=== PATIENT | female | born 1995 | race African-American/Black ===

== ENCOUNTER 2020-06-18 19:57 | Emergency (ER) | payer OTHER, MEDICAID ==
[~2020-06-18] VITALS: Ht 157.5 cm; Wt 113.6 kg
[2020-06-18] MEDS ORDERED: LAMO25TA4 (20:03)
[2020-06-18] MEDS ORDERED: BUSP10TA (20:03)
[2020-06-18] MEDS ORDERED: HYDR50TA70 (20:03)
[2020-06-18] MEDS ORDERED: TIZA4TAB4 (20:03)
[2020-06-18] MEDS ORDERED: NEOSPORIN OINT 0.9 GM PKT TOP ONE (22:00)
[2020-06-18] MEDS ORDERED: ACETAMINOPHEN 500 MG TAB PO ONE (22:00)
--- NOTE | 2020-06-18 22:43 | REPVR ---
PROCEDURE INFORMATION: Exam: CT Head Without Contrast Exam date and time: 06/18/2020 10:22 PM Age: 25 years old Clinical indication: Injury or trauma; Fall; Blunt trauma (contusions or hematomas); Additional info: Soft hematoma, very tender forehead TECHNIQUE: Imaging protocol: Computed tomography of the head without contrast. Radiation optimization: All CT scans at this facility use at least one of these dose optimization techniques: automated exposure control; mA and/or kV adjustment per patient size (includes targeted exams where dose is matched to clinical indication); or iterative reconstruction. COMPARISON: No relevant prior studies available. FINDINGS: Brain: Normal. No hemorrhage. Unremarkable white matter. No mass effect. Cerebral ventricles: No ventriculomegaly. Bones/joints: Unremarkable. No acute fracture. Paranasal sinuses: Visualized sinuses are unremarkable. No fluid levels. Mastoid air cells: Visualized mastoid air cells are well aerated. Soft tissues: There is right frontal scalp soft tissue injury including hematoma. IMPRESSION: No acute intracranial abnormality. Electronically signed by: Jackson Arellano On 06/18/2020 22:43:44 PM
[2020-06-18] MEDS ORDERED: NAPR-837 PO (22:50)
[2020-06-18 23:33] VITALS: BP 130/69
== END 2020-06-18 23:34 | disposition home or self-care (01) ==
LOC: M ED 19:57
DX: S00.83XA Contusion of other part of head, initial encounter (principal); W01.118A Fall on same level from slipping, tripping and stumbling with subsequent striking against other sharp object, initial encounter; Y92.098 Other place in other non-institutional residence as the place of occurrence of the external cause; Y93.89 Activity, other specified; Y99.8 Other external cause status; J45.909 Unspecified asthma, uncomplicated; J44.9 Chronic obstructive pulmonary disease, unspecified; R56.9 Unspecified convulsions; M79.7 Fibromyalgia; Z79.899 Other long term (current) drug therapy

== ENCOUNTER 2020-09-22 11:09 | Emergency (ER) | payer MEDICAID, OTHER ==
[~2020-09-22] VITALS: Ht 160 cm; Wt 106.5 kg
[~2020-09-22 11:09] MED LIST: BUSP10TA; HYDR50TA70; LAMO25TA4; NAPR-837 PO; TIZA4TAB4
[2020-09-22] MEDS ORDERED: BUSP15TA47 (11:21)
[2020-09-22] MEDS ORDERED: LAMO100T3 (11:21)
[2020-09-22] MEDS ORDERED: ASMA110A INH (11:21)
[2020-09-22] MEDS ORDERED: ONDA-83 (11:22)
[2020-09-22] MEDS ORDERED: dexameTHASONE 4 MG/ML 1ML VIAL (J1100 PER 1MG) PO ONE (12:30)
[2020-09-22] MEDS ORDERED: ONDANSETRON 4 MG ORAL DISINTEGRATING TAB PO ONE (12:30)
[2020-09-22] MEDS ORDERED: ACETAMINOPHEN 500 MG TAB PO ONE (12:30)
[2020-09-22 13:06] LABS: RSV AMPLIFICATION NEGATIVE (NEGATIVE)
[2020-09-22 13:36] VITALS: BP 126/72
[2020-09-22] MEDS ORDERED: TIZA4CAP PO (14:07)
== END 2020-09-22 13:37 | disposition home or self-care (01) ==
LOC: M ED 11:09
DX: B34.9 Viral infection, unspecified (principal); R51.9 Headache, unspecified; J45.909 Unspecified asthma, uncomplicated; M79.7 Fibromyalgia; G47.30 Sleep apnea, unspecified; F41.9 Anxiety disorder, unspecified; F32.9 Major depressive disorder, single episode, unspecified; F17.200 Nicotine dependence, unspecified, uncomplicated; Z79.899 Other long term (current) drug therapy
CPT/HCPCS: 87631; 87880; 99284; J1100; Q0162

== ENCOUNTER 2020-10-28 09:30 | Emergency (ER) | payer OTHER, MEDICAID ==
[~2020-10-28] VITALS: Ht 160 cm; Wt 109.1 kg
[~2020-10-28 09:30] MED LIST changes: +ASMA110A INH; +BUSP15TA47; +LAMO100T3; +ONDA-83; +TIZA4CAP PO
[2020-10-28] MEDS ORDERED: EFFE37.5 PO (09:46)
[2020-10-28 11:27] LABS: BASO # 0.1 10^3/uL (0.0-0.2); BASO % 0.6 % (0.0-1.0); EOS # 0.3 10^3/uL (0.0-0.5); EOS % 3.6 % (0.0-3.0); HEMOGLOBIN 13.5 g/dl (12.0-15.5); LYMPH # 2.9 10^3/uL (1.5-5.0); LYMPH % 31.2 % (24.0-44.0); MEAN CORPUSCULAR HEMOGLOBIN 28.5 pg (27.0-33.0); MEAN CORPUSCULAR HGB CONC 32.1 g/dl (32.0-36.5); MEAN CORPUSCULAR VOLUME 88.6 fl (80.0-96.0); MONO # 1.1 10^3/uL (0.0-0.8); MONO % 11.5 % (2.0-8.0); NEUTROPHILS # 4.9 10^3/uL (1.5-8.5); NEUTROPHILS % 52.8 % (36.0-66.0); PLATELET COUNT, AUTOMATED 341 10^3/uL (150-450); RED BLOOD COUNT 4.74 10^6/uL (4.00-5.40); WHITE BLOOD COUNT 9.4 10^3/uL (4.0-10.0)
[2020-10-28 11:33] LABS: VENOUS BASE EXCESS 0.3 (-2.0-2.0); VENOUS HCO3 26.6 MEQ/L (23.0-27.0); VENOUS O2 SATURATION 89.8 % (60.0-80.0); VENOUS PARTIAL PRESSURE CO2 49.8 mmHg (38.0-50.0); VENOUS PH 7.346 UNITS (7.330-7.430); VENOUS STANDARD HCO3 24.5 MEQ/L; VENOUS TOTAL CO2 28.2 MEQ/L (24.0-28.0)
--- NOTE | 2020-10-28 11:46 | REP ---
INDICATION: DYSPNEA/COUGH. COMPARISON: No comparison chest x-ray TECHNIQUE: Portable upright AP chest radiograph. FINDINGS: The lungs are well inflated and free of infiltrate. Pleural angles are sharp. Heart size is normal. Pulmonary vasculature is not increased. IMPRESSION: No active disease. <Electronically signed by Benson Rothman > 10/28/20 0281
[2020-10-28 12:05] LABS: ALBUMIN 3.4 GM/DL (3.2-5.2); ALT/SGPT 16 U/L (12-78); BILIRUBIN,DIRECT < 0.1 MG/DL (0.0-0.2); BILIRUBIN,TOTAL 0.2 MG/DL (0.2-1.0); CK-MB VALUE MASS < 1.0 NG/ML (<3.6); CPK CREATINE PHOSPHOKINASE 139 U/L (26-192); MB/CK RELATIVE INDEX 0.72 (< OR =4); NT-PRO BNP 48 PG/ML (<125); THYROXINE (T4) 9.1 UG/DL (4.5-12.0); TROPONIN I < 0.02 NG/ML (< 0.10)
[2020-10-28] MEDS ORDERED: ISOVUE-370 76% 100ML VIAL As Ordered ONE (13:05)
[2020-10-28 13:32] VITALS: BP 124/81
--- NOTE | 2020-10-28 14:03 | REP ---
INDICATION: fatigue/cough COMPARISON: None. TECHNIQUE: CT angiography chest after the intravenous administration of 75 cc Isovue 370. Attention pulmonary arteries FINDINGS: There is excellent visualization of the pulmonary arterial vasculature. There are no focal filling defects present that would be considered consistent with acute pulmonary emboli. Limited evaluation of the thoracic aorta shows no abnormalities. There is no mediastinal or hilar adenopathy. There is a small amount of soft tissue density in the anterior mediastinum splaying the anterior junction line likely residual thymic tissue. There are multiple borderline and mildly enlarged left axillary lymph nodes with normal appearing much smaller right axillary lymph nodes. The imaged upper abdomen and imaged osseous structures are within normal limits. Evaluation of the lung hess shows no abnormal nodules, masses, or opacities. IMPRESSION: 1. There is no evidence of a pulmonary embolism. 2. Left axillary lymph nodes as described above. Etiology uncertain. Possible postinflammatory change. Follow-up is suggested. 3. Anterior mediastinal soft tissue likely residual thymic tissue. Consider follow-up. <Electronically signed by Dipesh Bro > 10/28/20 2169
[2020-10-28 15:01] LABS: HEPATITIS B SURFACE ANTIGEN NEGATIVE (NEGATIVE)
[2020-10-28 15:16] LABS: MONO REFLEX EBV VCA IgM NEGATIVE (NEGATIVE)
[2020-10-28 15:29] LABS: HEPATITIS B CORE ANTIBODY IGM NEGATIVE (NEGATIVE)
[2020-10-28 15:31] LABS: HEPATITIS A ANTIBODY IGM NEGATIVE (NEGATIVE)
--- NOTE | 2020-10-28 16:56 | ED PDOC ---
Post-Departure Follow-Up cta chest fafxed to saira [facility]anley for fu Ki Valerio MD October 28, 2020 16:56
--- NOTE | 2020-10-28 20:47 | ECGEPIP ---
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
== END 2020-10-28 14:35 | disposition home or self-care (01) ==
LOC: M ED 09:30
DX: E32.0 Persistent hyperplasia of thymus (principal); R59.9 Enlarged lymph nodes, unspecified; R53.1 Weakness; E66.9 Obesity, unspecified; J45.909 Unspecified asthma, uncomplicated; M79.7 Fibromyalgia; F17.200 Nicotine dependence, unspecified, uncomplicated; Z79.899 Other long term (current) drug therapy
CPT/HCPCS: 36415; 71045; 71275; 80047; 80076; 82550; 82553; 82803; 83880; 84436; 84443; 84702; 85025; 85379; 86308; 86665; 86705; 86709; 86803; 87040; 87340; 87798; 93005; 99284; Q9967

== ENCOUNTER 2020-10-31 17:57 | Emergency (ER) | payer MEDICAID, OTHER ==
[~2020-10-31] VITALS: Ht 160 cm; Wt 110.3 kg
[~2020-10-31 17:57] MED LIST changes: +EFFE37.5 PO
[2020-10-31] MEDS ORDERED: ACETAMINOPHEN 500 MG TAB PO ONE (20:35)
[2020-10-31] MEDS ORDERED: NS 1,000 ML IV ONE (20:35)
[2020-10-31 21:09] LABS: BASO # 0.1 10^3/uL (0.0-0.2); BASO % 0.6 % (0.0-1.0); EOS # 0.5 10^3/uL (0.0-0.5); EOS % 3.8 % (0.0-3.0); HEMATOCRIT 43.4 % (36.0-47.0); HEMOGLOBIN 13.9 g/dl (12.0-15.5); LYMPH # 3.9 10^3/uL (1.5-5.0); LYMPH % 33.3 % (24.0-44.0); MEAN CORPUSCULAR HEMOGLOBIN 28.3 pg (27.0-33.0); MEAN CORPUSCULAR VOLUME 88.4 fl (80.0-96.0); MONO % 8.3 % (2.0-8.0); NEUTROPHILS # 6.3 10^3/uL (1.5-8.5); NEUTROPHILS % 53.7 % (36.0-66.0); PLATELET COUNT, AUTOMATED 343 10^3/uL (150-450); RED BLOOD COUNT 4.91 10^6/uL (4.00-5.40); WHITE BLOOD COUNT 11.8 10^3/uL (4.0-10.0)
--- NOTE | 2020-10-31 21:26 | REPVR ---
PROCEDURE INFORMATION: Exam: CT Head Without Contrast Exam date and time: 10/31/2020 8:34 PM Age: 25 years old Clinical indication: Pain; Headache; Other: Severe; Additional info: Severe headache 1 week, upper ext weakness TECHNIQUE: Imaging protocol: Computed tomography of the head without contrast. Radiation optimization: All CT scans at this facility use at least one of these dose optimization techniques: automated exposure control; mA and/or kV adjustment per patient size (includes targeted exams where dose is matched to clinical indication); or iterative reconstruction. COMPARISON: CT Head without contrast 06/18/2020 10:14 PM FINDINGS: Brain: Unremarkable. No hemorrhage. Unremarkable white matter. No mass effect. Cerebral ventricles: No ventriculomegaly. Bones/joints: Unremarkable. No acute fracture. Paranasal sinuses: Visualized sinuses are unremarkable. No fluid levels. Mastoid air cells: Visualized mastoid air cells are well aerated. Soft tissues: Unremarkable. IMPRESSION: No acute intracranial abnormality. Electronically signed by: Chapo Ramos On 10/31/2020 21:26:16 PM
[2020-10-31 21:34] LABS: ERYTHROCYTE SEDIMENTATION RATE 10 mm/hr (0-20)
[2020-10-31 21:46] LABS: ALBUMIN 3.5 GM/DL (3.2-5.2); ALT/SGPT 17 U/L (12-78); BILIRUBIN,DIRECT < 0.1 MG/DL (0.0-0.2); BILIRUBIN,TOTAL 0.2 MG/DL (0.2-1.0); BLOOD UREA NITROGEN 9 MG/DL (7-18); C REACTIVE PROTEIN QUANTITATIV 0.35 MG/DL (0.00-0.30); CALCIUM LEVEL 8.2 MG/DL (8.5-10.1); CARBON DIOXIDE LEVEL 28 MEQ/L (21-32); CHLORIDE LEVEL 108 MEQ/L (98-107); CK-MB VALUE MASS < 1.0 NG/ML (<3.6); CPK CREATINE PHOSPHOKINASE 141 U/L (26-192); CREATININE FOR GFR 0.75 MG/DL (0.55-1.30); GLOMERULAR FILTRATION RATE > 60.0 (>60); GLUCOSE, FASTING 73 MG/DL (70-100); MB/CK RELATIVE INDEX 0.71 (< OR =4); POTASSIUM SERUM 4.4 MEQ/L (3.5-5.1); SODIUM LEVEL 139 MEQ/L (136-145); TOTAL PROTEIN 7.5 GM/DL (6.4-8.2); TROPONIN I < 0.02 NG/ML (< 0.10)
[2020-11-01 01:16] VITALS: BP 115/80
--- NOTE | 2020-11-01 05:34 | ECGEPIP ---
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
== END 2020-11-01 01:22 | disposition home or self-care (01) ==
LOC: M ED 17:57
DX: R53.83 Other fatigue (principal)

== ENCOUNTER → 2020-11-13 | Outpatient (REF) | payer OTHER, MEDICAID | LOC: M SFHCPLAZ 15:08 | PROVIDERS: ATTEND Physician Assistant | DX: M62.81 Muscle weakness (generalized) (principal) ==

== ENCOUNTER → 2020-11-18 | Outpatient (CLI) | payer OTHER ==
--- NOTE | 2020-11-18 15:59 | REPVR ---
PROCEDURE INFORMATION: Exam: MR Head Without and With Contrast Exam date and time: 11/18/2020 3:39 PM Age: 25 years old Clinical indication: Weakness, extremity; Patient HX: Bilateral ue & le weakness, as well as family HX ms; Additional info: Fatigue muscle weakness pain TECHNIQUE: Imaging protocol: MR of the head without and with intravenous contrast. Contrast material: PROHANCE; Contrast volume: 20 ml; Contrast route: INTRAVENOUS (IV); COMPARISON: CT Head without contrast 10/31/2020 8:34 PM FINDINGS: Brain: Examination of the brain demonstrates normal morphology and signal intensity.No acute infarction, masses, midline shift or acute hemorrhage is seen. No acute intracranial abnormality is identified.There is no abnormal diffusion weighted signal intensity to suggest an acute ischemic event.The cortical munoz / white matter interfaces are preserved throughout the brain.Intracranial flow voids are well maintained. Cerebral ventricles: The ventricular system is not dilated and is appropriate for the patient's age. Bones/joints: Unremarkable. Paranasal sinuses: Normal as visualized. No acute sinusitis. Mastoid air cells: Normal as visualized. No mastoid effusion. Orbital cavity: Unremarkable. Soft tissues: Unremarkable. IMPRESSION: 1. No acute infarction, masses or hemorrhage is seen. No acute intracranial abnormality is identified. No abnormal contrast enhancement is seen. 2. There has been no adverse interval change since the previous study. Electronically signed by: Trey Gaspar On 11/18/2020 15:59:15 PM
== END ==
LOC: M PLARAD 14:00
PROVIDERS: ATTEND Physician Assistant
DX: R53.83 Other fatigue (principal); R52 Pain, unspecified

== ENCOUNTER → 2020-11-28 | Outpatient (CLI) | payer OTHER ==
--- NOTE | 2020-11-28 16:41 | REPVR ---
PROCEDURE INFORMATION: Exam: MR Thoracic Spine Without and With Contrast Exam date and time: 11/28/2020 2:59 PM Age: 25 years old Clinical indication: Patient HX: Muscle weakness TECHNIQUE: Imaging protocol: Multiplanar magnetic resonance images of the thoracic spine without and with contrast. Contrast material: PROHANCE; Contrast volume: 20 ml; Contrast route: INTRAVENOUS (IV); COMPARISON: MRI-C SPINE W/O FOLL BY WITH 11/28/2020 1:17 PM FINDINGS: Vertebrae: Unremarkable. Spinal cord: Normal signal. No cord compression. Discs/Spinal canal/Neural foramina: No significant disc disease. No significant spinal canal stenosis. Soft tissues: Unremarkable. IMPRESSION: No significant abnormality of the thoracic spine. Electronically signed by: Clayton Yusuf On 11/28/2020 16:41:05 PM
--- NOTE | 2020-11-28 16:49 | REPVR ---
PROCEDURE INFORMATION: Exam: MR Cervical Spine Without and With Contrast Exam date and time: 11/28/2020 2:59 PM Age: 25 years old Clinical indication: Patient HX: Muscle weakness TECHNIQUE: Imaging protocol: Multiplanar magnetic resonance images of the cervical spine without and with contrast. Contrast material: PROHANCE; Contrast volume: 20 ml; Contrast route: INTRAVENOUS (IV); COMPARISON: MRI-Brain W/O FOLL BY WITH 11/18/2020 2:38 PM FINDINGS: Vertebrae: Unremarkable. Spinal cord: Normal signal. No cord compression. No enhancing lesions were identified after the administration of contrast. Discs/Spinal canal/Neural foramina: No significant disc disease. No significant spinal stenosis. Vasculature: Expected flow voids in the vertebral arteries. Soft tissues: Unremarkable IMPRESSION: Unremarkable cervical spine. Electronically signed by: Clayton Yusuf On 11/28/2020 16:49:17 PM
== END ==
LOC: M PLARAD 13:07
PROVIDERS: ATTEND Physician Assistant
DX: M62.81 Muscle weakness (generalized) (principal)

== ENCOUNTER → 2021-01-27 | Outpatient (CLI) | payer OTHER ==
[2021-01-27 17:53] LABS: HEMOGLOBIN A1c 5.3 %
[2021-01-27 18:06] LABS: CPK CREATINE PHOSPHOKINASE 174 U/L (26-192); RHEUMATOID FACTOR QUANT < 10.0 IU/ML (<15.0)
[2021-01-27 18:14] LABS: TOTAL 25(OH) VITAMIN D 12.1 NG/ML (30.0-100.0); VITAMIN B12 LEVEL 842 PG/ML (247-911)
[2021-01-27 18:15] LABS: FOLATE > 24.0 NG/ML (>5.4)
== END ==
LOC: M PLALAB 14:26
PROVIDERS: ATTEND Psychiatry & Neurology Neurology
DX: G62.9 Polyneuropathy, unspecified (principal)

== ENCOUNTER 2021-03-22 02:19 | Emergency (ER) | payer OTHER ==
[~2021-03-22] VITALS: Ht 160 cm; Wt 116.4 kg
[2021-03-22 02:20] VITALS: BP 140/81
[2021-03-22] MEDS ORDERED: ARIP1TAB6 (14:19)
[2021-03-22] MEDS ORDERED: BUSP10TA (14:19)
[2021-03-22] MEDS ORDERED: MELO7.5T35 (14:19)
[2021-03-22] MEDS ORDERED: TIZA2TA PO (15:00)
--- OUTSIDE RECORDS SUMMARY | 2021-03-25 13:20 | CCD ---
Author Author MontielPrerna Organization Unknown Address [address] [address] Phone Care Team Providers Care Supply Chain Engineer Name Role Phone TianaLaliTrey PCP Allergies, Adverse Reactions, Alerts Concept Allergy Name Reaction Severity Onset Date Status Documentation Date Phone Number Npid Taxonomy Code Taxonomy Desc Author Last Name Author Mi rst Name Concept Type 692 nickel Unknown Active 02/26/2020 [id number] Nurse Practitioner Tiana Yang FDGA 583 raspberry Unknown Active 02/26/2020 [id number] Nurse Practitioner Tiana Yang [facility] [id number] Latex, Natural Rubber Unknown Active 02/26/2020 [id number] Nurse Practitioner Tiana Yang [facility] Problem List Concept Problem Description Status Start Date Created Date Resolv ed Date Snomed Code F33.1 Major Depressive Disorder, Recurrent episode, Moderate Active 01/01/2021 F41.1 Generalized Anxiety Disorder Active 01/01/2021 F43.9 Unspecified Trauma- and Stressor-Related Disorder Active 01/01/2021 Z72.0 Tobacco Use Disorder, Mild Active 01/01/2021 Medications Rx Norm Medication Route Route Concept Start Date Stop Date Dosage Jag quency Duration Formula Strength Dosage Form Dosage Form Code Dosage Description Medication Id Account Npid Author First Name Author Last Name Taxonomy Code Taxonomy Desc Phone Number [id number] hydroxyzine HCl 08/22/2020 50 mg tablet as directed [id number] [id number] Trey Montiel [id number] Nurse Practitioner [id number] [id number] buspirone by mouth [id number] 08/22/2020 twice a day 30 15 mg tab let [id number] Trey Montiel [id number] Nurse Practitioner [phone] [id number] lamotrigine by mouth [id number] 08/22/2020 once a day 30 100 mg t ablet 74488 [phone] [id number] Trey Tiana [id number] Nurse Practitioner [id number] Social History Social History Element Description Concept Effective Date Smoking Status Unknown if ever smoked [id number] Immunizations No Data in Section Vital Signs No Data in Section Procedures Date Concept Id Description Targeted Site Concept Targeted Site Concept Type 01/01/2021 46642-85 [facility] Telemed E/M Lvl 3--Est pt CPT Patient has no history of implantable de vices Encounters Encounter Start Date End Date Encounter Type Description Diagnosis Di agnosis Desc Location Author First Name Author Last Name Npid Taxonomy Cod e Taxonomy Desc Phone Number Location Addr1 Location Addr2 Location [facility] Location Sta te Location [facility] [id number] 01/01/2021 01/01/2021 51135-43 [facility] Telemed E/M Lvl 3--Est p t F33.1 Major depressive disorder, recurrent, moderate [facility] Tiana Yang [id number] Nurse Practitioner [phone] [address] [address] Plan of Treatment No Data in Section Lab Results No Data in Section Instructions No Data in Section Functional Cognitive Status No Data in Section Insurance Providers Insurance Id Policy Effective Date Policy Thru Date [place] [facility] [place] jones [id number] 2020 [place] - MEDICA ID MANAGED
--- OUTSIDE RECORDS SUMMARY | 2021-03-25 13:20 | CCD | Continuity of Care Document ---
Author Prerna Montesinos M.D. Organization Unknown Address [address] [place] [address] Phone [phone] Care Team Providers Care Provider Education Specialist Name Role Phone DouglasSuze PA-C AUTM [phone] Problems Active Problems Provider Date Syncope and collapse Maxwell Giraldo M.D. Onset: 12/02/2020 Malaise and fatigue Maxwell Giraldo M.D. Onset: 12/02/2020 Skin sensation disturbance Maxwell Giraldo M.D. Onset: 2020 Migraine without aura, not refractory Maxwell Giraldo M.D. On set: 12/02/2020 Neck pain Maxwell Giraldo M.D. Onset: 12/02/2020 Low back pain Maxwell Giraldo M.D. Onset: 12/02/2020 Isolated seizures Maxwell Giraldo M.D. Onset: 12/02/2020 Backache Maxwell Giraldo M.D. Onset: 01/27/2021 Carpal tunnel syndrome of left wrist Maxwell Giraldo M.D. Ons et: 01/27/2021 Social History Type Date Description Comments Sex Unknown Allergies, Adverse Reactions, Alerts Description No Information Available Medications Active Medications SIG Qnty Indications Ordering Provide r Date Tizanidine HCL 4mg Tablets take half or 1 tablets by mouth twice a day as needed for neck & back pain 60tabs Maxwell Giraldo M.D. 01/27/2021 Meloxicam 7.5mg Tablets 1 by mouth everyday as needed for neck & back pain 30tabs Maxwell silva M.D. 01/20/2021 Immunizations Description No Information Available Vital Signs Description No Information Available Results Test Acquired Date Facility Test Result H/L Range Note Hemoglobin A1c 01/27/2021 [facility] Hemoglobin A1c 5.3 % Normal 1 Estimated Average Glucose 105 mg/dL Normal 60-110 Laboratory test finding 01/27/2021 [facility] CPK Creatine Phosphokinase 174 U/L Normal 26-192 Vitamin B12 Level 842 pg/mL Normal 247-911 2 Folate > 24.0 NG/ML Normal >5.4 3 Total 25(Oh) Vitamin D 12.1 NG/ML Low 30.0-100.0 Rheumatoid Factor Quant < 10.0 IU/mL Normal <15.0 Erythrocyte Sedimentation Rate 19 mm/hr Normal 0-20 1 REFERENCE RANGES: <=5.6% NORMAL 5.7-6.4% SUGGESTS IMPAIRED GLUCOSE META BOLISM/PREDIABETIC >= 6.5% ABNORMAL 2 VITAMIN B12 NORMAL RANGE NORMAL 247 - 911 PG/ML INDETERMINATE 211 - 246 PG/ML DEFICIENT LESS THAN 211 PG/ML 3 FOLATE NORMAL RANGE NORMAL GREATER THAN 5.4 NG/ML INDETERMINATE 3.4-5.4 NG/ML DEFICIENT LESS THAN 3.4 NG/ML Procedures Date Code Description Status 01/27/2021 11606 Office/Outpatient Established Mo d MDM 30-39 Min Completed 01/23/2021 62728 Sympathetic Skin Responses Compl eted 01/23/2021 70560 Test Autonomic Nervous System, C ardiovagal Innervation Completed 01/12/2021 66224 Nerve Conduction 11-12 Studies C ompleted 01/12/2021 18920 Needle Electromyography Complete , Five Or More Muscles Studied Completed 01/12/2021 03480 Needle Electromyography Complete , Five Or More Muscles Studied Completed 01/05/2021 43694 Nerve Conduction 9-10 Studies Co mpleted 01/05/2021 53488 Needle Electromyography Complete , Five Or More Muscles Studied Completed 01/05/2021 52525 Needle Electromyography Complete , Five Or More Muscles Studied Completed 12/02/2020 59447 Office/Outpatient New High MDM 6 0-74 Minutes Completed Medical Devices Description No Information Available Encounters Type Date Location Provider Dx Diagnosis Office Visit 01/27/2021 1:30p [place] R55 Syncope and collapse M54.89 Other dorsalgia R20.2 Paresthesia of skin M54.2 Cervicalgia G56.02 Carpal tunnel syndrome, left upper limb G40.89 Other seizures R53.1 Weakness G43.009 Migraine w/o aura, not intra ctable, w/o status migrainosus R20.0 Anesthesia of skin Office Visit 12/02/2020 8:30a Main office - [place] Nikole Ross R55 Syncope and collapse G40.89 Other seizures R53.1 Weakness R20.0 Anesthesia of skin G43.009 Migraine w/o aura, not intra ctable, w/o status migrainosus M54.2 Cervicalgia M54.5 Low back pain Assessments Date Code Description Provider 01/27/2021 R55 Syncope and collapse Maxwell Giraldo M.D. 01/27/2021 M54.89 Other dorsalgia Maxwell Giraldo M.D. 01/27/2021 R20.2 Paresthesia of skin Maxwell Giraldo M.D. 01/27/2021 M54.2 Cervicalgia Maxwell Giraldo M.D. 01/27/2021 G56.02 Carpal tunnel syndrome, left upp er limb Maxwell Giraldo M.D. 01/27/2021 G40.89 Other seizures Maxwell Giraldo M.D. 01/27/2021 R53.1 Weakness Maxwell Giraldo M.D. 01/27/2021 G43.009 Migraine without aur a, not intractable, without status migrainosus Maxwell Giraldo M.D. 01/27/2021 R20.0 Anesthesia of skin Masoud Ross 01/23/2021 R55 Syncope and collapse Maxwell Giraldo M.D. 01/23/2021 R55 Syncope and collapse Ans/VS 01/12/2021 M54.89 Other dorsalgia Maxwell Giraldo M.D. 01/12/2021 R20.2 Paresthesia of skin Maxwell Giraldo M.D. 01/12/2021 M62.9 Disorder of muscle, unspecified Maxwell Giraldo M.D. 01/05/2021 M54.2 Cervicalgia Maxwell Giraldo M.D. 01/05/2021 M62.9 Disorder of muscle, unspecified Maxwell Giraldo M.D. 01/05/2021 G56.02 Carpal tunnel syndrome, left upp er limb Maxwell Giraldo M.D. 12/02/2020 R55 Syncope and collapse Maxwell Giraldo M.D. 12/02/2020 G40.89 Other seizures Maxwell Giraldo M.D. 12/02/2020 R53.1 Weakness Maxwell Giraldo M.D. 12/02/2020 R20.0 Anesthesia of skin Masoud Ross 12/02/2020 G43.009 Migraine without aur a, not intractable, without status migrainosus Maxwell Giraldo M.D. 12/02/2020 M54.2 Cervicalgia Maxwell Giraldo M.D. 12/02/2020 M54.5 Low back pain Maxwell Giraldo M.D. Plan of Treatment Future Appointment(s):* 04/29/2021 11:15 am - Maxwell Giraldo M.D. at [facility] * 02/18/2021 2:30 pm - EEG at [facility] Functional Status Description No Information Available Mental Status Description No Information Available Referrals Description No Information Available
--- OUTSIDE RECORDS SUMMARY | 2021-03-25 13:20 | CCD | Continuity of Care Document ---
Author Author Prerna PERRY M.D. Organization Unknown Address [address] [place] [address] Phone [phone] Care Team Providers Care Potato Pancake Frier Name Role Phone Douglas, Suze ALVARADO AUTM [phone] Problems Active Problems Provider Date Syncope and collapse Maxwell Perry M.D. Onset: 12/02/2020 Malaise and fatigue Maxwell Perry M.D. Onset: 12/02/2020 Skin sensation disturbance Maxwell Perry M.D. Onset: 2020 Migraine without aura, not refractory Maxwell Perry M.D. On set: 12/02/2020 Neck pain Maxwell Perry M.D. Onset: 12/02/2020 Low back pain Maxwell Perry M.D. Onset: 12/02/2020 Isolated seizures Maxwell Perry M.D. Onset: 12/02/2020 Social History Type Date Description Comments Sex Unknown Allergies, Adverse Reactions, Alerts Description No Information Available Medications Description No Information Available Immunizations Description No Information Available Vital Signs Description No Information Available Results Description No Information Available Procedures Date Code Description Status 01/05/2021 89900 Nerve Conduction 9-10 Studies Co mpleted 01/05/2021 26590 Needle Electromyography Complete , Five Or More Muscles Studied Completed 01/05/2021 97528 Needle Electromyography Complete , Five Or More Muscles Studied Completed 12/02/2020 06054 Office/Outpatient [facility] 6 0-74 Minutes Completed Medical Devices Description No Information Available Encounters Type Date Location Provider Dx Diagnosis Office Visit 12/02/2020 8:30a Main office - [place] Nikole Ross R55 Syncope and collapse G40.89 Other seizures R53.1 Weakness R20.0 Anesthesia of skin G43.009 Migraine w/o aura, not intra ctable, w/o status migrainosus M54.2 Cervicalgia M54.5 Low back pain Assessments Date Code Description Provider 01/05/2021 M54.2 Cervicalgia Maxwell Perry M.D. 01/05/2021 M62.9 Disorder of muscle, unspecified Maxwell Perry M.D. 01/05/2021 G56.02 Carpal tunnel syndrome, left upp er limb Maxwell Perry M.D. 12/02/2020 R55 Syncope and collapse Maxwell Perry M.D. 12/02/2020 G40.89 Other seizures Maxwell Perry M.D. 12/02/2020 R53.1 Weakness Maxwell Perry M.D. 12/02/2020 R20.0 Anesthesia of skin Masoud Ross 12/02/2020 G43.009 Migraine without aur a, not intractable, without status migrainosus Maxwell Perry M.D. 12/02/2020 M54.2 Cervicalgia Maxwell Perry M.D. 12/02/2020 M54.5 Low back pain Maxwell Perry M.D. Plan of Treatment Future Appointment(s):* 01/12/2021 8:20 am - Maxwell Perry M.D. at [facility] * 01/27/2021 1:30 pm - Maxwell Perry M.D. at [facility] * 01/23/2021 10:00 am - Ans/VS at [facility] * 01/23/2021 8:15 am - EEG at [facility] Functional Status Description No Information Available Mental Status Description No Information Available Referrals Description No Information Available
--- OUTSIDE RECORDS SUMMARY | 2021-03-25 13:20 | CCD | Continuity of Care Document ---
Author Prerna Montesinos M.D. Organization Unknown Address [address] [place] [address] Phone [phone] Care Team Providers Care Grader Meat Name Role Phone DouglasAlbinaoe ALVARADO AUTM [phone] Problems Active Problems Provider Date Syncope and collapse Maxwell Giraldo M.D. Onset: 12/02/2020 Malaise and fatigue Maxwell Giraldo M.D. Onset: 12/02/2020 Skin sensation disturbance Maxwell Giraldo M.D. Onset: 2020 Migraine without aura, not refractory Maxwell Giraldo M.D. On set: 12/02/2020 Neck pain Maxwell Giraldo M.D. Onset: 12/02/2020 Low back pain Maxwell Giraldo M.D. Onset: 12/02/2020 Isolated seizures Maxwell Giraldo M.D. Onset: 12/02/2020 Social History Type Date Description Comments Sex Unknown Allergies, Adverse Reactions, Alerts Description No Information Available Medications Active Medications SIG Qnty Indications Ordering Provide r Date Meloxicam 7.5mg Tablets 1 by mouth everyday as needed for neck & back pain 30tabs Maxwell silva M.D. 01/20/2021 Immunizations Description No Information Available Vital Signs Description No Information Available Results Description No Information Available Procedures Date Code Description Status 01/23/2021 33818 Sympathetic Skin Responses Compl eted 01/23/2021 42542 Test Autonomic Nervous System, C ardiovagal Innervation Completed 01/12/2021 87210 Nerve Conduction 11-12 Studies C ompleted 01/12/2021 62904 Needle Electromyography Complete , Five Or More Muscles Studied Completed 01/12/2021 78688 Needle Electromyography Complete , Five Or More Muscles Studied Completed 01/05/2021 50988 Nerve Conduction 9-10 Studies Co mpleted 01/05/2021 44556 Needle Electromyography Complete , Five Or More Muscles Studied Completed 01/05/2021 04953 Needle Electromyography Complete , Five Or More Muscles Studied Completed 12/02/2020 27129 Office/Outpatient New High MDM 6 0-74 Minutes Completed Medical Devices Description No Information Available Encounters Type Date Location Provider Dx Diagnosis Office Visit 12/02/2020 8:30a Main office - [place] Nikole Ross R55 Syncope and collapse G40.89 Other seizures R53.1 Weakness R20.0 Anesthesia of skin G43.009 Migraine w/o aura, not intra ctable, w/o status migrainosus M54.2 Cervicalgia M54.5 Low back pain Assessments Date Code Description Provider 01/23/2021 R55 Syncope and collapse Ans/VS 01/12/2021 M54.89 Other dorsalgia Maxwell Giraldo M.D. 01/12/2021 R20.2 Paresthesia of skin Maxwell Giraldo M.D. 01/12/2021 M62.9 Disorder of muscle, unspecified Maxwell Giraldo M.D. 01/05/2021 M54.2 Cervicalgia aMxwell Giraldo M.D. 01/05/2021 M62.9 Disorder of muscle, [...] Giraldo M.D. Plan of Treatment Future Appointment(s):* 02/18/2021 2:30 pm - EEG at [facility] * 01/27/2021 1:30 pm - Maxwell Giraldo M.D. at [facility] Functional Status Description No Information Available Mental Status Description No Information Available Referrals Description No Information Available
--- OUTSIDE RECORDS SUMMARY | 2021-03-25 13:20 | CCD | Continuity of Care Document ---
Author Author Prerna GIRALDO M.D. Organization Unknown Address [address] [place] [address] Phone [phone] Care Team Providers Care Body Work Auto Trimmer Name Role Phone DouglasSuze PA-C AUTM [phone] Problems Active Problems Provider Date Syncope and [...] Information Available Procedures Date Code Description Status 01/27/2021 52171 Office/Outpatient Established Mo d MDM 30-39 Min Completed 01/23/2021 31368 Sympathetic Skin Responses Compl eted 01/23/2021 80148 Test Autonomic Nervous System, C ardiovagal Innervation Completed 01/12/2021 45426 Nerve Conduction 11-12 Studies C ompleted 01/12/2021 35709 Needle Electromyography Complete , Five Or More Muscles Studied Completed 01/12/2021 80438 Needle Electromyography Complete , Five Or More Muscles Studied Completed 01/05/2021 83046 Nerve Conduction 9-10 Studies Co mpleted 01/05/2021 04237 Needle Electromyography Complete , Five Or More Muscles Studied Completed 01/05/2021 64129 Needle Electromyography Complete , Five Or More Muscles Studied Completed 12/02/2020 91690 Office/Outpatient New High MDM 6 0-74 Minutes Completed Medical Devices Description No Information Available Encounters Type Date Location Provider Dx Diagnosis Office Visit 01/27/2021 1:30p Main office - [place] Nikole Ross R55 Syncope and collapse M54.89 Other dorsalgia R20.2 Paresthesia of skin M54.2 Cervicalgia G56.02 Carpal tunnel syndrome, left upper limb G40.89 Other seizures R53.1 Weakness G43.009 Migraine w/o aura, not intra ctable, w/o status migrainosus R20.0 Anesthesia of skin Office Visit 12/02/2020 8:30a [place] R55 Syncope and collapse G40.89 Other seizures [...] Carpal tunnel syndrome, left upp er limb Masodu Ross.DBarrett 01/27/2021 G40.89 Other seizures Masoud Ross.DBarrett 01/27/2021 R53.1 Weakness Masoud Ross.DBarrett 01/27/2021 G43.009 Migraine without aur a, not intractable, without status migrainosus Masoud Ross.DBarrett 01/27/2021 R20.0 Anesthesia of skin Masoud Ross .DBarrett 01/23/2021 R55 Syncope and collapse Maxwell Ali M.DBarrett 01/23/2021 R55 Syncope and collapse Ans/VS 01/12/2021 M54.89 Other dorsalgia Masoud Ross.DBarrett 01/12/2021 R20.2 Paresthesia of skin Maxwell Giraldo M.DBarrett 01/12/2021 M62.9 Disorder of muscle, unspecified Masoud Ross.DBarrett 01/05/2021 M54.2 Cervicalgia Maxwell Giraldo M.D. 01/05/2021 M62.9 Disorder of muscle, unspecified Maxwell Giraldo, Masoud.DBarrett 01/05/2021 G56.02 Carpal tunnel syndrome, left upp er limb Masoud Ross.DBarrett 12/02/2020 R55 Syncope and collapse Masoud Ross.DBarrett 12/02/2020 G40.89 Other seizures Masoud Ross.DBarrett 12/02/2020 R53.1 Weakness Masoud Ross.DBarrett 12/02/2020 R20.0 Anesthesia of skin Masoud Ross .DBarrett 12/02/2020 G43.009 Migraine without aur a, not intractable, without status migrainosus Masoud Ross.DBarrett 12/02/2020 M54.2 Cervicalgia Maxwell Giraldo M.D. 12/02/2020 M54.5 Low back pain Maxwell Giraldo M.D. Plan of Treatment Future Appointment(s):* 04/29/2021 11:15 am - Maxwell Giraldo M.D. at [facility] * 02/18/2021 2:30 pm - EEG at [facility] Functional Status Description No Information Available Mental Status Description No Information Available Referrals Description No Information Available
--- OUTSIDE RECORDS SUMMARY | 2021-03-25 13:20 | CCD | Continuity of Care Document ---
Author Author Alexis/Prerna ELKINS Organization Unknown Address [address] [place] [address] Phone [phone] Care Team Providers Care Consulting Property Manager Name Role Phone Suze Cole PA-C AUTM [phone] Problems Active Problems Provider Date Syncope and [...] Available Procedures Date Code Description Status 01/27/2021 17370 Office/Outpatient Established Mo d MDM 30-39 Min Completed 01/23/2021 57661 Sympathetic Skin Responses Compl eted 01/23/2021 71122 Test Autonomic Nervous System, C ardiovagal Innervation Completed 01/12/2021 94481 Nerve Conduction 11-12 Studies C ompleted 01/12/2021 53621 Needle Electromyography Complete , Five Or More Muscles Studied Completed 01/12/2021 03722 Needle Electromyography Complete , Five Or More Muscles Studied Completed 01/05/2021 25107 Nerve Conduction 9-10 Studies Co mpleted 01/05/2021 60618 Needle Electromyography Complete , Five Or More Muscles Studied Completed 01/05/2021 50992 Needle Electromyography Complete , Five Or More Muscles Studied Completed 12/02/2020 37265 Office/Outpatient New High MDM 6 0-74 Minutes Completed Medical Devices Description No Information Available Encounters Type Date Location Provider Dx Diagnosis Office Visit 01/27/2021 1:30p Main office - [place] Nikole Ross R55 Syncope and collapse M54.89 Other dorsalgia R20.2 Paresthesia of skin M54.2 Cervicalgia G56.02 Carpal tunnel syndrome, left upper limb G40.89 Other seizures R53.1 Weakness G43.009 Migraine w/o aura, not intra ctable, w/o status migrainosus R20.0 Anesthesia of skin Office Visit 12/02/2020 8:30a Main office - [place] Nikole Ross R55 Syncope and collapse G40.89 [...] M.D. 01/27/2021 G40.89 Other seizures Maxwell Giraldo M.DBarrett 01/27/2021 R53.1 Weakness Masoud Ross.D. 01/27/2021 G43.009 Migraine without aur a, not intractable, without status migrainosus Maxwell Giraldo M.DBarrett 01/27/2021 R20.0 Anesthesia of skin Maxwell Giraldo M .DBarrett 01/23/2021 R55 Syncope and collapse Maxwell Ali M.DBarrett 01/23/2021 R55 Syncope and collapse Ans/VS 01/12/2021 M54.89 Other dorsalgia Maxwell Giraldo M.DBarrett 01/12/2021 R20.2 Paresthesia of skin Maxwell Giraldo M.DBarrett 01/12/2021 M62.9 Disorder of muscle, unspecified Maxwell Giraldo M.DBarrett 01/05/2021 M54.2 Cervicalgia Nikole RossDBarrett 01/05/2021 M62.9 Disorder of muscle, unspecified Masoud Ross.DBarrett 01/05/2021 G56.02 Carpal tunnel syndrome, left upp er limb Masoud Ross.DBarrett 12/02/2020 R55 Syncope and collapse Masoud Ross.DBarrett 12/02/2020 G40.89 Other seizures Masoud Ross.DBarrett 12/02/2020 R53.1 Weakness Masoud Ross.DBarrett 12/02/2020 R20.0 Anesthesia of skin Masoud Ross .DBarrett 12/02/2020 G43.009 Migraine without aur a, not intractable, without status migrainosus Masoud Ross.DBarrett 12/02/2020 M54.2 Cervicalgia Masoud Ross.DBarrett 12/02/2020 M54.5 Low back pain Maxwell Giraldo M.D. Plan of Treatment Future Appointment(s):* 04/29/2021 11:15 am - Maxwell Giraldo M.D. at [facility] * 02/18/2021 2:30 pm - EEG at [facility] Functional Status Description No Information Available Mental Status Description No Information Available Referrals Description No Information Available
--- OUTSIDE RECORDS SUMMARY | 2021-03-25 13:20 | CCD | Continuity of Care Document ---
Author Author Prerna GIRALDO M.D. Organization Unknown Address [address] [place] [address] Phone [phone] Care Team Providers Care Bottom Filler Name Role Phone DouglasSuze PA-C AUTM [phone] Problems Active Problems Provider Date Syncope and [...] Available Procedures Date Code Description Status 01/27/2021 96911 Office/Outpatient Established Mo d MDM 30-39 Min Completed 01/23/2021 62986 Sympathetic Skin Responses Compl eted 01/23/2021 95268 Test Autonomic Nervous System, C ardiovagal Innervation Completed 01/12/2021 70590 Nerve Conduction 11-12 Studies C ompleted 01/12/2021 47968 Needle Electromyography Complete , Five Or More Muscles Studied Completed 01/12/2021 35111 Needle Electromyography Complete , Five Or More Muscles Studied Completed 01/05/2021 07968 Nerve Conduction 9-10 Studies Co mpleted 01/05/2021 72057 Needle Electromyography Complete , Five Or More Muscles Studied Completed 01/05/2021 94666 Needle Electromyography Complete , Five Or More Muscles Studied Completed 12/02/2020 39476 Office/Outpatient New High MDM 6 0-74 Minutes Completed Medical Devices Description No Information Available Encounters Type Date Location Provider Dx Diagnosis Office Visit 01/27/2021 1:30p Main office - [place] Nikole Ross R55 Syncope and collapse M54.89 Other dorsalgia R20.2 Paresthesia of skin M54.2 Cervicalgia G56.02 Carpal tunnel syndrome, left upper limb G40.89 Other seizures R53.1 Weakness G43.009 Migraine w/o aura, not intra ctable, w/o status migrainosus R20.0 Anesthesia of skin Office Visit 12/02/2020 8:30a [place] R[place] Syncope and collapse G40.89 Other [...] syndrome, left upp er limb Masoud Ross.DBarrett 01/27/2021 G40.89 Other seizures Masoud Ross.DBarrett [...] 11:15 am - Maxwell Giraldo M.D. at [facility] * 02/18/2021 2:30 pm - EEG at [facility] Functional Status Description No Information Available Mental Status Description No Information Available Referrals Description No Information Available
--- OUTSIDE RECORDS SUMMARY | 2021-03-25 13:20 | CCD | Continuity of Care Document ---
Author Author Prerna BAUMAN PA Organization Unknown Address [address] [place] [address] Phone [phone] Care Team Providers Care Refractory Manager Name Role Phone William Co Publi AUTM [phone] [facility] AUTM Problems Description No Information Available Social History Type Date Description Comments Sex Unknown ETOH Use Occasionally consumes alcohol Tobacco Use Start: Unknown Patient is a current smoker, smo kes some days Tobacco Use Start: Unknown Patient Currently Vapes 3% Smoking Status Reviewed: 01/09/20 Patient Currently Vapes 3% Allergies, Adverse Reactions, Alerts Active Allergies Reaction Severity Comments Date Shellfish-Derived Products 0 01/09/2020 Raspberries 01/09/2020 Medications Active Medications SIG Qnty Indications Ordering Provide r Date Effexor XR 150mg Caps ER 24HR Unknown Proair HFA 108(90Base) mcg/Act Aer osol 2 puffs by mouth inhaled every 4-6 hours as needed Unknown Tizanidine HCL 4mg Capsules take 1 capsule by mouth every 8 hours as needed Unknown Buspirone HCL Unknown Lamictal Unknown Gabapentin Unknown Amoxicillin Unknown Cpap Unknown Mirena (52 MG) Unknown Immunizations CPT Code Status Date Vaccine Reaction Lot # [id number] Given 01/25/2020 PPD- TB Intradermal Test 01-11 0mm,negative read by GOLDEN Luis [id number] Vital Signs Date Vital Result Comment 12/30/2020 9:52am BP Systolic 108 mmHg BP Diastolic 75 mmHg Heart Rate 87 /min Respiratory Rate 16 /min O2 % BldC Oximetry 98 % Body Temperature 98.0 F Weight 236.00 lb Height 63 inches 5'3" BMI (Body Mass Index) 41.8 kg/m2 Pain Level 0 01/09/2020 12:30pm BP Systolic 116 mmHg BP Diastolic 88 mmHg Heart Rate 90 /min Respiratory Rate 16 /min O2 % BldC Oximetry 100 % Body Temperature 98.9 F Weight 265.00 lb Height 63 inches 5'3" BMI (Body Mass Index) 46.9 kg/m2 Pain Level 2 Results Description No Information Available Procedures Date Code Description Status 12/30/2020 10115 Office/Outpatient Established Lo w MDM 20-29 Min Completed Medical Devices Description No Information Available Encounters Type Date Location Provider Dx Diagnosis Office Visit 12/30/2020 9:30a Main Office GOLDEN Moore J45 .21 Mild intermittent asthma with (acute) exacerbation Z20.828 Contact w and exposure to ot h viral communicable diseases Assessments Date Code Description Provider 12/30/2020 J45.21 Mild intermittent asthma with (a cute) exacerbation GOLDEN Moore 12/30/2020 Z20.828 Contact with and (mujica spected) exposure to other viral communicable diseases GOLDEN Moore Plan of Treatment No Information Available Functional Status Description No Information Available Mental Status Description No Information Available Referrals Refer to Reason for Referral Status Appt Date Martín Bauman PA Created [facility] [address] [place] [address] [phone]
--- OUTSIDE RECORDS SUMMARY | 2021-03-25 13:20 | CCD ---
Author Author [facility] Organization [facility] Address Unknown Phone Unavailable Care Team Providers Care Intertype Operator Name Role Phone Suze Cole Unavailable PROBLEMS Type Condition ICD9-CM Code [id number] Code Onset Dates Condition S tatus W/U Status Risk SNOMED Code Notes Problem VIVIAN (obstructive sleep apnea) G47.33 Active confirm ed 92899058 Problem Fibromyalgia M79.7 Active confirmed 3971244 05 Problem Anxiety with depression F41.8 Active confirmed 958025892 Problem Moderate persistent asthma without complication J4 5.40 Active confirmed 752717346 Problem Seizure disorder G40.909 Active confirmed 12 4404251 ALLERGIES Allergen (clinical drug ingredient) Drug/Non Drug Allergy do cumented on EMR Reaction Allergy Type Onset Date Status Latex (for allergy use only) itchy Drug Allergy Active Shellfish Anaphylaxis Non Drug Allergy Active Raspberry rash/itchy throat Drug Allergy Activ e ENCOUNTERS from 1997 to 2020-12-30 Encounter Location Date Provider Diagnosis [address] [phone] [place] [address] Dec, Suze Cole IMMUNIZATIONS Vaccine Route Administration Date Status COVID-19 dose #1 given elsewhere Unspecified Unknown Sep Administered SOCIAL HISTORY Tobacco Use: Social History Observation Description Date Details (start date - stop date) Current Smoker Sex Assigned At : Social History Observation Description Sex Assigned At Unknown Education: Question Answer Notes Level of Education: Finished College Bachelors degree in Community Health and Human Services, Minor in Psychology Audit Question Answer Notes Total Score: 1 Interpretation: Alcohol Education Language: Question Answer Notes Languages spoken: Syriac Shinto: Question Answer Notes Shinto 08 Moravian Sexual Hx: Question Answer Notes Had sex in the last 12 months (vaginal, oral, or anal)? Yes LMP: 10/2020 Have you ever had an STD? No Prevention Strategies discussed: Other with Men only Use protection? No Drug and Alcohol Question Answer Notes Total Score: 0 Interpretation: No problems reported Alcohol Screening: Question Answer Notes Did you have a drink containing alcohol in the past year? Ye s Points 1 Interpretation Negative How often did you have six or more drinks on one occas ion in the past year? Never (0 points) How many drinks did you have on a typica l day when you were drinking in the past year? 1 or 2 (0 points) How often did you have a drink containing alcohol in t he past year? Monthly or less (1 point) Tobacco Use: Question Answer Notes Are you a: current smoker Smoking Cessation Information Given 12/12/2020 Patient counseled on the dangers of tobacco use and urged to quit: 12/12/2020 How many cigarettes a day do you smoke? 5 or less Are you interested in quitting? Thinking about quitting Counseled the patient on smoking cessation, education provid ed 12/12/2020 REASON FOR REFERRAL No Information VITAL SIGNS No information MEDICATIONS Medication SIG (Take, Route, Frequency, Duration) Notes Start Da te End Date Status Gabapentin 300 MG 1 capsule Orally Once a day for 30 day(s) Active Albuterol Sulfate HFA 108 (90 Base) MCG/ACT INL 1 TO 2 PFS PO Q 4 H PRF WHZ Inhalation for 16 Active Effexor XR 37.5 MG 1 capsule with food Orally Once a day for 30 day(s ) Active Albuterol Sulfate (2.5 MG/3ML) 0.083% INHALE 1 VIAL IN NEBULIZER QID PRN FOR 10 DAYS Inhalation for 10 Active tiZANidine HCl 2 MG 1-2 tablets as needed Orally Three times a day for 14 day(s) Active hydrOXYzine HCl 50 MG TAKE 1 TO 2 TABLETS BY MOUTH AT BEDTIME DIRECTED NEEDED FOR SLEEP Oral for 30 Act chadd busPIRone HCl 10 MG TAKE 1 TABLET BY MOUTH TWICE DAILY Oral for 30 Active Budesonide-Formoterol Fumarate 80-4.5 MCG/ACT 2 puffs Inhalation Twice a day for 30 Days Dec, Active Asmanex (30 Metered Doses) 220 MCG/INH 1 puff in the e vening Inhalation Once a day Active LaMICtal 25 MG 1 tablet Orally for 30 day(s) Active PROCEDURES No Information RESULTS No Results REASON FOR VISIT Coughing up blood MEDICAL (GENERAL) HISTORY Type Description Date Medical History Epilepsy Medical History Anxiety Medical History Depression Medical History Fibromyalgia Medical History Asthma Medical History Eczema Medical History Sleep apnea Surgical History Left Shoulder Debridement Surgical History [place] Tooth Extraction Hospitalization History surgery related Goals Section No Information Health Concerns No Information MEDICAL EQUIPMENT No Information MENTAL STATUS No Information FUNCTIONAL STATUS No Information ASSESSMENTS No Information PLAN OF TREATMENT Medication Medication Name Sig Start Date Stop Date Budesonide-Formoterol Fumarate 80-4.5 MCG/ACT 2 puffs Inhalation Twice a day for 30 Days Dec, Next Appt Details Provider Name:Suze Cole, 2021-04-20 07 :15:00 AM, [address] [facility], , [place], [address], Insurance Providers Payer Name Payer Address Payer Phone Insured Name Patient Relati onship to Insured Coverage Start Date Coverage End Date MEDICAID [employer] [address] [facility] [id number] MILIND SWANSON DESI CORPORATE CLAIMS DEPT [address] [facility] [phone] MILIND SWANSON
--- OUTSIDE RECORDS SUMMARY | 2021-03-25 13:20 | CCD | Continuity of Care Document ---
Author Author Prerna BAUMAN PA Organization Unknown Address [address] [place] [address] Phone [phone] Care Team Providers Care Laborer Orchard Name Role Phone William Co Publi AUTM [phone] [facility] AUTM Problems Description No Information Available [...] Code Status Date Vaccine Reaction Lot # [id number] Given 01/25/2020 PPD- TB Intradermal Test 01-11 0mm,negative read by GOLDEN Luis [id number] Vital Signs Date Vital Result Comment 12/30/2020 [...] Available Procedures Date Code Description Status 12/30/2020 99186 Office/Outpatient Established Lo w MDM 20-29 Min [...] Status Appt Date Martín Bauman PA Created [facility] [address] [place] [address] [phone]
--- OUTSIDE RECORDS SUMMARY | 2021-03-25 13:20 | CCD | Continuity of Care Document ---
Author Author Prerna PERRY M.D. Organization Unknown Address [address] [place] [address] Phone [phone] Care Team Providers Care Ornamental Plasterer Helper Name Role Phone Douglas, Suze ALVARADO AUTM [phone] Problems Active Problems Provider Date Syncope and [...] Available Procedures Date Code Description Status 01/05/2021 57655 Nerve Conduction 9-10 Studies Co mpleted 01/05/2021 90542 Needle Electromyography Complete , Five Or More Muscles Studied Completed 01/05/2021 69117 Needle Electromyography Complete , Five Or More Muscles Studied Completed 12/02/2020 60264 Office/Outpatient [facility] 6 0-74 Minutes Completed Medical Devices Description No Information Available Encounters Type Date Location Provider Dx Diagnosis Office Visit 12/02/2020 8:30a Main office - [place] Nikole Ross R55 Syncope and collapse G40.89 [...] Perry M.D. Plan of Treatment Future Appointment(s):* 01/27/2021 1:30 pm - Maxwell Perry M.D. at [facility] * 01/23/2021 10:00 am - Ans/VS at [facility] * 01/23/2021 8:15 am - EEG at [facility] Functional Status Description No Information Available Mental Status Description No Information Available Referrals Description No Information Available
--- OUTSIDE RECORDS SUMMARY | 2021-03-25 13:20 | CCD ---
Author Author [facility] Organization [facility] Address Unknown Phone Unavailable Care Team Providers Care Assistant Prosecuting Attorney Name Role Phone Suze Cole Unavailable PROBLEMS Type Condition ICD9-CM Code [id number] Code Onset Dates Condition S tatus W/U Status Risk SNOMED Code Notes Problem VIVIAN (obstructive sleep apnea) G47.33 Active confirm ed 83511909 Problem Fibromyalgia M79.7 Active confirmed 0014170 05 Problem Anxiety with depression F41.8 Active confirmed 176518284 Problem Moderate persistent asthma without complication J4 5.40 Active confirmed 153304889 Problem Seizure disorder G40.909 Active confirmed 12 9579422 ALLERGIES Allergen (clinical drug ingredient) Drug/Non Drug Allergy do cumented on EMR Reaction Allergy Type Onset Date Status Latex (for allergy use only) itchy Drug Allergy Active Shellfish Anaphylaxis Non Drug Allergy Active Raspberry rash/itchy throat Drug Allergy Activ e ENCOUNTERS from 1997 to 2021-01-05 Encounter Location Date Provider Diagnosis [address] [phone] [place] [address] Dec, Suze Cole Moderate persistent asthma w ithout complication J45.40 ; Muscle weakness (generalized) M62.81 and Generalized pain R52 IMMUNIZATIONS Vaccine Route Administration Date Status COVID-19 dose #1 given elsewhere Unspecified Unknown Apr 2020 Administered SOCIAL HISTORY Tobacco Use: Social History [...] Education Language: Question Answer Notes Languages spoken: Greek Yazidism: Question Answer Notes Yazidism 08 Denominational Sexual Hx: Question Answer Notes Had sex [...] REASON FOR REFERRAL No Information VITAL SIGNS Weight 244 lbs Dec, Height 63.5" in Dec, BMI 42.54 kg/m2 Dec, Heart Rate 89 /min Dec, Respiratory Rate 18 /min Dec, Temperature 96.2 degrees Fahrenheit Dec, Oximetry 98 Dec, Blood pressure systolic 122 mm Hg Dec, Blood pressure diastolic 82 mm Hg Dec, MEDICATIONS Medication SIG (Take, Route, Frequency, Duration) [...] Information RESULTS No Results REASON FOR VISIT r/s MRI follow up MEDICAL (GENERAL) HISTORY Type Description Date Medical History Epilepsy Medical History Anxiety Medical History Depression Medical History Fibromyalgia Medical History Asthma Medical History Eczema Medical History Sleep apnea Surgical History Left Shoulder Debridement Surgical History [place] Tooth Extraction Hospitalization History surgery related Goals Section No Information Health Concerns No Information MEDICAL EQUIPMENT No Information MENTAL STATUS No Information FUNCTIONAL STATUS No Information ASSESSMENTS Encounter Date Diagnosis Assessment Notes Treatment Notes Treatm ent Clinical Notes Dec, Moderate persistent asthma without compl ication (ICD-10 - J45.40) will have patient stop the Asmanex and start Symbicort for now, instructions given to patient on medication use along with a discussion concerning common reactions/side effects to medication. Patient verbalized understanding and will call clinic with any further questions or concerns. Dec, Muscle weakness (generalized) (ICD-10 - M62.81) patient is following with neurology and they are doing a workup for her symptoms currently, will defer management to them Dec, Generalized pain (ICD-10 - R52) Dec, Other Total time spen t with the patient on the day of the encounter: 20 minutes PLAN OF TREATMENT Medication Medication Name Sig Start Date Stop Date Budesonide-Formoterol Fumarate 80-4.5 MCG/ACT 2 puffs Inhalation Twice a day for 30 Days Dec, Treatment Notes Assessment Notes Clinical Notes Moderate persistent asthma without complication will have patient stop the Asmanex and start Symbicort for now, instructions given to patient on medication use along with a discussion concerning common reactions/side effects to medication. Patient verbalized understanding and will call clinic with any further questions or concerns. Muscle weakness (generalized) patient is following with neurology and they are doing a workup for her symptoms currently, will defer management to them Next Appt Details as scheduled, sooner if needed Reason: Provider Name:Suze Cole, 2021-04-20 07 :15:00 AM, [address] [facility], , [place], [address], Insurance Providers Payer Name Payer Address Payer Phone Insured Name Patient Relati onship to Insured Coverage Start Date Coverage End Date MEDICAID [employer] [address] [facility] [id number] [phone] MILIND SWANSON [employer] CORPORATE CLAIMS DEPT [address] [facility] [phone] MILIND SWANSON self
--- OUTSIDE RECORDS SUMMARY | 2021-03-25 13:20 | CCD | Continuity of Care Document ---
Author Author Alexis/Prerna ELKINS Organization Unknown Address [address] [place] [address] Phone [phone] Care Team Providers Care Mud Jack Nozzle Worker Name Role Phone Suze Cole PA-C AUTM [phone] Problems Active Problems Provider Date Syncope and [...] Information Available Procedures Date Code Description Status 01/12/2021 21424 Nerve Conduction 11-12 Studies C ompleted 01/12/2021 07255 Needle Electromyography Complete , Five Or More Muscles Studied Completed 01/12/2021 60363 Needle Electromyography Complete , Five Or More Muscles Studied Completed 01/05/2021 62581 Nerve Conduction 9-10 Studies Co mpleted 01/05/2021 83971 Needle Electromyography Complete , Five Or More Muscles Studied Completed 01/05/2021 92675 Needle Electromyography Complete , Five Or More Muscles Studied Completed 12/02/2020 80199 Office/Outpatient [facility] 6 0-74 Minutes Completed Medical Devices Description No Information Available Encounters Type Date Location Provider Dx Diagnosis Office Visit 12/02/2020 8:30a [facility] Nikole Ross R55 Syncope and collapse G40.89 Other seizures R53.1 Weakness R20.0 Anesthesia of skin G43.009 Migraine w/o aura, not intra ctable, w/o status migrainosus M54.2 Cervicalgia M54.5 Low back pain Assessments Date Code Description Provider 01/12/2021 M54.89 Other dorsalgia Maxwell Giraldo M.D. [...] Appointment(s):* 02/18/2021 2:30 pm - EEG at [facility] * 01/27/2021 1:30 pm - Maxwell Giraldo M.D. at Main office - [place] Functional Status Description No Information Available Mental Status Description No Information Available Referrals Description No Information Available
--- OUTSIDE RECORDS SUMMARY | 2021-03-25 13:20 | CCD | Continuity of Care Document ---
Author Author Prerna PERRY M.D. Organization Unknown Address [address] [place] [address] Phone [phone] Care Team Providers Care Airborne Electronics Analyst Name Role Phone DouglasAlbinaoe ALVARADO AUTM [phone] Problems Active Problems Provider Date Syncope and [...] Information Available Procedures Date Code Description Status 12/02/2020 88314 Office/Outpatient [facility] 6 0-74 Minutes Completed Medical Devices Description No Information Available Encounters Type Date Location Provider Dx Diagnosis Office Visit 12/02/2020 8:30a Main office - [place] Nikole Ross R55 Syncope and collapse G40.89 Other seizures R53.1 Weakness R20.0 Anesthesia of skin G43.009 Migraine w/o aura, not intra ctable, w/o status migrainosus M54.2 Cervicalgia M54.5 Low back pain Assessments Date Code Description Provider 12/02/2020 R55 Syncope and collapse Maxwell Perry [...] 8:20 am - Maxwell Perry M.D. at [facility] * 01/27/2021 1:30 pm - Maxwell Perry M.D. at [facility] * 01/23/2021 10:00 am - Ans/VS at [facility] * 01/23/2021 8:15 am - EEG at [facility] Functional Status Description No Information Available Mental Status Description No Information Available Referrals Description No Information Available
--- OUTSIDE RECORDS SUMMARY | 2021-03-25 13:20 | CCD | Continuity of Care Document ---
Author Prerna Montesinos M.D. Organization Unknown Address [address] [place] [id number] Phone [phone] Care Team Providers Care Leasing Associate Name Role Phone DouglasAlbinaoe ALVARADO AUTM [phone] Problems Active Problems Provider Date Syncope and [...] Available Procedures Date Code Description Status 01/12/2021 26999 Nerve Conduction 11-12 Studies C ompleted 01/12/2021 60910 Needle Electromyography Complete , Five Or More Muscles Studied Completed 01/12/2021 13413 Needle Electromyography Complete , Five Or More Muscles Studied Completed 01/05/2021 77187 Nerve Conduction 9-10 Studies Co mpleted 01/05/2021 33738 Needle Electromyography Complete , Five Or More Muscles Studied Completed 01/05/2021 37068 Needle Electromyography Complete , Five Or More Muscles Studied Completed 12/02/2020 14681 Office/Outpatient [place] [facility] 6 0-74 Minutes Completed Medical Devices Description No Information Available Encounters Type Date Location Provider Dx Diagnosis Office Visit 12/02/2020 8:30a [facility] Nikole Ross R55 Syncope and collapse G40.89 [...] Appointment(s):* 02/18/2021 2:30 pm - EEG at [facility] * 01/27/2021 1:30 pm - Maxwell Giraldo M.D. at [facility] * 01/23/2021 10:00 am - Ans/VS at Main [facility] Functional Status Description No Information Available Mental Status Description No Information Available Referrals Description No Information Available
--- OUTSIDE RECORDS SUMMARY | 2021-03-25 13:21 | CCD ---
Author Author [facility] Organization [facility] Address Unknown Phone Unavailable Care Team Providers Care Pr Intern Name Role Phone Philomena WORTHY PRODUCTION ASSOCIATE CELESTE Unavailable [phone] Samir WORTHY. PRODUCTION ASSOCIATE CELESTE Unavailable [phone] Philomena WORTHY PRODUCTION ASSOCIATE CELESTE Unavailable [phone] Philomena WORTHY PRODUCTION ASSOCIATE CELESTE Unavailable [phone] Philomena WORTHY PRODUCTION ASSOCIATE CELESTE Unavailable [phone] Samir WORTHY. PRODUCTION ASSOCIATE CELESTE Unavailable [phone] Philomena WORTHY PRODUCTION ASSOCIATE CELESTE Unavailable [phone] Philomena WORTHY PRODUCTION ASSOCIATE CELESTE Unavailable [phone] ZAYNAB, A. PRODUCTION ASSOCIATE CELESTE Unavailable [phone] ZAYNAB, A. PRODUCTION ASSOCIATE CELESTE Unavailable [phone] ZAYNAB, A. PRODUCTION ASSOCIATE CELESTE Unavailable [phone] ZAYNAB, A. PRODUCTION ASSOCIATE CELESTE Unavailable [phone] ZAYNAB, A. PRODUCTION ASSOCIATE CELESTE Unavailable [phone] ZAYNAB, A. PRODUCTION ASSOCIATE CELESTE Unavailable [phone] ZAYNAB, A. PRODUCTION ASSOCIATE CELESTE Unavailable [phone] Aneta Montiel NP Unavailable Unavailable Aneta Montiel NP Unavailable Unavailable Aneta Montiel NP Unavailable Unavailable Fish, [facility], PA-C Unavailable Unavailabl e Fish, [facility], PA-C Unavailable Unavailabl e Fish, [facility], PA-C Unavailable Unavailabl e Fish, [facility], PA-C Unavailable Unavailabl e Fish, [facility], PA-C Unavailable Unavailabl e Fish, [facility], PA-C Unavailable Unavailabl e Fish, [facility], PA-C Unavailable Unavailabl e Fish, [facility], PA-C Unavailable Unavailabl e Fish, [facility], PA-C Unavailable Unavailabl e Fish, [facility], PA-C Unavailable Unavailabl e Fish, [facility], PA-C Unavailable Unavailabl e Fish, [facility], PA-C Unavailable Unavailabl e Fish, [facility], PA-C Unavailable Unavailabl e Fish, [facility], PA-C Unavailable Unavailabl e Fish, [facility], PA-C Unavailable Unavailabl e Fish, [facility], PA-C Unavailable Unavailabl e Fish, [facility], PA-C Unavailable Unavailabl e Fish, [facility], PA-C Unavailable Unavailabl e Fish, [facility], PA-C Unavailable Unavailabl e Fish, [facility], PA-C Unavailable Unavailabl e Fish, [facility], PA-C Unavailable Unavailabl e Fish, [facility], PA-C Unavailable Unavailabl e Fish, [facility], PA-C Unavailable Unavailabl e Fish, [facility], PA-C Unavailable Unavailabl e Fish, [facility], PA-C Unavailable Unavailabl e Fish, [facility], PA-C Unavailable Unavailabl e Fish, [facility], PA-C Unavailable Unavailabl e Fish, [facility], PA-C Unavailable Unavailabl e Fish, [facility], PA-C Unavailable Unavailabl e Fish, [facility], PA-C Unavailable Unavailabl e Fish, [facility], PA-C Unavailable Unavailabl e Fish, [facility], PA-C Unavailable Unavailabl e Fish, [facility], PA-C Unavailable Unavailabl e Fish, [facility], PA-C Unavailable Unavailabl e Fish, [facility], PA-C Unavailable Unavailabl e Jeffry Sandoval MD Unavailable Unavailable Jaime, Jeffry PATTON Unavailable Unavailable Sandoval, Jeffry PATTON Unavailable Unavailable Jaime, Jeffry PATTON Unavailable Unavailable Sandoval, Jeffry PATTON Unavailable Unavailable Sandoval, Jeffry PATTON Unavailable Unavailable LAROCK, Dionicio KENNY COMMERCIAL TELLER Unavailable Unavailable LAROCK, Dionicio KENNY NP Unavailable Unavailable LAROCK, Dionicio KENNY NP Unavailable Unavailable LAROCK, Dionicio KENNY NP Unavailable Unavailable LAROCK, Dionicio KENNY NP Unavailable Unavailable LAROCK, Dionicio KENNY NP Unavailable Unavailable LAROCK, Dionicio KENNY NP Unavailable Unavailable LAROCK, Dionicio KENNY NP Unavailable Unavailable LAROCK, Dionicio KENNY COMMERCIAL TELLER Unavailable Unavailable LAROCK, Dionicio KENNY COMMERCIAL TELLER Unavailable Unavailable LAROCK, Dionicio KENNY COMMERCIAL TELLER Unavailable Unavailable LAROCK, Dionicio KENNY COMMERCIAL TELLER Unavailable Unavailable LAROCK, Dionicio KENNY COMMERCIAL TELLER Unavailable Unavailable LAROCK, Dionicio KENNY COMMERCIAL TELLER Unavailable Unavailable LAROCK, Dionicio KENNY NP Unavailable Unavailable LAROCK, Dionicio KENNY NP Unavailable Unavailable LAROCK, Dionicio KENNY NP Unavailable Unavailable LAROCK, Dionicio KENNY NP Unavailable Unavailable LAROCK, Dionicio KENNY NP Unavailable Unavailable LAROCK, Dionicio KENNY NP Unavailable Unavailable LAROCK, Dionicio KENNY NP Unavailable Unavailable LAROCK, Dionicio KENNY NP Unavailable Unavailable Ximena Chavira Unavailable Zack Wsidom Unavailable [facility] Maring, Christine PA Unavailable Unavailable Maring, Christine PA Unavailable Unavailable Maring, Christine PA Unavailable Unavailable Maring, Christine PA Unavailable Unavailable Maring, Christine PA Unavailable Unavailable Maring, Christine PA Unavailable Unavailable Maring, Christine PA Unavailable Unavailable Maring, Christine PA Unavailable Unavailable Maring, Christine PA Unavailable Unavailable Maring, Christine PA Unavailable Unavailable Maring, Christine PA Unavailable Unavailable Maring, Christine PA Unavailable Unavailable Maring, Christine PA Unavailable Unavailable Maring, Christine PA Unavailable Unavailable Maring, Christine PA Unavailable Unavailable Maring, Christine PA Unavailable Unavailable Blanca COWAN MD Unavailable Unavailable Blanca COWAN MD Unavailable Unavailable Blanca COWAN MD Unavailable Unavailable Blanca COWAN MD Unavailable Unavailable Blanca COWAN MD Unavailable Unavailable Blanca COWAN MD Unavailable Unavailable Blanca COWAN MD Unavailable Unavailable Blanca COWAN MD Unavailable Unavailable Blanca COWAN MD Unavailable Unavailable Blanca COWAN MD Unavailable Unavailable Blanca COWAN MD Unavailable Unavailable Blanca COWAN MD Unavailable Unavailable Blanca COWAN MD Unavailable Unavailable Blanca COWAN MD Unavailable Unavailable Blanca COWAN MD Unavailable Unavailable Blanca COWAN MD Unavailable Unavailable Blanca COWAN MD Unavailable Unavailable Blanca COWAN MD Unavailable Unavailable Blanca COWAN MD Unavailable Unavailable Blanca COWAN MD Unavailable Unavailable Blanca COWAN MD Unavailable Unavailable Blanca COWAN MD Unavailable Unavailable Blanca COWAN MD Unavailable Unavailable Blanca COWAN MD Unavailable Unavailable LETTIERE, A SEBASTIÁN PA Unavailable Unavailable LETTIERE, A SEBASTIÁN PA Unavailable Unavailable LETTIERE, A SEBASTIÁN PA Unavailable Unavailable LETTIERE, A SEBASTIÁN PA Unavailable Unavailable LETTIERE, A SEBASTIÁN PA Unavailable Unavailable LETTIERE, A SEBASTIÁN PA Unavailable Unavailable LETTIERE, A SEBASTIÁN PA Unavailable Unavailable LETTIERE, A SEBASTIÁN PA Unavailable Unavailable LETTIERE, A SEBASTIÁN PA Unavailable Unavailable LETTIERE, A SBEASTIÁN PA Unavailable Unavailable LETTIERE, A SEBASTIÁN PA Unavailable Unavailable LETTIERE, A SEBASTIÁN PA Unavailable Unavailable LETTIERE, A SEBASTIÁN PA Unavailable Unavailable LETTIERE, A SEBASTIÁN PA Unavailable Unavailable LETTIERE, A SEBASTIÁN PA Unavailable Unavailable LETTIERE, A SEBASTIÁN PA Unavailable Unavailable LETTIERE, A SEBASTIÁN PA Unavailable Unavailable LETTIERE, A SEBASTIÁN PA Unavailable Unavailable LETTIERE, A SEBASTIÁN PA Unavailable Unavailable LETTIERE, A SEBASTIÁN PA Unavailable Unavailable LETTIERE, A SEBASTIÁN PA Unavailable Unavailable LETTIERE, A SEBASTIÁN PA Unavailable Unavailable LETTIERE, A SEBASTIÁN PA Unavailable Unavailable LETTIERE, A SEBASTIÁN PA Unavailable Unavailable LETTIERE, A SEBASTIÁN PA Unavailable Unavailable LETTIERE, A SEBASTIÁN PA Unavailable Unavailable LETTIERE, A SEBASTIÁN PA Unavailable Unavailable LETTIERE, A SEBASTIÁN PA Unavailable Unavailable LETTIERE, A SEBASTIÁN PA Unavailable Unavailable LETTIERE, A SEBASTIÁN PA Unavailable Unavailable LETTIERE, A SEBASTIÁN PA Unavailable Unavailable AliMaxwell MD Unavailable Unavailable AliMaxwell MD Unavailable Unavailable AliMaxwell MD Unavailable Unavailable AliMaxwell MD Unavailable Unavailable AliMaxwell MD Unavailable Unavailable Ali, Maxwell PATTON Unavailable Unavailable Ali, Maxwell PATTON Unavailable Unavailable AliMaxwell MD Unavailable Unavailable AliMaxwell MD Unavailable Unavailable AliMaxwell MD Unavailable Unavailable AliMaxwell MD Unavailable Unavailable AliMaxwell MD Unavailable Unavailable Ali, Maxwell PATTON Unavailable Unavailable AliMaxwell MD Unavailable Unavailable Ali, Maxwell PATTON Unavailable Unavailable Ali, Maxwell PATTON Unavailable Unavailable AliMaxwell MD Unavailable Unavailable AliMaxwell MD Unavailable Unavailable AliMaxwell MD Unavailable Unavailable AliMaxwell MD Unavailable Unavailable AliMaxwell MD Unavailable Unavailable AliMaxwell MD Unavailable Unavailable AliMaxwell MD Unavailable Unavailable Ali, Maxwell PATTON Unavailable Unavailable AliMaxwell MD Unavailable Unavailable AliMaxwell MD Unavailable Unavailable AliMaxwell MD Unavailable Unavailable AliMaxwell MD Unavailable Unavailable AliMaxwell MD Unavailable Unavailable AliMaxwell MD Unavailable Unavailable AliMaxwell MD Unavailable Unavailable AliMaxwell MD Unavailable Unavailable AliMaxwell MD Unavailable Unavailable AliMaxwell MD Unavailable Unavailable AliMaxwell MD Unavailable Unavailable AliMaxwell MD Unavailable Unavailable AliMaxwell MD Unavailable Unavailable AliMaxwell MD Unavailable Unavailable AliMaxwell MD Unavailable Unavailable AliMaxwell MD Unavailable Unavailable AliMaxwell MD Unavailable Unavailable AliMaxwell MD Unavailable Unavailable AliMaxwell MD Unavailable Unavailable AliMaxwell MD Unavailable Unavailable AliMaxwell MD Unavailable Unavailable AliMaxwell MD Unavailable Unavailable AliMaxwell MD Unavailable Unavailable AliMaxwell MD Unavailable Unavailable AliMaxwell MD Unavailable Unavailable AliMaxwell MD Unavailable Unavailable Carmen, Jaqui Unavailable LOWE, G EDWARD RPA Unavailable Unavailable LOWE, G EDWARD RPA Unavailable Unavailable LOWE, G EDWARD RPA Unavailable Unavailable LOWE, G EDWARD RPA Unavailable Unavailable LOWE, G EDWARD RPA Unavailable Unavailable LOWE, G EDWARD RPA Unavailable Unavailable LOWE, G EDWARD RPA Unavailable Unavailable LOWE, G EDWARD RPA Unavailable Unavailable LOWE, G EDWARD RPA Unavailable Unavailable LOWE, G EDWARD RPA Unavailable Unavailable LOWE, G EDWARD RPA Unavailable Unavailable LOWE, G EDWARD RPA Unavailable Unavailable LOWE, G EDWARD RPA Unavailable Unavailable LOWE, G EDWARD RPA Unavailable Unavailable LOWE, G EDWARD RPA Unavailable Unavailable LOWE, G EDWARD RPA Unavailable Unavailable LOWE, G EDWARD RPA Unavailable Unavailable LOWE, G EDWARD RPA Unavailable Unavailable LOWE, G EDWARD RPA Unavailable Unavailable LOWE, G EDWARD RPA Unavailable Unavailable LOWE, G EDWARD RPA Unavailable Unavailable LOWE, G EDWARD RPA Unavailable Unavailable LOWE, G EDWARD RPA Unavailable Unavailable LOWE, G EDWARD RPA Unavailable Unavailable LOWE, G EDWARD RPA Unavailable Unavailable LOWE, G EDWARD RPA Unavailable Unavailable LOWE, G EDWARD RPA Unavailable Unavailable LOWE, G EDWARD RPA Unavailable Unavailable LOWE, G EDWARD RPA Unavailable Unavailable LOWE, G EDWARD RPA Unavailable Unavailable LOWE, G EDWARD RPA Unavailable Unavailable LOWE, G EDWARD RPA Unavailable Unavailable LOWE, G EDWARD RPA Unavailable Unavailable LOWE, G EDWARD RPA Unavailable Unavailable LOWE, G EDWARD RPA Unavailable Unavailable Blanca Frazier MD Unavailable Unavailable Blanca Frazier MD Unavailable Unavailable Blanca Frazier MD Unavailable Unavailable Blanca Frazier MD Unavailable Unavailable Blanca Frazier MD Unavailable Unavailable Blanca Frazier MD Unavailable Unavailable Blanca Frazier MD Unavailable Unavailable Blanca Frazier MD Unavailable Unavailable Blanca Frazier MD Unavailable Unavailable Blanca Frazier MD Unavailable Unavailable Blanca Frazier MD Unavailable Unavailable Blanca Frazier MD Unavailable Unavailable Blanca Frazier MD Unavailable Unavailable Blanca Frazier MD Unavailable Unavailable Blanca Frazier MD Unavailable Unavailable Blanca Frazier MD Unavailable Unavailable Blanca Frazier MD Unavailable Unavailable Blanca Frazier MD Unavailable Unavailable Blanca Frazier MD Unavailable Unavailable Blanca Frazier MD Unavailable Unavailable Blanca Frazier MD Unavailable Unavailable Blanca Frazier MD Unavailable Unavailable Blanca Frazier MD Unavailable Unavailable Blanca Frazier MD Unavailable Unavailable Blanca Frazier MD Unavailable Unavailable [facility] Unavailable Unavailable CHANLIECCO, C OBDULIA MD Unavailable Unavailable CHANLIECCO, C OBDULIA MD Unavailable Unavailable CHANLIECCO, C OBDULIA MD Unavailable Unavailable CHANLIECCO, C OBDULIA MD Unavailable Unavailable CHANLIECCO, C OBDULIA MD Unavailable Unavailable CHANLIECCO, C OBDULIA MD Unavailable Unavailable CHANLIECCO, C OBDULIA MD Unavailable Unavailable CHANLIECCO, C OBDULIA MD Unavailable Unavailable CHANLIECCO, C OBDULIA MD Unavailable Unavailable CHANLIECCO, C OBDULIA MD Unavailable Unavailable CHANLIECCO, C OBDULIA MD Unavailable Unavailable Re-disclosure Warning The records that you are about to access may contain information from federally-assisted alcohol or drug abuse programs. If such information is present, then the following federally mandated warning applies: This information has been disclosed to you from records protected by federal confidentiality rules (42 CFR part 2). The federal rules prohibit you from making any further disclosure of this information unless further disclosure is expressly permitted by the written consent of the person to whom it pertains or as otherwise permitted by 42 CFR part 2. A general authorization for the release of medical or other information is NOT sufficient for this purpose. The Federal rules restrict any use of the information to criminally investigate or prosecute any alcohol or drug abuse patient.The records that you are about to access may contain highly sensitive health information, the redisclosure of which is protected by Article 27-F of the [facility] Public Health law. If you continue you may have access to information: Regarding HIV / AIDS; Provided by facilities licensed or operated by the [facility] Office of Mental Health; or Provided by the [facility] Office for People With Developmental Disabilities. If such information is present, then the following [facility] mandated warning applies: This information has been disclosed to you from confidential records which are protected by state law. State law prohibits you from making any further disclosure of this information without the specific written consent of the person to whom it pertains, or as otherwise permitted by law. Any unauthorized further disclosure in violation of state law may result in a fine or skilled nursing sentence or both. A general authorization for the release of medical or other information is NOT sufficient authorization for further disc losure. Allergies and Adverse Reactions Type Description Substance Reaction Status Data Source(s ) Propensity to adverse reactions to substance Latex, Natural Rubber Latex, Natural Rubber Active [facility] ([facility] Propensity to adverse reactions to substance raspberry raspberry Active [facility] ([facility]) Propensity to adverse reactions to substance nickel nickel Active [facility] ([facility]) Encounters Encounter Providers Location Date Indications Data Source(s ) Outpatient Attender: CELESTE WORTHY 03/13 12:09:13 PM EDT - 03/22/2021 01:23:56 PM EDT [facility] ([facility] ) Emergency Attender: Jeffry Sandoval MDConsultant: [facility] 03/12/2021 10:12:00 PM EDT - 03/12/2021 11:21:00 PM EDT [facility] Patient discharged. Outpatient Attender: KENYON COWAN MD 02/07 12:52:46 PM EDT - 02/07/2021 02:22:14 PM EDT [facility] ([facility] ) Outpatient Attender: Maxwell Giraldo MD Main office - [place] 01/27/2021 01:30:00 PM EDT [facility] ([facility] ) Outpatient Attender: ZOYA PEARCE NP 12/12 01:12:23 PM EDT - 01/04/2021 01:53:21 PM EDT [facility] ([facility] ) Outpatient Attender: Trey Montiel NP [facility] 01/01/2021 08:00:00 AM EDT - 01/01/2021 08:00:00 AM EDT [facility] ([facility] Attender: Trey Montiel NP 01/01/2021 12:00:00 AM EDT [facility] ([facility]) Outpatient Attender: SEBASTIÁN solis 12/30/2020 09:30:00 AM EDT [facility] ([place] [facility]) [place] [address] [address] 12/30/2020 12:00:00 AM EDT [facility]1 ([facility]) Outpatient Attender: ERIN LOWE RPA 12/28 04:37:33 PM EDT - 12/28/2020 04:54:30 PM EDT [facility] ([facility] ) [place] [address] [address] 12/12/2020 12:00:00 AM EDT [facility] ([facility]) [place] [address] [address] 12/06/2020 12:00:00 AM EDT [facility] ([facility]) [place] [address] [place] [address] 12/04/2020 12:00:00 AM EDT eCW1 ([facility]) Outpatient Attender: Maxwell Giraldo MD Main office - [place] 12/02/2020 08:30:00 AM EDT [facility] ([facility]) [place] [address] [address] 11/25/2020 12:00:00 AM EDT [facility] ([facility]) [place] [address] [address] 11/18/2020 12:00:00 AM EDT [facility] ([facility]) [place] [address] [facility] [facility] [place] [address] 11/13/2020 12:00:00 AM EDT [facility]1 ([facility]) [place] [address] [facility] [place] [address] 11/13/2020 12:00:00 AM EDT [facility] ([facility]) [place] [address] [facility] [facility] [place] [address] 11/12/2020 12:00:00 AM EDT eCW1 ([facility]) Emergency Attender: OBDULIA HORAN MD 11/07/2020 11:04:00 PM EDT - 11/08/2020 01:13:00 AM EDT [facility] Patient discharged. [place] [address] [address] 11/03/2020 12:00:00 AM EDT [facility]) [place] [address] [address] 11/03/2020 12:00:00 AM EDT [facility] ([facility]) [place] [address] [address] 10/31/2020 12:00:00 AM EDT [facility] [place] [place] [address] [address] 10/27/2020 12:00:00 AM EDT [facility] ([facility]) [place] [address] [address] 10/20/2020 12:00:00 AM EDT [facility] ([facility]) Outpatient Attender: Christine FRANKS 10/06/19 07:24:52 PM EDT - 10/05/2020 08:01:47 PM EDT [facility] ([facility] ) Outpatient Attender: Christine FRANKS 09/08/19 10:09:44 AM EDT - 09/07/2020 10:48:12 AM EDT [facility] ([facility] ) Outpatient Attender: Trey Montiel NP [facility] 09/05/2020 04:00:00 AM EDT - 09/05/2020 04:00:00 AM EDT [facility] ([facility]) Attender: Trey Montiel NP 09/05/2020 12:00:00 AM EDT [facility] ([facility]) [facility] 08/22/2020 11:30:00 AM EST - 08/22/2020 11:30:00 AM EST [facility] ([facility]) Attender: Trey Montiel NP 08/22/2020 12:00:00 AM EST [facility] ([facility]) Attender: Zack Wisdom 08/20/2020 12:00:00 AM EST [facility] ([facility]) Extended Individual Psychotherapy - 45 min Attender: Paresh Wisdom [facility] 08/18/2020 03:00:00 AM EST - 08/18/2020 03:00:00 AM EST [facility] ([facility]) Extended Individual Psychotherapy - 45 min [facility] 07/30/2020 07:00:00 AM EST - 07/30/2020 07:00:00 AM EST [facility] ([facility]) Attender: Jaqui Carmen 07/30/2020 12:00:00 AM EST [facility] ([facility]) Outpatient Attender: Trey Montiel NP [facility] 07/25/2020 04:00:00 AM EST - 07/25/2020 04:00:00 AM EST [facility] ([facility]) Attender: Trey Montiel NP 07/25/2020 12:00:00 AM EST [facility] ([facility]) Office Visit Attender: Henna NAIK PA-C Physical Therapy 07/24/2020 07:45:00 AM EST [facility] ([facility]) Extended Individual Psychotherapy - 45 min Attender: Shea dennis Carmen [facility] 07/16/2020 06:00:00 AM EST - 07/16/2020 06:00:00 AM EST [facility] ([facility]) Attender: Jaqui Carmen 07/16/2020 12:00:00 AM EST [facility] ([facility]) OFFICE OUTPATIENT NEW 30 MINUTES Attender: Henna NAIK PA-C Physical Therapy 07/08/2020 08:00:00 AM EST [facility] ([facility]) Outpatient Attender: Anitra Sanchez 07/06/2020 10:43:10 AM EST - 07/06/2020 11:54:41 AM EST [facility]) Extended Individual Psychotherapy - 45 min Attender: Shea dennis Carmen [facility] 06/25/2020 06:00:00 AM EST - 06/25/2020 06:00:00 AM EST [facility] ([facility]) Attender: Jaqui Carmen 06/25/2020 12:00:00 AM EST [facility] ([facility]) Outpatient Attender: Trey Montiel NP [facility] 05/29/2020 04:00:00 AM EST - 05/29/2020 04:00:00 AM EST [facility] ([facility]) Attender: Trey Montiel NP 05/29/2020 12:00:00 AM EST [facility] ([facility]) Extended Individual Psychotherapy - 45 min [facility] 05/28/2020 06:00:00 AM EST - 05/28/2020 06:00:00 AM EST [facility] ([facility]) Attender: Jaqui Carmen 05/28/2020 12:00:00 AM EST [facility] ([facility]) Brief Individual Psychotherapy - 30 min Attender: Ximena almeida [facility] 05/14/2020 10:00:00 AM EST - 05/14/2020 10:00:00 AM EST [facility] ([facility]) Attender: Ximena Chavira 05/14/2020 12:00:00 AM EST [facility] ([facility]) Extended Individual Psychotherapy - 45 min Attender: [facility] 05/06/2020 12:00:00 PM EST - 05/06/2020 12:00:00 PM EST [facility] ([facility]) Attender: Jaqui Carmen 05/06/2020 12:00:00 AM EST [facility] ([facility]) Extended Individual Psychotherapy - 45 min [facility]: [facility] 07:00:00 AM EST - 04/16/2020 07:00:00 AM EST [facility] ([facility]) Attender: Jaqui Carmen 04/16/2020 12:00:00 AM EST [facility] ([facility]) [id number]"Psychotherapy Attender: Jaqui Carmen [facility] 03/17/2020 01:00:00 AM EDT - 03/17/2020 01:00:00 AM EDT [facility] ([facility]) Attender: Jaqui Carmen 03/17/2020 12:00:00 AM EDT [facility] ([facility]) Extended Individual Psychotherapy - 45 min [facility] 02[facility]27/2020 06:00:00 AM EDT - 02/27/2020 06:00:00 AM EDT [facility] ([facility]) Attender: Jaqui Carmen 02/27/2020 12:00:00 AM EDT [facility] ([facility]) Functional Status Immunizations Vaccine Date Status Description Data Source(s) COVID-19 VACCINE Moderna 11/01/2020 12:00:00 AM EDT completed [employer] Vaccine Series Complete: YESThis Data wa s Submitted to [facility] Via [employer]. COVID-19 dose #1 given elsewhere Unspecified 10/04/2020 07:2 2:00 AM EDT completed eCW1 ([facility]) COVID-19 dose #1 given elsewhere Unspecified 10/04/2020 07:2 2:00 AM EDT completed eCW1 ([facility]) COVID-19 dose #1 given elsewhere Unspecified 10/04/2020 07:2 2:00 AM EDT completed eCW1 ([facility]) COVID-19 dose #1 given elsewhere Unspecified 10/04/2020 07:2 2:00 AM EDT completed eCW1 ([facility]) COVID-19 dose #1 given elsewhere Unspecified 10/04/2020 07:2 2:00 AM EDT completed eCW1 ([facility]) COVID-19 dose #1 given elsewhere Unspecified 10/04/2020 07:2 2:00 AM EDT completed eCW1 ([facility]) COVID-19 dose #1 given elsewhere Unspecified 10/04/2020 07:2 2:00 AM EDT completed eCW1 ([facility]) COVID-19 dose #1 given elsewhere Unspecified 10/04/2020 07:2 2:00 AM EDT completed eCW1 ([facility]) COVID-19 dose #1 given elsewhere Unspecified 10/04/2020 07:2 2:00 AM EDT completed eCW1 ([facility]) COVID-19 dose #1 given elsewhere Unspecified 10/04/2020 07:2 2:00 AM EDT completed eCW1 ([facility]) COVID-19 dose #1 given elsewhere Unspecified 10/04/2020 07:2 2:00 AM EDT completed eCW1 ([facility]) COVID-19 dose #1 given elsewhere Unspecified 10/04/2020 07:2 2:00 AM EDT completed eCW1 ([facility]) COVID-19 dose #1 given elsewhere Unspecified 10/04/2020 07:2 2:00 AM EDT completed eCW1 ([facility]) COVID-19 dose #1 given elsewhere Unspecified 10/04/2020 07:2 2:00 AM EDT completed eCW1 ([facility]) COVID-19 VACCINE Moderna 10/04/2020 12:00:00 AM EDT completed [employer] Vaccine Series Complete: NOThis Data was Submitted to [facility] Via [employer]. TB Skin test is not vaccine. 01/25/2020 06:01:00 PM EDT completed MEDENT ([facility]) Medications Medication Brand Name Start Date Product Form Dose Route Admi nistrative Instructions Pharmacy Instructions Status Indications Reaction Description Data Source(s) 20 mg 03/13/2021 12:00:00 AM EDT tablet 30 TAKE ONE TABLET BY MOUTH UP TO THREE TIMES A DAY BEFORE MEALS TAKE ONE TABLET BY MOUTH UP TO THREE CHRISTINE ES A DAY BEFORE MEALS SOLD: 03/13/2021 [facility] tizanidine 4 MG Oral Tablet Tizanidine HCL 01/27/2021 12:00:00 AM EDT ORAL active MEDENT ([facility]) meloxicam 7.5 MG Oral Tablet MELOXICAM 01/21/2021 12:00:00 AM EDT tabl et 30 TAKE ONE TABLET BY MOUTH EVERY DAY NEEDED FOR NECK & BACK PAIN TAKE ONE TABLET BY MOUTH EVERY DAY NEEDED FOR NECK & BACK PAIN SOLD: 01/21/2021 [facility] meloxicam 7.5 MG Oral Tablet Meloxicam 01/20/2021 12:00:00 AM EDT ORAL active MEDENT ([facility]) 120 ACTUAT Budesonide 0.08 MG/ACTUAT / f ormoterol fumarate 0.0045 MG/ACTUAT Metered Dose Inhaler Budesonide-Formoterol Fumarate 80-4.5 MCG/ACT Budesonide- Formoterol Fumarate 80-4.5 MCG/ACT 12/12/2020 12:00:00 AM EDT 2.0 {pu ffs} active Budesonide-Formoterol Fumara te 80-4.5 MCG/ACT eCW1 ([facility]) 120 ACTUAT Budesonide 0.08 MG/ACTUAT / f ormoterol fumarate 0.0045 MG/ACTUAT Metered Dose Inhaler Budesonide-Formoterol Fumarate 80-4.5 MCG/ACT Budesonide- Formoterol Fumarate 80-4.5 MCG/ACT 12/12/2020 12:00:00 AM EDT 2.0 {pu ffs} active Budesonide-Formoterol Fumara te 80-4.5 MCG/ACT eCW1 ([facility]) 80-4.5 mcg/actuation 12/12/2020 12:00:00 AM EDT HFA aerosol inhaler 10 INHALE 2 PUFFS BY MOUTH TWO TIMES A DAY INHALE 2 PUFFS BY MOUTH TWO TIMES A DAY SOLD: 12/15/2020 [facility] tizanidine 2 MG Oral Tablet TIZANIDINE HCL 12/08/2020 12:00:00 AM EDT tablet 56 TAKE ONE TO TWO TABLETS BY MOUTH THREE TIMES A DAY NEEDED TAKE ONE TO TWO TABLETS BY MOUTH THREE TIMES A DAY NEEDED SOLD: 12/15/2020 [facility] tizanidine 2 MG Oral Tablet TIZANIDINE HCL 12/08/2020 12:00:00 AM EDT tablet 56 TAKE ONE TO TWO TABLETS BY MOUTH THREE TIMES A DAY NEEDED TAKE ONE TO TWO TABLETS BY MOUTH THREE TIMES A DAY NEEDED SOLD: 01/20/2021 [facility] tizanidine 4 MG Oral Tablet TIZANIDINE HCL 12/06/2020 12:00:00 AM EDT tablet 30 TAKE ONE TABLET BY MOUTH AT BEDTIME NEEDED TAKE ONE TABLET BY MOUTH AT BEDTIME NEEDED SOLD: 12/06/2020 [facility] 50 mg 12/04/2020 12:00:00 AM EDT tablet 60 TAKE DIRECTED 1-2 TABLETS BY MOUTH AT BEDTIME NEEDED FOR SLEEP TAKE DIRECTED 1-2 TABLETS BY MOUTH AT BEDTIME NEEDED FOR SLEEP SOLD: 12/06/2020 [facility] buspirone hydrochloride 15 MG Oral Tablet BUSPIRONE HCL 12/04/2020 12:00:00 AM EDT tablet 60 TAKE ONE TABLET BY MOUTH TWI CE A DAY TAKE ONE TABLET BY MOUTH TWICE A DAY SOLD: 12/06/2020 [facility] 100 mg 12/04/2020 12:00:00 AM EDT tablet 15 TAKE ONE-HALF TABLET BY MOUTH ONCE DAILY TAKE ONE-HALF TABLET BY MOUTH ONCE DAILY SOLD: 12/06/2020 [facility] 300 mg 11/08/2020 12:00:00 AM EDT capsule 30 TAKE ONE CAPSULE BY MOUTH ONCE DAILY TAKE ONE CAPSULE BY MOUTH ONCE DAILY SOLD: 11/08/2020 [facility] tizanidine 4 MG Oral Tablet TIZANIDINE HCL 09/23/2020 12:00:00 AM EDT tablet 15 TAKE ONE TABLET BY MOUTH THREE TIMES A DAY TAKE ONE TA BLET BY MOUTH THREE TIMES A DAY SOLD: 09/23/2020 [facility] 4 mg 09/22/2020 12:00:00 AM EDT tablet 15 TAKE ONE TABLET BY MOUTH THREE TIMES A DAY FOR 5 DAYS TAKE ONE TABLET BY MOUTH THREE TIMES A DAY FOR 5 DAYS SOLD: 09/23/2020 [facility] 875 mg 09/07/2020 12:00:00 AM EDT tablet 20 TAKE ONE TABLET BY MOUTH EVERY 12 HOURS FOR 10 DAYS TAKE ONE TABLET BY MOUTH EVERY 12 HOURS FOR 10 DAYS SO LD: 09/23/2020 [facility] lamotrigine 100 MG Oral Tablet lamotrigine 08/22/2020 12:00:00 AM EST 100 mg by mouth completed <td ID="Medica tionRxNorm_3">861825</td><td ID="MedicationMedication_3">lamotrigine</td><td ID="MedicationRoute_3">by mouth</td><td ID="MedicationRouteConcept_3">X15124</td><td ID="MedicationStartDate_3">08/22/2020</td><td ID="MedicationStopDate_3"></td><td ID="MedicationDosageFrequency_3">once a day</td><td ID="MedicationDuration_3">30</td><td ID="MedicationFormulaStrength_3">100 mg</td><td ID="MedicationDosageForm_3">tablet</td><td ID="MedicationDosageFormCode_3"></td><td ID="MedicationDosageDescription_3"></td><td ID="MedicationMedicationId_3">[id number]</td><td ID="MedicationAccount_3">[id number]</td><td ID="MedicationNpid_3">[id number]</td><td ID="MedicationAuthorFirstName_3">Trey</td><td ID="MedicationAuthorLastName_3">Montiel</td><td ID="MedicationTaxonomyCode_3">[id number]</td><td ID="MedicationTaxonomyDesc_3">Nurse Practitioner</td><td ID="MedicationPhoneNumber_3">[phone]</td> [facility] ([facility]) Hydroxyzine Hydrochloride 50 MG Oral Tablet hydroxyzine HCl 08/22/2020 12:00:00 AM EST 50 mg completed <td ID ="MedicationRxNorm_1">381465</td><td ID="MedicationMedication_1">hydroxyzine HCl</td><td ID="MedicationRoute_1"></td><td ID="MedicationRouteConcept_1"></td><td ID="MedicationStartDate_1">08/22/2020</td><td ID="MedicationStopDate_1"></td><td ID="MedicationDosageFrequency_1"></td><td ID="MedicationDuration_1"></td><td ID="MedicationFormulaStrength_1">50 mg</td><td ID="MedicationDosageForm_1">tablet</td><td ID="MedicationDosageFormCode_1"></td><td ID="MedicationDosageDescription_1">as directed</td><td ID="MedicationMedicationId_1">[id number]</td><td ID="MedicationAccount_1">[id number]</td><td ID="MedicationNpid_1">[id number]</td><td ID="MedicationAuthorFirstName_1">Trey</td><td ID="MedicationAuthorLastName_1">Montiel</td><td ID="MedicationTaxonomyCode_1">[id number]</td><td ID="MedicationTaxonomyDesc_1">Nurse Practitioner</td><td ID="MedicationPhoneNumber_1">[phone]</td> [facility] ([facility]) buspirone hydrochloride 15 MG Oral Tablet buspirone 2020 12:00:00 AM EST 15 mg by mouth completed <td ID="Medic ationRxNorm_2">635865</td><td ID="MedicationMedication_2">buspirone</td><td ID="MedicationRoute_2">by mouth</td><td ID="MedicationRouteConcept_2">M29564</td><td ID="MedicationStartDate_2">08/22/2020</td><td ID="MedicationStopDate_2"></td><td ID="MedicationDosageFrequency_2">twice a day</td><td ID="MedicationDuration_2">30</td><td ID="MedicationFormulaStrength_2">15 mg</td><td ID="MedicationDosageForm_2">tablet</td><td ID="MedicationDosageFormCode_2"></td><td ID="MedicationDosageDescription_2"></td><td ID="MedicationMedicationId_2">[id number]</td><td ID="MedicationAccount_2">[id number]</td><td ID="MedicationNpid_2">[id number]</td><td ID="MedicationAuthorFirstName_2">Trey</td><td ID="MedicationAuthorLastName_2">Montiel</td><td ID="MedicationTaxonomyCode_2">[id number]</td><td ID="MedicationTaxonomyDesc_2">Nurse Practitioner</td><td ID="MedicationPhoneNumber_2">[phone]</td> [facility]) lamotrigine 25 MG Oral Tablet lamotrigine 05/29/2020 12:00:00 AM EST 25 mg by mouth completed <td ID="Medica tionRxNorm_1">753993</td><td ID="MedicationMedication_1">lamotrigine</td><td ID="MedicationRoute_1">by mouth</td><td ID="MedicationRouteConcept_1">C73531</td><td ID="MedicationStartDate_1">05/29/2020</td><td ID="MedicationStopDate_1">07/28/2020</td><td ID="MedicationDosageFrequency_1">once a day</td><td ID="MedicationDuration_1">30</td><td ID="MedicationFormulaStrength_1">25 mg</td><td ID="MedicationDosageForm_1">tablet</td><td ID="MedicationDosageFormCode_1"></td><td ID="MedicationDosageDescription_1"></td><td ID="MedicationMedicationId_1">[id number]</td><td ID="MedicationAccount_1">[id number]</td><td ID="MedicationNpid_1">[id number]</td><td ID="MedicationAuthorFirstName_1">Trey</td><td ID="MedicationAuthorLastName_1">Montiel</td><td ID="MedicationTaxonomyCode_1">[id number]</td><td ID="MedicationTaxonomyDesc_1">Nurse Practitioner</td><td ID="MedicationPhoneNumber_1">[phone]</td> [facility] ([facility]) Hydroxyzine Hydrochloride 50 MG Oral Tablet hydroxyzine HCl 05/29/2020 12:00:00 AM EST 50 mg completed <td ID ="MedicationRxNorm_3">527765</td><td ID="MedicationMedication_3">hydroxyzine HCl</td><td ID="MedicationRoute_3"></td><td ID="MedicationRouteConcept_3"></td><td ID="MedicationStartDate_3">05/29/2020</td><td ID="MedicationStopDate_3">07/28/2020</td><td ID="MedicationDosageFrequency_3"></td><td ID="MedicationDuration_3">30</td><td ID="MedicationFormulaStrength_3">50 mg</td><td ID="MedicationDosageForm_3">tablet</td><td ID="MedicationDosageFormCode_3"></td><td ID="MedicationDosageDescription_3">as directed</td><td ID="MedicationMedicationId_3">[id number]</td><td ID="MedicationAccount_3">[id number]</td><td ID="MedicationNpid_3">[id number]</td><td ID="MedicationAuthorFirstName_3">Trey</td><td ID="MedicationAuthorLastName_3">Montiel</td><td ID="MedicationTaxonomyCode_3">[id number]</td><td ID="MedicationTaxonomyDesc_3">Nurse Practitioner</td><td ID="MedicationPhoneNumber_3">[phone]</td> [facility] ([facility]) aripiprazole 5 MG Oral Tablet aripiprazole 02/26/2020 12:00:00 AM EDT 5 mg by mouth completed <td ID="Medica tionRxNorm_3">042816</td><td ID="MedicationMedication_3">aripiprazole</td><td ID="MedicationRoute_3">by mouth</td><td ID="MedicationRouteConcept_3">X85554</td><td ID="MedicationStartDate_3">02/26/2020</td><td ID="MedicationStopDate_3">05/26/2020</td><td ID="MedicationDosageFrequency_3">once a day</td><td ID="MedicationDuration_3">30</td><td ID="MedicationFormulaStrength_3">5 mg</td><td ID="MedicationDosageForm_3">tablet</td><td ID="MedicationDosageFormCode_3"></td><td ID="MedicationDosageDescription_3"></td><td ID="MedicationMedicationId_3">[id number]</td><td ID="MedicationAccount_3">[id number]</td><td ID="MedicationNpid_3">[id number]</td><td ID="MedicationAuthorFirstName_3">Trey</td><td ID="MedicationAuthorLastName_3">Montiel</td><td ID="MedicationTaxonomyCode_3">[id number]</td><td ID="MedicationTaxonomyDesc_3">Nurse Practitioner</td><td ID="MedicationPhoneNumber_3">[phone]</td> [facility] ([facility]) 24 HR venlafaxine 150 MG Extended Release Oral Capsule venla faxine 02/26/2020 12:00:00 AM EDT 150 mg by mouth completed <td ID="MedicationRxNorm_4">532844</td><td ID="MedicationMedication_4">venlafaxine</td><td ID="MedicationRoute_4">by mouth</td><td ID="MedicationRouteConcept_4">A12490</td><td ID="MedicationStartDate_4">02/26/2020</td><td ID="MedicationStopDate_4">05/26/2020</td><td ID="MedicationDosageFrequency_4">once a day</td><td ID="MedicationDuration_4">30</td><td ID="MedicationFormulaStrength_4">150 mg</td><td ID="MedicationDosageForm_4">capsule,extended release 24hr</td><td ID="MedicationDosageFormCode_4"></td><td ID="MedicationDosageDescription_4"></td><td ID="MedicationMedicationId_4">[id number]</td><td ID="MedicationAccount_4">[id number]</td><td ID="MedicationNpid_4">[id number]</td><td ID="MedicationAuthorFirstName_4">Trey</td><td ID="MedicationAuthorLastName_4">Montiel</td><td ID="MedicationTaxonomyCode_4">[id number]</td><td ID="MedicationTaxonomyDesc_4"> Nurse Practitioner</td><td ID="MedicationPhoneNumber_4">[phone]</td> [facility] ([facility]) 24 HR Nicotine 0.292 MG/HR Transdermal Patch [Nicoderm C-Q] Nicoderm CQ 02/26/2020 12:00:00 AM EDT 7 mg/24 completed <td ID="MedicationRxNorm_1">965649</td><td ID="MedicationMedication_1">Nicoderm CQ</td><td ID="MedicationRoute_1">to skin</td><td ID="MedicationRouteConcept_1"></td><td ID="MedicationStartDate_1">02/26/2020</td><td ID="MedicationStopDate_1">05/26/2020</td><td ID="MedicationDosageFrequency_1">once a day</td><td ID="MedicationDuration_1">30</td><td ID="MedicationFormulaStrength_1">7 mg/24 hr</td><td ID="MedicationDosageForm_1">patch 24 hour</td><td ID="MedicationDosageFormCode_1"></td><td ID="MedicationDosageDescription_1"> </td><td ID="MedicationMedicationId_1">[id number]</td><td ID="MedicationAccount_1">[id number]</td><td ID="MedicationNpid_1">[id number]</td><td ID="MedicationAuthorFirstName_1">Trey</td><td ID="MedicationAuthorLastName_1">Montiel</td><td ID="MedicationTaxonomyCode_1">[id number]</td><td ID="MedicationTaxonomyDesc_1">Nurse Practitioner</td><td ID="MedicationPhoneNumber_1">[phone]</td> [facility] ([facility]) PPD- TB Intradermal Test 01/25/2020 12:00:00 AM EDT completed MEDENT ([facility]) Medication administered onsite Insurance Providers Payer name Policy type / Coverage type Policy ID Covered libertarian ID Covered libertarian's relationship to webb Policy Webb Plan Information SELF PAY [employer] [facility] MED emp [id number] Employee [id number] [place] [employer] [id number] Self [id number] Medicaid Medicaid [id number] Self [id number] Spouse [id number] Medicaid Medicaid [id number] Self [id number] RPR- Needs Payer Match [id number] Spouse [id number] MEDICAID M [id number] S [id number] [place] [id number] S [id number] [place] [id number] Medicaid P UNAVAILABLE S UNA[place]A BLE DESI [id number] SP [id number] [place] - O/P [id number] 01 [id number] [facility] MEDICAID [id number] SP [id number] B [place] -OP [id number] 18 [id number] EMEDNY [id number] SP [id number] Problems, Conditions, and Diagnoses Code Display Name Description Problem Type Effective Dates Data Source(s) Z6841 Body mass index [BMI]40.0-44.9, adult Curt dy mass index [BMI]40.0-44.9, adult Diagnosis 03/12/2021 10:12:00 PM EDT [facility] E6601 Morbid (severe) obesity due to excess ca lories Morbid (severe) obesity due to excess calories Diagnosis 03/12/2021 10:12:00 PM EDT [facility] W45244 Nicotine dependence, cigarettes, uncompl icated Nicotine dependence, cigarettes, uncomplicated Diagnosis 03/12/2021 10:12:00 PM EDT [facility] R197 Diarrhea, unspecified Diarrhea, unspecified Diagnosis 03/12/2021 10:12:00 PM EDT [facility] M797 Fibromyalgia Fibromyalgia Diagnosis 11/07[facility]2020 [facility] Chronic tension-type headache, intractab le Chronic tension-type headache, intractable Diagnosis 11/07/2020 11:04:00 PM EDT [facility] R519 Headache, unspecified Headache, unspecified Diagnosis 11/07/2020 11:04:00 PM EDT [facility] G56.02 Carpal tunnel syndrome of left wrist Car pal tunnel syndrome of left wrist Problem 01/27/2021 12:00:00 AM EDT [facility] ([facility]) M54.89 Backache Backache Problem 01/27/2021 12:00:00 AM ED T [facility] ([facility]) Z72.0 Tobacco use Tobacco Use Disorder, Mild Condition 0 01/01/2021 12:00:00 AM EDT [facility] ([facility]) F43.9 Reaction to severe stress, unspecified U nspecified Trauma- and Stressor- Related Disorder Condition 01/01/2021 12:00:00 AM EDT [facility] ([facility]) F41.1 Generalized anxiety disorder Generalized Anxiety Disor janes Condition 01/01/2021 12:00:00 AM EDT [facility] ([facility]) F33.1 Major depressive disorder, recurrent, mo derate Major Depressive Disorder, Recurrent episode, Moderate Condition 01/01/2021 12:00:00 AM EDT [facility] ([facility]) 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 seizures Problem 12/02/2020 12:00:00 AM EDT MED[facility] ([facility] ) M54.5 Low back pain Low back pain Problem 12/02/2020 12:00:00 AM EDT [facility] ([facility] ) M54.2 Neck pain Neck pain Problem 12/02/2020 12:00:00 AM ED T [facility] ([facility] ) G43.009 Migraine without aura, not refractory Mi graine without aura, not refractory Problem 12/02/2020 12:00:00 AM EDT [facility] ([facility] ) R20.0 Skin sensation disturbance Skin sensation disturbance Problem 12/02/2020 12:00:00 AM EDT [facility] ([facility] ) R53.1 Malaise and fatigue Malaise and fatigue Problem 0 12/02/2020 12:00:00 AM EDT [facility] ([facility] ) R55 Syncope and collapse Syncope and collapse Problem 12/02/2020 12:00:00 AM EDT [facility] ([facility] ) G47.33 [id number] VIVIAN (obstructive sleep apnea) Problem 11/06/2020 12:00:00 AM EDT eCW1 ([facility]) G40.909 [id number] Seizure disorder Problem 10/20/2020 12:00:00 AM EDT eCW1 ([facility]) J45.40 [id number] Moderate persistent asthma without compli cation Problem 10/20/2020 12:00:00 AM EDT eCW1 ([facility]) F41.8 [id number] Anxiety with depression Problem 10/20/2020 1 2:00:00 AM EDT eCW1 ([facility]) M79.7 [id number] Fibromyalgia Problem 10/20/2020 12:00:00 AM EDT eCW1 ([facility]) Z72.0 Tobacco use Tobacco Use Disorder, Mild Condition 1 07/30/2019 12:00:00 AM EST [facility] ([facility]) F43.9 Reaction to severe stress, unspecified U nspecified Trauma- and Stressor- Related Disorder Condition 05/29/2020 12:00:00 AM EST [facility] ([facility]) F31.9 Bipolar disorder, unspecified Unspecified Bipola r and Related Disorder Condition 05/29/2020 12:00:00 AM EST [facility] ([facility]) Surgeries/Procedures Procedure Description Date Indications Data Source(s) OFFICE OUTPATIENT VISIT 25 MINUTES 01/27/2021 12:00:00 AM EDT [facility] ([facility] ) TSTG ANS FUNCJ CARDIOVAGAL INNERVAJ PARASYMP 12:00:00 AM EDT [facility] ([facility] ) TESTING AUTONOMIC NERVOUS SYSTEM FUNCTION 01/23/2021 1 2:00:00 AM EDT [facility] ([facility], ) Needle electromyography, each extremity, with related paraspinal areas, when performed, done with nerve conduction, amplitude and latency/velocity study; complete, five or more muscles studied, innervated by three or more nerves or four or more spinal levels (list separately in addition to the code for primary procedure). 01/12/2021 12:00:00 AM EDT MEDEN T ([facility], ) Needle electromyography, each extremity, with related paraspinal areas, when performed, done with nerve conduction, amplitude and latency/velocity study; complete, five or more muscles studied, innervated by three or more nerves or four or more spinal levels (list separately in addition to the code for primary procedure). 01/12/2021 12:00:00 AM EDT MEDEN T ([facility], ) Nerve Conduction 11-12 Studies 01/12/2021 12:00:00 AM EDT [facility] ([facility] ) Needle electromyography, each extremity, with related paraspinal areas, when performed, done with nerve conduction, amplitude and latency/velocity study; complete, five or more muscles studied, innervated by three or more nerves or four or more spinal levels (list separately in addition to the code for primary procedure). 01/05/2021 12:00:00 AM EDT MED[facility] T ([facility], ) Needle electromyography, each extremity, with related paraspinal areas, when performed, done with nerve conduction, amplitude and latency/velocity study; complete, five or more muscles studied, innervated by three or more nerves or four or more spinal levels (list separately in addition to the code for primary procedure). 01/05/2021 12:00:00 AM EDT MED[facility] T ([facility] ) Nerve Conduction 9-10 Studies 01/05/2021 12:00:00 AM E DT [facility] ([facility] ) MHC Telemed E/M Lvl 3--Est pt 01/01/2021 12:00:00 AM EDT - 01/01/2021 12:00:00 AM EDT [facility] ([facility]) MHC Telemed E/M Lvl 3--Est pt 01/01/2021 12:00:00 AM E DT [facility] ([facility]) OFFICE OUTPATIENT VISIT 15 MINUTES 12/30/2020 12:00:00 AM EDT [facility] ([facility]) OFFICE OUTPATIENT NEW 60 MINUTES 12/02/2020 12:00:00 A M EDT [facility] ([facility] ) MHC Telemed E/M Lvl 3--Est pt 09/05/2020 12:00:00 AM EDT - 09/05/2020 12:00:00 AM EDT [facility] ([facility]) MHC Telemed E/M Lvl 3--Est pt 09/05/2020 12:00:00 AM E DT [facility] ([facility]) MHC Telemed E/M Lvl 3--Est pt 08/22/2020 12:00:00 AM EST - 08/22/2020 12:00:00 AM EST [facility] ([facility]) Telemed A/O 30" 08/22/2020 12:00:00 AM EST [facility] ([facility]) MHC Telemed E/M Lvl 3--Est pt 08/22/2020 12:00:[address] [facility] ([facility]) Extended Individual Psychotherapy - 45 min 08/20/2020 12:00:00 AM EST - 08/20/2020 12:00:00 AM EST [facility] ([facility]) Extended Individual Psychotherapy - 45 min 12:00:00 AM EST [facility] ([facility]) Extended Individual Psychotherapy - 45 min 07/30/2020 12:00:00 AM EST - 07/30/2020 12:00:00 AM EST [facility] ([facility]) Extended Individual Psychotherapy - 45 min 12:00:00 AM EST [facility] ([facility]) MHC Telemed E/M Lvl 3--Est pt 07/25/2020 12:00:00 AM EST - 07/25/2020 12:00:00 AM EST [facility] ([facility] [facility]) Telemed A/O 30" 07/25/2020 12:00:00 AM EST [facility] ([facility]) MHC Telemed E/M Lvl 3--Est pt 07/25/2020 12:00:[address] [facility] ([facility]) RADEX FINGR MINIMUM 2 VIEWS 07/24/2020 12:00:00 AM EST [facility] ([facility] ) Extended Individual Psychotherapy - 45 min 07/16/2020 12:00:00 AM EST - 07/16/2020 12:00:00 AM EST [facility] ([facility]) Extended Individual Psychotherapy - 45 min 12:00:00 AM EST [facility] ([facility]) FX MCP/IP Articular JT W/O Manipulation 07/08/2020 12: 00:00 AM EST [facility] ([facility]) CLTX PHLNGL FX PROX/MIDDLE PX/F/T W/O MANJ EA 07/08/19 12:00:00 AM EST [facility] ([facility]) Extended Individual Psychotherapy - 45 min 06/25/2020 12:00:00 AM EST - 06/25/2020 12:00:00 AM EST [facility] ([facility]) Extended Individual Psychotherapy - 45 min 12:00:00 AM EST [facility] ([facility]) MHC Telemed E/M Lvl 3--Est pt 05/29/2020 12:00:00 AM EST - 05/29/2020 12:00:00 AM EST [facility] ([facility]) Telemed A/O 30" 05/29/2020 12:00:00 AM EST [facility] ([facility]) [facility] [place] E/M Lvl 3--Est pt 05/29/2020 12:00:[address] [facility] ([facility]) Extended Individual Psychotherapy - 45 min 05/28/2020 12:00:00 AM EST - 05/28/2020 12:00:00 AM EST [facility] ([facility]) Extended Individual Psychotherapy - 45 min 0 12:00:00 AM EST [facility] ([facility]) Brief Individual Psychotherapy - 30 min 05/14/2020 12:00:00 AM EST - 05/14/2020 12:00:00 AM EST [facility] ([facility]) Brief Individual Psychotherapy - 30 min 05/14/2020 12: 00:00 AM EST [facility] ([facility]) Extended Individual Psychotherapy - 45 min 05/06/2020 12:00:00 AM EST - 05/06/2020 12:00:00 AM EST [facility] ([facility]) Extended Individual Psychotherapy - 45 min 0 12:00:00 AM EST [facility] ([facility]) Extended Individual Psychotherapy - 45 min 04/16/2020 12:00:00 AM EST - 04/16/2020 12:00:00 AM EST [facility] ([facility]) Extended Individual Psychotherapy - 45 min 0 12:00:00 AM EST [facility] ([facility]) [id number]"Psychotherapy 0 12:00:00 AM EDT - 03/17/2020 12:00:00 AM EDT [facility] ([facility]) [id number]"Psychotherapy 03/17/2020 12:00:00 AM EDT [facility] ([facility]) Extended Individual Psychotherapy - 45 min 02/27/2020 12:00:00 AM EDT - 02/27/2020 12:00:00 AM EDT [facility] ([facility]) Extended Individual Psychotherapy - 45 min 0 12:00:00 AM EDT [facility] ([facility]) Results ID Date Data Source [id number] 03/12/2021 10:12:00 PM EDT [facility] 1 OrderSheet [facility] Emergency Department [address] [place] [address] Phone #: ext- [phone] 03/12/2021 22:02 Patient: MILIND SWANSON Sex: F : 1995 Age: 25yWEIGHT:114.7 kg HEIGHT:63 inches BMI:44.8ALLERGIES: No Known Drug AllergyCHIEF COMPLAINT: diarrheaDIAGNOSIS: DiarrheaLAB ORDERSOrder Description Priority Entered Acknowledged InitialedUrinalysis (Clean STAT 22:46 03/12/2021 23:06 Milton,Catch) Jeffry Sandoval ; Lyndsay GainesBeta-HCG, Qual STAT 22:46 03/12/2021 23:06 Milton,Urine Jeffry Sandoval ; Lyndsay GainesDIAGNOSTIC STUDY ORDERSOrder Description Priority Entered Acknowledged Initial edMEDICATION/IV/DRIP/FLUID ORDERSOrder Description Priority Entered Acknowledged InitialedGENERAL ORDERSOrder Description Priority Entered Acknowledged Initialed[Electronically signed by Lyndsay Rose R.N. (23:21 03/12/2021)][Electronically signed by Jeffry Sandoval (01:18 03/13/2021)][Electronically locked by Lyndsay Rose R.N. (23:21 03/12/2021)] Name Value Range Interpretation Code Description Data Donna rce(s) Supporting Document(s) ID Date Data Source [id number] 03/12/2021 10:12:00 PM EDT [facility] 1 Medication Reconciliation Report [facility] Emergency Department [address] [place] [address] Phone #: ext- [phone] 03/12/2021 22:02 Patient: MILIND SWANSON Sex: F : 1995 Age: 25yWeight: 114.7 kgHeight/Length: 63 in.BMI: 44.8ALLERGIES: No Known Drug AllergyThe patient's Home Medications are listed below:THE FOLLOWING MEDICATIONS NEED TO BE RECONCILED: Abilify Oral (5 mg) Albuterol Sulfate Inhalation busPIRone HCl Oral (10 mg) 1 tablet, 2x a day hydrOXYzine HCl Oral 50 mgThe source(s) of the original Home Medication information:Not obtained.The following Medications were given to the patient in the Emergency Department:None.The following Medications were prescribed to the patient:None. Name Value Range Interpretation Code Description Data [facility](s) Supporting Document(s) ID Date Data Source [id number] 03/12/2021 10:12:00 PM EDT [facility] 1 Medication Administration Record [facility] Emergency Department [address] [place] [address] Phone #: ext- [phone] 03/12/2021 22:02 Patient: MILIND SWANSON Sex: F : 1995 Age: 25yWeight: 114.7 kgHeight/Length: 63 inBMI: 44.8ALLERGIES: No Known Drug AllergyDate/Time Medication Administered Medication Ordered Name Value Range Interpretation Code Description Data Donna rce(s) Supporting Document(s) ID Date Data Source [id number] 03/12/2021 10:12:00 PM EDT [facility] 1 General Instructions [facility] Emergency Department [address] [place], [place] [id number] Phone #: ext- [phone] 03/12/2021 22:02 Patient: MILIND SWANSON Sex: F : 1995 Age: 25y DiarrheaINSTRUCTIONS Warnings: Further evaluation is necessary. GENERAL WARNINGS: Return or contact your physician immediately if your condition worsens or changes unexpectedly, if not improving as expected, or if other problems arise. Understanding of the discharge instructions verbalized by patient. Follow-up with: [facility] Respective Team [facility] [address] [place], , , [address] [facility] [address], , [place], [address] Follow up in two days if not better. Call for an appointment. Reason for referral: evaluation. ADDITIONAL INFORMATIONNonspecific Vomiting and Diarrhea (Adult)Vomiting and diarrhea can have many causes, i ncluding: Helping your body get rid of harmful substances Gastroenteritis caused by viruses, parasites, bacteria, or toxins. Allergy to or side effect of a food or medicine Severe stress or worry (anxiety) Other illnesses PregnancyIt is often hard to pinpoint an exact cause, even with testing. Vomiting and diarrhea often go awaywithin a day or two without problems. If they continue, though, they can lead to too much loss of fluid(dehydration). This can be serious if not treated. 2 General Instructions [facility] Emergency Department [address] [place] [id number] Phone #: ext- [phone] 03/12/2021 22:02 Patient: MILIND SWANSON Sex: F : 1995 Age: 25yHome careMedicines You may use acetaminophen or NSAID medicines like ibuprofen or naproxen to control fever, unless another medicine was prescribed. If you have chronic liver or kidney disease, talk with your healthcare provider before using these medicines. Also talk with your provider if you've had a stomach ulcer or gastrointestinal bleeding. Don't give aspirin to anyone under 18 years of age who is ill with a fever because it may cause severe disease or . Don't use NSAID medicines if you are already taking one for another condition (like arthritis) or are on aspirin (such as for heart disease or after a stroke) Mgyl-gbg-aompigp medicines for diarrhea, nausea, and vomiting are generally OK unless you have bleeding, fever, or severe abdominal pain.General care If symptoms are severe, rest at home for the next 24 hours, or until you are feeling better. 3 General Instructions [facility] Emergency Department [address] [place] [address] Phone #: ext- [phone] 03/12/2021 22:02 --- Patient: MILIND SWANSON Sex: F : 1995 Age: 25y Washing your hands with soap and water, or using alcohol-based hand train engineer is the best way to stop the spread of infection. Wash your hands after touc lynda anyone who is sick. Wash your hands after using the toilet and before meals. Clean the toilet after each use. Dry your hands with a single use towel. Caffeine, tobacco, and alcohol can make the diarrhea, cramping, and pain worse. Remember, caffeine not only is in coffee, but also is in chocolate, some energy drinks, and teas.Diet Water and clear liquids are important so you don't get dehydrated. Drink a small amount at a time. Don't guzzle down the drinks. That may increase your nausea, make cramping worse, and cause the drinks to come back up. Sports drinks may also help if you are healthy and not too dehydrated. They have too much sugar and not enough electrolytes and can sometimes make things worse. Also, don't drink beverages that are too acidic, like orange juice and grape juice. If you are very dehydrated, commercially available products called oral rehydration solutions are best.Food Don't force yourself to eat, especially if you have cramps, diarrhea, or vomiting. Eat just a little at a time, and then wait a few minutes before you try to eat more. Don't eat fatty, greasy, spicy, or fried foods. Don't eat dairy products if you have diarrhea. They can make it worse.During the first 24 hours (the first full day), follow the diet below: Beverages: Oral rehydration solutions, sports drinks, soft drinks without caffeine, mineral water, and decaffeinated tea and coffee Soups: Clear broth, consomm, and bouillon Desserts: Plain gelatin, popsicles, and fruit juice barsDuring the next 24 hours (the second day), you may add the following to the above if you are better. Ifnot, continue what you did the first day: Hot cereal, plain toast, bread, rolls, crackers Plain noodles, rice, mashed potatoes, chicken noodle or rice soup 4 General Instructions [facility] Emergency Department [address] [place] [address] Phone #: ext- [phone] 03/12/2021 22:02 Patient: MILIND SWANSON Sex: F : 1995 Age: 25y Unsweetened canned fruit (avoid pineapple), bananas Limit fat intake to less than 15 grams per day by avoiding margarine, butter, oils, mayonnaise, sauces, gravies, fried foods, peanut butter, meat, poultry, and fish. Limit fiber. Avoid raw or cooked vegetables, fresh fruits (except bananas) and bran cereals. Limit caffeine and chocolate. No spices or seasonings except salt.During the next 24 hours: Gradually resume a normal diet, as you feel better and your symptoms improve. If at any time your symptoms start getting worse again, go back to clear liquids until you feel better.Food preparation If you have diarrhea, you should not prepare food for others. When preparing foods, wash your hands before and after. Wash your hands or use alcohol- based train engineer after using cutting boards, countertops, and knives that have been in contact with raw food. Dry your hands with a single use towel. Keep uncooked meats away from cooked and iropy-nn-xln foods.Follow-up careFollow up with your healthcare provider, or as advised. Call if you don't get better in the next 2 to 3days. If a stool (diarrhea) sample was taken, or cultures done, you will be told if they are positive, or ifyour treatment needs to be changed. You may call as directed for the results.If X-rays were taken, you will be notified of any new findings that may affect your careCall 911Call 911 if any of these occur: Trouble breathing Chest pain Confusion Severe drowsiness or trouble awakening Fainting or loss of consciousness 5 General Instructions [facility] Emergency Department [address] [place] [address] Phone #: ext- [phone] 03/12/2021 22:02 Patient: MILIND SWANSON Sex: F : 1995 Age: 25y Rapid heart rate Seizure Stiff neck Severe weakness, dizziness, or lightheadednessWhen to seek medical adviceCall your healthcare provider right away if any of these occur: Bloody or black vomit or stools Severe, steady abdominal pain or any abdominal pain that is getting worse Severe headache or stiff neck An inability to hold down even sips of liquids for more than 12 hours Vomiting that lasts more than 24 hours Diarrhea that lasts more than 24 hours Fever of 100.4F (38.0C) or higher, or as directed by your healthcare provider Yellowish color to your skin or the whites of your eyes Signs of dehydration, such as dry mouth, little urine (less than every 6 hours), or very dark urine [employer]. [address] [place] [address]. All rights reserved. This information is not intended as asubstitute for professional medical care. Always follow your healthcare professional's instructions.Diet for Vomiting and Diarrhea (Child)Vomiting and diarrhea are common in children. A child can quickly lose too much fluid and becomedehydrated. This is the loss of too much water and minerals from the body. This can be serious andeven life-threatening. When this occurs, body fluids must be replaced. This is done by giving smallamounts of liquids often.If your child shows signs of dehydration, the doctor may tell you to use an oral rehydration solution.Oral rehydration solution can replace lost minerals called electrolytes. Oral rehydration solution canbe used in addition to breast or bottle feedings. Oral rehydration solution may also reduce vomitingand diarrhea. You can buy oral rehydration solution at grocery stores and drug stores without aprescription.In cases of severe dehydration or vomiting, a child may need to go to a hospital to have intravenous 6 General Instructions [facility] Emergency Department [address] [place] [address] Phone #: ext- [phone] 03/12/2021 22:02 Patient: MILIND SWANSON Sex: F : 1995 Age: 25y(IV) fluids.Giving liquids and foodIf using oral rehydration solution: Follow your doctor's instructions when giving the solution to your child. Use only prepared, purchased oral rehydration solution made for this purpose. Don't make your own solution. This is very important because the homemade solutions and sports drinks may not contain the amounts or ingredients necessary to stop dehydration. If vomiting or diarrhea gets better after 2 to 3 hours, you can stop oral rehydration solution. You can then restart other clear liquids.For solid foods: Follow the diet your doctor advises. If desired and tolerated, your child may eat regular food. If your child is an infant and you are , continue to do so unless your healthcare provider directs you stop. If you are feeding formula to your infant, you may try a special oral rehydration solution in small amounts frequently for a few hours. When the vomiting improves, you may restart the formula. If unable to eat regular food, your child can drink clear liquids such as water, or suck on ice cubes. Do not give high-sugar fluids such as juice or soda. If clear liquids are tolerated, slowly increase the amount. Alternate these fluids with oral rehydration solution as your doctor advises. Your child can start a regular diet 12 to 24 hours after diarrhea or vomiting has stopped. Continue to give plenty of clear liquids. You can resume your child's normal diet over time as he or she feels better. Don't force your child to eat, especially if he or she is having stomach pain or cramping. Don't feed your child large amounts at a time, even if he or she is hungry. This can make your child feel worse. You can give your child more food over time if he or she can tolerate it. Foods you can give include cereal, mashed potatoes, applesauce, mashed bananas, crackers, dry toast, rice, oatmeal, bread, noodles, pretzels, soups with rice or noodles, and cooked vegetables. As your child improves, you may try lean meats and yogurt. If the symptoms come back, go back to a simple diet or clear liquids.Follow-up care 7 General Instructions [facility] Emergency Department [address] [place] [address] Phone #: ext- [phone] 03/12/2021 22:02 Patient: MILIND SWANSON Sex: F : 1995 Age: 25yFollow up with your child's healthcare provider, or as advised. If a stool sample was taken or cultureswere done, call the healthcare provider for the results as instructed.Call [phone] if your child has any of these symptoms: Trouble breathing Confusion Extreme drowsiness or trouble walking Loss of consciousness Rapid heart rate Stiff neck SeizureWhen to seek medical adviceCall your child's healthcare provider right away if any of these occur: Abdominal pain that gets worse Constant lower right abdominal pain Repeated vomiting after the first 2 hours on liquids Occasional vomiting for more than 24 hours More than 8 diarrhea stools within 8 hours Continued severe diarrhea for more than 24 hours Blood in vomit or stool Reduced oral intake Dark urine or no urine for 4 to 6 hours in infants and young children, or 6 for 8 hours in older children, no tears when crying, sunken eyes, or dry mouth Fussiness or crying that cannot be soothed Unusual drowsiness New rash 8 General Instructions [facility] Emergency Department [address] [place] [address] Phone #: ext- [phone] 03/12/2021 22:02 Patient: MILIND SWANSON Sex: F : 1995 Age: 25y Diarrhea lasts more than 1 week on antibiotics A child 2 years or older has a fever for more than 3 days A child of any age has repeated fevers above 104F (40C) [id number] [employer]. [address] [place] [address]. Todos los derechos reservados. Esta informacin nopretende sustituir la atencin mdica profesional. Slo mujica mdico puede diagnosticar y tratar un problema de delmy. You have been given the foll owing additional information: Vomiting and Diarrhea, Nonspecific (Adult) Diet for Vomiting/Diarrhea (Child)(Electronically signed by Jeffry Sandoval 03/13/2021 01:18) Name Value Range Interpretation Code Description Data Donna rce(s) Supporting Document(s) ID Date Data Source [id number] 03/12/2021 10:12:00 PM EDT [facility] 1 Clinical Report - Nurses [facility] Emergency Department [address] [place] [address] Phone #: ext- [phone] 03/12/2021 22:02 Patient: MILIND SWANSON Sex: F : 1995 Age: 25yTRIAGEArrived by private vehicle. Historian: patient.Acuity: LEVEL 3.Chief Complaint: DIARRHEA.Alert. No acute distress.( Pt reports diarrhea 4-6 times per day x 6 days. Has recently been on zithromax for bronchitis. Pt hadvirtual visit with well now and they told her she might have c-diff and to come to ER. Pt reports lowerabdominal pain.). No fever.SEPSIS SCREEN: SIRS SCREEN NEGATIVE: heart rate greater than 90. SEPSIS SCREEN NEGATIVE.No suspected or confirmed signs of infection present. --22:18 03/12/21 Gay Conner R.N.22:12 03/12/21. BP: 135/86. HR: 96. RR: 18. O2 saturation: 96%. Temp: 98.0 F. Pain level now /10.--22:18 03/12/21 Gay Conner R.N.Weight: 114.7 kg. Height/Length: 63 inches. BMI: 44.8. --22:16 03/12/21 Gay Conner R.N.MedicationsAlbuterol Sulfate Inhalation. busPIRone HCl Oral (Tablet 10 mg) 1 tablet, 2x a day. --22:15 03/12/21 Gay Conner R.N. Abilify Oral (Tablet 5 mg). --22:15 03/12/21 Gay Conner R.N. hydrOXYzine HCl Oral 50 mg. --22:15 03/12/21 Gay Conner R.N.AllergiesNo Known Drug Allergy. --22:15 03/12/21 Gay Conner R.N.PROBLEMS:Tension-Type Headache.Thymoma.Bipolar Disorder.Fibromyalgia.Epilepsy. --22:16 03/12/21 Gay Conner R.N.ADDITIONAL SURGERIES:Shoulder Surgery.[place] teeth. --22:16 03/12/21 aGy Conner R.N.History 2 Clinical Report - Nurses [facility] Emergency Department [address] [place] [address] Phone #: ext- [phone] 03/12/2021 22:02 Patient: MLIIND SWANSON Sex: F : 1995 Age: 25y PAST MEDICAL HX: Immunizations: up-to-date. Last normal menstrual period now- Mar 10. Uses an intrauterine device. SOCIAL HX: Current every day light tobacco smoker- less than 1/2 a pack per day. Occasional alcohol use. No drug use. She was offered HIV testing but declined and hepatitis C testing but declined. She has not traveled outside the [place] Infectious disease exposure: The patient was not exposed to C-diff, MRSA or Coronavirus. SELF HARM ASSESSMENT: Self harm assessment was performed. The patient answered "no" to the question(s) "Have you recently felt down, depressed, or hopeless?", "Do you have thoughts of harming or killing yourself?", "Do you have a plan for harming or killing yourself?" and "Have you recently had thoughts about harming or killing others?". ABUSE ASSESSMENT: No report of abuse. NUTRITIONAL RISK ASSESSMENT: The nutritional risk assessment revealed no deficiencies. FUNCTIONAL ASSESSMENT: Functional assessment: no impairments noted. LEARNING NEEDS ASSESSMENT: The learning needs assessment revealed no barriers. FALL RISK ASSESSMENT: Fall risk assessment completed. No risk factors identified. SKIN INTEGRITY ASSESSMENT: Skin integrity risk assessment completed. No skin integrity risk identified. --22:18 03/12/21 Gay Conner R.N. FAMILY HX: No significant family medical history. --22:49 03/12/21 Jeffry Sandoval. Interventions Identification band on patient. To treatment room. --22:18 03/12/21 Gay Conner R.N.PHYSICAL ASSESSMENT( pt. c/o lower abd cramping and diarrha 4 x a day).GENERAL / NEURO / PSYCH: Alert. Oriented X 4. Appears in no acute distress.HEENT: Mucous membranes are pink.RESPIRATORY: Respirations not labored. Breath sounds within normal limits.CVS: Normal sinus rhythm noted. Capillary refill less than 2 seconds.SKIN: Skin is warm and dry. --22:39 03/12/21 Lyndsay Rose R.N.NURSING PROGRESS NOTESThe plan of care for this patient has been created. Patient gowned. Head of bed elevated.Reassurance given. Call light placed in reach. Side rails up x 1. Bed placed in lowest position. Brakesof bed on. Patient ready for evaluation. --22:39 03/12/21 Lyndsay Rose R.N.DISPOSITION / DISCHARGE 3 Clinical Report - Nurses [facility] Emergency Department [address] [place] [address] Phone #: ext- [phone] 03/12/2021 22:02 Patient: MILIND SWANSON Sex: F : 1995 Age: 25y Condition at departure: stable. No learning barriers present. Discharge instructions provided and reviewed with the patient. Patient verbalized understa nding. Written instructions provided in Ivorian. The patient was discharged by the physician. She was discharged home. She left ambulatory and via private vehicle. Patient driving. --23:20 03/12/21 Lyndsay Rose R.N. 23:20 03/12/21. BP: deferred. HR: deferred. RR: 16. Temp: deferred. Pain level now: 0/10. --23:20 03/12/21 Lyndsay Rose R.N. 23:21 03/12/21. O2 saturation: deferred. --23:21 03/12/21 Lyndsay Rose R.N.Locked/Released at 03/12/2021 23:21 by Lyndsay Rose R.N. Name Value Range Interpretation Code Description Data Donna rce(s) Supporting Document(s) ID Date Data Source [id number] 03/12/2021 10:12:00 PM EDT [facility] 1 Clinical Report - Physicians/Mid Levels [facility] Emergency Department [address] [place] [address] Phone #: ext- [phone] 03/12/2021 22:02 Patient: MILIND SWANSON Sex: F : 1995 Age: 25y Time Seen: 22:41 03/12/2021. Arrived- By private vehicle. Historian- patient.HISTORY OF PRESENT ILLNESS Chief Complaint: DIARRHEA. This started 1 week and is still present. It has been intermittent. No nausea, black stools, bloody stools, constipation or flank pain. She has had diarrhea and mild, crampy abdominal pain. Has recently been on antibiotics but not recently been camping. The illness is described as mild. (Having diarrhea 4-5 times a day for one week after taking Zithromax for bronchitis. She did a telemedicine video conference and was told to go to ER for possible C dif. No rectal bleeding.). Similar symptoms previously. None. Recent medical care: The patient was seen recently in a clinic.REVIEW OF SYSTEMSNo fever, muscle aches, difficulty with urination, dark urine or headache. No sore throat, chest pain,difficulty breathing, excessive urination or skin rash. No jaundice, back pain, fever, sweats or weight loss.No black stools, bloody stools, headache or diabetic symptoms. Denies current or .All other systems reviewed and are negative.PAST HISTORYSee nurses notes. No history of bowel obstruction or diabetes mellitus. Problems: Tension-Type Headache. Thymoma. Bipolar Disorder. Fibromyalgia. Epilepsy. Additional Surgeries: Shoulder Surgery. [place] teeth. Medications: hydrOXYzine HCl Oral 50 mg. Abilify Oral (Tablet 5 mg). Albuterol Sulfate Inhalation. 2 Clinical Report - Physicians/Mid Levels [facility] Emergency Department [address] [place] [address] Phone #: ext- [phone] 03/12/2021 22:02 Patient: MILIND SWANSON Sex: F : 1995 Age: 25y busPIRone HCl Oral (Tablet 10 mg) 1 tablet, 2x a day. Allergies: No Known Drug Allergy.SOCIAL HISTORYCurrent every day smoker.FAMILY HISTORYNo significant family medical history.ADDITIONAL NOTESThe nursing notes have been reviewed.PHYSICAL EXAMVital Signs: 03/12/2021 22:12 BP: 135/86. MAP: 102. HR: 96. RR: 18. O2 saturation: 96%. Temp: 98.0 F.Appearance: Alert. Oriented X3. No acute distress.Eyes: Eyes normal inspection.ENT: Pharynx normal.Neck: Normal inspection.CVS: Normal heart rhythm and rate. Heart sounds normal.Respiratory: No respiratory distress. Painless inspiration.Abdomen: Soft and nontender. Bowel sounds normal. Obese. (no tenderness to RLQ).Back: Normal inspection.Skin: Skin warm and dry. Normal skin color. No rash. Normal skin turgor.Extremities: Extremities exhibit normal ROM. No lower extremity edema.Neuro: Oriented X 3. No motor deficit. No sensory deficit.LABS, X-RAYS, AND EKGLaboratory Tests: Beta-HCG, Qual Urine: (JIMBO: 03/12/2021 23:00) ( MsgRcvd 03/12/2021 23:13) Final results Test Result Flag Units (Reference) HCG URINE QUAL NEGATIVE (NORMAL: NEGAT HCG URINE QL REENTER NEGATIVE (NORMAL: NEGAT { KIT LOT # [id number] ){ KIT EXP DATE 06.12.22 ){ PROCEDURAL CONTROL VALID ).PROGRESS AND PROCEDURESCourse of Care: 22:51 03/12/21. Benign abdominal exam. No tachycardia. Patient most likely has diarrheasecondary to higher dose of Zith romax during those three days 23:16 03/12/21. Patient unable to provide stool sample. 3 Clinical Report - Physicians/Mid Levels [facility] Emergency Department [address] [place] [address] Phone #: ext- [phone] 03/12/2021 22:02 [id number] Sex[facility] F : 1995 Age: 25y Patient/family counseled. Disposition: Discharged. Condition: stable.CLINICAL IMPRESSION DiarrheaINSTRUCTIONS Warnings: Further evaluation is necessary. GENERAL WARNINGS: Return or contact your physician immediately if your condition worsens or changes unexpectedly, if not improving as expected, or if other problems arise. Understanding of the discharge instructions verbalized by guanaco carroll. Follow-up with: [facility] Respective Team Jul[place], , , [id number] [facility] [address], , [place], [address] Follow up in two days if not better. Call for an appointment. Reason for referral: evaluation.(Electronically signed by Jeffry Sandoval 03/13/2021 01:18) Name Value Range Interpretation Code Description Data Donna rce(s) Supporting Document(s) ID Date Data Source [id number] 03/12/2021 11:18:00 PM EDT [facility] Name Value Range Interpretation Code Description Data Donna rce(s) Supporting Document(s) URINALYSIS [facility] audi [facility]OURCE R [facility] COL[facility] yellow NORMAL: Yellow [facility] CLARITY hazy NORMAL: Clear [facility] Ho spital Specific gravity of Urine by Test strip 1.025 1.001 - 1.030 [facility] pH 6 5 - 9 [facility] Glucose [Mass/volume] in Urine by Test strip NORM [facility] Bil[facility].total [Presence] in Urine by Test strip NEG NORMAL: Negative [facility] Ketones [Presence] in Urine by Test strip 5 NORMAL: Negative [facility] Protein [Mass/volume] in Urine by Test strip 15 NORMAL: Negat [facility] Nitrite [Presence] in Urine by Test strip NEG NORMAL: Negative [facility] BLOOD 25 NORMAL: Negative [facility] LEUK EST 25 NORMAL: Negative [facility] Urobilinogen [Mass/volume] in Urine by Test strip 4 less deacon n 1.0 mg/dL [facility] MICROSCOPIC See Below [facility] ital WBC 3 - 5 NORMAL: NONE SEEN [facility] Erythrocytes [#/volume] in Urine by Test strip 1 - 3 NORMAL: NON E SEEN [facility] EPITHELIAL MANY NORMAL: NONE SEEN A [facility] Bacteria [Presence] in Urine sediment by Light microscopy 1+ SMALL NORMAL: NONE SEEN [facility] Mucus [Presence] in Urine sediment by Light microscopy 2+ NOR MAL: NONE SEEN A [facility] ID Date Data Source [id number] 03/12/2021 11:12:00 PM EDT [facility] Name Value Range Interpretation Code Description Data Donna rce(s) Supporting Document(s) HCG URINE QUAL NEGATIVE NORMAL: NEGATIVE [facility] HCG URINE QL REENTER NEGATIVE NORMAL: NEGATIVE [facility] { KIT LOT # [id number] ){ KIT EXP DATE 06.12.22 ){ PROCEDURAL CONTROL VALID ) ID Date Data Source [id number] 03/04/2021 11:15:00 AM EDT [facility] Name Value Range Interpretation Code Description Data Donna rce(s) Supporting Document(s) SARS-CoV-2 RNA Resp Ql LILA+probe NOT DETECTED [facility] This lab was ordered by [facility] and reported by [facility]. ID Date Data Source [id number] 02/05/2021 12:00:00 AM EDT [facility] Name Value Range Interpretation Code Description Data Donna rce(s) Supporting Document(s) SARS-CoV2 Rapid Antigen Negative [facility] This lab was ordered by [facility] and reported by [facility]. ID Date Data Source [id number] 01/27/2021 02:41:00 PM EDT [facility], ) Name Value Range Interpretation Code Description Data Donna rce(s) Supporting Document(s) Creatine kinase [Enzymatic activity/volume] in Serum or Plasma 174 U/L 26-192 [facility] ([facility], ) Cobalamin (Vitamin B12) [Mass/volume] in Serum or Plasma 842 pg/mL 2 47-911 [facility] ([facility], ) VITAMIN B12 NORMAL RANGE NORMAL 247 - 911 PG/ML INDETERMINATE 211 - 246 PG/ML DEFICIENT LESS THAN 211 PG/ML Folate [Mass/volume] in Serum or Plasma Laboratory test result [facility] ([facility], ) FOLATE NORMAL RANGE NORMAL GREATER THAN 5.4 NG/ML INDETERMINATE 3.4-5.4 NG/ML DEFICIENT LESS THAN 3.4 NG/ML Calcidiol [Mass/volume] in Serum or Plasma 12.1 ng/mL 30.0-100.0 [facility] ([facility], ) Erythrocyte sedimentation rate by 2H Westergren method 19 mm/hr 0-2 [address] [facility] ([facility], ) Rheumatoid factor [Units/volume] in Serum or Plasma Laboratory test result [facility] ([facility], ) ID Date Data Source [id number] 01/27/2021 02:41:00 PM EDT [facility] ([facility], ) Name Value Range Interpretation Code Description Data Donna rce(s) Supporting Document(s) Hemoglobin A1c 5.3 % [facility] ([facility], ) <content>REFERENCE RANGES:</content><br/ ><content></content>
<content><=5.6% NORMAL</content>
<content>5.7-6.4% SUGGESTS IMPAIRED GLUCOSE METABOLISM/PREDIABETIC</content>
<content>>= 6.5% ABNORMAL</content>
<content></content> Estimated Average Glucose 105 mg/dL 60-110 [facility] ([facility], ) ID Date Data Source LYME DISEASE SCRN WITH CONFIRM 11/13/2020 12:00:00 AM EDT eC W1 ([facility]) Name Value Range Interpretation Code Description Data Donna rce(s) Supporting Document(s) <0.80 0.00-0.79 Lyme Disease IgM Ab Quant itati eCW1 ([facility]) <0.91 0.00-0.90 Lyme Disease IgG/IgM Anti vick eCW1 ([facility]) ID Date Data Source [id number] 11/07/2020 11:04:00 PM EDT [facility] 1 OrderSheet [facility] Emergency Department [address] [place] [address] Phone #: ext- [phone] 11/07/2020 23:00 Patient: MILIND SWANSON Sex: F : 1995 Age: 25yWEIGHT:102.9 kg HEIGHT:63 inches BMI:40.2ALLERGIES: No Known Drug AllergyCHIEF COMPLAINT: headacheDIAGNOSIS: Tension-type headache, FibromyositisLAB ORDERSOrder Description Priority Entered Acknowledged InitialedCMP STAT 23:24 11/07/2020 23:43 Aung Hadley Victoria Katelyn ;CBC w Diff STAT 23:24 11/07/2020 23:43 Aung Hadley Victoria Katelyn ;PT/INR STAT 23:24 11/07/2020 23:43 Aung Hadley Victoria Katelyn ;HCG Serum Quant STAT 23:24 11/07/2020 23:43 Aung Hadley Victoria Katelyn ;Urinalysis (Clean STAT 00:29 11/08/2020 00:29 Leonie,Catch) Obdulia Horan ;DIAGNOSTIC STUDY ORDERSOrder Description Priority Entered Acknowledged InitialedCT Head W/O Cont STAT 00:05 11/08/2020 Ack'd: 00:06 Flores Hadley(Oxygen?(No)) Obdulia Horan Cancelled: Physician Order 00:07 Jayme Hadley Reason for Study: Head InjuryMEDICATION/IV/DRIP/FLUID ORDERSOrder Description Priority Entered Acknowledged InitialedNS IV 1000 mL 23:24 11/07/2020 23:44 Leonie,Bolus: : Bolus 1000 Obdulia Horan (X1) ;Ofirmev IV 1000 mg 23:24 11/07/2020 Cancelled: Duplicate Order 23:29 Leonie,(NOW x1, Infuse Obdulia Horan 15 minutes) ; 2 OrderSheet [facility] Emergency Department [address] [place] [address] Phone #: aak- [phone] 11/07/2020 23:00 Patient: MILIND SWANSON Sex: F : 1995 Age: 25yOfirmev IV 1000 mg 23:25 11/07/2020 Ack'd: 23:44 23:49 Leonie,(NOW x1, Infuse Obdulia Horan Katelyn Katelynover 15 minutes) ;GENERAL ORDERSOrder Description Priority Entered Acknowledged Initialed[Electronically signed by Flores Hadley (01:12 11/08/2020)][Electronically signed by Obdulia Horan (01:35 11/08/2020)][Electronically locked by Flores Hadley (01:12 11/08/2020)] Name Value Range Interpretation Code Description Data Donna rce(s) Supporting Document(s) ID Date Data Source [id number] 11/07/2020 11:04:00 PM EDT [facility] 1 Medication Reconciliation Report [facility] Emergency Department [address] [place] [address] Phone #: ext- [phone] 11/07/2020 23:00 Patient: MILIND SWANSON Sex: F : 1995 Age: 25yWeight: 102.9 kgHeight/Length: 63 in.BMI: 40.2ALLERGIES: No Known Drug AllergyThe patient's Home Medications are listed below:CONTINUE TAKING THE FOLLOWING MEDICATIONS: Albuterol Sulfate Inhalation busPIRone HCl Oral (10 mg) 1 tablet, 2x a day Effexor XR Oral 37.5 mg, daily LaMICtal Oral (100 mg) 1 tablet, dailyThe source(s) of the original Home Medication information:Not obtained.The following Medications were given to the patient in the Emergency Department:IV NS IV Fluids bolus 1000 mL over 1 hour(s), administered: 23:44 11/07/2020Ofirmev IVPB bolus 0, then 1 gm, administered: 23:49 11/07/2020The following Medications were prescribed to the patient:gabap entin 300 mg capsule Take 1 capsule once a day for 30 days -- Dispense 30 capsule. Refills: 0.Substitution permitted.Pharmacy - [id number] - [id number] [facility] ; [place] [address]. FaxNumber: . -- Obdulia Horan Name Value Range Interpretation Code Description Data Donna rce(s) Supporting Document(s) ID Date Data Source [id number] 11/07/2020 11:04:00 PM EDT [place] [address] Medication Administration Record [facility] Emergency Department [address] [place] [address] Phone #: ext- [phone] 11/07/2020 23:00 Patient: MILIND SWANSON Sex: F : 1995 Age: 25yWeight: 102.9 kgHeight/Length: 63 inBMI: 40.2ALLERGIES: No Known Drug Allergy Date/Time Medication Administered Medication OrderedStart IV NS NS IV 1000 mL Bolus: : Bolus [id number] 11/07/2020 Dose: IV Fluids mL (X1)Flores Hadley, Bolus: 1000 mL over 1 hour(s)---- Dispensed: 1000 mL bagStop Site: #1 right AC00:36 1BFlores tucker,Start Ofirmev * Ofirmev IV 1000 mg (NOW x1,23:49 11/07/2020 Dose: 1 gm * IVPB Infuse over 15 minutes)Flores Hadley,----Stop00:14 Flores Byrne, Name Value Range Interpretation Code Description Data Donna rce(s) Supporting Document(s) ID Date Data Source [id number] 11/07/2020 11:04:00 PM EDT [facility] 1 General Instructions [facility] Emergency Department [address] [place] [address] Phone #: ext [phone] 11/07/2020 23:00 Patient: MILIND SWANSON Sex: F : 1995 Age: 25yFibromyalgiaChronic tension-type headache poorly controlled.INSTRUCTIONS(take neurontin for chronic pain. follow up with your doctor next week if symptoms are persistent).Your Current Medications: Your current home medications have been reviewed.CONTINUE TAKING THE FOLLOWING MEDICATIONS:Albuterol Sulfate Inhalation.busPIRone HCl Oral : Tablet 10 mg, 1 tablet 2x a day.Effexor XR Oral : 37.5 mg daily.LaMICtal Oral : Tablet 100 mg, 1 tablet daily.Prescription Medications:gabapentin 300 mg capsule Take 1 capsule once a day for 30 days -- Dispense 30 capsule. Refills: 0.Substitution permitted.Pharmacy - [id number] - [id number] [facility] ; [place] [address]. FaxNumber: .Follow-up:Follow up with your healthcare provider in four days. Reason for referral: evaluation. Summary of careprovided to patient via paper. Screening today revealed the patient's blood pressure to be in thehypertensive stage 2 range. The patient should follow up with a primary care provider for blood pressuremanagement. ADDITIONAL INFORMATIONTension Headache 2 General Instructions [facility] Emergency Department [address] [place] [address] Phone #: ext- [phone] 11/07/2020 23:00 Patient: MILIND SWANSON Sex: F : 1995 Age: 25yA muscle tension headache is a very common cause of head pain. It's also called a stress headache.When some people are under stress, they tense the muscles of their shoulder, neck, and scalpwithout knowing it. If this tension lasts long enough, a headache can occur. A tension headache canbe quite painful. It can last for hours or even days.Home careFollow these tips when caring for yourself at home: Don't drive yourself home if you were given pain medicine for your headache. Instead, have someone else drive you home. Try to sleep when you get home. You should feel much better when you wake up. Put heat on the back of your neck to help ease neck spasm.How to prevent tension-type headaches Figure out what is causing stress in your life. Learn new ways to handle your stress. Ideas include regular exercise, biofeedback, self-hypnosis, yoga, and meditation. Talk with your healthcare provider to find out more information about managing stress. Many books and digital media are also available on this subject. Take time out at the first sign of a tension headache, if possible. Take yourself out of the stressful situation. Find a quiet, comfortable place to sit or lie down and let yourself relax. Heat and deep massage of the tight areas in the neck and shoulders may help ease muscle spasm. You may also get relief from a medicine such as acetaminophen, ibuprofen, naproxen, or a prescribed muscle relaxant. 3 General Instructions [facility] Emergency Department [address] [place] [address] Phone #: ext- [phone] 11/07/2020 23:00 [id number] Sex: F : 1995 Age: 25yFollow-up careFollow up with your healthcare provider, or as advised. Talk with your provider if you have frequentheadaches. He or she can figure out a treatment plan. Ask if you can have medicine to take at homethe next time you get a bad headache. This may keep you from having to visit the emergencydepartment in the future. You may need to see a headache specialist (neurologist) if you continue tohave headaches.When to seek medical adviceCall your healthcare provider right away if any of these occur: Your head pain gets worse during sexual intercourse or strenuous activity Your head pain doesn't get better within 24 hours You aren't able to keep liquids down (repeated vomiting) Fever of 100.4F (38C) or higher, or as directed by your healthcare provider Stiff neck Extreme drowsiness, confusion, or fainting Dizziness or dizziness with spinning sensation (vertigo) Weakness in an arm or leg or one side of your face You have trouble speaking Your vision changes 1152-0640 [employer]. [address] [place] [address]. All rights reserved. This information is not intended as asubstitute for professional medical care. Always follow your healthcare professional's instructions.FibromyalgiaFibromyalgia is a chronic condition. It causes pain and tenderness in connective tissues and muscles.Often, there are also many tender areas throughout the body. Symptoms may also include stiffnessand feelings of numbness and tingling. Symptoms may be worse upon waking up. They may increasewith poor sleep, heavy activity, cold or damp weather, anxiety, or stress.People with fibromyalgia often feel tired. They may have trouble sleeping. Other symptoms includemorning stiffness, headaches, and painful menstrual periods. Some people have problems withthinking clearly and changes in memory.The cause of fibromyalgia is not known. Symptoms are similar to that of other diseases. Theseinclude rheumatoid arthritis, low thyroid, chronic fatigue syndrome, and Lyme disease. In some 4 General Instructions [facility] Emergency Department [address] [place] [address] Phone #: ext- [phone] 11/07/2020 23:00 Patient: MILIND SWANSON Sex: F : 1995 Age: 25ycase s, these diseases may occur together.Fibromyalgia is often treated with medicines. You and your healthcare provider can discuss themedicine that may work best for you. You may have to try more than one medicine or combination ofmedicines before you find what works for you.Home care If your healthcare provider has prescribed or recommended medicines, take them as directed. Rest as needed. Try to get enough sleep. If you have trouble sleeping, discuss this with your healthcare provider. Be active. Regular exercise can help manage symptoms. Some options include walking, swimming, and biking. Strengthening and aerobic exercises may also be helpful. Talk to your healthcare provider about the best ways to be active. Follow a healthy diet. Limit caffeine and alcohol. If you smoke, ask your healthcare provider for help to stop. Notice how your body reacts to stress. Learn to listen to your body signals. This will help you take action before the stress becomes severe. Learn relaxation techniques. Also consider joining a stress reduction program or class. Talk to your healthcare provider about trying complementary treatments. These include acupuncture, hypnosis, and biofeedback. Yoga and lana chi may be helpful. Ask your healthcare provider about cognitive behavioral therapy (CBT). This type of counseling can help people with fibromyalgia cope better with their illness.Follow-up careFollow up with your healthcare provider, or as advised. In many cases, fibromyalgia is best treatedwith a team approach. This may involve your primary care provider, a gold leaf roller, a physicaltherapist, and a mental health professional.For more information, visit the National [place] of [employer]th[employer] and Musculoskeletal and Skin Diseases(NIAMS) website at www.niams.nih.gov or call 195-085-8434.When to seek medical adviceContact your healthcare provider right away if any of these occur: Symptoms get worse or new symptoms develop You feel hopeless, helpless, or lose interest in day-to-day life 5 General Instructions [facility] Emergency Department [address] [place] [address] Phone #: ext- [phone] 11/07/2020 23:00 Patient: MILIND SWANSON Sex: F : 1995 Age: 25y [id number] [employer]. [address] [place] [address]. All rights reserved. This information is not intended as asubstitute for professional medical care. Always follow your healthcare professional's instructions. You have been given the following additional information: Headache, Tension Fibromyalgia(Electronically signed by Obdulia Horan 11/08/2020 01:35) Name Value Range Interpretation Code Description Data Donna rce(s) Supporting Document(s) ID Date Data Source [id number] 11/07/2020 11:04:00 PM EDT [facility] 1 Clinical Report - Nurses [facility] Emergency Department [address] [place] [address] Phone #: ext- [phone] 11/07/2020 23:00 Patient: MILIND SWANSON Sex: F : 1995 Age: 25yTRIAGE Arrived by private vehicle. Historian: patient. Unaccompanied. Acuity: LEVEL 3. Chief Complaint: (WEAKNESS, HEADACHE). Alert. No acute distress. Onset. (3 weeks ago). ( Patient states she has head weakness, decreased appetite, and a headache for the past 3 weeks. She states she was seen by her primary last Tuesday and was given an order for an MRI, but says its not for 2 more weeks. She was seen at [facility] for same complaints last week on Tuesday, and again on Tuesday.). Treatment [facility]: Recently seen at another facility in the ED and office; seen for similar symptoms. (Ibuprofen-0600, Tylenol-noon). SEPSIS SCREEN: SIRS SCREEN NEGATIVE. SEPSIS SCREEN NEGATIVE. No suspected or confirmed signs of infection present. NELLA COMA SCORE: 15- eyes open- spontaneous (4); best verbal response- oriented (5); best motor response- obeys commands (6). --23:11 11/07/20 Flores Hadley 23:01 11/07/20. BP: 145/80. HR: 97. RR: 16. O2 saturation: 100%. Temp: 97.3 F. Pain level now 7/10. --23:11 11/07/20 Flores Hadley. Weight: 102.9 kg. Height/Length: 63 inches. BMI: 40.2. --23:01 11/07/20 Flores Hadley. Medications busPIRone HCl Oral (Tablet 10 mg) 1 tablet, 2x a day. --23:04 11/07/20 Flores Hadley Albuterol Sulfate Inhalation. --23:05 11/07/20 Flores Hadley LaMICtal Oral (Tablet 100 mg) 1 tablet, daily. --23:05 11/07/20 Flores Hadley Effexor XR Oral 37.5 mg, daily. --23:05 11/07/20 Flores Hadley The following entry was struck by Flores Hadley, 00:23 (11/08/20) Reason - other. LaMICtal Oral (Tablet 100 mg) 1 tablet, daily. --23:11/07/20 Flores Hadley The following entry was struck by Flores Hadley, 00:23 (11/08/20) Reason - other. Effexor XR Oral 37.5 mg, daily. --23:05 11/07/20 Flores Hadley The following entry was struck by Flores Hadley, 00:23 (11/08/20) Reason - other. busPIRone HCl Oral (Tablet 10 mg) 1 tablet, 2x a day. --23:11/07/20 Flores Hadley 2 Clinical Report - Nurses [facility] Emergency Department [address] [place] [address] Phone #: ext- [phone] 11/07/2020 23:00 Patient: MILIND SWANSON Sex: F : 1995 Age: 25yThe following entry was struck by Flores Hadley, 00:22 (11/08/20) Reason - other.Albuterol Sulfate Inhalation. --23:05 11/07/20 Flores Hadley .AllergiesNo Known Drug Allergy. --23:06 11/07/20 Flores Hadley.PROBLEMS:Thymoma.Fibromyalgia.Bipolar Disorder.Epilepsy. --23:15 11/07/20 Flores Hadley.ADDITIONAL SURGERIES:Shoulder Surgery.[place] teeth. --23:15 11/07/20 Flores Hadley.HistoryPAST MEDICAL HX: Last normal menstrual period was 3 weeks ago. Uses an intrauterine device.SOCIAL HX: Heavy tobacco smoker (cigarette)- less than 1 pack per day. Occasional alcohol use. Nodrug use. She was offered HIV testing but declined. Patient education was provided. She was offeredhepatitis C testing but declined. Patient education was provided. She has not traveled outside the [place]Infectious disease exposure: No infectious disease exposure. The patient was not exposed to Coronavirus.Patient is not a known car rier of tuberculosis, hepatitis, HIV, MRSA or VRE. Patient is not a known carrierof CRE.SELF HARM ASSESSMENT: Self harm assessment was performed. The patient answered "no" to thequestion(s) "Have you recently felt down, depressed, or hopeless?" and "Do you have thoughts of harmingor killing yourself?".ABUSE ASSESSMENT: Abuse assessment. The patient had positive responses to the question(s) "Do youfeel safe in your home?" and "Are you afraid to go home?". Abuse denied. No suspicion of abuse. Noreport of abuse.NUTRITIONAL RISK ASSESSMENT: The nutritional risk assessment revealed no deficiencies.FUNCTIONAL ASSESSMENT: Functional assessment: no impairments noted.LEARNING NEEDS ASSESSMENT: The learning needs assessment revealed no barriers.FALL RISK ASSESSMENT: Fall risk assessment completed. No risk factors identified.SKIN INTEGRITY ASSESSMENT: Skin integrity risk assessment completed. No skin integrity riskidentified. --23:11 11/07/20 Flores Hadley. 3 Clinical Report - Nurses [facility] Emergency Department [address] [place] [address] Phone #: ext- [phone] 11/07/2020 23:00 [id number] Sex: [facility] : 1995 Age: 25y Interventions Identification band on patient. --23:11 11/07/20 Flores Hadley.PHYSICAL ASSESSMENT Ambulatory to room. GENERAL / NEURO / PSYCH: Alert. Oriented X 4. Appears in no acute distress. HEENT: Pupils equal, round and reactive to light. No facial asymmetry noted. Mucous membranes are pink. RESPIRATORY: Respirations not labored. Chest nontender. Breath sounds within normal limits. CVS: Normal sinus rhythm noted. Capillary refill less than 2 seconds. Pulses within normal limits. GI / : Abdomen soft and nontender and normal bowel sounds. SKIN: Skin intact. Skin is warm and dry. Normal skin turgor. --23:11 11/07/20 Flores Hadley.NURSING PROGRESS NOTES Patient gowned. Reassurance given. Two patient identifiers checked. Call light placed in reach. Side rails up x 2. Bed placed in lowest position. Brakes of bed on. Patient ready for evaluation. --23:11 11/07/20 Flores Hadley NIH STROKE SCALE: Score 0. Level of Consciousness: alert (0). LOC Questions: both (0). LOC Commands: both (0). Best gaze: normal (0). Visual field loss: none (0). Facial palsy: normal (0). Motor arm: no drift right arm (0) and no drift left arm (0). Motor leg: no drift right leg (0) and no drift left leg (0). Limb ataxia: none (0). Sensory loss: none (0). Aphasia: none (0). Dysarthria: normal (0). Extinction and inattention: none (0). --23:14 11/07/20 Flores Hadley 23:44 11/07/2020 Site #1 started via IV in the right antecubital space with an 20g angiocath, with aseptic technique and good blood return; one attempt. Blood drawn: rainbow set. Saline lock flushed with saline. --23:44 11/07/20 Flores Hadley 23:44 11/07/2020 Started bag #1 1000 mL IV Fluids IV NS; bolus of 1000 mL over 1 hour(s) via site #1 via IV pump. Allergies verified and confirmed 5 rights. IV patency established. IV site checked: no pain, redness, or swelling. IV flushed thoroughly pre- and post-medication administration. Information reviewed with patient including reason for taking this medication, signs of allergic reaction and precautions. Verbalizes understanding. --23:44 11/07/20 Flores Hadley 23:49 11/07/2020 [facility] * IVPB 1 gm --23:49 11/07/20 Flores Hadley Reassurance given. Rounding: Pain: assessed pain level. Position: states comfor table. Personal care / toileting: denies toileting needs. Proximity of possessions / care items: call light within easy reach. Plug ins: assured IV pump plugged in; checked status of equipment in use; located all cords, tubes, and lines to prevent fall hazard. --00:05 11/08/20 Flores Hadley 00:14 11/08/2020 [facility] IVPB Discontinued: completed. Total amount infused: 100 mL. IV patency 4 Clinical Report - Nurses [facility] Emergency Department [address] [place] [address] Phone #: ext- [phone] 11/07/2020 23:00 Patient: MILIND SWANSON Sex: F : 1995 Age: 25y established. IV site checked: no pain, redness, or swelling. IV flushed thoroughly. --00:14 11/08/20 Flores Hadley 00:36 11/08/2020 IV Fluids IV NS via IV site #1 Discontinued: infused. Total amount infused: 1000 mL. IV patency established. IV site checked: no pain, redness, or swelling. IV flushed thoroughly. --00:36 11/08/20 Flores Hadley.DISPOSITION / DISCHARGE 01:09 11/08/2020 Site #1 removed upon discharge. Catheter intact. Bandaid applied. --01:09 11/08/20 Flores Hadley 01:08 11/08/20. BP: 100/55. HR: 73. RR: 15. O2 saturation: 99%. Temp: 98.9 F. Pain level now 2/10. --01:09 11/08/20 Flores Hadley Departure time: 01:12 11/08/2020. Condition at departure: improved. No learning barriers present. Discharge instructions provided and reviewed with the patient. Reviewed warnings. Reviewed medication(s). Treatments reviewed. Reviewed referrals. Patient verbalized understanding. Written instructions provided in Ivorian. The patient was discharged by the physician. She was discharged home and unaccompanied at time of discharge. She left ambulatory and via private vehicle. Patient driving. --01:12 11/08/20 Flores Hadley.Locked/Released at 11/08/2020 01:12 by Flores Hadley Name Value Range Interpretation Code Description Data Donna rce(s) Supporting Document(s) ID Date Data Source [id number] 0001 11/07/2020 11:04:00 PM EDT [facility] 1 Clinical Report - Physicians/Mid Levels [facility] Emergency Department [address] [place] [address] Phone #: ext- [phone] 11/07/2020 23:00 Patient: MILIND SWANSON Sex: F : 1995 Age: 25y Time Seen: 23:04 11/07/2020; initial patient contact, initial documentation. Arrived- By private vehicle. Historian- patient. Disposition decision: 01:07 11/08/2020.HISTORY OF PRESENT ILLNESS Chief Complaint: HEADACHE. generalized weakness. Is still present (persistent). This started since 2 weeks ago. It was gradual in onset and has been constant. Onset during rest. It is described as "pain". Located in the frontal region. No neck pain. Not located in the facial region. At its maximum, severity described as 7 / 10. When seen in the E.D., severity described as 7 / 10. Modifying factors: relieved by nothing. Not worsened by anything. The patient has had blurred vision and generalized weakness. No preceding symptoms, photophobia, associated nausea, numbness or vomiting. (patient states that she has been having constant dull frontal headache . she has been taking motrin and tylenol for headaches without relief. denies fevers, neck pains. no recent travels. she states that she last took motrin this morning and tylenol at noon. she has not taken any pain medications since then. today she was driving and felt generally weak so she called her who told her to go to the ER. denies slurred speech, focal weakness or paresthesia. denies double vision). No recent travel.REVIEW OF SYSTEMSNo fever, muscle aches, sinus pressure, chest pain or difficulty breathing. No cough, abdominal pain, painwith urination, skin rash or enlarged lymph nodes. No back pain. All other systems reviewed and arenegative.PAST HISTORYSee nurses notes. Problems: Thymoma. Fibromyalgia. Bipolar Disorder. Epilepsy. Additional Surgeries: Shoulder Surgery. [place] teeth. Medications: Effexor XR Oral 37.5 mg, daily. Effexor XR Oral 37.5 mg, daily. 2 Clinical Report - Physicians/Mid Levels [facility] Emergency Department [address] [place] [address] Phone #: ext- [phone] 11/07/2020 23:00 Patient: MILIND SWANSON Sex: F : 1995 Age: 25y LaMICtal Oral (Tablet 100 mg) 1 tablet, daily. LaMICtal Oral (Tablet 100 mg) 1 tablet, daily. Albuterol Sulfate Inhalation. Albuterol Sulfate Inhalation. busPIRone HCl Oral (Tablet 10 mg) 1 tablet, 2x a day. busPIRone HCl Oral (Tablet 10 mg) 1 tablet, 2x a day. Allergies: No Known Drug Allergy.SOCIAL HISTORYNever smoker. No alcohol use or drug use.ADDITIONAL NOTESThe nursing notes have been reviewed.PHYSICAL EXAMVital Signs: 11/07/2020 23:01 BP: 145/80. MAP: 101. HR: 97. RR: 16. O2 saturation: 100%. Temp: 97.3F. Have been reviewed. Oxygen saturation normal.Appearance: Alert. No acute distress.Eyes: Pupils equal, round and reactive to light. Eyes normal inspection. No conjunctival findings orshallow angle.ENT: Ears normal. Nose normal. Pharynx normal.Neck: Normal inspection. Neck supple.CVS: Normal heart rate and rhythm. Heart sounds normal. Pulses normal.Respiratory: No respiratory distress. Painless inspiration. Breath sounds normal.Abdomen: Soft and nontender. No organomegaly.Back: Normal inspection. No CVA tenderness.Skin: Skin warm and dry. Normal skin color. Rash present. Normal skin turgor.Extremities: Extremities exhibit normal ROM. No lower extremity edema.Neuro: Oriented X 3. Alert. Mood/affect normal. Speech normal. Cranial nerves normal (as tested).No cerebellar findings. No motor deficit. No sensory deficit. Reflexes normal. Per formed at 23:0805. NIH Stroke Scale: score 0. Level of Consciousness: alert (0). LOC Questions: both (0).LOC Commands: both (0). Best gaze: normal (0). Visual field loss: none (0). Facial palsy: normal (0).Motor arm: no drift right arm (0) and no drift left arm (0). Motor leg: no drift left leg (0). Limb ataxia: none(0). Sensory loss: none (0). Aphasia: none (0). Dysarthria: normal (0). Extinction and inattention: none(0).LABS, X-RAYS, AND EKGLaboratory Tests: Urinalysis: (JIMBO: 11/07/2020 23:40) ( MsgRcvd 11/08/2020 00:39) Final results Test Result Flag Units (Reference) URINALYSIS URINALYSIS SOURCE Clean Catch 3 Clinical Report - Physicians/Mid Levels [facility] Emergency Department [address] [place] [address] Phone #: ext- [phone] 11/07/2020 23:00 Patient: MILIND SWANSON Sex: F : 1995 Age: 25y COLOR yellow (NORMAL: Yello CLARITY clear (NORMAL: Clear SPEC GRAVITY 1.015 (1.001 - 1.030 pH 6 (5 - 9) GLUCOSE NORM (NORMAL: Negat BILIRUBIN NEG (NORMAL: Negat KETONE NEG (NORMAL: Negat PROTEIN NEG (NORMAL: Negat NITRITE NEG (NORMAL: Negat BLOOD NEG (NORMAL: Negat LEUK EST NEG (NORMAL: Negat UROBILINOGEN NOR (less than 1.0 MICROSCOPIC Not IndicateCT Head W/O Cont: (JIMBO: 11/08/2020 00:05) ( MsgRcvd 11/08/2020 00:07) CanceledReason(s): Head InjuryReason(s): Head InjuryTRANSPORTATION: S IV? O2? Oxygen?(No) Room: [facility]: (JIMBO: 11/07/2020 23:40) ( MsgRcvd 11/08/2020 00:18) Final results Test Result Flag Units (Reference) COMPREHENSIVE METABOLIC PANEL COMPREHENSIVE METABOLIC PANEL SODIUM 139 mEq/L (134 - 153) POTASSIUM 3.9 mEq/L (3.6 - 5.0) CHLORIDE 104 mEq/L (98 - 107) CO2 27 MEQ/L (22 - 30) GLUCOSE 87 MG/DL (70 - 99) BUN 7 MG/DL (7 - 21) CREATININE 0.7 MG/DL (0.7 - 1.5) BUN/CREAT 10 (8 - 27) TOTAL PROTEIN 7.1 G/DL (6.3 - 8.2) ALBUMIN 3.9 G/DL (3.9 - 5.0) GLOBULIN 3.2 GM/DL (2.4 - 3. 2) A/G RATIO 1.2 (0.8 - 2.0) CALCIUM 8.8 MG/DL (8.4 - 10.2) TOTAL BILI <0.7 MG/DL (0.2 - 1.3) ALKALINE PHOS 84 U/L (38 - 126) SGOT/AST 12 U/L (5 - 40) SGPT/ALT 8 U/L (7 - 56) ANION GAP 8.0 mmol/L (8.0 - 16.0) AGE 25 yrs NON-AA GFR >60 mL/min AFR AMER GFR >60 mL/min Male GFR Interprentation 20-49 yrs >60 mL/min Musnnp03-71 yrs >56 mL/min Normal 60-69 yrs >49 mL/min Normal 70-79yrs>42 mL/min Normal 80 and above >35 mL/min Normal Female GFRInterpretation 20-39 yrs >60 mL/min Normal 40-49 yrs >58 mL/minNormal 50-59 yrs >51 mL/min Normal 60-69 yrs >45 mL/min Ntzpgf94-89 yrs >39 mL/min Normal 80 and above >32 mL/min NormalCBC w Diff: (JIMBO: 11/07/2020 23:40) ( MsgRcvd 11/07/2020 23:50) Final results Test Result Flag Units (Reference) CBC W/AUTOMATED DIFF COMPLETE BLOOD COUNT 4 Clinical Report - Physicians/Mid Levels [facility] Emergency Department [address] [place] [address] Phone #: ext- [phone] 11/07/2020 23:00 Patient: MILIND SWANSON Sex: F : 1995 Age: 25y WBC 12.0 H 10/uL (4.2 - 11.0) RBC 4.76 10/uL (4.20 - 5.40) HEMOGLOBIN 13.6 g/dL (12.0 - 16.0) HEMATOCRIT 41.5 % (37.0 - 47.0) MCV 87.2 fL (81.0 - 101) MCH 28.6 pg (27.0 - 34.0) MCHC 32.8 g/dL (31.0 - 36.0) RDW 14.5 % (11.5 - 14.5) PLATELETS 293 10/uL (150 - 450) MPV 10.4 fL (7.4 - 10.4) NEUT 52.7 % (37.0 - 80.0) LYMPH 32.9 % (25.0 - 40.0) MONO 9.9 H % (3.0 - 8.0) EOS 3.7 % (0.0 - 7.0) BASO 0.6 % (0.0 - 2.5) %IG 0.2 H % (0.0 - 0.0) %NRBC 0.0 % (0.0 - 0.0) #NEUT 6.34 10/uL (2.00 - 6.90) #LYMPH 3.95 H 10/uL (0.60 - 3.40) #MONO 1.19 H 10/uL (0.00 - 0.90) #EOS 0.44 10/uL (0.00 - 0.70) #BASO 0.07 10/uL (0.00 - 0.20) #IG 0.03 10/uL (0.00 - 0.10) #NRBC 0.00 10/uL (0.00 - 0.00) MANUAL DIFF NOT INDICATED RBC MORPH NOT INDICATED PT/INR: (JIMBO: 11/07/2020 23:40) ( MsgRcvd 11/07/2020 23:56) Final results Test Result Flag Units (Reference) PROTIME 13.1 SECONDS (11.0 - 15.5) INR 0.94 (0.93 - 1.23) \\BLDo\\INR INTERPRETATION\\BLDx\\ Therapeutic range for Coumadin and related oral anticoagulants. -International Normalized Ratio (INR): 2.0 - 3.0 for Venous Thrombosis, Pulmonary Embolus, Tissue heart valves, Acute CT, Atrial Fibrillation, Valvular heart disease and recurrent Systemic Embolism. -International Normalized Ratio (INR): 2.5 - 3.5 for Mechanical Prosthetic valve. Beta-HCG, Quant Serum: (JIMBO: 11/07/2020 23:40) ( MsgRcvd 11/08/2020 00:08) Final results Test Result Flag Units (Reference) HCG QUANT <0.5 mIU/mL Interpretation: Less than 5 mU/mL: Negative 6-10 mU/mL: Borderline (suggest repeat in 48 hours) >10: Positive Approx HCG range (mU/mL) Weeks post LMP 5.4-708 mU/mL 3-4 Weeks 217-84101 mU/mL 5-6 Weeks 4059-250642 mU/mL 7-8 Weeks 77560-989536 mU/mL 9-10 Weeks 43007-54997 mU/mL 12- 14 Weeks 16008-69626 mU/mL 15-16 Weeks 8240-87547 mU/mL 17-18 Weeks.PROGRESS AND PROCEDURESCourse of Care: 23:37 11/07/20. Patient had a CT scan of the head on Jun 2020 and in october 31nd was read as normal 00:11/08/20. she was given ofirmev for headache. she has a mildly elevated wbc but chemistries are 5 Clinical Report - Physicians/Mid Levels [facility] Emergency Departm ent [address] [place] [address] Phone #: ext- [phone] 11/07/2020 23:00 Patient: MILIND SWANSON Sex: F : 1995 Age: 25y normal. test is negative 00:36 11/08/20. Patient states that her headache is gone. she has generalized bodyaches. she has fibromyalgia. awaiting for urinalysis. Patient counseled in person regarding the patient's stable condition, test results, diagnosis and need for follow-up. Patient agrees with plan of care. 01:06. Disposition: Condition: good and stable. Discharge decision based on the following: patient's condition is improved; patient is ambulatory; patient's exam is improved; no seriously abnormal test results; stable condition on multiple repeat evaluations; social support is good; transportation is available; follow-up is available; clinical impression is consistent with outpatient treatment.CLINICAL IMPRESSION Fibromyalgia Chronic tension-type headache poorly controlled.INSTRUCTIONS (take neurontin for chronic pain. follow up with your doctor next week if symptoms are persistent). Your Current Medications: Your current home medications have been reviewed. CONTINUE TAKING THE FOLLOWING MEDICATIONS: Albuterol Sulfate Inhalation. busPIRone HCl Oral : Tablet 10 mg, 1 tablet 2x a day. Effexor XR Oral : 37.5 mg daily. LaMICtal Oral : Tablet 100 mg, 1 tablet daily. Prescription Medications: gabapentin 300 mg capsule Take 1 capsule once a day for 30 days -- Dispense 30 capsule. Refills: 0. Substitution permitted. Pharmacy - [id number] - [address] [place] [address]. . Follow-up: Follow up with your healthcare provider in four days. Reason for referral: evaluation. Summary of care provided to patient via paper. Screening today revealed the patient's blood pressure to be in the hypertensive stage 2 range. The patient should follow up with a primary care provider for blood pressure management. 6 Clinical Report - Physicians/Mid Levels [facility] Emergency Department [address] [place] [address] Phone #: ext- [phone] 11/07/2020 23:00 Patient: MILIND SWANSON Sex: F : 1995 Age: 25y(Electronically signed by Obdulia Horan 11/08/2020 01:35) Name Value Range Interpretation Code Description Data Donna rce(s) Supporting Document(s) ID Date Data Source [id number] 11/08/2020 12:39:00 AM EDT [facility] Name Value Range Interpretation Code Description Data Donna rce(s) Supporting Document(s) URINALYSIS [facility] audi URINALYSIS SOURCE Clean Catch [facility] COLOR yellow NORMAL: Yellow [facility] CLARITY clear NORMAL: Clear [facility] Specific gravity of Urine by Test strip 1.015 1.001 - 1.030 [facility] 6 5 - [facility] Gl[facility] [Mass/volume] in Urine by Test strip NORM NORMAL: Negat [facility] Bilirubin.total [Presence] in Urine by Test strip NEG NORMAL: Negative [facility] Ketones [Presence] in Urine by Test strip NEG NORMAL: Negative [facility] Protein [Mass/volume] in Urine by Test strip NEG NORMAL: Negat [facility] Nitrite [Presence] in Urine by Test strip NEG NORMAL: Negative [facility] BLOOD NEG NORMAL: Negative [facility] Leukocyte esterase [Presence] in Urine by Test strip NEG SURJIT L: Negative [facility] Urobilinogen [Mass/volume] in Urine by Test strip NOR less deacon n 1.0 mg/dL [facility] MICROSCOPIC Not Indicate [facility] ID Date Data Source [id number] 11/08/2020 12:18:00 AM EDT [facility] Name Value Range Interpretation Code Description Data [facility] rce(s) Supporting Document(s) COMPREHENSIVE METABOLIC PANEL [facility] COMPREHENSIVE METABOLIC PANEL Sodium [Moles/volume] in Serum or Plasma 139 mEq/L 134 - 153 [facility] Potassium [Moles/volume] in Serum or Plasma 3.9 mEq/L 3.6 - 5.0 [facility] Chloride [Moles/volume] in Serum or Plasma 104 mEq/L 98 - 107 [facility] Carbon dioxide, total [Moles/volume] in Serum or Plasma 27 MEQ/L 22 - 30 [facility] Glucose [Mass/volume] in Serum or Plasma 87 MG/DL 70 - 99 [facility] BUN 7 MG/DL 7 - 21 [facility] al Creatinine [Mass/volume] in Serum or Plasma 0.7 MG/DL 0.7 - 1.5 [facility] BUN/CREAT 10 8 - 27 [facility] al Protein [Mass/volume] in Serum or Plasma 7.1 G/DL 6.3 - 8.2 [facility] Albumin [Mass/volume] in Serum or Plasma 3.9 G/DL 3.9 - 5.0 [facility] Globulin [Mass/volume] in Serum by calculation 3.2 GM/DL 2.4 - 3.2 [facility] A/G RATIO 1.2 0.8 - 2.0 [facility] Calcium [Mass/volume] in Serum or Plasma 8.8 MG/DL 8.4 - 10.2 [facility] Bilirubin.total [Mass/volume] in Serum or Plasma <0.7 MG/DL 0.2 - 1.3 [facility] Alkaline phosphatase [Enzymatic activity/volume] in Serum or Plasma 84 U/L 38 - 126 [facility] Aspartate aminotransferase [Enzymatic activity/volume] in Serum or Plasma 12 U/L 5 - 40 [facility] Alanine aminotransferase [Enzymatic activity/volume] in Seru m or Plasma 8 U/L 7 - 56 [facility] Anion gap 3 in Serum or Plasma 8.0 mmol/L 8.0 - 16.0 [facility] AGE 25 yrs [facility] al NON-AA GFR >60 mL/min [facility] ital AFR AMER GFR >60 mL/min [facility] Male GFR In terprentation 20-49 yrs >60 mL/min Normal 50-59 yrs >56 mL/min Normal 60-69 yrs >49 mL/min Normal 70-79yrs >42 mL/min Normal 80 and above >35 mL/min Normal Female GFR Interpretation 20-39 yrs >60 mL/min Normal 40-49 yrs >58 mL/min Normal 50-59 yrs >51 mL/min Normal 60-69 yrs >45 mL/min Normal 70-79 yrs >39 mL/min Normal 80 and above >32 mL/min Normal ID Date Data Source [id number] 11/08/2020 12:07:00 AM EDT [facility] Name Value Range Interpretation Code Description Data Donna rce(s) Supporting Document(s) Choriogonadotropin.intact [Units/volume] in Serum or Plasma <0.5 mIU/ mL [facility] Interpr etation: Less than 5 mU/mL: Negative 6-10 mU/mL: Borderline (suggest repeat in 48 hours) >10: Positive Approx HCG range (mU/mL) Weeks post LMP 5.4-708 mU/mL 3-4 Weeks 217-72075 mU/mL 5-6 Weeks 4059-990153 mU/mL 7-8 Weeks 70012-186372 mU/mL 9-10 Weeks 27942-76580 mU/mL 12-14 Weeks 66101-97817 mU/mL 15-16 Weeks 8240- 80464 mU/mL 17-18 Weeks ID Date Data Source [id number] 11/07/2020 11:56:00 PM EDT [facility] Name Value Range Interpretation Code Description Data Donna rce(s) Supporting Document(s) Prothrombin time (PT) 13.1 SECONDS 11.0 - 15.5 [facility] INR in Platelet poor plasma by Coagulation assay 0.94 0.93 - 1. 23 [facility] \\BLDo\\INR INTERPRETATION\\BLDx\\ Therapeutic range for Coumadin and related oral anticoagulants. - International Normalized Ratio (INR): 2.0 - 3.0 for Venous Thrombosis, Pulmonary Embolus, Tissue heart valves, Acute CT, Atrial Fibrillation, Valvular heart disease and recurrent Systemic Embolism. -International Normalized Ratio (INR): 2.5 - 3.5 for Mechanical Prosthetic valve. ID Date Data Source [id number] 11/07/2020 11:50:00 PM T [facility] Name Value Range Interpretation Code Description Data Donna rce(s) Supporting Document(s) CBC W/AUTOMATED DIFF [facility] COMPLETE BLOOD COUNT Leukocytes [#/volume] in Blood by Automated count 12.0 10^3/uL 4.2 - 11.0 H [facility] Erythrocytes [#/volume] in Blood by Automated count 4.76 10^6/uL 4. 20 - 5.40 [facility] Hemoglobin [Mass/volume] in Blood 13.6 g/dL 12.0 - 16.0 [facility] Hematocrit [Volume Fraction] of Blood by Automated count 41.5 % 3 7.0 - 47.0 [facility] Erythrocyte mean corpuscular volume [Entitic volume] by Auto mated count 87.2 fL 81.0 - 101 [facility] Erythrocyte mean corpuscular hemoglobin [Entitic mass] by Automated count 28.6 pg 27.0 - 34.0 [facility] Erythrocyte mean corpuscular hemoglobin concentration [Mass/volume] by Automated count 32.8 g/dL 31.0 - 36.0 [facility] Erythrocyte distribution width [Ratio] by Automated count 14.5 % 11.5 - 14.5 [facility] Platelets [#/volume] in Blood by Automated count 293 10^3/uL 150 - 45 0 [facility] Platelet mean volume [Entitic volume] in Blood by Automated count 10.4 fL 7.4 - 10.4 [facility] Neutrophils/100 leukocytes in Blood by Automated count 52.7 % 37. 0 - 80.0 [facility] Lymphocytes/100 leukocytes in Blood by Manual count 32.9 % 25.0 - 40.0 [facility] Monocytes/100 leukocytes in Blood by Automated count 9.9 % 3.0 - 8.0 H [facility] Eosinophils/100 leukocytes in Blood by Automated count 3.7 % 0.0 - 7.0 [facility] Basophils/100 leukocytes in Blood by Automated count 0.6 % 0.0 - 2.5 [facility] %IG 0.2 % 0.0 - 0.0 [facility] al %NRBC 0.0 % 0.0 - 0.0 [facility] al Neutrophils [#/volume] in Blood by Automated count 6.34 10^3/uL 2.00 - 6.90 [facility] Lymphocytes [#/volume] in Blood by Automated count 3.95 10^3/uL 0.60 - 3.40 H [facility] Monocytes [#/volume] in Blood by Automated count 1.19 10^3/uL 0.00 - 0.90 H [facility] Eosinophils [#/volume] in Blood by Automated count 0.44 10^3/uL 0.00 - 0.70 [facility] Basophils [#/volume] in Blood by Automated count 0.07 10^3/uL 0.00 - 0.20 [facility] #IG 0.03 10^3/uL 0.00 - 0.10 [facility] H ospital #NRBC 0.00 10^3/uL 0.00 - 0.00 [facility] ospital MANUAL DIFF NOT INDICATED [facility] RBC MORPH NOT INDICATED [facility] Ho spital ID Date Data Source [id number] 10/31/2020 11:08:00 PM EDT [facility] Name Value Range Interpretation Code Description Data Donna rce(s) Supporting Document(s) SARS-CoV-2 (COVID 19) NEGATIVE - SARS-CoV-2 (COVID19) [facility] This lab was ordered by [facility] a nd reported by [facility]. ID Date Data Source [id number] 10/28/2020 11:04:00 AM EDT [facility] Name Value Range Interpretation Code Description Data Donna rce(s) Supporting Document(s) SARS-CoV-2 (COVID 19) NEGATIVE - SARS-CoV-2 (COVID19) [facility] This lab was ordered by [facility] a nd reported by [facility]. ID Date Data Source [id number] 10/27/2020 12:00:00 AM EDT [facility] Name Value Range Interpretation Code Description Data Donna rce(s) Supporting Document(s) SARS-CoV2 Rapid Antigen Negative [facility] This lab was ordered by [facility] and reported by [facility]. ID Date Data Source [id number] 09/22/2020 12:07:00 PM EDT [facility] Name Value Range Interpretation Code Description Data Donna rce(s) Supporting Document(s) SARS coronavirus 2 RNA [Presence] in Res piratory specimen by LILA with probe detection NEGATIVE [facility] This lab was ordered by [facility] a nd reported by [facility]. ID Date Data Source [id number] 09/09/2020 03:16:00 PM EDT [facility] Name Value Range Interpretation Code Description Data Donna rce(s) Supporting Document(s) COVID-19 RT-PCR [employer] SWAB Not Detected [facility] A not detected (negative) test result fo r this test means that SARS-CoV-2 RNA was not present in the specimen above the limit ofdetection. Laboratory test results should always be considered in thecontext of clinical observations and epidemiological data in making afinal diagnosis and patient management decisions. Results will bereported to government agencies as required.This test has received Emergency Use Authorization (EUA). We will continue to follow federal and state requirements for COVID-19 reporting. This test has been authorized only for the detection of RNAfrom SARS-CoV-2 virus and diagnosis of SARS-CoV-2 virus infection, notfor any other viruses or pathogens. This test is only authorized for the duration of the declaration that circumstances exist justifying the authorization of the emergency use of in vitro diagnostic tests for detection of SARS-CoV-2 virus and/or diagnosis of SARS-CoV-2 virusinfection under section 564(b)(1) of the Act, 21 U.S.C. section 360bbb-3(b)(1), unless the authorization is terminated or revoked sooner. We will continue to follow federal and state requirements for both notification of results and any confirmatory testing that is required by another agency. This test was developed and its performance characteristics determined by [facility] and verified at [facility]. It has not been cleared or approved by the U.S. Food and Drug Administration for diagnostic use. This test has been authorized by FDA under an EUA for use by authorized laboratories. Results should be used in conjunction with clinical findings, and should not form the sole basis for a diagnosis or treatment decision. Methods: SARS-CoV-2 Multiplex RT-PCR Assay ID Date Data Source [id number] 09/07/2020 10:30:00 AM EDT [facility] Name Value Range Interpretation Code Description Data Donna rce(s) Supporting Document(s) SARS-CoV-2 (COVID-19) N gene [Presence] in Respiratory specimen by LILA with probe detection NEGATIVE [facility] This lab was ordered by [facility] and reported by [facility]. ID Date Data Source [id number] 09/07/2020 12:00:00 AM EDT [facility] Name Value Range Interpretation Code Description Data Donna rce(s) Supporting Document(s) Carestart Rapid COVID Antigen Test Negative [facility] This lab was reported by [facility]. ID Date Data Source [id number] 06/24/2020 12:00:00 AM EST [facility] Name Value Range Interpretation Code Description Data Donna rce(s) Supporting Document(s) SARS coronavirus 2 RNA [Presence] in Res piratory specimen by LILA with probe detection NEGATIVE [facility] and reported by [facility]. ID Date Data Source [id number] 06/24/2020 12:00:00 AM EST [facility] Name Value Range Interpretation Code Description Data Donna rce(s) Supporting Document(s) Carestart Rapid COVID Antigen Test Negative [facility]. ID Date Data Source [id number] 04/24/2020 12:00:00 AM EST [facility] Name Value Range Interpretation Code Description Data Donna rce(s) Supporting Document(s) SARS coronavirus 2 RNA [Presence] in Res piratory specimen by LILA with probe detection [facility] and reported by [facility]. Procedure Social History Code Duration Value Status Description Data Source(s ) Smoking 01/01/2021 12:00:00 AM EDT Unknown if ever smoked comp leted Unknown if ever smoked [facility] ([facility]) Smoking 12/12/2020 12:00:00 AM EDT Current Smoker completed Curre nt Smoker eCW1 ([facility]) Smoking 12/12/2020 12:00:00 AM EDT Current Smoker completed Curre nt Smoker eCW1 ([facility]) Smoking 11/17/2020 12:00:00 AM EDT Current Smoker completed Curre nt Smoker eCW1 ([facility]) Smoking 11/17/2020 12:00:00 AM EDT Current Smoker completed Curre nt Smoker eCW1 ([facility]) Smoking 11/17/2020 12:00:00 AM EDT Current Smoker completed Curre nt Smoker eCW1 ([facility]) Smoking 11/17/2020 12:00:00 AM EDT Current Smoker completed Curre nt Smoker eCW1 ([facility]) Smoking 11/17/2020 12:00:00 AM EDT Current Smoker completed Curre nt Smoker eCW1 ([facility]) Smoking 11/17/2020 12:00:00 AM EDT Current Smoker completed Curre nt Smoker eCW1 ([facility]) Smoking 11/13/2020 12:00:00 AM EDT Current Smoker completed Curre nt Smoker eCW1 ([facility]) Smoking 11/03/2020 12:00:00 AM EDT Current Smoker completed Curre nt Smoker eCW1 ([facility]) Smoking 11/03/2020 12:00:00 AM EDT Current Smoker completed Curre nt Smoker eCW1 ([facility]) Smoking 11/03/2020 12:00:00 AM EDT Current Smoker completed Curre nt Smoker eCW1 ([facility]) Smoking 11/03/2020 12:00:00 AM EDT Current Smoker completed Curre nt Smoker eCW1 ([facility]) Smoking 10/20/2020 12:00:00 AM EDT Current Smoker completed Curre nt Smoker eCW1 ([facility]) Smoking 09/05/2020 12:00:00 AM EDT Unknown if ever smoked comp leted Unknown if ever smoked [facility] ([facility]) Smoking 08/22/2020 12:00:00 AM EST Unknown if ever smoked comp leted Unknown if ever smoked [facility] ([facility]) Smoking 08/20/2020 12:00:00 AM EST Unknown if ever smoked comp leted Unknown if ever smoked [facility] ([facility]) Smoking 07/30/2020 12:00:00 AM EST Unknown if ever smoked comp leted Unknown if ever smoked [facility] ([facility]) Smoking 07/25/2020 12:00:00 AM EST Unknown if ever smoked comp leted Unknown if ever smoked [facility] ([facility]) Smoking 07/16/2020 12:00:00 AM EST Unknown if ever smoked comp leted Unknown if ever smoked [facility] ([facility]) Smoking 06/25/2020 12:00:00 AM EST Unknown if ever smoked comp leted Unknown if ever smoked [facility] ([facility]) Smoking 05/29/2020 12:00:00 AM EST Unknown if ever smoked comp leted Unknown if ever smoked [facility] ([facility]) Smoking 05/28/2020 12:00:00 AM EST Unknown if ever smoked comp leted Unknown if ever smoked [facility] ([facility]) Smoking 05/14/2020 12:00:00 AM EST Unknown if ever smoked comp leted Unknown if ever smoked [facility] ([facility]) Smoking 05/06/2020 12:00:00 AM EST Unknown if ever smoked comp leted Unknown if ever smoked [facility] ([facility]) Smoking 04/16/2020 12:00:00 AM EST Unknown if ever smoked comp leted Unknown if ever smoked [facility] ([facility]) Smoking 03/17/2020 12:00:00 AM EDT Unknown if ever smoked comp leted Unknown if ever smoked [facility] ([facility]) Smoking 02/27/2020 12:00:00 AM EDT Unknown if ever smoked comp leted Unknown if ever smoked [facility] ([facility]) Vital Signs ID Date Data Source [id number] Name Value Range Interpretation Code Description Data Source(s) Body temperature 98.0 [degF] 98.0 [degF] [facility] ([facility] Body weight 236.00 [lb_av] 236.00 [lb_av] MEDEN T ([facility]) Diastolic blood pressure 75 mm[Hg] 75 mm[Hg] [facility] ([facility]) Systolic blood pressure 108 mm[Hg] 108 mm[Hg] M EDENT ([facility]) Heart rate 87 /min 87 /min [facility] ([facility]) Respiratory rate 16 /min 16 /min [facility] ( [facility]) Body height 63 [in_i] 63 [in_i] [facility] 5'3" Oxygen saturation in Arterial blood by Pulse oximetry 98 % 98 % [facility] Body mass index (BMI) [Ratio] 41.8 kg/m2 41.8 k g/m2 [facility] ([facility]) Body weight 244 [lb_av] 244 [lb_av] eCW1 ([facility]) Body height [in_i] eCW1 ([facility]) Body mass index (BMI) [Ratio] 42.54 kg/m2 42.54 kg/m2 eCW1 ([facility]) Heart rate 89 /min 89 /min eCW1 ([facility]) Respiratory rate 18 /min 18 /min eCW1 ([facility]) Body temperature 96.2 [degF] 96.2 [degF] eCW1 ( [facility]) Systolic blood pressure 122 mm[Hg] 122 mm[Hg] e CW1 ([facility]) Diastolic blood pressure 82 mm[Hg] 82 mm[Hg] eCW1 ([facility]) Body weight 236 [lb_av] 236 [lb_av] eCW1 ([facility]) Body height [in_i] eCW1 ([facility]) Body mass index (BMI) [Ratio] 41.15 kg/m2 41.15 kg/m2 W1 ([facility]) Heart rate 119 /min 119 /min eCW1 ([facility]) Respiratory rate 18 /min 18 /min eCW1 ([facility]) Body temperature 96.8 [degF] 96.8 [degF] eCW1 ( [facility]) Systolic blood pressure 122 mm[Hg] 122 mm[Hg] e CW1 ([facility]) Diastolic blood pressure 82 mm[Hg] 82 mm[Hg] eCW1 ([facility]) Body weight 238 [lb_av] 238 [lb_av] eCW1 ([facility]) Body height [in_i] eCW1 ([facility]) Body mass index (BMI) [Ratio] 41.49 kg/m2 41.49 kg/m2 eCW1 ([facility]) Heart rate 119 /min 119 /min eCW1 ([facility]) Respiratory rate 18 /min 18 /min eCW1 ([facility]) Body temperature 97.7 [degF] 97.7 [degF] eCW1 ( [facility]) Systolic blood pressure 122 mm[Hg] 122 mm[Hg] e CW1 ([facility]) Diastolic blood pressure 82 mm[Hg] 82 mm[Hg] eCW1 ([facility]) Body weight 240 [lb_av] 240 [lb_av] eCW1 ([facility]) Body height [in_i] eCW1 ([facility]) Body mass index (BMI) [Ratio] 41.84 kg/m2 41.84 kg/m2 eCW1 ([facility]) Heart rate 104 /min 104 /min eCW1 ([facility]) Respiratory rate 18 /min 18 /min eCW1 ([facility]) Body temperature 96.9 [degF] 96.9 [degF] eCW1 ( [facility]) Systolic blood pressure 122 mm[Hg] 122 mm[Hg] e CW1 ([facility]) Diastolic blood pressure 80 mm[Hg] 80 mm[Hg] eCW1 ([facility]) Body height 0.00 in Normal (applies to non-numeric resu lts) 0.00 in [facility] ([facility]) Body weight Measured 0.00 lbs Normal (applies to n on-numeric results) 0.00 lbs [facility] ([facility]) Body mass index (BMI) [Ratio] 0.00 kg/m2 No rmal (applies to non-numeric results) 0.00 kg/m2 [facility] ([facility]) Systolic blood pressure 0 mm[Hg] Normal (applies t o non-numeric results) 0 mm[Hg] [facility] ([facility]) Diastolic blood pressure 0 mm[Hg] Normal (applies to non-numeric results) 0 mm[Hg] [facility] ([facility]) Body height 0.00 in Normal (applies to non-numeric resu lts) 0.00 in [facility] ([facility]) Body weight Measured 0.00 lbs Normal (applies to n on-numeric results) 0.00 lbs [facility] ([facility]) Body mass index (BMI) [Ratio] 0.00 kg/m2 No rmal (applies to non-numeric results) 0.00 kg/m2 [facility]) Systolic blood pressure 0 mm[Hg] Normal (applies t o non-numeric results) 0 mm[Hg] [facility] ([facility]) Diastolic blood pressure 0 mm[Hg] Normal (applies to non-numeric results) 0 mm[Hg] [facility] ([facility]) Body temperature 96.0 [degF] 96.0 [degF] [facility] ([facility] ) Body height 64 [in_i] 64 [in_i] [facility] ([facility]) 5'4" Body weight 248.12 [lb_av] 248.12 [lb_av] MEDEN T ([facility]) Body mass index (BMI) [Ratio] 42.6 kg/m2 42.6 k g/m2 [facility] ([facility]) Body weight 248.12 [lb_av] 248.12 [lb_av] MEDEN T ([facility]) Body temperature 96.0 [degF] 96.0 [degF] [facility] ([facility]) Body height 64 [in_i] 64 [in_i] [facility] ([facility]) 5'4" Body mass index (BMI) [Ratio] 42.6 kg/m2 42.6 k g/m2 [facility] ([facility] ) Body height 63.00 in Normal (applies to non-numeric resu lts) 63.00 in [facility] ([facility]) Body weight Measured 250.00 lbs Normal (applies to n on-numeric results) 250.00 lbs [facility] ([facility]) Body mass index (BMI) [Ratio] 44.28 kg/m2 No rmal (applies to non-numeric results) 44.28 kg/m2 [facility] ([facility]) Systolic blood pressure 0 mm[Hg] Normal (applies t o non-numeric results) 0 mm[Hg] [facility] ([facility]) Diastolic blood pressure 0 mm[Hg] Normal (applies to non-numeric results) 0 mm[Hg] [facility] ([facility]) Patient Treatment Plan of Care Planned Activity Planned Date Details Description Data Source (s) 120 ACTUAT Budesonide 0.08 MG/ACTUAT / f ormoterol fumarate 0.0045 MG/ACTUAT Metered Dose Inhaler 12/12/2020 12:00:00 AM EDT eCW1 ([facility]) 120 ACTUAT Budesonide 0.08 MG/ACTUAT / f ormoterol fumarate 0.0045 MG/ACTUAT Metered Dose Inhaler 12/12/2020 12:00:00 AM EDT eCW1 ([facility])
== END 2021-03-22 04:05 | disposition left against medical advice (07) ==
LOC: M ED 02:19
DX: Z53.21 Procedure and treatment not carried out due to patient leaving prior to being seen by health care provider (principal)

== ENCOUNTER 2021-03-22 14:00 | Emergency (ER) | payer OTHER ==
[~2021-03-22] VITALS: Ht 160 cm; Wt 115.2 kg
[2021-03-22] MEDS ORDERED: BUSP10TA (14:19)
[2021-03-22] MEDS ORDERED: ARIP1TAB6 (14:19)
[2021-03-22] MEDS ORDERED: MELO7.5T35 (14:19)
[2021-03-22] MEDS ORDERED: NS 1,000 ML IV ONE (14:35)
[2021-03-22 14:57] LABS: BASO # 0.1 10^3/uL (0.0-0.2); BASO % 0.5 % (0.0-1.0); EOS # 0.2 10^3/uL (0.0-0.5); EOS % 2.2 % (0.0-3.0); HEMATOCRIT 40.4 % (36.0-47.0); HEMOGLOBIN 12.9 g/dl (12.0-15.5); LYMPH % 29.2 % (24.0-44.0); MEAN CORPUSCULAR HEMOGLOBIN 28.4 pg (27.0-33.0); MEAN CORPUSCULAR HGB CONC 31.9 g/dl (32.0-36.5); MEAN CORPUSCULAR VOLUME 88.8 fl (80.0-96.0); MONO % 9.4 % (2.0-8.0); NEUTROPHILS % 58.4 % (36.0-66.0); PLATELET COUNT, AUTOMATED 319 10^3/uL (150-450); RED BLOOD COUNT 4.55 10^6/uL (4.00-5.40); WHITE BLOOD COUNT 10.3 10^3/uL (4.0-10.0)
[2021-03-22] MEDS ORDERED: TIZA2TA PO (15:00)
[2021-03-22 15:21] LABS: ALBUMIN 3.2 GM/DL (3.2-5.2); ALT/SGPT 16 U/L (12-78); BILIRUBIN,DIRECT < 0.1 MG/DL (0.0-0.2); BILIRUBIN,TOTAL 0.2 MG/DL (0.2-1.0); BLOOD UREA NITROGEN 7 MG/DL (7-18); CALCIUM LEVEL 8.6 MG/DL (8.5-10.1); CARBON DIOXIDE LEVEL 29 MEQ/L (21-32); CHLORIDE LEVEL 109 MEQ/L (98-107); CREATININE FOR GFR 0.71 MG/DL (0.55-1.30); GLOMERULAR FILTRATION RATE > 60.0 (>60); GLUCOSE, FASTING 83 MG/DL (70-100); HCG, SERUM QUANTITATIVE < 1.0 MIU/ML; LIPASE 66 U/L (73-393); SODIUM LEVEL 141 MEQ/L (136-145); TOTAL PROTEIN 7.4 GM/DL (6.4-8.2)
[2021-03-22 16:07] VITALS: BP 129/78
== END 2021-03-22 16:19 | disposition home or self-care (01) ==
LOC: M ED 14:00
DX: R19.7 Diarrhea, unspecified (principal); F41.9 Anxiety disorder, unspecified; F32.9 Major depressive disorder, single episode, unspecified; M79.7 Fibromyalgia; J45.909 Unspecified asthma, uncomplicated; G47.33 Obstructive sleep apnea (adult) (pediatric); F17.200 Nicotine dependence, unspecified, uncomplicated; F17.290 Nicotine dependence, other tobacco product, uncomplicated

== ENCOUNTER 2021-04-06 08:54 | Emergency (ER) | payer OTHER ==
[~2021-04-06] VITALS: Ht 160 cm; Wt 116.4 kg
[~2021-04-06 08:54] MED LIST changes: +ARIP1TAB6; +MELO7.5T35; +TIZA2TA PO
--- OUTSIDE RECORDS SUMMARY | 2021-04-06 09:01 | CCD ---
Author Author [facility] Organization [facility] Address Unknown Phone Unavailable Care Team Providers Care Lead Simulation Modeling Engineer Name Role Phone Philomena WORTHY TELEVISION PRODUCTION ASSISTANT CELESTE Unavailable [phone] Samir WORTHY. TELEVISION PRODUCTION ASSISTANT CELESTE Unavailable [phone] Philomena WORTHY TELEVISION PRODUCTION ASSISTANT CELESTE Unavailable [phone] Philomena WORTHY TELEVISION PRODUCTION ASSISTANT CELESTE Unavailable [phone] Philomena WORTHY TELEVISION PRODUCTION ASSISTANT CELESTE Unavailable [phone] Samir WORTHY. TELEVISION PRODUCTION ASSISTANT CELESTE Unavailable [phone] Philomena WORHTY TELEVISION PRODUCTION ASSISTANT CELESTE Unavailable [phone] Philomena WORTHY TELEVISION PRODUCTION ASSISTANT CELESTE Unavailable [phone] ZAYNAB, A. TELEVISION PRODUCTION ASSISTANT CELESTE Unavailable [phone] ZAYNAB, A. TELEVISION PRODUCTION ASSISTANT CELESTE Unavailable [phone] ZAYNAB, A. TELEVISION PRODUCTION ASSISTANT CELESTE Unavailable [phone] ZAYNAB, A. TELEVISION PRODUCTION ASSISTANT CELESTE Unavailable [phone] ZAYNAB, A. TELEVISION PRODUCTION ASSISTANT CELESTE Unavailable [phone] ZAYNAB, A. TELEVISION PRODUCTION ASSISTANT CELESTE Unavailable [phone] ZAYNAB, A. TELEVISION PRODUCTION ASSISTANT CELESTE Unavailable [phone] Aneta Montiel NP Unavailable Unavailable Aneta Montiel NP Unavailable Unavailable Aneta Montiel NP Unavailable Unavailable Fish, [facility], PA-C Unavailable Unavailabl e Fish, [facility], PA-C Unavailable Unavailabl e Fish, [facility], PA-C Unavailable Unavailabl e Fish, [facility], PA-C Unavailable Unavailabl e Fish, [facility], PA-C Unavailable Unavailabl e Fish, [facility], PA-C Unavailable Unavailabl e Fish, [facility], PA-C Unavailable Unavailabl e Fish, [facility], PA-C Unavailable Unavailabl e Fish, [facility], PA-C Unavailable Unavailabl e Fish, [facility], PA-C Unavailable Unavailabl e Fish, [facility], PA-C Unavailable Unavailabl e Fish, [facility], PA-C Unavailable Unavailabl e Fish, [facility], PA-C Unavailable Unavailabl e Fish, [facility], PA-C Unavailable Unavailabl e Fish, [facility], PA-C Unavailable Unavailabl e Fish, [facility], PA-C Unavailable Unavailabl e Fish, [facility], PA-C Unavailable Unavailabl e Fish, [facility], PA-C Unavailable Unavailabl e Fish, [facility], PA-C Unavailable Unavailabl e Fish, [facility], PA-C Unavailable Unavailabl e Fish, [facility], PA-C Unavailable Unavailabl e Fish, [facility], PA-C Unavailable Unavailabl e Fish, [facility], PA-C Unavailable Unavailabl e Fish, [facility], PA-C Unavailable Unavailabl e Fish, [facility], PA-C Unavailable Unavailabl e Fish, [facility], PA-C Unavailable Unavailabl e Fish, [facility], PA-C Unavailable Unavailabl e Fish, [facility], PA-C Unavailable Unavailabl e Fish, [facility], PA-C Unavailable Unavailabl e Fish, [facility], PA-C Unavailable Unavailabl e Fish, [facility], PA-C Unavailable Unavailabl e Fish, [facility], PA-C Unavailable Unavailabl e Fish, [facility], PA-C Unavailable Unavailabl e Fish, [facility], PA-C Unavailable Unavailabl e Fish, [facility], PA-C Unavailable Unavailabl e Fish, [facility], PA-C Unavailable Unavailabl e Jeffry Sandoval MD Unavailable Unavailable Jeffry Sandoval MD Unavailable Unavailable Jeffry Sandoval MD Unavailable Unavailable Jeffry Sandoval MD Unavailable Unavailable Jeffry Sandoval MD Unavailable Unavailable Jeffry Sandoval MD Unavailable Unavailable LAROCK, Dionicio KENNY NP Unavailable Unavailable LAROCK, Dionicio KENNY NP Unavailable Unavailable LAROCK, Dionicio KENNY NP Unavailable Unavailable LAROCK, Dionicio KENNY MUTUAL FUND ANALYST Unavailable Unavailable LAROCK, Dionicio KENNY NP Unavailable Unavailable LAROCK, Dionicio KENNY NP Unavailable Unavailable LAROCK, Dionicio KENNY MUTUAL FUND ANALYST Unavailable Unavailable LAROCK, Dionicio KENNY MUTUAL FUND ANALYST Unavailable Unavailable LAROCK, Dionicio KENNY MUTUAL FUND ANALYST Unavailable Unavailable LAROCK, Dionicio KENNY MUTUAL FUND ANALYST Unavailable Unavailable LAROCK, Dionicio KENNY MUTUAL FUND ANALYST Unavailable Unavailable LAROCK, Dionicio KENNY MUTUAL FUND ANALYST Unavailable Unavailable LAROCK, Dionicio KENNY MUTUAL FUND ANALYST Unavailable Unavailable LAROCK, Dionicio KENNY MUTUAL FUND ANALYST Unavailable Unavailable LAROCK, Dionicio KENNY MUTUAL FUND ANALYST Unavailable Unavailable LAROCK, Dionicio KENNY MUTUAL FUND ANALYST Unavailable Unavailable LAROCK, Dionicio KENNY NP Unavailable Unavailable LAROCK, Dionicio KENNY NP Unavailable Unavailable LAROCK, Dionicio KENNY NP Unavailable Unavailable LAROCK, Dionicio KENNY NP Unavailable Unavailable LAROCK, Dionicio KENNY NP Unavailable Unavailable LAROCK, Dionicio KENNY NP Unavailable Unavailable Ximena Chavira Unavailable Zack Wisdom Unavailable Zack Wisdom Unavailable Maring, Christine PA Unavailable Unavailable Maring, [...] Unavailable LETTIERE, A SEBASTIÁN PA Unavailable Unavailable Maxwell Giraldo MD Unavailable Unavailable AliMaxwell MD Unavailable Unavailable [...] MD Unavailable Unavailable AliMaxwell MD Unavailable Unavailable Maxwell Giraldo MD Unavailable Unavailable Maxwell Giraldo MD Unavailable Unavailable AliMaxwell MD Unavailable Unavailable AliMaxwell MD Unavailable Unavailable AliMaxwell MD Unavailable Unavailable AliMaxwell MD Unavailable Unavailable AliMaxwell MD Unavailable Unavailable AliMaxwell MD Unavailable Unavailable Maxwell Giraldo MD Unavailable Unavailable AliMaxwell MD Unavailable Unavailable AliMaxwell MD Unavailable Unavailable AliMaxwell MD Unavailable Unavailable AliMaxwell MD Unavailable Unavailable AliMaxwell MD Unavailable Unavailable CarmenJaqui walters Unavailable LOWE, G EDWARD RPA Unavailable Unavailable [...] Unavailable Blanca Frazier MD Unavailable Unavailable Blanca Frazierine MD Unavailable Unavailable Blanca Frazier Anitra MD Unavailable Unavailable Blanca Frazierine MD Unavailable Unavailable Karin, Blanca Anitra MD Unavailable Unavailable Karin, C Anitra MD Unavailable Unavailable Frazier, C Anitra MD Unavailable Unavailable KOUTS, [facility] Unavailable Unavailable CHANLIECCO, C OBDULIA MD [...] is protected by Article 27-F of the [facility] Public Health law. If you continue you may have access to information: Regarding HIV / AIDS; Provided by facilities licensed or operated by the [facility] Office of Mental Health; or Provided by the [facility] Office for People With Developmental Disabilities. If such information is present, then the following [facility] mandated warning applies: This information has been [...] law may result in a fine or intermediate sentence or both. A general authorization for the release of medical or other information is NOT sufficient authorization for further disc losure. Allergies and Adverse Reactions Type Description Substance Reaction Status Data Source(s ) Propensity to adverse reactions to substance Latex, Natural Rubber Latex, Natural Rubber Active [facility]) Propensity to adverse reactions to substance raspberry raspberry Active [facility] ([facility]) Propensity to adverse reactions to substance nickel nickel Active [facility] ([facility]) Encounters Encounter Providers Location Date Indications Data Source(s ) Outpatient Attender: CELESTE WORTHY 03/13 12:09:13 PM EDT - 03/22/2021 01:23:56 PM EDT [facility] ([facility] ) Emergency Attender: Jeffry Sandoval MDConsultant: [facility] 03/12/2021 10:12:00 PM EDT - 03/12/2021 11:21:00 PM EDT [facility] ital Patient discharged. Outpatient Attender: KENYON COWAN MD 02/07 12:52:46 PM EDT - 02/07/2021 02:22:14 PM EDT [facility] ([facility] ) Outpatient Attender: Maxwell Giraldo MD Main office - [place] 01/27/2021 01:30:00 PM EDT [facility] ([facility] ) Outpatient Attender: ZOYA PEARCE NP 12/12 01:12:23 PM EDT - 01/04/2021 01:53:21 PM EDT [facility] ([facility] ) Outpatient Attender: Trey Montiel NP [facility] 01/01/2021 08:00:00 AM EDT - 01/01/2021 08:00:00 AM EDT [facility] ([facility]) Attender: Trey Montiel NP 01/01/2021 12:00:00 AM EDT [facility] ([facility]) Outpatient Attender: SEBASTIÁN [place] 12/30/2020 09:30:00 AM EDT [facility] ([facility]) [place] [address] [address] 12/30/2020 12:00:00 AM EDT eCW1 ([facility]) Outpatient Attender: ERIN LOWE RPA 12/28 04:37:33 PM EDT - 12/28/2020 04:54:30 PM EDT [facility] ([facility] ) [place] [address] [address] 12/12/2020 12:00:00 AM EDT eCW1 ([facility]) [place] [address] [address] 12/06/2020 12:00:00 AM EDT [facility]CW1 ([facility]) [place] [address] [place] [address] 12/04/2020 12:00:00 AM EDT eCW1 ([facility]) Outpatient Attender: Maxwell Giraldo MD Main office - [place] 12/02/2020 08:30:00 AM EDT [facility] ([facility]) [place] [address] [place] [address] 11/25/2020 12:00:00 AM EDT eCW1 ([facility]) [place] [address] [place] [address] 11/18/2020 12:00:00 AM EDT eCW1 ([facility]) [place] [address] [place] [address] 11/13/2020 12:00:00 AM EDT eCW1 ([facility]) [place] [address] [place] [address] 11/13/2020 12:00:00 AM EDT eCW1 ([facility]) [place] [address] [place] [address] 11/12/2020 12:00:00 AM EDT eCW1 ([facility]) Emergency Attender: OBDULIA HORAN MD 11/07/2020 11:04:00 PM EDT - 11/08/2020 01:13:00 AM EDT [facility] Patient discharged. [place] [address] [address] 11/03/2020 12:00:00 AM EDT [facility] [place] [address] [address] 11/03/2020 12:00:00 AM EDT [facility] [place] [address] [address] 10/31/2020 12:00:00 AM EDT [facility] [place] [address] [address] 10/27/2020 12:00:00 AM EDT [facility] [place] [address] [address] 10/20/2020 12:00:00 AM EDT [facility]) Outpatient Attender: Christine FRANKS 10/06/19 07:24:52 PM EDT - 10/05/2020 08:01:47 PM EDT [facility] ([facility] ) Outpatient Attender: Christine FRANKS 09/08/19 10:09:44 AM EDT - 09/07/2020 10:48:12 AM EDT [facility] ([facility] ) Outpatient Attender: Trey Montiel NP [facility] 09/05/2020 04:00:00 AM EDT - 09/05/2020 04:00:00 AM EDT [facility] ([facility]) Attender: Trey Montiel NP 09/05/2020 12:00:00 AM EDT [facility] ([facility]) Outpatient Attender: Trey Montiel NP [facility] 08/22/2020 11:30:00 AM EST - 08/22/2020 11:30:00 AM EST [facility] ([facility]) Attender: Trey Montiel NP 08/22/2020 12:00:00 AM EST [facility] ([facility]) Attender: Zack Wisdom 08/20/2020 12:00:00 AM EST [facility] ([facility]) Extended Individual Psychotherapy - 45 min Attender: Paresh Wisdom [facility] 08/18/2020 03:00:00 AM EST - 08/18/2020 03:00:00 AM EST [facility] ([facility]) Extended Individual Psychotherapy - 45 min Attender: Shea dennis [facility] 07/30/2020 07:00:00 AM EST - 07/30/2020 07:00:00 AM EST [facility] ([facility]) Attender: Jaqui Carmen 07/30/2020 12:00:00 AM EST [facility] ([facility]) Outpatient Attender: Trey Montiel NP [facility] 07/25/2020 04:00:00 AM EST - 07/25/2020 04:00:00 AM EST [facility] ([facility]) Attender: Trey Montiel NP 07/25/2020 12:00:00 AM EST [facility] ([facility]) Office Visit Attender: Henna NAIK PA-C Physical Therapy 07/24/2020 07:45:00 AM EST [facility] ([facility]) Extended Individual Psychotherapy - 45 min Attender: Shea Mendozaoza [facility] 07/16/2020 06:00:00 AM EST - 07/16/2020 06:00:00 AM EST [facility] ([facility]) Attender: Jaqui Carmen 07/16/2020 12:00:00 AM EST [facility] ([facility]) OFFICE OUTPATIENT NEW 30 MINUTES Attender: Henna NAIK PA-C Physical Therapy 07/08/2020 08:00:00 AM EST [facility] ([facility]) Outpatient Attender: Anitra Sanchez 07/06/2020 10:43:10 AM EST - 07/06/2020 11:54:41 AM EST [facility] ([facility]) Extended Individual Psychotherapy - 45 min Attender: Shea Mendozaoza [facility] 06/25/2020 06:00:00 AM EST - 06/25/2020 06:00:00 AM EST [facility] ([facility]) Attender: Jaqui Carmen 06/25/2020 12:00:00 AM EST [facility] ([facility]) Outpatient Attender: Trey Montiel NP [facility] 05/29/2020 04:00:00 AM EST - 05/29/2020 04:00:00 AM EST [facility] ([facility]) Attender: Trey Montiel NP 05/29/2020 12:00:00 AM EST [facility] ([facility]) Extended Individual Psych[facility] - 45 [facility] 06:00:00 AM EST - 05/28/2020 06:00:00 AM EST [facility] ([facility]) Attender: Jaqui Carmen 05/28/2020 12:00:00 AM EST [facility] ([facility]) Brief Individual Psychotherapy - 30 min Attender: Ximena almeida [facility] 05/14/2020 10:00:00 AM EST - 05/14/2020 10:00:00 AM EST [facility] ([facility]) Attender: Ximena Chavira 05/14/2020 12:00:00 AM EST [facility] ([facility]) Extended Individual Psychotherapy - 45 min [facility]/06/2020 12:00:00 PM EST - 05/06/2020 12:00:00 PM EST [facility] ([facility]) Attender: Jaqui Carmen 05/06/2020 12:00:00 AM EST [facility] ([facility]) Extended Individual Psychotherapy - 45 min [facility] 04/16/2020 07:00:00 AM EST - 04/16/2020 07:00:00 AM EST [facility] ([facility]) Attender: Jaqui Carmen 04/16/2020 12:00:00 AM EST [facility] ([facility]) [id number]"Psychotherapy Attender: Jaqui Carmen [facility] 03/17/2020 01:00:00 AM EDT - 03/17/2020 01:00:00 AM EDT [facility] ([facility]) Attender: Jaqui Carmen 03/17/2020 12:00:00 AM EDT [facility] ([facility]) Extended Individual Psychotherapy - 45 min Attender: Shea Carmen [facility] 02/27/2020 06:00:00 AM EDT - 02/27/2020 06:00:00 AM EDT [facility] ([facility]) Attender: Jaqui Carmen 02/27/2020 12:00:00 AM EDT [facility] ([facility]) Functional Status Immunizations Vaccine Date Status Description Data Source(s) COVID-19 VACCINE Moderna 11/01/2020 12:00:00 AM EDT completed [employer] Vaccine Series Complete: YESThis Data wa s Submitted to [facility] Via [employer]. COVID-19 dose #1 given elsewhere Unspecified 10/04/2020 07:2 2:00 AM EDT completed eCW1 ([facility]) COVID-19 dose #1 given elsewhere Unspecified 10/04/2020 07:2 2:00 AM EDT completed eCW1 ([facility]) COVID-19 dose #1 given elsewhere Unspecified 10/04/2020 07:2 2:00 AM EDT completed eCW1 ([facility]) COVID-19 dose #1 given elsewhere Unspecified 10/04/2020 07:2 2:00 AM EDT completed eCW1 ([facility]) COVID-19 dose #1 given elsewhere Unspecified 10/04/2020 07:2 2:00 AM EDT completed eCW1 ([facility]) COVID-19 dose #1 given elsewhere Unspecified 10/04/2020 07:2 2:00 AM EDT completed eCW1 ([facility]) COVID-19 dose #1 given elsewhere Unspecified 10/04/2020 07:2 2:00 AM EDT completed eCW1 ([facility]) COVID-19 dose #1 given elsewhere Unspecified 10/04/2020 07:2 2:00 AM EDT completed eCW1 ([facility]) COVID-19 dose #1 given elsewhere Unspecified 10/04/2020 07:2 2:00 AM EDT completed eCW1 ([facility]) COVID-19 dose #1 given elsewhere Unspecified 10/04/2020 07:2 2:00 AM EDT completed eCW1 ([facility]) COVID-19 dose #1 given elsewhere Unspecified 10/04/2020 07:2 2:00 AM EDT completed eCW1 ([facility]) COVID-19 dose #1 given elsewhere Unspecified 10/04/2020 07:2 2:00 AM EDT completed eCW1 ([facility]) COVID-19 dose #1 given elsewhere Unspecified 10/04/2020 07:2 2:00 AM EDT completed eCW1 ([facility]) COVID-19 dose #1 given elsewhere Unspecified 10/04/2020 07:2 2:00 AM EDT completed eCW1 ([facility]) COVID-19 VACCINE Moderna 10/04/2020 12:00:00 AM EDT completed [employer] Vaccine Series Complete: NOThis Data was Submitted to [facility] Via [employer] Medications Medication Brand Name Start Date Product [...] 01/27/2021 12:00:00 AM EDT ORAL active [facility] ([facility]) meloxicam 7.5 MG Oral Tablet MELOXICAM 01/21/2021 12:00:00 AM EDT tabl et 30 TAKE ONE TABLET BY MOUTH EVERY DAY NEEDED FOR NECK & BACK PAIN TAKE ONE TABLET BY MOUTH EVERY DAY NEEDED FOR NECK & BACK PAIN SOLD: 01/21/2021 [facility] meloxicam 7.5 MG Oral Tablet Meloxicam 01/20/2021 12:00:00 AM EDT ORAL active [facility] ([facility]) 120 ACTUAT Budesonide 0.08 MG/ACTUAT / f ormoterol fumarate 0.0045 MG/ACTUAT Metered Dose Inhaler Budesonide-Formoterol Fumarate 80-4.5 MCG/ACT Budesonide- Formoterol Fumarate 80-4.5 MCG/ACT 12/12/2020 12:00:00 AM EDT 2.0 {pu ffs} active Budesonide-Formoterol Fumara te 80-4.5 MCG/ACT eCW1 ([facility]) 120 ACTUAT Budesonide 0.08 MG/ACTUAT / f ormoterol fumarate 0.0045 MG/ACTUAT Metered Dose Inhaler Budesonide-Formoterol Fumarate 80-4.5 MCG/ACT Budesonide- Formoterol Fumarate 80-4.5 MCG/ACT 12/12/2020 12:00:00 AM EDT 2.0 {pu ffs} active Budesonide-Formoterol Fumara te 80-4.5 MCG/ACT eCW1 ([facility]) 80-4.5 mcg/actuation 12/12/2020 12:00:00 AM EDT HFA [...] THREE TIMES A DAY NEEDED SOLD: 12/15/2020 [facility] tizanidine 2 MG Oral Tablet TIZANIDINE HCL 12/08/2020 12:00:00 AM EDT tablet 56 TAKE ONE TO TWO TABLETS BY MOUTH THREE TIMES A DAY NEEDED TAKE ONE TO TWO TABLETS BY MOUTH THREE TIMES A DAY NEEDED SOLD: 01/20/2021 [facility] tizanidine 4 MG Oral Tablet TIZANIDINE HCL 12/06/2020 12:00:00 AM EDT tablet 30 TAKE ONE TABLET BY MOUTH AT BEDTIME NEEDED TAKE ONE TABLET BY MOUTH AT BEDTIME NEEDED SOLD: 12/06/2020 [facility] 50 mg 12/04/2020 12:00:00 AM EDT [...] BY MOUTH ONCE DAILY SOLD: 11/08/2020 [facility] tizanidine 4 MG Oral Tablet TIZANIDINE HCL 09/23/2020 12:00:00 AM EDT tablet 15 TAKE ONE TABLET BY MOUTH THREE TIMES A DAY TAKE ONE TA BLET BY MOUTH THREE TIMES A DAY SOLD: 09/23/2020 [facility] 4 mg 09/22/2020 12:00:00 AM [...] HOURS FOR 10 DAYS SO LD: 09/23/2020 [facility] lamotrigine 100 MG Oral Tablet lamotrigine 08/22/2020 12:00:00 AM EST 100 mg by mouth completed <td ID="Medica tionRxNorm_3">721303</td><td ID="MedicationMedication_3">lamotrigine</td><td ID="MedicationRoute_3">by mouth</td><td ID="MedicationRouteConcept_3">W39363</td><td ID="MedicationStartDate_3">08/22/2020</td><td ID="MedicationStopDate_3"></td><td ID="MedicationDosageFrequency_3">once a day</td><td ID="MedicationDuration_3">30</td><td ID="MedicationFormulaStrength_3">100 mg</td><td ID="MedicationDosageForm_3">tablet</td><td ID="MedicationDosageFormCode_3"></td><td ID="MedicationDosageDescription_3"></td><td ID="MedicationMedicationId_3">[id number]</td><td ID="MedicationAccount_3">[id number]</td><td ID="MedicationNpid_3">[id number]</td><td ID="MedicationAuthorFirstName_3">Trey</td><td ID="MedicationAuthorLastName_3">Montiel</td><td ID="MedicationTaxonomyCode_3">[id number]</td><td ID="MedicationTaxonomyDesc_3">Nurse Practitioner</td><td ID="MedicationPhoneNumber_3">[phone]</td> [facility] ([facility]) Hydroxyzine Hydrochloride 50 MG Oral Tablet hydroxyzine HCl 08/22/2020 12:00:00 AM EST 50 mg completed <td ID ="MedicationRxNorm_1">[id number]</td><td ID="MedicationMedication_1">hydroxyzine HCl</td><td ID="MedicationRoute_1"></td><td ID="MedicationRouteConcept_1"></td><td ID="MedicationStartDate_1">08/22/2020</td><td ID="MedicationStopDate_1"></td><td ID="MedicationDosageFrequency_1"></td><td ID="MedicationDuration_1"></td><td ID="MedicationFormulaStrength_1">50 mg</td><td ID="MedicationDosageForm_1">tablet</td><td ID="MedicationDosageFormCode_1"></td><td ID="MedicationDosageDescription_1">as directed</td><td ID="MedicationMedicationId_1">[id number]</td><td ID="MedicationAccount_1">[id number]</td><td ID="MedicationNpid_1">[id number]</td><td ID="MedicationAuthorFirstName_1">Trey</td><td ID="MedicationAuthorLastName_1">Montiel</td><td ID="MedicationTaxonomyCode_1">[id number]</td><td ID="MedicationTaxonomyDesc_1">Nurse Practitioner</td><td ID="MedicationPhoneNumber_1">[phone]</td> [facility] ([facility]) buspirone hydrochloride 15 MG Oral Tablet buspirone 2020 12:00:00 AM EST 15 mg by mouth completed <td ID="Medic ationRxNorm_2">[id number]</td><td ID="MedicationMedication_2">buspirone</td><td ID="MedicationRoute_2">by mouth</td><td ID="MedicationRouteConcept_2">W52933</td><td ID="MedicationStartDate_2">08/22/2020</td><td ID="MedicationStopDate_2"></td><td ID="MedicationDosageFrequency_2">twice a day</td><td ID="MedicationDuration_2">30</td><td ID="MedicationFormulaStrength_2">15 mg</td><td ID="MedicationDosageForm_2">tablet</td><td ID="MedicationDosageFormCode_2"></td><td ID="MedicationDosageDescription_2"></td><td ID="MedicationMedicationId_2">[id number]</td><td ID="MedicationAccount_2">[id number]</td><td ID="MedicationNpid_2">[id number]</td><td ID="MedicationAuthorFirstName_2">Trey</td><td ID="MedicationAuthorLastName_2">Montiel</td><td ID="MedicationTaxonomyCode_2">[id number]</td><td ID="MedicationTaxonomyDesc_2">Nurse Practitioner</td><td ID="MedicationPhoneNumber_2">[phone]</td> [facility] ([facility]) lamotrigine 25 MG Oral Tablet lamotrigine 05/29/2020 12:00:00 AM EST 25 mg by mouth completed <td ID="Medica tionRxNorm_1">851553</td><td ID="MedicationMedication_1">lamotrigine</td><td ID="MedicationRoute_1">by mouth</td><td ID="MedicationRouteConcept_1">C09405</td><td ID="MedicationStartDate_1">05/29/2020</td><td ID="MedicationStopDate_1">07/28/2020</td><td ID="MedicationDosageFrequency_1">once a day</td><td ID="MedicationDuration_1">30</td><td ID="MedicationFormulaStrength_1">25 mg</td><td ID="MedicationDosageForm_1">tablet</td><td ID="MedicationDosageFormCode_1"></td><td ID="MedicationDosageDescription_1"></td><td ID="MedicationMedicationId_1">[id number]</td><td ID="MedicationAccount_1">[id number]</td><td ID="MedicationNpid_1">[id number]</td><td ID="MedicationAuthorFirstName_1">Trey</td><td ID="MedicationAuthorLastName_1">Montiel</td><td ID="MedicationTaxonomyCode_1">[id number]</td><td ID="MedicationTaxonomyDesc_1">Nurse Practitioner</td><td ID="MedicationPhoneNumber_1">[phone]</td> [facility] ([facility]) Hydroxyzine Hydrochloride 50 MG Oral Tablet hydroxyzine HCl 05/29/2020 12:00:00 AM EST 50 mg completed <td ID ="MedicationRxNorm_3">392107</td><td ID="MedicationMedication_3">hydroxyzine HCl</td><td ID="MedicationRoute_3"></td><td ID="MedicationRouteConcept_3"></td><td ID="MedicationStartDate_3">05/29/2020</td><td ID="MedicationStopDate_3">07/28/2020</td><td ID="MedicationDosageFrequency_3"></td><td ID="MedicationDuration_3">30</td><td ID="MedicationFormulaStrength_3">50 mg</td><td ID="MedicationDosageForm_3">tablet</td><td ID="MedicationDosageFormCode_3"></td><td ID="MedicationDosageDescription_3">as directed</td><td ID="MedicationMedicationId_3">66700</td><td ID="MedicationAccount_3">[id number]</td><td ID="MedicationNpid_3">[id number]</td><td ID="MedicationAuthorFirstName_3">Trey</td><td ID="MedicationAuthorLastName_3">Montiel</td><td ID="MedicationTaxonomyCode_3">[id number]</td><td ID="MedicationTaxonomyDesc_3">Nurse Practitioner</td><td ID="MedicationPhoneNumber_3">[phone]</td> [facility] ([facility]) aripiprazole 5 MG Oral Tablet aripiprazole 02/26/2020 12:00:00 AM EDT 5 mg by mouth completed <td ID="Medica tionRxNorm_3">408676</td><td ID="MedicationMedication_3">aripiprazole</td><td ID="MedicationRoute_3">by mouth</td><td ID="MedicationRouteConcept_3">Z11510</td><td ID="MedicationStartDate_3">02/26/2020</td><td ID="MedicationStopDate_3">05/26/2020</td><td ID="MedicationDosageFrequency_3">once a day</td><td ID="MedicationDuration_3">30</td><td ID="MedicationFormulaStrength_3">5 mg</td><td ID="MedicationDosageForm_3">tablet</td><td ID="MedicationDosageFormCode_3"></td><td ID="MedicationDosageDescription_3"></td><td ID="MedicationMedicationId_3">[id number]</td><td ID="MedicationAccount_3">[id number]</td><td ID="MedicationNpid_3">[id number]</td><td ID="MedicationAuthorFirstName_3">Trey</td><td ID="MedicationAuthorLastName_3">Montiel</td><td ID="MedicationTaxonomyCode_3">[id number]</td><td ID="MedicationTaxonomyDesc_3">Nurse Practitioner</td><td ID="MedicationPhoneNumber_3">[phone]</td> [facility] ([facility]) 24 HR venlafaxine 150 MG Extended Release Oral Capsule venla faxine 02/26/2020 12:00:00 AM EDT 150 mg by mouth completed <td ID="MedicationRxNorm_4">084441</td><td ID="MedicationMedication_4">venlafaxine</td><td ID="MedicationRoute_4">by mouth</td><td ID="MedicationRouteConcept_4">W85981</td><td ID="MedicationStartDate_4">02/26/2020</td><td ID="MedicationStopDate_4">05/26/2020</td><td ID="MedicationDosageFrequency_4">once a day</td><td ID="MedicationDuration_4">30</td><td ID="MedicationFormulaStrength_4">150 mg</td><td ID="MedicationDosageForm_4">capsule,extended release 24hr</td><td ID="MedicationDosageFormCode_4"></td><td ID="MedicationDosageDescription_4"></td><td ID="MedicationMedicationId_4">[id number]</td><td ID="MedicationAccount_4">[id number]</td><td ID="MedicationNpid_4">[id number]</td><td ID="MedicationAuthorFirstName_4">Trey</td><td ID="MedicationAuthorLastName_4">Montiel</td><td ID="MedicationTaxonomyCode_4">[id number]</td><td ID="MedicationTaxonomyDesc_4"> Nurse Practitioner</td><td ID="MedicationPhoneNumber_4">[phone]</td> [facility] ([facility] 24 HR Nicotine 0.292 MG/HR Transdermal Patch [Nicoderm C-Q] Nicoderm CQ 02/26/2020 12:00:00 AM EDT 7 mg/24 completed <td ID="MedicationRxNorm_1">381668</td><td ID="MedicationMedication_1">Nicoderm CQ</td><td ID="MedicationRoute_1">to skin</td><td ID="MedicationRouteConcept_1"></td><td ID="MedicationStartDate_1">02/26/2020</td><td ID="MedicationStopDate_1">05/26/2020</td><td ID="MedicationDosageFrequency_1">once a day</td><td ID="MedicationDuration_1">30</td><td ID="MedicationFormulaStrength_1">7 mg/24 hr</td><td ID="MedicationDosageForm_1">patch 24 hour</td><td ID="MedicationDosageFormCode_1"></td><td ID="MedicationDosageDescription_1"> </td><td ID="MedicationMedicationId_1">90906</td><td ID="MedicationAccount_1">[id number]</td><td ID="MedicationNpid_1">[id number]</td><td ID="MedicationAuthorFirstName_1">Trey</td><td ID="MedicationAuthorLastName_1">Montiel</td><td ID="MedicationTaxonomyCode_1">[id number]</td><td ID="MedicationTaxonomyDesc_1">Nurse Practitioner</td><td ID="MedicationPhoneNumber_1">[phone]</td> [facility] ([facility]) Insurance Providers Payer name Policy type / Coverage type Policy ID Covered libertarian ID Covered libertarian's relationship to webb Policy Webb Plan Information SELF PAY [facility] emp [id number] Employee [id number] [employer] [id number] Self [id number] Medicaid Medicaid [id number] Self [id number] Spouse [id number] Medicaid Medicaid [id number] Self [id number] RPR- Needs Payer Match [id number] Spouse [id number] MEDICAID M [id number] S [id number] [place] [id number] S [id number] [place] [employer] [place] [id number] 2 [id number] Medicaid P UNAVAILABLE S UNAVAILA BLE DESI [id number] SP [id number] [place] - O/P [id number] 01 [id number] [facility] MEDICAID [id number] SP [id number] [facility] [id number] 18 [id number] [place] [id number] SP [id number] Problems, Conditions, and Diagnoses Code Display Name Description Problem Type Effective Dates Data Source(s) Z6841 Body mass index [BMI]40.0-44.9, adult Curt dy mass index [BMI]40.0-44.9, adult Diagnosis 03/12/2021 10:12:00 PM EDT [facility] E6601 Morbid (severe) obesity due to excess ca lories Morbid (severe) obesity due to excess calories Diagnosis 03/12/2021 10:12:00 PM EDT [facility] [id number] Nicotine dependence, cigarettes, uncompl icated Nicotine dependence, cigarettes, uncomplicated Diagnosis 03/12/2021 10:12:00 PM EDT [facility] R197 Diarrhea, unspecified Diarrhea, unspecified Diagnosis 03/12/2021 10:12:00 PM EDT [facility] M797 Fibromyalgia Fibromyalgia Diagnosis 11/07/2020 11:04:00 P M EDT [facility] R46673 Chronic tension-type headache, intractab le Chronic tension-type headache, intractable Diagnosis 11/07/2020 11:04:00 PM EDT [facility] R519 Headache, unspecified Headache, unspecified Diagnosis 11/07/2020 11:04:00 PM EDT [facility] G56.02 Carpal tunnel syndrome of left wrist Car pal tunnel syndrome of left wrist Problem 01/27/2021 12:00:00 AM EDT [facility] ([facility]) M54.89 Backache Backache Problem 01/27/2021 12:00:00 AM ED T [facility] ([facility]) Z72.0 Tobacco use Tobacco Use Disorder, Mild Condition 0 01/01/2021 12:00:00 AM EDT [facility] ([facility]) F43.9 Reaction to severe stress, unspecified U nspecified Trauma- and Stressor- Related Disorder Condition 01/01/2021 12:00:00 AM EDT [facility] ([facility]) F41.1 Generalized anxiety disorder Generalized Anxiety Disor janes Condition 01/01/2021 12:00:00 AM EDT [facility] ([facility]) F33.1 Major depressive disorder, recurrent, mo derate Major Depressive Disorder, Recurrent episode, Moderate Condition 01/01/2021 12:00:00 AM EDT [facility] ([facility]) 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 seizures Problem 12/02/2020 12:00:00 AM EDT [facility] ([facility]) M54.5 Low back pain Low back pain Problem 12/02/2020 12:00:00 AM EDT [facility] ([facility] ) M54.2 Neck pain Neck pain Problem 12/02/2020 12:00:00 AM ED T [facility] ([facility] ) G43.009 Migraine without aura, not refractory Mi graine without aura, not refractory Problem 12/02/2020 12:00:00 AM EDT [facility] ([facility] ) R20.0 Skin sensation disturbance Skin sensation disturbance Problem 12/02/2020 12:00:00 AM EDT [facility] ([facility] ) R53.1 Malaise and fatigue Malaise and fatigue Problem 0 12/02/2020 12:00:00 AM EDT [facility] ([facility] ) R55 Syncope and collapse Syncope and collapse Problem 12/02/2020 12:00:00 AM EDT [facility] ([facility] G47.33 [id number] VIVIAN (obstructive sleep apnea) Problem 11/06/2020 12:00:00 AM EDT [facility] ([facility]) G40.909 [id number] Seizure disorder Problem 10/20/2020 12:00:00 AM EDT eCW1 ([facility]) J45.40 [id number] Moderate persistent asthma without compli cation Problem 10/20/2020 12:00:00 AM EDT eCW1 ([facility]) F41.8 [id number] Anxiety with depression Problem 10/20/2020 1 2:00:00 AM EDT e[facility] ([facility]) M79.7 [id number] Fibromyalgia Problem 10/20/2020 12:00:00 AM EDT e[facility] ([facility]) Z72.0 Tobacco use Tobacco Use Disorder, Mild Condition 1 07/30/2019 12:00:00 AM EST [facility] ([facility]) F43.9 Reaction to severe stress, unspecified U nspecified Trauma- and Stressor- Related Disorder Condition 05/29/2020 12:00:00 AM EST [facility] ([facility]) F31.9 Bipolar disorder, unspecified Unspecified Bipola r and Related Disorder Condition 05/29/2020 12:00:00 AM EST [facility] ([facility]) Surgeries/Procedures Procedure Description Date Indications Data Source(s) OFFICE OUTPATIENT VISIT 25 MINUTES 01/27/2021 12:00:00 AM EDT [facility] ([facility] ) TSTG ANS FUNCJ CARDIOVAGAL INNERVAJ PARASYMP 12:00:00 AM EDT [facility] ([facility] ) TESTING AUTONOMIC NERVOUS SYSTEM FUNCTION 01/23/2021 1 2:00:00 AM EDT [facility] ([facility] ) Needle electromyography, each extremity, with related paraspinal areas, when performed, done with nerve conduction, amplitude and latency/velocity study; complete, five or more muscles studied, innervated by three or more nerves or four or more spinal levels (list separately in addition to the code for primary procedure). 01/12/2021 12:00:00 AM EDT [facility] ([facility] ) Needle electromyography, each extremity, with related paraspinal areas, when performed, done with nerve conduction, amplitude and latency/velocity study; complete, five or more muscles studied, innervated by three or more nerves or four or more spinal levels (list separately in addition to the code for primary procedure). 01/12/2021 12:00:00 AM EDT [facility] ([facility] ) Nerve Conduction 11-12 Studies 01/12/2021 12:00:00 AM EDT [facility] ([facility] ) Needle electromyography, each extremity, with related paraspinal areas, when performed, done with nerve conduction, amplitude and latency/velocity study; complete, five or more muscles studied, innervated by three or more nerves or four or more spinal levels (list separately in addition to the code for primary procedure). 01/05/2021 12:00:00 AM EDT [facility] ([facility] ) Needle electromyography, each extremity, with related paraspinal areas, when performed, done with nerve conduction, amplitude and latency/velocity study; complete, five or more muscles studied, innervated by three or more nerves or four or more spinal levels (list separately in addition to the code for primary procedure). 01/05/2021 12:00:00 AM EDT [facility] ([facility] ) Nerve Conduction 9-10 Studies 01/05/2021 12:00:00 AM E DT [facility] ([facility] ) MHC Telemed E/M Lvl 3--Est pt 01/01/2021 12:00:00 AM EDT - 01/01/2021 12:00:00 AM EDT [facility] ([facility]) MHC Telemed E/M Lvl 3--Est pt 01/01/2021 12:00:00 AM E DT [facility] ([facility]) OFFICE OUTPATIENT VISIT 15 MINUTES 12/30/2020 12:00:00 AM EDT [facility] ([facility]) OFFICE OUTPATIENT NEW 60 MINUTES 12/02/2020 12:00:00 A M EDT [facility] ([facility] MHC Telemed E/M Lvl 3--Est pt 09/05/2020 12:00:00 AM EDT - 09/05/2020 12:00:00 AM EDT [facility] ([facility]) MHC Telemed E/M Lvl 3--Est pt 09/05/2020 12:00:00 AM E DT [facility] ([facility]) MHC Telemed E/M Lvl 3--Est pt 08/22/2020 12:00:00 AM EST - 08/22/2020 12:00:00 AM EST [facility] ([facility]) Telemed A/O 30" 08/22/2020 12:00:00 AM EST [facility] ([facility]) MHC Telemed E/M Lvl 3--Est pt 08/22/2020 12:00:[address] [facility] ([facility]) Extended Individual Psychotherapy - 45 min 08/20/2020 12:00:00 AM EST - 08/20/2020 12:00:00 AM EST [facility] ([facility]) Extended Individual Psychotherapy - 45 min 12:00:00 AM EST [facility] ([facility]) Extended Individual Psychotherapy - 45 min 07/30/2020 12:00:00 AM EST - 07/30/2020 12:00:00 AM EST [facility] ([facility]) Extended Individual Psychotherapy - 45 min 12:00:00 AM EST [facility] ([facility]) MHC Telemed E/M Lvl 3--Est pt 07/25/2020 12:00:00 AM EST - 07/25/2020 12:00:00 AM EST [facility] ([facility]) Telemed A/O 30" 07/25/2020 12:00:00 AM EST [facility] ([facility]) MHC Telemed E/M Lvl 3--Est pt 07/25/2020 12:00:[address] [facility] ([facility]) RADEX FINGR MINIMUM 2 VIEWS 07/24/2020 12:00:00 AM EST [facility] ([facility]) Extended Individual Psychotherapy - 45 min 07/16/2020 12:00:00 AM EST - 07/16/2020 12:00:00 AM EST [facility] ([facility]) Extended Individual Psychotherapy - 45 min 12:00:00 AM EST [facility] ([facility]) FX MCP/IP Articular JT W/O Manipulation 07/08/2020 12: 00:00 AM EST [facility] ([facility]) CLTX PHLNGL FX PROX/MIDDLE PX/F/T W/O MANJ EA 07/08/19 12:00:00 AM EST [facility] ([facility]) Extended Individual Psychotherapy - 45 min 06/25/2020 12:00:00 AM EST - 06/25/2020 12:00:00 AM EST [facility] ([facility]) Extended Individual Psychotherapy - 45 min 12:00:00 AM EST [facility] ([facility]) MHC Telemed E/M Lvl 3--Est pt 05/29/2020 12:00:00 AM EST - 05/29/2020 12:00:00 AM EST [facility] ([facility]) Telemed A/O 30" 05/29/2020 12:00:00 AM EST [facility] ([facility]) MHC Telemed E/M Lvl 3--Est pt 05/29/2020 12:00:[address] [facility] ([facility]) Extended Individual Psychotherapy - 45 min 05/28/2020 12:00:00 AM EST - 05/28/2020 12:00:00 AM EST [facility] ([facility]) Extended Individual Psychotherapy - 45 min 0 12:00:00 AM EST [facility] ([facility]) Brief Individual Psychotherapy - 30 min 05/14/2020 12:00:00 AM EST - 05/14/2020 12:00:00 AM EST [facility] ([facility]) Brief Individual Psychotherapy - 30 min 05/14/2020 12: 00:00 AM EST [facility] ([facility]) Extended Individual Psychotherapy - 45 min 05/06/2020 12:00:00 AM EST - 05/06/2020 12:00:00 AM EST [facility] ([facility]) Extended Individual Psychotherapy - 45 min 0 12:00:00 AM EST [facility] ([facility]) Extended Individual Psychotherapy - 45 min 04/16/2020 12:00:00 AM EST - 04/16/2020 12:00:00 AM EST [facility] ([facility]) Extended Individual Psychotherapy - 45 min 0 12:00:00 AM EST [facility] ([facility]) [id number]"Psychotherapy 0 12:00:00 AM EDT - 03/17/2020 12:00:00 AM EDT [facility] ([facility]) [id number]"Psychotherapy 03/17/2020 12:00:00 AM EDT [facility] ([facility]) Extended Individual Psychotherapy - 45 min 02/27/2020 12:00:00 AM EDT - 02/27/2020 12:00:00 AM EDT [facility] ([facility]) Extended Individual Psychotherapy - 45 min 12:00:00 AM EDT [facility] ([facility]) Results ID Date Data Source [id number] 03/12/2021 10:12:00 PM EDT [facility] 1 OrderSheet [facility] Emergency Department [address] [place] [address] Phone #: ext- [phone] 03/12/2021 22:02 Patient: [...] rce(s) Supporting Document(s) ID Date Data Source [id number] 03/12/2021 10:12:00 PM EDT [facility] 1 Medication Reconciliation Report [facility] Emergency Department [address] [place] [address] Phone #: ext- [phone] 03/12/2021 22:02 Patient: [...] Name Value Range Interpretation Code Description Data [facility](s) Supporting Document(s) ID Date Data Source [id number] 03/12/2021 10:12:00 PM EDT [place] [address] Medication Administration Record [facility] Emergency Department [address] [place] [address] Phone #: ext- [phone] 03/12/2021 22:02 Patient: MILIND SWANSON Sex: F : 1995 Age: 25yWeight: 114.7 kgHeight/Length: 63 inBMI: 44.8ALLERGIES: No Known Drug AllergyDate/Time Medication Administered Medication Ordered Name Value Range Interpretation Code Description Data [facility](s) Supporting Document(s) ID Date Data Source [id number] 03/12/2021 10:12:00 PM EDT [facility] 1 General Instructions [facility] Emergency Department [address] [place] [address] Phone #: ext- [phone] 03/12/2021 22:02 Patient: MILIND SWANSON Sex: F : 1995 Age: 25y DiarrheaINSTRUCTIONS Warnings: Further evaluation is necessary. GENERAL WARNINGS: Return or contact your physician immediately if your condition worsens or changes unexpectedly, if not improving as expected, or if other problems arise. Understanding of the discharge instructions verbalized by patient. Follow-up with: [facility] Respective Team Julieth Lawsonreuben ABHIJIT, , , [address] [facility] [address] [place], , [place], [address] Follow up in two days if not [...] serious if not treated. 2 General Instructions [facility] Emergency Department [address] [place] [address] Phone #: ext- [phone] 03/12/2021 22:02 Patient: [...] for heart disease or after a stroke) Rqwt-[id number] medicines for diarrhea, nausea, and vomiting are generally OK unless you have bleeding, fever, or severe abdominal pain.General care If symptoms are severe, rest at home for the next 24 hours, or until you are feeling better. 3 General Instructions [facility] Emergency Department [address] [place] [address] Phone #: ext- [phone] 03/12/2021 22:02 --- Patient: MILIND SWANSON Sex: F : 1995 Age: 25y Washing your hands with soap and water, or using alcohol-based hand analytical tech is the best way to stop the [...] noodle or rice soup 4 General Instructions [facility] Emergency Department [address] [place] [address] Phone #: ext- [phone] 03/12/2021 22:02 Patient: [...] Wash your hands or use alcohol- based analytical tech after using cutting boards, countertops, and knives that have been in contact with raw food. Dry your hands with a single use towel. Keep uncooked meats away from cooked and hhfwg-co-tee foods.Follow-up careFollow up with your healthcare provider, [...] or loss of consciousness 5 General Instructions [facility] Emergency Department [address] [place] [address] Phone #: ext- [phone] 03/12/2021 22:02 Patient: MILIND SWANSON Sex: F [...] 6 hours), or very dark urine [employer]. [address] [place] [address], [place] [address]. All rights reserved. This information is not [...] hospital to have intravenous 6 General Instructions [facility] Emergency Department [address] [place] [address] Phone #: ext- [phone] 03/12/2021 22:02 Patient: [...] If you are feeding formula to your , you may try a special oral rehydration [...] or clear liquids.Follow-up care 7 General Instructions [facility] Emergency Department [address] [place] [address] Phone #: ext- [phone] 03/12/2021 22:02 Patient: MILIND SWANSON Sex: F : 1995 Age: 25yFollow up with your child's healthcare provider, or as advised. If a stool sample was taken or cultureswere done, call the healthcare provider for the results as instructed.Call [phone] if your child has any of these [...] Unusual drowsiness New rash 8 General Instructions [facility] Emergency Department [address] [place] [address] Phone #: ext- [phone] 03/12/2021 22:02 Patient: MILIND SWANSON Sex: F : 1995 Age: 25y Diarrhea lasts more than 1 week on antibiotics A child 2 years or older has a fever for more than 3 days A child of any age has repeated fevers above 104F (40C) [id number] [employer] [place] [address], [place] [address]. Todos los derechos reservados. Esta informacin nopretende sustituir la atencin mdica profesional. Slo mujica mdico puede diagnosticar y tratar un problema de delmy. You have been given the foll owing additional information: Vomiting and Diarrhea, Nonspecific (Adult) Diet for Vomiting/Diarrhea (Child)(Electronically signed by Jeffry Sandoval 03/13/2021 01:18) Name Value Range Interpretation Code Description Data Donna rce(s) Supporting Document(s) ID Date Data Source [id number] 03/12/2021 10:12:00 PM EDT [facility] 1 Clinical Report - Nurses [facility] Emergency Department [address] [place] [address] Phone #: ext- [phone] 03/12/2021 22:02 Patient: [...] 96%. Temp: 98.0 F. Pain level now 6/10.--22:18 03/12/21 Gay Conner R.N.Weight: 114.7 kg. Height/Length: 63 inches. BMI: 44.8. --22:16 03/12/21 Gay Conner R.N.MedicationsAlbuterol Sulfate Inhalation. busPIRone HCl Oral (Tablet 10 mg) 1 tablet, 2x a day. --22:15 03/12/21 Gay Conner R.N. Abilify Oral (Tablet 5 mg). --22:15 03/12/21 Wilt, Gay, R.N. hydrOXYzine HCl Oral 50 mg. --22:15 03/12/21 Gay Conner R.N.AllergiesNo Known Drug Allergy. --22:15 03/12/21 Gay Conner R.N.PROBLEMS:Tension-Type Headache.Thymoma.Bipolar Disorder.Fibromyalgia.Epilepsy. --22:16 03/12/21 Gay Conner R.N.ADDITIONAL SURGERIES:Shoulder Surgery.[place] teeth. --22:16 03/12/21 Gay Conner R.N.History 2 Clinical Report - Nurses [facility] Emergency Department [address] [place] [address] Phone #: ext- [phone] 03/12/2021 22:02 Patient: [...] No skin integrity risk identified. --22:18 03/12/21 Gya Conner R.N. FAMILY HX: No significant family [...] / DISCHARGE 3 Clinical Report - Nurses [facility] Emergency Department [address] [place] [address] Phone #: ext- [phone] 03/12/2021 22:02 Patient: MILIND SWANSON Sex: F : 1995 Age: 25y Condition at departure: stable. No learning barriers present. Discharge instructions provided and reviewed with the patient. Patient verbalized understa nding. Written instructions provided in Bel[place]. The patient was discharged by the physician. [...] rce(s) Supporting Document(s) ID Date Data Source [id number] 03/12/2021 10:12:00 PM EDT [facility] 1 Clinical Report - Physicians/Mid Levels [facility] Emergency Department [address] [place] [address] Phone #: ext- [phone] 03/12/2021 22:02 Patient: [...] Disorder. Fibromyalgia. Epilepsy. Additional Surgeries: Shoulder Surgery. [place] teeth. Medications: hydrOXYzine HCl Oral 50 mg. Abilify Oral (Tablet 5 mg). Albuterol Sulfate Inhalation. 2 Clinical Report - Physicians/Mid Levels [facility] Emergency Department [address] [place] [address] Phone #: ext- [phone] 03/12/2021 22:02 Patient: MILIND SAWNSON Sex: F : 1995 Age: 25y busPIRone [...] NEGATIVE (NORMAL: NEGAT { KIT LOT # [id number] ){ KIT EXP DATE 06.12.22 ){ PROCEDURAL CONTROL VALID ).PROGRESS AND PROCEDURESCourse of Care: 22:51 03/12/21. Benign abdominal exam. No tachycardia. Patient most likely has diarrheasecondary to higher dose of Zith romax during those three days 23:16 03/12/21. Patient unable to provide stool sample. 3 Clinical Report - Physicians/Mid Levels [facility] Emergency Department [address] [place] [address] Phone #: ext- [phone] 03/12/2021 22:02 Patient: MILIND SWANSON Sex: F : 1995 Age: 25y Patient/family counseled. Disposition: Discharged. Condition: stable.CLINICAL IMPRESSION DiarrheaINSTRUCTIONS Warnings: Further evaluation is necessary. GENERAL WARNINGS: Return or contact your physician immediately if your condition worsens or changes unexpectedly, if not improving as expected, or if other problems arise. Understanding of the discharge instructions verbalized by guanaco carroll. Follow-up with: [facility] Respective Team Julieth LACE[place], , , [address] [facility] [place], , [place], [address] Follow up in two days if not better. Call for an appointment. Reason for referral: evaluation.(Electronically signed by Jeffry Sandoval 03/13/2021 01:18) Name Value Range Interpretation Code Description Data Donna rce(s) Supporting Document(s) ID Date Data Source [id number] 03/12/2021 11:18:00 PM EDT [facility] Name Value Range Interpretation Code Description Data Donna rce(s) Supporting Document(s) [facility] COLOR yellow NORMAL: Yellow [facility] CLARITY hazy NORMAL: Clear [facility] Specific gravity of Urine by Test strip 1.025 1.001 - 1.030 [facility] pH 6 5 - 9 [facility] al Glucose [Mass/volume] in Urine by Test strip NORM NORMAL: Negat [facility] Bilirubin.total [Presence] in Urine by Test strip NEG NORMAL: Negative [facility] Ketones [Presence] in Urine by Test strip 5 NORMAL: Negative [facility] Protein [Mass/volume] in Urine by Test strip 15 NORMAL: Negat [facility] Nitrite [Presence] in Urine by Test strip NEG NORMAL: Negative [facility] BLOOD 25 NORMAL: Negative [facility] LEUK EST 25 NORMAL: Negative [facility] Urobilinogen [Mass/volume] in Urine by Test strip 4 less deacon n 1.0 mg/dL [facility] MICROSCOPIC See Below [facility] ital WBC 3 - 5 NORMAL: NONE SEEN [facility] Erythrocytes [#/volume] in Urine by Test strip 1 - 3 NORMAL: NON E SEEN [facility] EPITHELIAL MANY NORMAL: NONE SEEN A [facility] Bacteria [Presence] in Urine sediment by Light microscopy 1+ SMALL NORMAL: NONE SEEN [facility] Mucus [Presence] in Urine sediment by Light microscopy 2+ NOR MAL: NONE SEEN A [facility] ID Date Data Source [id number] 03/12/2021 11:12:00 PM EDT [facility] Name Value Range Interpretation Code Description Data Donna rce(s) Supporting Document(s) HCG URINE QUAL NEGATIVE NORMAL: NEGATIVE [facility] HCG URINE QL REENTER NEGATIVE NORMAL: NEGATIVE [facility] { KIT LOT # [id number] ){ KIT EXP DATE 06.12.22 ){ PROCEDURAL CONTROL VALID ) ID Date Data Source [id number] 03/04/2021 11:15:00 AM EDT [facility] Name Value Range Interpretation Code Description Data Donna rce(s) Supporting Document(s) SARS-CoV-2 RNA Resp Ql LILA+probe NOT DETECTED [facility] This lab was ordered by STEF carreno and reported by [facility] gM. ID Date Data Source [id number] 02/05/2021 12:00:00 AM EDT [facility] Name Value Range Interpretation Code Description Data Donna rce(s) Supporting Document(s) SARS-CoV2 Rapid Antigen Negative [facility] This lab was ordered by [facility] and reported by [facility]. ID Date Data Source [id number] 01/27/2021 02:41:00 PM EDT [facility] ([facility]) Name Value Range Interpretation Code Description Data Donna rce(s) Supporting Document(s) Creatine kinase [Enzymatic activity/volume] in Serum or Plasma 174 U/L 26-192 [facility] ([facility]) Cobalamin (Vitamin B12) [Mass/volume] in Serum or Plasma 842 pg/mL 2 47-911 [facility] ([facility]) VITAMIN B12 NORMAL RANGE NORMAL 247 - 911 PG/ML INDETERMINATE 211 - 246 PG/ML DEFICIENT LESS THAN 211 PG/ML Folate [Mass/volume] in Serum or Plasma Laboratory test result [facility] ([facility]) FOLATE NORMAL RANGE NORMAL GREATER THAN 5.4 NG/ML INDETERMINATE 3.4-5.4 NG/ML DEFICIENT LESS THAN 3.4 NG/ML Calcidiol [Mass/volume] in Serum or Plasma 12.1 ng/mL 30.0-100.0 [facility] ([facility]) Erythrocyte sedimentation rate by 2H Westergren method 19 mm/hr 0-2 0 [facility] ([facility]) Rheumatoid factor [Units/volume] in Serum or Plasma Laboratory test result [facility] ([facility]) ID Date Data Source [id number] 01/27/2021 02:41:00 PM EDT [facility] ([facility]) Name Value Range Interpretation Code Description Data Donna rce(s) Supporting Document(s) Hemoglobin A1c 5.3 % [facility] ([facility]) <content>REFERENCE RANGES:</content><br/ ><content></content>
<content><=5.6% NORMAL</content>
<content>5.7-6.4% SUGGESTS IMPAIRED GLUCOSE METABOLISM/PREDIABETIC</content>
<content>>= 6.5% ABNORMAL</content>
<content></content> Estimated Average Glucose 105 mg/dL 60-110 [facility] ([facility], ) ID Date Data Source LYME DISEASE SCRN WITH CONFIRM 11/13/2020 12:00:00 AM EDT eC W1 ([facility]) Name Value Range Interpretation Code Description Data Donna rce(s) Supporting Document(s) <0.80 0.00-0.79 Lyme Disease IgM Ab Quant itati eCW1 ([facility]) <0.91 0.00-0.90 Lyme Disease IgG/IgM Anti vick eCW1 ([facility]) ID Date Data Source [id number] 11/07/2020 11:04:00 PM EDT [facility] 1 OrderSheet [facility] Emergency Department [address] [place] [address] Phone #: ext- [phone] 11/07/2020 23:00 Patient: [...] Katelyn ;Urinalysis (Clean STAT 00:29 11/08/2020 00:29 Denisha Hadley) Obdulia Horan ;DIAGNOSTIC STUDY ORDERSOrder Description Priority [...] Obdulia Horan 15 minutes) ; 2 OrderSheet [facility] Emergency Department [address] [place] [address] Phone #: lki- [phone] 11/07/2020 23:00 Patient: MILIND SWANSON Sex: F [...] rce(s) Supporting Document(s) ID Date Data Source [id number] 11/07/2020 11:04:00 PM EDT [facility] 1 Medication Reconciliation Report [facility] Emergency Department [address] [place] [address] Phone #: ext- [phone] 11/07/2020 23:00 Patient: MILIND SWANSON Sex: F [...] Dispense 30 capsule. Refills: 0.Substitution permitted.Pharmacy - [facility] - [id number] ; [place] [address]. FaxNumber: . -- Obdulia Horan Name Value Range Interpretation Code Description Data Donna rce(s) Supporting Document(s) ID Date Data Source [id number] 11/07/2020 11:04:00 PM EDT [facility] 1 Medication Administration Record [facility] Emergency Department [address] [place] [address] Phone #: sug- [phone] 11/07/2020 23:00 Patient: MILNID SWANSON Sex: F : 1995 Age: 25yWeight: 102.9 kgHeight/Length: 63 inBMI: 40.2ALLERGIES: No Known Drug Allergy Date/Time Medication Administered Medication OrderedStart IV NS NS IV 1000 mL Bolus: : Bolus [id number] 11/07/2020 Dose: IV Fluids mL (X1)Flores Hadley, Bolus: 1000 mL over 1 hour(s)---- Dispensed: 1000 mL bagStop Site: #1 right AC00:36 11/08/2020Flores tucker,Start Ofirmev * Ofirmev IV 1000 mg (NOW x1,23:49 11/07/2020 Dose: 1 gm * IVPB Infuse over 15 minutes)Flores Hadley,----Stop00:14 11/08/2020Flores tucker, Name Value Range Interpretation Code Description Data Donna rce(s) Supporting Document(s) ID Date Data Source [id number] 11/07/2020 11:04:00 PM EDT [facility] 1 General Instructions [facility] Emergency Department [address] [place] [address] Phone #: ext- [phone] 11/07/2020 23:00 Patient: MILIND SWANSON Sex: F [...] Dispense 30 capsule. Refills: 0.Substitution permitted.Pharmacy - [facility] - [id number] ; [place] [address]. FaxNumber: .Follow-up:Follow up with your healthcare provider in four days. Reason for referral: evaluation. Summary of careprovided to patient via paper. Screening today revealed the patient's blood pressure to be in thehypertensive stage 2 range. The patient should follow up with a primary care provider for blood pressuremanagement. ADDITIONAL INFORMATIONTension Headache 2 General Instructions [facility] Emergency Department [address] [place] [address] Phone #: ext- [phone] 11/07/2020 23:00 [id number] Sex: F : 1995 Age: 25yA muscle [...] a prescribed muscle relaxant. 3 General Instructions [facility] Emergency Department [address] [place] [address] Phone #: ext- [phone] 11/07/2020 23:00 Patient: MILIND SWANSON Sex: F : 1995 Age: 25yFollow-up careFollow [...] You have trouble speaking Your vision changes [phone] [employer]. [address] [place] [address], [place] [address]. All rights reserved. This information is not [...] Lyme disease. In some 4 General Instructions [facility] Emergency Department [address] [place] [address] Phone #: ext- [phone] 11/07/2020 23:00 Patient: [...] may involve your primary care provider, a stripe matcher, a physicaltherapist, and a mental health professional.For more information, visit the National [place] of Arthritis and Musculoskeletal and Skin Diseases(NIAMS) website at www.niams.nih.gov or call 802-183-4617.When to seek medical adviceContact your healthcare provider right away if any of these occur: Symptoms get worse or new symptoms develop You feel hopeless, helpless, or lose interest in day-to-day life 5 General Instructions [facility] Emergency Department [address] [place] [address] Phone #: ext- [phone] 11/07/2020 23:00 [id number] Sex: F : 1995 Age: 25y [id number] [employer] [place] [address], [place] [address]. All rights reserved. This information is not intended as asubstitute for professional medical care. Always follow your healthcare professional's instructions. You have been given the following additional information: Headache, Tension Fibromyalgia(Electronically signed by Obdulia Horan 11/08/2020 01:35) Name Value Range Interpretation Code Description Data Donna rce(s) Supporting Document(s) ID Date Data Source [id number] 11/07/2020 11:04:00 PM EDT [facility] 1 Clinical Report - Nurses [facility] Emergency Department [address] [place] [address] Phone #: ext- [phone] 11/07/2020 23:00 Patient: [...] 2 more weeks. She was seen at [facility] for same complaints last week on Tuesday, and again on Tuesday.). 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 --23:05 11/07/20 Flores Hadley The following entry was struck by Flores Hadley, 00:23 (11/08/20) Reason - other. Effexor XR Oral 37.5 mg, daily. --23:05 11/07/20 Flores Hadley The following entry was struck by Flores Hadley, 00:23 (11/08/20) Reason - other. busPIRone HCl Oral (Tablet 10 mg) 1 tablet, 2x a day. --23:04 11/07/20 Flores Hadley 2 Clinical Report - Nurses [facility] Emergency Department [address] [place] [address] Phone #: ext- [phone] 11/07/2020 23:00 Patient: MILIND SWANSON Sex: F : 1995 Age: 25yThe following entry was struck by Flores Hadley, 00:22 (11/08/20) Reason - other.Albuterol Sulfate Inhalation. --23:05 11/07/20 Flores Hadley .AllergiesNo Known Drug Allergy. --23:06 11/07/20 Flores Hadley.PROBLEMS:Thymoma.Fibromyalgia.Bipolar Disorder.Epilepsy. --23:15 11/07/20 Flores Hadley.ADDITIONAL SURGERIES:Shoulder Surgery.[place] teeth. --23:15 11/07/20 Flores Hadley.HistoryPAST MEDICAL HX: [...] Flores Hadley. 3 Clinical Report - Nurses [facility] Emergency Department [address] [place] [address] Phone #: ext- [phone] 11/07/2020 23:00 Patient: MILIND SWANSON Sex: F : 1995 Age: 25y Interventions [...] understanding. --23:44 11/07/20 Flores Hadley 23:49 11/07/2020 [facility] * IVPB 1 gm --23:49 11/07/20 Flores [...] hazard. --00:05 11/08/20 Flores Hadley 00:14 11/08/2020 [facility] IVPB Discontinued: completed. Total amount infused: 100 mL. IV patency 4 Clinical Report - Nurses [facility] Emergency Department [address] [place] [address] Phone #: ext- [phone] 11/07/2020 23:00 Patient: MILIND SWANSON Sex: F [...] 99%. Temp: 98.9 F. Pain level now 10. --01:09 11/08/20 Flores Hadley Departure time: 01:12 11/08/2020. Condition at departure: improved. No learning barriers present. Discharge instructions provided and reviewed with the patient. Reviewed warnings. Reviewed medication(s). Treatments reviewed. Reviewed referrals. Patient verbalized understanding. Written instructions provided in [place]. The patient was discharged by the physician. She was discharged home and unaccompanied at time of discharge. She left ambulatory and via private vehicle. Patient driving. --01:12 11/08/20 Flores Hadley.Locked/Released at 11/08/2020 01:12 by Flores Hadley Name Value Range Interpretation Code Description Data Donna rce(s) Supporting Document(s) ID Date Data Source [id number] 11/07/2020 11:04:00 PM EDT [facility] 1 Clinical Report - Physicians/Mid Levels [facility] Emergency Department [address] [place] [address] Phone #: ext- [phone] 11/07/2020 23:00 [id number] Sex[facility] F : 1995 Age: 25y Time [...] Bipolar Disorder. Epilepsy. Additional Surgeries: Shoulder Surgery. [place] teeth. Medications: Effexor XR Oral 37.5 mg, daily. Effexor XR Oral 37.5 mg, daily. 2 Clinical Report - Physicians/Mid Levels [facility] Emergency Department [address] [place] [address] Phone #: ext- [phone] 11/07/2020 23:00 Patient: [...] sensory deficit. Reflexes normal. Per formed at 23:0805/. NIH Stroke Scale: score 0. Level of [...] Catch 3 Clinical Report - Physicians/Mid Levels [facility] Emergency Department [address] [place] [address] Phone #: ext- [phone] 11/07/2020 23:00 [id number] Sex: F : 1995 Age: 25y COLOR [...] Head W/O Cont: (JIMBO: 11/08/2020 00:05) ( [facility] 11/08/2020 00:07) CanceledReason(s): Head InjuryReason(s): Head InjuryTRANSPORTATION: S IV? O2? Oxygen?(No) Room: [facility]: (JIMBO: 11/07/2020 23:40) ( [facility] 11/08/2020 00:18) Final results Test Result Flag [...] Male GFR Interprentation 20-49 yrs >60 mL/min Srtxju55-54 yrs >56 mL/min Normal 60-69 yrs >49 mL/min Normal 70-79yrs>42 mL/min Normal 80 and above >35 mL/min Normal Female GFRInterpretation 20-39 yrs >60 mL/min Normal 40-49 yrs >58 mL/minNormal 50-59 yrs >51 mL/min Normal 60-69 yrs >45 mL/min Nrxfjp84-29 yrs >39 mL/min Normal 80 and above >32 mL/min NormalCBC w Diff: (JIMBO: 11/07/2020 23:40) ( MsgRcvd 11/07/2020 23:50) Final results Test Result Flag Units (Reference) CBC W/AUTOMATED DIFF COMPLETE BLOOD COUNT 4 Clinical Report - Physicians/[facility] Emergency Department [address] [place] [address] Phone #: ext- [phone] 11/07/2020 23:00 Patient: [...] Thrombosis, Pulmonary Embolus, Tissue heart valves, Acute [place], Atrial Fibrillation, Valvular heart disease and recurrent [...] Weeks post LMP 5.4-708 mU/mL 3-4 Weeks 217-08147 mU/mL 5-6 Weeks 4059-970666 mU/mL 7-8 Weeks 31064-805341 mU/mL 9-10 Weeks 55642-21636 mU/mL 12- 14 Weeks 18772-01905 mU/mL 15-16 Weeks 8240-09946 mU/mL 17-18 Weeks.PROGRESS AND PROCEDURESCourse of Care: 23:37 11/07/20. Patient had a CT scan of the head on Jun 2020 and in october 31nd was read as normal 00:28 11/08/20. she was given ofirmev for headache. she has a mildly elevated wbc but chemistries are 5 Clinical Report - Physicians/Mid Levels [facility] Emergency Departm ent [address] [place] [address] Phone #: ext- [phone] 11/07/2020 23:00 Patient: [...] capsule. Refills: 0. Substitution permitted. Pharmacy - [facility] - [id number] [address] ; [place] [address]. . Follow-up: Follow up with your healthcare provider in four days. Reason for referral: evaluation. Summary of care provided to patient via paper. Screening today revealed the patient's blood pressure to be in the hypertensive stage 2 range. The patient should follow up with a primary care provider for blood pressure management. 6 Clinical Report - Physicians/Mid Levels [facility] Emergency Department [address] [place] [address] Phone #: ext- [phone] 11/07/2020 23:00 Patient: MILIND SWANSON Sex: F : 1995 Age: 25y(Electronically signed by Obdulia Horan 11/08/2020 01:35) Name Value Range Interpretation Code Description Data Donna rce(s) Supporting Document(s) ID Date Data Source [id number] 11/08/2020 12:39:00 AM EDT [facility] Name Value Range Interpretation Code Description Data Donna rce(s) Supporting Document(s) [facility]IS SOURCE Clean Catch [facility] ital COLOR yellow NORMAL: Yellow [facility] ospital CLARITY clear NORMAL: Clear [facility] sp[facility] Specific gravity of Urine by Test strip 1.015 1.001 - 1.030 [facility] pH 6 5 - 9 [facility] Glucose [Mass/volume] in Urine by Test strip NORM NORMAL: Negat [facility] Bilirubin.total [Presence] in Urine by Test strip NEG NORMAL: Negative [facility] Ketones [Presence] in Urine by Test strip NEG NORMAL: Negative [facility] Protein [Mass/volume] in Urine by Test strip NEG NORMAL: Negat [facility] Nitrite [Presence] in Urine by Test strip NEG NORMAL: Negative [facility] BLOOD NEG NORMAL: Negative [facility] Leukocyte esterase [Presence] in Urine by Test strip NEG SURJIT L: Negative [facility] Urobilinogen [Mass/volume] in Urine by Test strip NOR less deacon n 1.0 mg/dL [facility] MICROSCOPIC Not Indicate [facility] ID Date Data Source [id number] 11/08/2020 12:18:00 AM EDT [facility] Name Value Range Interpretation Code Description Data Donna rce(s) Supporting Document(s) COMPREHENSIVE METABOLIC PANEL [facility] COMPREHENSIVE METABOLIC PANEL Sodium [Moles/volume] in Serum or Plasma 139 mEq/L 134 - 153 [facility] Potassium [Moles/volume] in Serum or Plasma 3.9 mEq/L 3.6 - 5.0 [facility] Chloride [Moles/volume] in Serum or Plasma 104 mEq/L 98 - 107 [facility] Carbon dioxide, total [Moles/volume] in Serum or Plasma 27 MEQ/L 22 - 30 [facility] Glucose [Mass/volume] in Serum or Plasma 87 MG/DL 70 - 99 [facility] BUN 7 MG/DL 7 - 21 [facility] al Creatinine [Mass/volume] in Serum or Plasma 0.7 MG/DL 0.7 - 1.5 [facility] BUN/CREAT 10 8 - 27 [facility] al Protein [Mass/volume] in Serum or Plasma 7.1 G/DL 6.3 - 8.2 [facility] Albumin [Mass/volume] in Serum or Plasma 3.9 G/DL 3.9 - 5.0 [facility] Globulin [Mass/volume] in Serum by calculation 3.2 GM/DL 2.4 - 3.2 [facility] A/G RATIO 1.2 0.8 - 2.0 [facility] al Calcium [Mass/volume] in Serum or Plasma 8.8 MG/DL 8.4 - 10.2 [facility] Bilirubin.total [Mass/volume] in Serum or Plasma <0.7 MG/DL 0.2 - 1.3 [facility] Alkaline phosphatase [Enzymatic activity/volume] in Serum or Plasma 84 U/L 38 - 126 [facility] Aspartate aminotransferase [Enzymatic activity/volume] in Serum or Plasma 12 U/L 5 - 40 [facility] Alanine aminotransferase [Enzymatic activity/volume] in Seru m or Plasma 8 U/L 7 - 56 [facility] Anion gap 3 in Serum or Plasma 8.0 mmol/L 8.0 - 16.0 [facility] AGE 25 yrs [facility] al NON-AA GFR >60 mL/min [facility] ital AFR AMER GFR >60 mL/min [facility] spital Male GFR In terprentation [...] >32 mL/min Normal ID Date Data Source [id number] 11/08/2020 12:07:00 AM EDT [facility] Name Value Range Interpretation Code Description Data Donna rce(s) Supporting Document(s) Choriogonadotropin.intact [Units/volume] in Serum or Plasma <0.5 mIU/ mL [facility] Interpr etation: Less than 5 mU/mL: Negative 6-10 mU/mL: Borderline (suggest repeat in 48 hours) >10: Positive Approx HCG range (mU/mL) Weeks post LMP 5.4-708 mU/mL 3-4 Weeks 217-64448 mU/mL 5-6 Weeks 4059-897378 mU/mL 7-8 Weeks 86399-227273 mU/mL 9-10 Weeks 11179-61580 mU/mL 12-14 Weeks 90790-97438 mU/mL 15-16 Weeks 8240- 78890 mU/mL 17-18 Weeks ID Date Data Source [id number] 11/07/2020 11:56:00 PM EDT [facility] Name Value Range Interpretation Code Description Data Donna rce(s) Supporting Document(s) Prothrombin time (PT) 13.1 SECONDS 11.0 - 15.5 [facility] INR in Platelet poor plasma by Coagulation assay 0.94 0.93 - 1. 23 [facility] \\BLDo\\INR INTERPRETATION\\BLDx\\ Therapeutic range for Coumadin and related oral anticoagulants. - International Normalized Ratio (INR): 2.0 - 3.0 for Venous Thrombosis, Pulmonary Embolus, Tissue heart valves, Acute [place], Atrial Fibrillation, Valvular heart disease and recurrent Systemic Embolism. -International Normalized Ratio (INR): 2.5 - 3.5 for Mechanical Prosthetic valve. ID Date Data Source [id number] 11/07/2020 11:50:00 PM EDT [facility] Name Value Range Interpretation Code Description Data Donna rce(s) Supporting Document(s) CBC W/AUTOMATED DIFF [facility] COMPLETE BLOOD COUNT Leukocytes [#/volume] in Blood by Automated count 12.0 10^3/uL 4.2 - 11.0 H [facility] Erythrocytes [#/volume] in Blood by Automated count 4.76 10^6/uL 4. 20 - 5.40 [facility] Hemoglobin [Mass/volume] in Blood 13.6 g/dL 12.0 - 16.0 [facility] Hematocrit [Volume Fraction] of Blood by Automated count 41.5 % 3 7.0 - 47.0 [facility] Erythrocyte mean corpuscular volume [Entitic volume] by Auto mated count 87.2 fL 81.0 - 101 [facility] Erythrocyte mean corpuscular hemoglobin [Entitic mass] by Automated count 28.6 pg 27.0 - 34.0 [facility] Erythrocyte mean corpuscular hemoglobin concentration [Mass/volume] by Automated count 32.8 g/dL 31.0 - 36.0 [facility] Erythrocyte distribution width [Ratio] by Automated count 14.5 % 11.5 - 14.5 [facility] Platelets [#/volume] in Blood by Automated count 293 10^3/uL 150 - 45 0 [facility] Platelet mean volume [Entitic volume] in Blood by Automated count 10.4 fL 7.4 - 10.4 [facility] Neutrophils/100 leukocytes in Blood by Automated count 52.7 % 37. 0 - 80.0 [facility] Lymphocytes/100 leukocytes in Blood by Manual count 32.9 % 25.0 - 40.0 [facility] Monocytes/100 leukocytes in Blood by Automated count 9.9 % 3.0 - 8.0 H [facility] Eosinophils/100 leukocytes in Blood by Automated count 3.7 % 0.0 - 7.0 [facility] Basophils/100 leukocytes in Blood by Automated count 0.6 % 0.0 - 2.5 [facility] %IG 0.2 % 0.0 - 0.[facility] % 0.0 - 0.0 [facility] al Neutrophils [#/volume] in Blood by Automated count 6.34 10^3/uL 2.00 - 6.90 [facility] Lymphocytes [#/volume] in Blood by Automated count 3.95 10^3/uL 0.60 - 3.40 H [facility] Monocytes [#/volume] in Blood by Automated count 1.19 10^3/uL 0.00 - 0.90 H [facility] Eosinophils [#/volume] in Blood by Automated count 0.44 10^3/uL 0.00 - 0.70 [facility] Basophils [#/volume] in Blood by Automated count 0.07 10^3/uL 0.00 - 0.20 [facility] #IG 0.03 10^3/uL 0.00 - 0.10 [facility] ospital #NRBC 0.00 10^3/uL 0.00 - 0.00 [facility] MANUAL DIFF NOT INDICATED [facility] RBC MORPH NOT INDICATED [facility] ID Date Data Source [id number] 10/31/2020 11:08:00 PM EDT [facility] Name Value Range Interpretation Code Description Data Donna rce(s) Supporting Document(s) SARS-CoV-2 (COVID 19) NEGATIVE - SARS-CoV-2 (COVID19) [facility] This lab was ordered by [facility] a nd reported by [facility]. ID Date Data Source [id number] 10/28/2020 11:04:00 AM EDT [facility] Name Value Range Interpretation Code Description Data Donna rce(s) Supporting Document(s) SARS-CoV-2 (COVID 19) NEGATIVE - SARS-CoV-2 (COVID19) [facility] This lab was ordered by [facility] a nd reported by [facility]. ID Date Data Source [id number] 10/27/2020 12:00:00 AM EDT [facility] Name Value Range Interpretation Code Description Data Donna rce(s) Supporting Document(s) SARS-CoV2 Rapid Antigen Negative [facility] This lab was ordered by [facility] and reported by [facility]. ID Date Data Source [id number] 09/22/2020 12:07:00 PM EDT [facility] Name Value Range Interpretation Code Description Data Donna rce(s) Supporting Document(s) SARS coronavirus 2 RNA [Presence] in Res piratory specimen by LILA with probe detection NEGATIVE [facility] This lab was ordered by [facility] a nd reported by [facility]. ID Date Data Source [id number] 09/09/2020 03:16:00 PM EDT [facility] Name Value Range Interpretation Code Description Data Donna rce(s) Supporting Document(s) COVID-19 RT-PCR [employer]NALYST SWAB Not Detected [facility] A not detected (negative) test [...] developed and its performance characteristics determined by [facility] and verified at [email or web address]. It has not been cleared or approved by the U.S. Food and Drug Administration for diagnostic use. This test has been authorized by FDA under an EUA for use by authorized laboratories. Results should be used in conjunction with clinical findings, and should not form the sole basis for a diagnosis or treatment decision. Methods: SARS-CoV-2 Multiplex RT-PCR Assay ID Date Data Source [id number] 09/07/2020 10:30:00 AM EDT [facility] Name Value Range Interpretation Code Description Data Donna rce(s) Supporting Document(s) SARS-CoV-2 (COVID-19) N gene [Presence] in Respiratory specimen by LILA with probe detection NEGATIVE [facility] This lab was ordered by Haritha Salomon and reported by [email or web address]. ID Date Data Source [id number] 09/07/2020 12:00:00 AM EDT [facility] Name Value Range Interpretation Code Description Data Donna rce(s) Supporting Document(s) [facility] Rapid [facility]igen Test [facility] This [facility] was reported by Haritha Melba henley. ID Date Data Source [id number] 06/24/2020 12:00:00 AM EST [facility] Name Value Range Interpretation Code Description Data Donna rce(s) Supporting Document(s) SARS coronavirus 2 RNA [Presence] in Res piratory specimen by LILA with probe detection NEGATIVE [facility] This lab was ordered by Haritha Salomon and reported by [facility]. ID Date Data Source [id number] 06/24/2020 12:00:00 AM EST [facility] Name Value Range Interpretation Code Description Data Donna rce(s) Supporting Document(s) Carestart Rapid COVID Antigen Test Negative [facility] This lab was reported by Haritha henley. ID Date Data Source [id number] 04/24/2020 12:00:00 AM EST [facility] Name Value Range Interpretation Code Description Data Donna rce(s) Supporting Document(s) SARS coronavirus 2 RNA [Presence] in Res piratory specimen by LILA with probe detection [facility] This lab was ordered by Haritha Salomon and reported by [facility]. Procedure Social History Code Duration Value Status Description Data Source(s ) Smoking 01/01/2021 12:00:00 AM EDT Unknown if ever smoked comp leted Unknown if ever smoked [facility] ([facility] Smoking 12/12/2020 12:00:00 AM EDT Current Smoker completed Curre nt Smoker eCW1 (Formerly [facility]) Smoking 12/12/2020 12:00:00 AM EDT Current Smoker completed Curre nt Smoker eCW1 (Formerly [facility]) Smoking 11/17/2020 12:00:00 AM EDT Current Smoker completed Curre nt Smoker eCW1 (Formerly [facility]) Smoking 11/17/2020 12:00:00 AM EDT Current Smoker completed Curre nt Smoker eCW1 (Formerly [facility]) Smoking 11/17/2020 12:00:00 AM EDT Current Smoker completed Curre nt Smoker eCW1 (Formerly [facility]) Smoking 11/17/2020 12:00:00 AM EDT Current Smoker completed Curre nt Smoker eCW1 (Formerly [facility]) Smoking 11/17/2020 12:00:00 AM EDT Current Smoker completed Curre nt Smoker eCW1 (Formerly [facility]) Smoking 11/17/2020 12:00:00 AM EDT Current Smoker completed Curre nt Smoker eCW1 (Formerly [facility]) Smoking 11/13/2020 12:00:00 AM EDT Current Smoker completed Curre nt Smoker eCW1 (Formerly [facility]) Smoking 11/03/2020 12:00:00 AM EDT Current Smoker completed Curre nt Smoker eCW1 (Formerly [facility]) Smoking 11/03/2020 12:00:00 AM EDT Current Smoker completed Curre nt Smoker eCW1 (Formerly [facility]) Smoking 11/03/2020 12:00:00 AM EDT Current Smoker completed Curre nt Smoker eCW1 (Formerly [facility]) Smoking 11/03/2020 12:00:00 AM EDT Current Smoker completed Curre nt Smoker eCW1 (Formerly [facility]) Smoking 10/20/2020 12:00:00 AM EDT Current Smoker completed Curre nt Smoker eCW1 (Formerly [facility]) Smoking 09/05/2020 12:00:00 AM EDT Unknown if ever smoked comp leted Unknown if ever smoked [facility] ([facility]) Smoking 08/22/2020 12:00:00 AM EST Unknown if ever smoked comp leted Unknown if ever smoked [facility] ([facility]) Smoking 08/20/2020 12:00:00 AM EST Unknown if ever smoked comp leted Unknown if ever smoked [facility] ([facility]) Smoking 07/30/2020 12:00:00 AM EST Unknown if ever smoked comp leted Unknown if ever smoked [facility] ([facility]) Smoking 07/25/2020 12:00:00 AM EST Unknown if ever smoked comp leted Unknown if ever smoked [facility] ([facility]) Smoking 07/16/2020 12:00:00 AM EST Unknown if ever smoked comp leted Unknown if ever smoked [facility] ([facility]) Smoking 06/25/2020 12:00:00 AM EST Unknown if ever smoked comp leted Unknown if ever smoked [facility] ([facility]) Smoking 05/29/2020 12:00:00 AM EST Unknown if ever smoked comp leted Unknown if ever smoked [facility] ([facility]) Smoking 05/28/2020 12:00:00 AM EST Unknown if ever smoked comp leted Unknown if ever smoked [facility] ([facility]) Smoking 05/14/2020 12:00:00 AM EST Unknown if ever smoked comp leted Unknown if ever smoked [facility] ([facility]) Smoking 05/06/2020 12:00:00 AM EST Unknown if ever smoked comp leted Unknown if ever smoked [facility] ([facility]) Smoking 04/16/2020 12:00:00 AM EST Unknown if ever smoked comp leted Unknown if ever smoked [facility] ([facility]) Smoking 03/17/2020 12:00:00 AM EDT Unknown if ever smoked comp leted Unknown if ever smoked [facility] ([facility]) Smoking 02/27/2020 12:00:00 AM EDT Unknown if ever smoked comp leted Unknown if ever smoked [facility] ([facility]) Vital Signs ID Date Data Source UNK Name Value Range Interpretation Code Description Data Source(s) Body temperature 98.0 [degF] 98.0 [degF] MEDENT ([facility], [facility]) Body weight 236.00 [lb_av] 236.00 [lb_av] MEDEN T ([facility]) Diastolic blood pressure 75 mm[Hg] 75 mm[Hg] [facility] ([facility]) Systolic blood pressure 108 mm[Hg] 108 mm[Hg] M EDENT ([facility]) Heart rate 87 /min 87 /min [facility] ([facility], [facility]) Respiratory rate 16 /min 16 /min [facility] ( [facility], [facility]) Body height 63 [in_i] 63 [in_i] [facility] ([facility]) 5'3" Body mass index (BMI) [Ratio] 41.8 kg/m2 41.8 k g/m2 [facility] ([facility]) Oxygen saturation in Arterial blood by Pulse oximetry 98 % 98 % [facility] ([facility]) Body weight 244 [lb_av] 244 [lb_av] eCW1 ([facility]) Body height [in_i] eCW1 ([facility]) Body mass index (BMI) [Ratio] 42.54 kg/m2 42.54 kg/m2 eCW1 (Former[facility]) Heart rate 89 /min 89 /min eCW1 (Count includes the [facility]) Respiratory rate 18 /min 18 /min eCW1 ([facility] hospital) Body temperature 96.2 [degF] 96.2 [degF] eCW1 ( [facility]) Systolic blood pressure 122 mm[Hg] 122 mm[Hg] e CW1 ([facility]ly [facility]) Diastolic blood pressure 82 mm[Hg] 82 mm[Hg] eCW1 ([facility]) Body temperature 96.8 [degF] 96.8 [degF] eCW1 ( [facility]) Body weight 236 [lb_av] 236 [lb_av] eCW1 ([facility]) Systolic blood pressure 122 mm[Hg] 122 mm[Hg] e CW1 ([facility]) Body height [in_i] eCW1 ([facility]) Body mass index (BMI) [Ratio] 41.15 kg/m2 41.15 kg/m2 eCW1 (Formerly [facility]) Heart rate 119 /min 119 /min eCW1 (Count includes the [facility]) Respiratory rate 18 /min 18 /min eCW1 ([facility] access hospital) Diastolic blood pressure 82 mm[Hg] 82 mm[Hg] eCW1 ([facility]) Body weight 238 [lb_av] 238 [lb_av] eCW1 ([facility]) Body height [in_i] eCW1 ([facility]) Body mass index (BMI) [Ratio] 41.49 kg/m2 41.49 kg/m2 eCW1 (Formerly [facility]) Heart rate 119 /min 119 /min eCW1 (Count includes the [facility]) Respiratory rate 18 /min 18 /min eCW1 (Critical access hospital) Body temperature 97.7 [degF] 97.7 [degF] eCW1 ( [facility]) Systolic blood pressure 122 mm[Hg] 122 mm[Hg] e CW1 ([facility]ly [facility]) Diastolic blood pressure 82 mm[Hg] 82 mm[Hg] eCW1 ([facility]ly [facility]) Body weight 240 [lb_av] 240 [lb_av] eCW1 ([facility]) Body height [in_i] eCW1 ([facility]) Body mass index (BMI) [Ratio] 41.84 kg/m2 41.84 kg/m2 eCW1 ([facility]ly [facility]) Heart rate 104 /min 104 /min eCW1 (Count includes the [facility]) Respiratory rate 18 /min 18 /min eCW1 (Critical access hospital) Body temperature 96.9 [degF] 96.9 [degF] eCW1 ( [facility]) Systolic blood pressure 122 mm[Hg] 122 mm[Hg] e CW1 (Formerly [facility]) Diastolic blood pressure 80 mm[Hg] 80 mm[Hg] eCW1 (Formerly [facility]) Body height 0.00 in Normal (applies to non-numeric resu lts) 0.00 in [facility] ([facility]) Body weight Measured 0.00 lbs Normal (applies to n on-numeric results) 0.00 lbs [facility] ([facility]) Body mass index (BMI) [Ratio] 0.00 kg/m2 No rmal (applies to non-numeric results) 0.00 kg/m2 [facility] ([facility]) Systolic blood pressure 0 mm[Hg] Normal (applies t o non-numeric results) 0 mm[Hg] [facility] ([facility]) Diastolic blood pressure 0 mm[Hg] Normal (applies to non-numeric results) 0 mm[Hg] [facility] ([facility]) Body height 0.00 in Normal (applies to non-numeric resu lts) 0.00 in [facility] ([facility]) Body weight Measured 0.00 lbs Normal (applies to n on-numeric results) 0.00 lbs [facility] ([facility]) Body mass index (BMI) [Ratio] 0.00 kg/m2 No rmal (applies to non-numeric results) 0.00 kg/m2 [facility] ([facility]) Systolic blood pressure 0 mm[Hg] Normal (applies t o non-numeric results) 0 mm[Hg] [facility] ([facility]) Diastolic blood pressure 0 mm[Hg] Normal (applies to non-numeric results) 0 mm[Hg] [facility] ([facility]) Body temperature 96.0 [degF] 96.0 [degF] [facility]ENT ([facility]) Body height 64 [in_i] 64 [in_i] [facility] ([facility]) 5'4" Body weight 248.12 [lb_av] 248.12 [lb_av] MEDEN T ([facility]) Body mass index (BMI) [Ratio] 42.6 kg/m2 42.6 k g/m2 [facility] ([facility]) Body weight 248.12 [lb_av] 248.12 [lb_av] MEDEN T ([facility]) Body temperature 96.0 [degF] 96.0 [degF] [facility] ([facility]) Body height 64 [in_i] 64 [in_i] [facility] ([facility]) 5'4" Body mass index (BMI) [Ratio] 42.6 kg/m2 42.6 k g/m2 [facility] ([facility] Body height 63.00 in Normal (applies to non-numeric resu lts) 63.00 in [facility] ([facility]) Body weight Measured 250.00 lbs Normal (applies to n on-numeric results) 250.00 lbs [facility] ([facility]) Body mass index (BMI) [Ratio] 44.28 kg/m2 No rmal (applies to non-numeric results) 44.28 kg/m2 [facility] ([facility]) Systolic blood pressure 0 mm[Hg] Normal (applies t o non-numeric results) 0 mm[Hg] [facility] ([facility]) Diastolic blood pressure 0 mm[Hg] Normal (applies to non-numeric results) 0 mm[Hg] [facility] Patient Treatment Plan of Care Planned Activity Planned Date Details Description Data Source (s) 120 ACTUAT Budesonide 0.08 MG/ACTUAT / f ormoterol fumarate 0.0045 MG/ACTUAT Metered Dose Inhaler 12/12/2020 12:00:00 AM EDT eCW1 (Formerly [facility]) 120 ACTUAT Budesonide 0.08 MG/ACTUAT / f ormoterol fumarate 0.0045 MG/ACTUAT Metered Dose Inhaler 12/12/2020 12:00:00 AM EDT eCW1 (Formerly [facility])
[2021-04-06] MEDS ORDERED: HYDR50TA70 (09:05)
[2021-04-06 09:37] LABS: BASO # 0.1 10^3/uL (0.0-0.2); BASO % 0.5 % (0.0-1.0); EOS # 0.2 10^3/uL (0.0-0.5); HEMATOCRIT 40.6 % (36.0-47.0); HEMOGLOBIN 13.1 g/dl (12.0-15.5); LYMPH # 2.9 10^3/uL (1.5-5.0); LYMPH % 30.9 % (24.0-44.0); MEAN CORPUSCULAR HEMOGLOBIN 28.4 pg (27.0-33.0); MEAN CORPUSCULAR HGB CONC 32.3 g/dl (32.0-36.5); MEAN CORPUSCULAR VOLUME 88.1 fl (80.0-96.0); MONO # 0.9 10^3/uL (0.0-0.8); MONO % 9.5 % (2.0-8.0); NEUTROPHILS # 5.2 10^3/uL (1.5-8.5); NEUTROPHILS % 56.8 % (36.0-66.0); PLATELET COUNT, AUTOMATED 345 10^3/uL (150-450); RED BLOOD COUNT 4.61 10^6/uL (4.00-5.40); WHITE BLOOD COUNT 9.2 10^3/uL (4.0-10.0)
[2021-04-06 10:11] LABS: HCG, SERUM QUALITATIVE NEGATIVE (NEGATIVE)
[2021-04-06 10:13] LABS: ALBUMIN 3.2 GM/DL (3.2-5.2); ALT/SGPT 15 U/L (12-78); BILIRUBIN,DIRECT < 0.1 MG/DL (0.0-0.2); BILIRUBIN,TOTAL 0.1 MG/DL (0.2-1.0); BLOOD UREA NITROGEN 8 MG/DL (7-18); CALCIUM LEVEL 8.9 MG/DL (8.5-10.1); CARBON DIOXIDE LEVEL 26 MEQ/L (21-32); CHLORIDE LEVEL 112 MEQ/L (98-107); CREATININE FOR GFR 0.76 MG/DL (0.55-1.30); GLOMERULAR FILTRATION RATE > 60.0 (>60); GLUCOSE, FASTING 85 MG/DL (70-100); LIPASE 96 U/L (73-393); POTASSIUM SERUM 4.4 MEQ/L (3.5-5.1); SODIUM LEVEL 141 MEQ/L (136-145); TOTAL PROTEIN 7.5 GM/DL (6.4-8.2)
[2021-04-06] MEDS ORDERED: PANTOPRAZOLE 40MG VIAL (C9113 PER 1) IV ONE (10:50)
[2021-04-06] MEDS ORDERED: NS 1,000 ML IV ONE (10:50)
[2021-04-06] MEDS ORDERED: ISOVUE-370 76% 100ML VIAL As Ordered ONE (10:56)
--- NOTE | 2021-04-06 11:23 | REP ---
INDICATION: periumbilic pain. COMPARISON: None. TECHNIQUE: Standard helical technique after the intravenous administration of 100 cc Isovue 370. No oral bowel preparatory contrast was administered prior to the exam. FINDINGS: The lung bases are clear. The liver, gallbladder, spleen, pancreas, adrenal glands, and kidneys are within normal limits. The abdominal aorta and para-aortic regions are within normal limits. The bowel loops and the mesenteries are within normal limits. The appendix is well visualized and is within normal limits with the exception of an appendicolith in the proximal portion of the appendix which measures 7 mm. There is no abnormal [place] appendiceal fluid or fatty infiltration. There is no evidence of free fluid or free air. In the right adnexa there is a 5.7 x 3.5 x 3.7 cm sized adipose containing mass. A T-shaped radiodensity seen in the uterus consistent with an IUD. IMPRESSION: 1. Appendicolith within an otherwise normal appendix. 2. Right cam pelvic mass as described above consistent with a dermoid. 3. Other findings as described above. <Electronically signed by Dipesh Bro > 04/06/21 [id number]
--- OUTSIDE RECORDS SUMMARY | 2021-04-06 11:42 | CCD ---
Author Author [facility] Organization [facility] Address Unknown Phone Unavailable Care Team Providers Care Bleach Packer Name Role Phone Philomena WORTHY CELESTE Unavailable [phone] Philomena WORTHYP CELESTE Unavailable [phone] Philomena WORTHY MAJOR CASE DETECTIVE CELESTE Unavailable [phone] Philomena WORTHY MAJOR CASE DETECTIVE CELESTE Unavailable [phone] Philomena WORTHY MAJOR CASE DETECTIVE CELESTE Unavailable [phone] Philomena WORTHY MAJOR CASE DETECTIVE CELESTE Unavailable [phone] Philomena WORTHY MAJOR CASE DETECTIVE CELESTE Unavailable [phone] ZAYNAB, A. MAJOR CASE DETECTIVE CELESTE Unavailable [phone] ZAYNAB, A. MAJOR CASE DETECTIVE CELESTE Unavailable [phone] ZAYNAB, A. MAJOR CASE DETECTIVE CELESTE Unavailable [phone] ZAYNAB, A. MAJOR CASE DETECTIVE CELESTE Unavailable [phone] ZAYNAB, A. MAJOR CASE DETECTIVE CELESTE Unavailable [phone] ZAYNAB, A. MAJOR CASE DETECTIVE CELESTE Unavailable [phone] ZAYNAB, A. MAJOR CASE DETECTIVE CELESTE Unavailable [phone] ZAYNAB, A. MAJOR CASE DETECTIVE CELESTE Unavailable [phone] Aneta Montiel NP Unavailable Unavailable Aneta Montiel NP Unavailable Unavailable Aneta Montiel NP Unavailable Unavailable [facility], PA-C Unavailable Unavailabl e [facility], [facility], PA-C Unavailable Unavailabl e Fish, [facility], PA-C Unavailable Unavailabl e Fish, [facility], PA-C Unavailable Unavailabl e Fish, [facility], PA-C Unavailable Unavailabl e Fish, [facility], PA-C Unavailable Unavailabl e Fish, [facility], PA-C Unavailable Unavailabl e Fish, [facility], PA-C Unavailable Unavailabl e Fish, [facility], PA-C Unavailable Unavailabl e Fish, [facility], PA-C Unavailable Unavailabl e Fish, [facility], PA-C Unavailable Unavailabl e Fish, [facility], PA-C Unavailable Unavailabl e Fish, [facility], PA-C Unavailable Unavailabl e Fish, [facility], PA-C Unavailable Unavailabl e Fish, [facility], PA-C Unavailable Unavailabl e Fish, [facility], PA-C Unavailable Unavailabl e Fish, [facility], PA-C Unavailable Unavailabl e Fish, [facility], PA-C Unavailable Unavailabl e Fish, [facility], PA-C Unavailable Unavailabl e Fish, [facility], PA-C Unavailable Unavailabl e Fish, [facility], PA-C Unavailable Unavailabl e Fish, [facility], PA-C Unavailable Unavailabl e Fish, [facility], PA-C Unavailable Unavailabl e Fish, [facility], PA-C Unavailable Unavailabl e Fish, [facility], PA-C Unavailable Unavailabl e Fish, [facility], PA-C Unavailable Unavailabl e Fish, [facility], PA-C Unavailable Unavailabl e Fish, [facility], PA-C Unavailable Unavailabl e Fish, [facility], PA-C Unavailable Unavailabl e Fish, [facility], PA-C Unavailable Unavailabl e Fish, [facility], PA-C Unavailable Unavailabl e Fish, [facility], PA-C Unavailable Unavailabl e Fish, [facility], PA-C Unavailable Unavailabl e Fish, [facility], PA-C Unavailable Unavailabl e [facility], [facility], PA-C Unavailable Unavailabl e [facility], [facility], PA-C Unavailable Unavailabl e Jeffry Sandoval MD Unavailable Unavailable Jeffry Sandoval MD Unavailable Unavailable Jeffry Sandoval MD Unavailable Unavailable Jeffry Sandoval MD Unavailable Unavailable Jeffry Sandoval MD Unavailable Unavailable Jeffry Sandoval MD Unavailable Unavailable LAROCK, Dionicio KENNY LEGISLATIVE AIDE Unavailable Unavailable LAROCK, Dionicio KENNY LEGISLATIVE AIDE Unavailable Unavailable LAROCK, Dionicio KENNY NP Unavailable Unavailable LAROCK, Dionicio KENNY LEGISLATIVE AIDE Unavailable Unavailable LAROCK, Dionicio KENNY LEGISLATIVE AIDE Unavailable Unavailable LAROCK, Dionicio KENNY LEGISLATIVE AIDE Unavailable Unavailable LAROCK, Dionicio KENNY LEGISLATIVE AIDE Unavailable Unavailable LAROCK, Dionicio KENNY LEGISLATIVE AIDE Unavailable Unavailable LAROCK, Dionicio KENNY LEGISLATIVE AIDE Unavailable Unavailable LAROCK, Dionicio KENNY LEGISLATIVE AIDE Unavailable Unavailable LAROCK, Dionicio KENNY LEGISLATIVE AIDE Unavailable Unavailable LAROCK, Dionicio KENNY LEGISLATIVE AIDE Unavailable Unavailable LAROCK, Dionicio KENNY LEGISLATIVE AIDE Unavailable Unavailable LAROCK, Dionicio KENNY LEGISLATIVE AIDE Unavailable Unavailable LAROCK, Dionicio KENNY LEGISLATIVE AIDE Unavailable Unavailable LAROCK, Dionicio KENNY LEGISLATIVE AIDE Unavailable Unavailable LAROCK, Dionicio KENNY LEGISLATIVE AIDE Unavailable Unavailable LAROCK, Dionicio KENNY LEGISLATIVE AIDE Unavailable Unavailable LAROCK, Dionicio KENNY LEGISLATIVE AIDE Unavailable Unavailable LAROCK, Dionicio KENNY NP Unavailable [...] Unavailable Blanca COWAN MD Unavailable Unavailable Blanca COAWN MD Unavailable Unavailable Blanca COWAN MD Unavailable [...] Unavailable Unavailable Maxwell Giraldo MD Unavailable Unavailable Jaqui Carmen Unavailable LOWE, G EDWARD RPA Unavailable Unavailable [...] Unavailable LOWE, G EDWARD RPA Unavailable Unavailable OLWE, G EDWARD RPA Unavailable Unavailable LOWE, G [...] Unavailable Unavailable Blanca Frazier MD Unavailable Unavailable Karin, Blanca Anitra Unavailable Unavailable Karin, Blanca Anitra Unavailable Unavailable Karin, C Anitra Unavailable Unavailable [place] Unavailable Unavailable CHANLIECCO, C OBDULIA MD Unavailable Unavailable CHANLIECCO, C OBDULIA MD Unavailable Unavailable CHANLIECCO, C OBDULAI MD Unavailable Unavailable CHANLIECCO, C OBDULIA MD [...] is protected by Article 27-F of the [facility] Public Health law. If you continue you may have access to information: Regarding HIV / AIDS; Provided by facilities licensed or operated by the [facility] Office of Mental Health; or Provided by the [facility] Office for People With Developmental Disabilities. If such information is present, then the following [facility] mandated warning applies: This information has [...] law may result in a fine or prison sentence or both. A general authorization for the release of medical or other information is NOT sufficient authorization for further disc losure. Allergies and Adverse Reactions Type Description Substance Reaction Status Data Source(s ) Propensity to adverse reactions to substance Latex, Natural Rubber Latex, Natural Rubber Active [facility] ([facility]) Propensity to adverse reactions to substance raspberry raspberry Active [facility] ([facility]) Propensity to adverse reactions to substance nickel nickel Active [facility] ([facility]) Encounters Encounter Providers Location Date Indications Data Source(s ) Outpatient Attender: CELESTE WORTHY 03/13 12:09:13 PM EDT - 03/22/2021 01:23:56 PM EDT [facility] ([facility] ) Emergency Attender: Jeffry Sandoval MDConsultant: [facility] 03/12/2021 10:12:00 PM EDT - 03/12/2021 11:21:00 PM EDT [facility] ital Patient discharged. Outpatient Attender: KENYON COWAN MD 02/07 12:52:46 PM EDT - 02/07/2021 02:22:14 PM EDT [facility] ([facility] ) Outpatient Attender: Maxwell Giraldo MD Main office - [place] 01/27/2021 01:30:00 PM EDT [facility] ([facility], ) Outpatient Attender: ZOYA PEARCE NP 12/12 01:12:23 PM EDT - 01/04/2021 01:53:21 PM EDT [facility] ([facility] ) Outpatient Attender: Trey Montiel NP [facility] 01/01/2021 08:00:00 AM EDT - 01/01/2021 08:00:00 AM EDT [facility] ([facility]) Attender: Trey Montiel NP 01/01/2021 12:00:00 AM EDT [facility] ([facility]) Outpatient Attender: SEBASTIÁN solis 12/30/2020 09:30:00 AM EDT [facility] ([facility]) [place] [address] [facility] [facility] [address] 12/30/2020 12:00:00 AM EDT eCW1 ([facility]) Outpatient Attender: ERIN LOWE RPA 12/28 04:37:33 PM EDT - 12/28/2020 04:54:30 PM EDT [facility] ([facility] ) [place] [address] [facility] [address] 12/12/2020 12:00:00 AM EDT eCW1 ([facility]) [place] [address] [facility] [address] 12/06/2020 12:00:00 AM EDT eCW1 ([facility]) Unknown [address] [facility] [place] [address] 12/04/2020 12:00:00 AM EDT eCW1 ([facility]) Outpatient Attender: Maxwell Giraldo MD Main office - [place] 12/02/2020 08:30:00 AM EDT [facility] ([facility]) [place] [address] [facility] [facility] [address] 11/25/2020 12:00:00 AM EDT eCW1 ([facility]) Unknown [address] [facility] [place] [address] 11/18/2020 12:00:00 AM EDT eCW1 ([facility]) Outpatient [address] [facility] [place] [address] 11/13/2020 12:00:00 AM EDT eCW1 ([facility]) [place] [address] [facility] [place] [address] 11/13/2020 12:00:00 AM EDT eCW1 ([facility]) [place] [address] [facility] [place] [address] 11/12/2020 12:00:00 AM EDT eCW1 ([facility]) Emergency Attender: OBDULIA HORAN MD 11/07/2020 11:04:00 PM EDT - 11/08/2020 01:13:00 AM EDT [facility] Patient discharged. [place]patient [address] [facility] [address] 11/03/2020 12:00:00 AM EDT eCW1 ([facility]) [place] [address] [facility] [address] 11/03/2020 12:00:00 AM EDT eCW1 ([facility]) [place] [address] [facility] [address] 10/31/2020 12:00:00 AM EDT eCW1 ([facility]) [place] [address] [facility] [address] 10/27/2020 12:00:00 AM EDT eCW1 ([facility]) [place] [address] [facility] [address] 10/20/2020 12:00:00 AM EDT eCW1 ([facility]) Outpatient Attender: Christine FRANKS 10/06/19 07:24:52 PM EDT - 10/05/2020 08:01:47 PM EDT [facility] ([facility] ) Outpatient Attender: Christine FRANKS 09/08/19 10:09:44 AM EDT - 09/07/2020 10:48:12 AM EDT [facility] ([facility] ) Outpatient Attender: Trey Montiel NP [facility] 09/05/2020 04:00:00 AM EDT - 09/05/2020 04:00:00 AM EDT [facility] ([facility]) Attender: Trey Montiel NP 09/05/2020 12:00:00 AM EDT [facility] Outpatient Attender: Trey Montiel NP [facility] 08/22/2020 11:30:00 AM EST - 08/22/2020 11:30:00 AM EST [facility] ([facility]) Attender: Trey Montiel NP 08/22/2020 12:00:00 AM EST [facility] ([facility]) Attender: Zack Wisdom 08/20/2020 12:00:00 AM EST [facility] ([facility]) Extended Individual Psychotherapy - 45 min Attender: Paresh Wisdom [facility] 08/18/2020 03:00:00 AM EST - 08/18/2020 03:00:00 AM EST [facility] ([facility]) Extended Individual Psychotherapy - 45 min Attender: Shea dennis [facility] 07/30/2020 07:00:00 AM EST - 07/30/2020 07:00:00 AM EST [facility] ([facility]) Attender: Jaqui Carmen 07/30/2020 12:00:00 AM EST [facility] ([facility]) Outpatient Attender: Trey Montiel NP [facility] 07/25/2020 04:00:00 AM EST - 07/25/2020 04:00:00 AM EST [facility] ([facility]) Attender: Trey Montiel NP 07/25/2020 12:00:00 AM EST [facility] ([facility]) Office Visit Attender: Henna NAIK PA-C Physical Therapy 07/24/2020 07:45:00 AM EST [facility] ([facility]) Extended Individual Psychotherapy - 45 min Attender: Shea dennis [facility] 07/16/2020 06:00:00 AM EST - 07/16/2020 06:00:00 AM EST [facility] ([facility]) Attender: Jaqui Carmen 07/16/2020 12:00:00 AM EST [facility] ([facility]) OFFICE OUTPATIENT NEW 30 MINUTES Attender: Henna NAIK PA-C Physical Therapy 07/08/2020 08:00:00 AM EST [facility] ([facility]) Outpatient Attender: Anitra Sanchez 07/06/2020 10:43:10 AM EST - 07/06/2020 11:54:41 AM EST [facility] ([facility]) Extended Individual Psychotherapy - 45 min Attender: Shea Carmen [facility] 06/25/2020 06:00:00 AM EST - 06/25/2020 06:00:00 AM EST [facility] ([facility]) Attender: Jaqui Carmen 06/25/2020 12:00:00 AM EST [facility] ([facility]) Outpatient Attender: Trey Montiel NP [facility] 05/29/2020 04:00:00 AM EST - 05/29/2020 04:00:00 AM EST [facility] ([facility]) Attender: Trey Montiel NP 05/29/2020 12:00:00 AM EST [facility] ([facility]) Extended Individual Psychotherapy - 45 min [facility] 06:00:00 AM EST - 05/28/2020 06:00:00 AM EST [facility] ([facility]) Attender: Jaqui Carmen 05/28/2020 12:00:00 AM EST [facility] ([facility]) Brief Individual Psychotherapy - 30 min Attender: Ximena almeida [facility] 05/14/2020 10:00:00 AM EST - 05/14/2020 10:00:00 AM EST [facility] ([facility]) Attender: Ximena Chavira 05/14/2020 12:00:00 AM EST [facility] ([facility]) Extended Individual Psychotherapy - 45 min [facility] 05/06/2020 12:00:00 PM EST - 05/06/2020 12:00:00 PM EST [facility] ([facility]) Attender: Jaqui Carmen 05/06/2020 12:00:00 AM EST [facility] ([facility]) Extended Individual Psychotherapy - 45 min Attender: Shea ret [facility] 04/16/2020 07:00:00 AM EST - 04/16/2020 07:00:00 AM EST [facility] ([facility]) Attender: Jaqui Carmen 04/16/2020 12:00:00 AM EST [facility] ([facility]) [id number]"Psychotherapy Attender: Jaqui Carmen [facility] 03/17/2020 01:00:00 AM EDT - 03/17/2020 01:00:00 AM EDT [facility] ([facility]) Attender: Jaqui Carmen 03/17/2020 12:00:00 AM EDT [facility] ([facility]) Extended Individual Psychotherapy - 45 min [facility] 02/27/2020 06:00:00 AM EDT - 02/27/2020 06:00:00 AM EDT [facility] ([facility]) Attender: Jaqui Carmen 02/27/2020 12:00:00 AM EDT [facility] ([facility]) Functional Status Immunizations Vaccine Date Status Description Data Source(s) COVID-19 VACCINE Moderna 11/01/2020 12:00:00 AM EDT completed [employer] Vaccine Series Complete: YESThis Data wa s Submitted to [facility] Via [employer]. COVID-19 dose #1 given elsewhere Unspecified 10/04/2020 07:2 2:00 AM EDT completed eCW1 ([facility]) COVID-19 dose #1 given elsewhere Unspecified 10/04/2020 07:2 2:00 AM EDT completed eCW1 ([facility]) COVID-19 dose #1 given elsewhere Unspecified 10/04/2020 07:2 2:00 AM EDT completed eCW1 ([facility]) COVID-19 dose #1 given elsewhere Unspecified 10/04/2020 07:2 2:00 AM EDT completed eCW1 ([facility]) COVID-19 dose #1 given elsewhere Unspecified 10/04/2020 07:2 2:00 AM EDT completed eCW1 ([facility]) COVID-19 dose #1 given elsewhere Unspecified 10/04/2020 07:2 2:00 AM EDT completed eCW1 ([facility]) COVID-19 dose #1 given elsewhere Unspecified 10/04/2020 07:2 2:00 AM EDT completed eCW1 ([facility]) COVID-19 dose #1 given elsewhere Unspecified 10/04/2020 07:2 2:00 AM EDT completed eCW1 ([facility]) COVID-19 dose #1 given elsewhere Unspecified 10/04/2020 07:2 2:00 AM EDT completed eCW1 ([facility]) COVID-19 dose #1 given elsewhere Unspecified 10/04/2020 07:2 2:00 AM EDT completed eCW1 ([facility]) COVID-19 dose #1 given elsewhere Unspecified 10/04/2020 07:2 2:00 AM EDT completed eCW1 ([facility]) COVID-19 dose #1 given elsewhere Unspecified 10/04/2020 07:2 2:00 AM EDT completed eCW1 ([facility]) COVID-19 dose #1 given elsewhere Unspecified 10/04/2020 07:2 2:00 AM EDT completed eCW1 ([facility]) COVID-19 dose #1 given elsewhere Unspecified 10/04/2020 07:2 2:00 AM EDT completed eCW1 ([facility]) COVID-19 VACCINE Moderna 10/04/2020 12:00:00 AM EDT completed [employer] Vaccine Series Complete: NOThis Data was Submitted to [facility] Via [employer]. Medications Medication Brand Name Start Date Product Form Dose Route Admi nistrative Instructions Pharmacy Instructions Status Indications Reaction Description Data Source(s) 20 mg 03/13/2021 12:00:00 AM EDT tablet 30 TAKE ONE TABLET BY MOUTH UP TO THREE TIMES A DAY BEFORE MEALS TAKE ONE TABLET BY MOUTH UP TO THREE CHRISTINE ES A DAY BEFORE MEALS SOLD: 03/13/2021 [facility] tizanidine 4 MG Oral Tablet Tizanidine HCL 01/27/2021 12:00:00 AM EDT ORAL active [facility] ([facility]) meloxicam 7.5 MG Oral Tablet MELOXICAM 01/21/2021 12:00:00 AM EDT tabl et 30 TAKE ONE TABLET BY MOUTH EVERY DAY NEEDED FOR NECK & BACK PAIN TAKE ONE TABLET BY MOUTH EVERY DAY NEEDED FOR NECK & BACK PAIN SOLD: 01/21/2021 [facility] meloxicam 7.5 MG Oral Tablet Meloxicam 01/20/2021 12:00:00 AM EDT ORAL active [facility] ([facility]) 120 ACTUAT Budesonide 0.08 MG/ACTUAT / f ormoterol fumarate 0.0045 MG/ACTUAT Metered Dose Inhaler Budesonide-Formoterol Fumarate 80-4.5 MCG/ACT Budesonide- Formoterol Fumarate 80-4.5 MCG/ACT 12/12/2020 12:00:00 AM EDT 2.0 {pu ffs} active Budesonide-Formoterol Fumara te 80-4.5 MCG/ACT eCW1 ([facility]) 120 ACTUAT Budesonide 0.08 MG/ACTUAT / f ormoterol fumarate 0.0045 MG/ACTUAT Metered Dose Inhaler Budesonide-Formoterol Fumarate 80-4.5 MCG/ACT Budesonide- Formoterol Fumarate 80-4.5 MCG/ACT 12/12/2020 12:00:00 AM EDT 2.0 {pu ffs} active Budesonide-Formoterol Fumara te 80-4.5 MCG/ACT eCW1 ([facility]) 80-4.5 mcg/actuation 12/12/2020 12:00:00 AM EDT [...] AT BEDTIME NEEDED FOR SLEEP SOLD: 12/06/2020 [facility] buspirone hydrochloride 15 MG Oral Tablet BUSPIRONE HCL 12/04/2020 12:00:00 AM EDT tablet 60 TAKE ONE TABLET BY MOUTH TWI CE A DAY TAKE ONE TABLET BY MOUTH TWICE A DAY SOLD: 12/06/2020 [facility] 100 mg 12/04/2020 12:00:00 AM EDT tablet 15 TAKE ONE-HALF TABLET BY MOUTH ONCE DAILY TAKE ONE-HALF TABLET BY MOUTH ONCE DAILY SOLD: 12/06/2020 [facility] 300 mg 11/08/2020 12:00:00 AM EDT capsule 30 TAKE ONE CAPSULE BY MOUTH ONCE DAILY TAKE ONE CAPSULE BY MOUTH ONCE DAILY SOLD: 11/08/2020 [facility] tizanidine 4 MG Oral Tablet [...] A DAY FOR 5 DAYS SOLD: 09/23/2020 [facility] 875 mg 09/07/2020 12:00:00 AM EDT tablet 20 TAKE ONE TABLET BY MOUTH EVERY 12 HOURS FOR 10 DAYS TAKE ONE TABLET BY MOUTH EVERY 12 HOURS FOR 10 DAYS SO LD: 09/23/2020 [facility] lamotrigine 100 MG Oral Tablet lamotrigine 08/22/2020 12:00:00 AM EST 100 mg by mouth completed <td ID="Medica tionRxNorm_3">986412</td><td ID="MedicationMedication_3">lamotrigine</td><td ID="MedicationRoute_3">by mouth</td><td ID="MedicationRouteConcept_3">J51403</td><td ID="MedicationStartDate_3">08/22/2020</td><td ID="MedicationStopDate_3"></td><td ID="MedicationDosageFrequency_3">once a day</td><td ID="MedicationDuration_3">30</td><td ID="MedicationFormulaStrength_3">100 mg</td><td ID="MedicationDosageForm_3">tablet</td><td ID="MedicationDosageFormCode_3"></td><td ID="MedicationDosageDescription_3"></td><td ID="MedicationMedicationId_3">[id number]</td><td ID="MedicationAccount_3">[id number]</td><td ID="MedicationNpid_3">[id number]</td><td ID="MedicationAuthorFirstName_3">Trey</td><td ID="MedicationAuthorLastName_3">Montiel</td><td ID="MedicationTaxonomyCode_3">[id number]</td><td ID="MedicationTaxonomyDesc_3">Nurse Practitioner</td><td ID="MedicationPhoneNumber_3">[phone]</td> [facility] ([facility]) Hydroxyzine Hydrochloride 50 MG Oral Tablet hydroxyzine HCl 08/22/2020 12:00:00 AM EST 50 mg completed <td ID ="MedicationRxNorm_1">139421</td><td ID="MedicationMedication_1">hydroxyzine HCl</td><td ID="MedicationRoute_1"></td><td ID="MedicationRouteConcept_1"></td><td ID="MedicationStartDate_1">08/22/2020</td><td ID="MedicationStopDate_1"></td><td ID="MedicationDosageFrequency_1"></td><td ID="MedicationDuration_1"></td><td ID="MedicationFormulaStrength_1">50 mg</td><td ID="MedicationDosageForm_1">tablet</td><td ID="MedicationDosageFormCode_1"></td><td ID="MedicationDosageDescription_1">as directed</td><td ID="MedicationMedicationId_1">[id number]</td><td ID="MedicationAccount_1">[id number]</td><td ID="MedicationNpid_1">[id number]</td><td ID="MedicationAuthorFirstName_1">Trey</td><td ID="MedicationAuthorLastName_1">Montiel</td><td ID="MedicationTaxonomyCode_1">[id number]</td><td ID="MedicationTaxonomyDesc_1">Nurse Practitioner</td><td ID="MedicationPhoneNumber_1">[phone]</td> [facility] ([facility]) buspirone hydrochloride 15 MG Oral Tablet buspirone 2020 12:00:00 AM EST 15 mg by mouth completed <td ID="Medic ationRxNorm_2">[id number]</td><td ID="MedicationMedication_2">buspirone</td><td ID="MedicationRoute_2">by mouth</td><td ID="MedicationRouteConcept_2">C41451</td><td ID="MedicationStartDate_2">08/22/2020</td><td ID="MedicationStopDate_2"></td><td ID="MedicationDosageFrequency_2">twice a day</td><td ID="MedicationDuration_2">30</td><td ID="MedicationFormulaStrength_2">15 mg</td><td ID="MedicationDosageForm_2">tablet</td><td ID="MedicationDosageFormCode_2"></td><td ID="MedicationDosageDescription_2"></td><td ID="MedicationMedicationId_2">[id number]</td><td ID="MedicationAccount_2">[id number]</td><td ID="MedicationNpid_2">[id number]</td><td ID="MedicationAuthorFirstName_2">Trey</td><td ID="MedicationAuthorLastName_2">Montiel</td><td ID="MedicationTaxonomyCode_2">[id number]</td><td ID="MedicationTaxonomyDesc_2">Nurse Practitioner</td><td ID="MedicationPhoneNumber_2">[phone]</td> [facility]) lamotrigine 25 MG Oral Tablet lamotrigine 05/29/2020 12:00:00 AM EST 25 mg by mouth completed <td ID="Medica tionRxNorm_1">831309</td><td ID="MedicationMedication_1">lamotrigine</td><td ID="MedicationRoute_1">by mouth</td><td ID="MedicationRouteConcept_1">W05059</td><td ID="MedicationStartDate_1">05/29/2020</td><td ID="MedicationStopDate_1">07/28/2020</td><td ID="MedicationDosageFrequency_1">once a day</td><td ID="MedicationDuration_1">30</td><td ID="MedicationFormulaStrength_1">25 mg</td><td ID="MedicationDosageForm_1">tablet</td><td ID="MedicationDosageFormCode_1"></td><td ID="MedicationDosageDescription_1"></td><td ID="MedicationMedicationId_1">[id number]</td><td ID="MedicationAccount_1">[id number]</td><td ID="MedicationNpid_1">[id number]</td><td ID="MedicationAuthorFirstName_1">Trey</td><td ID="MedicationAuthorLastName_1">Montiel</td><td ID="MedicationTaxonomyCode_1">[id number]</td><td ID="MedicationTaxonomyDesc_1">Nurse Practitioner</td><td ID="MedicationPhoneNumber_1">[phone]</td> [facility] ([facility] [facility]) Hydroxyzine Hydrochloride 50 MG Oral Tablet hydroxyzine HCl 05/29/2020 12:00:00 AM EST 50 mg completed <td ID ="MedicationRxNorm_3">051302</td><td ID="MedicationMedication_3">hydroxyzine HCl</td><td ID="MedicationRoute_3"></td><td ID="MedicationRouteConcept_3"></td><td ID="MedicationStartDate_3">05/29/2020</td><td ID="MedicationStopDate_3">07/28/2020</td><td ID="MedicationDosageFrequency_3"></td><td ID="MedicationDuration_3">30</td><td ID="MedicationFormulaStrength_3">50 mg</td><td ID="MedicationDosageForm_3">tablet</td><td ID="MedicationDosageFormCode_3"></td><td ID="MedicationDosageDescription_3">as directed</td><td ID="MedicationMedicationId_3">[id number]</td><td ID="MedicationAccount_3">[id number]</td><td ID="MedicationNpid_3">[id number]</td><td ID="MedicationAuthorFirstName_3">Trey</td><td ID="MedicationAuthorLastName_3">Montiel</td><td ID="MedicationTaxonomyCode_3">[id number]</td><td ID="MedicationTaxonomyDesc_3">Nurse Practitioner</td><td ID="MedicationPhoneNumber_3">[phone]</td> [facility]) aripiprazole 5 MG Oral Tablet aripiprazole 02/26/2020 12:00:00 AM EDT 5 mg by mouth completed <td ID="Medica tionRxNorm_3">879507</td><td ID="MedicationMedication_3">aripiprazole</td><td ID="MedicationRoute_3">by mouth</td><td ID="MedicationRouteConcept_3">U31752</td><td ID="MedicationStartDate_3">02/26/2020</td><td ID="MedicationStopDate_3">05/26/2020</td><td ID="MedicationDosageFrequency_3">once a day</td><td ID="MedicationDuration_3">30</td><td ID="MedicationFormulaStrength_3">5 mg</td><td ID="MedicationDosageForm_3">tablet</td><td ID="MedicationDosageFormCode_3"></td><td ID="MedicationDosageDescription_3"></td><td ID="MedicationMedicationId_3">[id number]</td><td ID="MedicationAccount_3">[id number]</td><td ID="MedicationNpid_3">[id number]</td><td ID="MedicationAuthorFirstName_3">Trey</td><td ID="MedicationAuthorLastName_3">Montiel</td><td ID="MedicationTaxonomyCode_3">[id number]</td><td ID="MedicationTaxonomyDesc_3">Nurse Practitioner</td><td ID="MedicationPhoneNumber_3">[phone]</td> [facility] ([facility]) 24 HR venlafaxine 150 MG Extended Release Oral Capsule venla faxine 02/26/2020 12:00:00 AM EDT 150 mg by mouth completed <td ID="MedicationRxNorm_4">805017</td><td ID="MedicationMedication_4">venlafaxine</td><td ID="MedicationRoute_4">by mouth</td><td ID="MedicationRouteConcept_4">K53738</td><td ID="MedicationStartDate_4">02/26/2020</td><td ID="MedicationStopDate_4">05/26/2020</td><td ID="MedicationDosageFrequency_4">once a day</td><td ID="MedicationDuration_4">30</td><td ID="MedicationFormulaStrength_4">150 mg</td><td ID="MedicationDosageForm_4">capsule,extended release 24hr</td><td ID="MedicationDosageFormCode_4"></td><td ID="MedicationDosageDescription_4"></td><td ID="MedicationMedicationId_4">[id number]</td><td ID="MedicationAccount_4">[id number]</td><td ID="MedicationNpid_4">[id number]</td><td ID="MedicationAuthorFirstName_4">Trey</td><td ID="MedicationAuthorLastName_4">Montiel</td><td ID="MedicationTaxonomyCode_4">[id number]</td><td ID="MedicationTaxonomyDesc_4"> Nurse Practitioner</td><td ID="MedicationPhoneNumber_4">[phone]</td> [facility] ([facility]) 24 HR Nicotine 0.292 MG/HR Transdermal Patch [Nicoderm C-Q] Nicoderm CQ 02/26/2020 12:00:00 AM EDT 7 mg/24 completed <td ID="MedicationRxNorm_1">729204</td><td ID="MedicationMedication_1">Nicoderm CQ</td><td ID="MedicationRoute_1">to skin</td><td ID="MedicationRouteConcept_1"></td><td ID="MedicationStartDate_1">02/26/2020</td><td ID="MedicationStopDate_1">05/26/2020</td><td ID="MedicationDosageFrequency_1">once a day</td><td ID="MedicationDuration_1">30</td><td ID="MedicationFormulaStrength_1">7 mg/24 hr</td><td ID="MedicationDosageForm_1">patch 24 hour</td><td ID="MedicationDosageFormCode_1"></td><td ID="MedicationDosageDescription_1"> </td><td ID="MedicationMedicationId_1">[id number]</td><td ID="MedicationAccount_1">[id number]</td><td ID="MedicationNpid_1">[id number]</td><td ID="MedicationAuthorFirstName_1">Trey</td><td ID="MedicationAuthorLastName_1">Montiel</td><td ID="MedicationTaxonomyCode_1">[id number]</td><td ID="MedicationTaxonomyDesc_1">Nurse Practitioner</td><td ID="MedicationPhoneNumber_1">[phone]</td> [facility] ([facility]) Insurance Providers Payer name Policy type / Coverage type Policy ID Covered constitution party ID Covered constitution party's relationship to webb Policy Webb Plan Information SELF PAY [facility] emp [id number] Employee [id number] [employer] [id number] Self [id number] Medicaid Medicaid [id number] Self [id number] Spouse [id number] Medicaid Medicaid [id number] Self [id number] RPR- Needs Payer Match [id number] Spouse [id number] MEDICAID M [id number] S [id number] [employer] SD O [id number] S [id number] [place] [employer] [id number] 2 [id number] Medicaid P UNAVAILABLE S UNAVAILA BLE TRAVIS [id number] SP [id number] [place] [employer] - O/P [id number] 01 [id number] [facility] MEDICAID [id number] SP [id number] B [facility] [id number] 18 [id number] EMEDNY [id number] SP [id number] Problems, Conditions, and Diagnoses Code Display Name [...] EDT [facility] [id number] Nicotine dependence, cigarettes, uncompl icated Nicotine dependence, cigarettes, uncomplicated Diagnosis 03/12/2021 10:12:00 PM EDT [facility] R197 Diarrhea, unspecified Diarrhea, unspecified Diagnosis 03/12/2021 10:12:00 PM EDT [facility] M797 Fibromyalgia Fibromyalgia Diagnosis 11/07/2020 11:04:00 P M EDT [facility] L03519 Chronic tension-type headache, intractab le Chronic tension-type headache, intractable Diagnosis 11/07/2020 11:04:00 PM EDT [facility] R519 Headache, unspecified Headache, unspecified Diagnosis 11/07/2020 11:04:00 PM EDT [facility] G56.02 Carpal tunnel syndrome of left wrist Car pal tunnel syndrome of left wrist Problem 01/27/2021 12:00:00 AM EDT [facility] ([facility]) M54.89 Backache Backache Problem 01/27/2021 12:00:00 AM ED T [facility] ([facility]) Z72.0 Tobacco use Tobacco Use Disorder, Mild Condition 0 01/01/2021 12:00:00 AM EDT [facility] ([facility]) F43.9 Reaction to severe stress, unspecified U nspecified Trauma- and Stressor- Related Disorder Condition 01/01/2021 12:00:00 AM EDT [facility] ([facility]) F41.1 Generalized anxiety disorder Generalized Anxiety Disor janes Condition 01/01/2021 12:00:00 AM EDT [facility] ([facility]) F33.1 Major depressive disorder, recurrent, mo derate Major Depressive Disorder, Recurrent episode, Moderate Condition 01/01/2021 12:00:00 AM EDT [facility] ([facility]) 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 seizures Problem 12/02/2020 12:00:00 AM EDT [facility] ([facility] ) M54.5 Low back pain Low back pain Problem 12/02/2020 12:00:00 AM EDT [facility] ([facility] ) M54.2 Neck pain Neck pain Problem 12/02/2020 12:00:00 AM ED T [facility] ([facility] ) G43.009 Migraine without aura, not refractory Mi graine without aura, not refractory Problem 12/02/2020 12:00:00 AM EDT [facility] ([facility] ) R20.0 Skin sensation disturbance Skin sensation disturbance Problem 12/02/2020 12:00:00 AM EDT [facility] ([facility] ) R53.1 Malaise and fatigue Malaise and fatigue Problem 0 12/02/2020 12:00:00 AM EDT [facility] ([facility] ) R55 Syncope and collapse Syncope and collapse Problem 12/02/2020 12:00:00 AM EDT [facility] ([facility] ) G47.33 [id number] VIVIAN (obstructive sleep apnea) Problem 11/06/2020 12:00:00 AM EDT [facility]CW1 ([facility]) G40.909 [id number] Seizure disorder Problem 10/20/2020 12:00:00 AM EDT eCW1 ([facility]) J45.40 [id number] Moderate persistent asthma without compli cation Problem 10/20/2020 12:00:00 AM EDT eCW1 ([facility]) F41.8 [id number] Anxiety with depression Problem 10/20/2020 1 2:00:00 AM EDT [facility]CW1 ([facility]) M79.7 [id number] Fibromyalgia Problem 10/20/2020 12:00:00 AM EDT eCW1 ([facility]) Z72.0 Tobacco use Tobacco Use Disorder, Mild Condition 1 07/30/2019 12:00:00 AM EST [facility] ([facility]) F43.9 Reaction to severe stress, unspecified U nspecified Trauma- and Stressor- Related Disorder Condition 05/29/2020 12:00:00 AM EST [facility] ([facility]) F31.9 Bipolar disorder, unspecified Unspecified Bipola r and Related Disorder Condition 05/29/2020 12:00:00 AM EST [facility] ([facility]) Surgeries/Procedures Procedure Description Date Indications Data Source(s) OFFICE OUTPATIENT VISIT 25 MINUTES 01/27/2021 12:00:00 AM EDT [facility] ([facility] ) TSTG ANS FUNCJ CARDIOVAGAL INNERVAJ PARASYMP 12:00:00 AM EDT [facility] ([facility] ) TESTING AUTONOMIC NERVOUS SYSTEM FUNCTION 01/23/2021 1 2:00:00 AM EDT [facility] ([facility] ) Needle electromyography, each extremity, with related paraspinal areas, when performed, done with nerve conduction, amplitude and latency/velocity study; complete, five or more muscles studied, innervated by three or more nerves or four or more spinal levels (list separately in addition to the code for primary procedure). 01/12/2021 12:00:00 AM EDT [facility] T ([facility] ) Needle electromyography, each extremity, with related paraspinal areas, when performed, done with nerve conduction, amplitude and latency/velocity study; complete, five or more muscles studied, innervated by three or more nerves or four or more spinal levels (list separately in addition to the code for primary procedure). 01/12/2021 12:00:00 AM EDT [facility] T ([facility] ) Nerve Conduction 11-12 Studies 01/12/2021 12:00:00 AM EDT [facility] ([facility] ) Needle electromyography, each extremity, with related paraspinal areas, when performed, done with nerve conduction, amplitude and latency/velocity study; complete, five or more muscles studied, innervated by three or more nerves or four or more spinal levels (list separately in addition to the code for primary procedure). 01/05/2021 12:00:00 AM EDT [facility] ([facility] ) Needle electromyography, each extremity, with related paraspinal areas, when performed, done with nerve conduction, amplitude and latency/velocity study; complete, five or more muscles studied, innervated by three or more nerves or four or more spinal levels (list separately in addition to the code for primary procedure). 01/05/2021 12:00:00 AM EDT [facility] T ([facility]) Nerve Conduction 9-10 Studies 01/05/2021 12:00:00 AM E DT [facility] ([facility] MHC Telemed E/M Lvl 3--Est pt 01/01/2021 12:00:00 AM EDT - 01/01/2021 12:00:00 AM EDT [facility] ([facility]) MHC Telemed E/M Lvl 3--Est pt 01/01/2021 12:00:00 AM E DT [facility] ([facility]) OFFICE OUTPATIENT VISIT 15 MINUTES 12/30/2020 12:00:00 AM EDT [facility] ([facility]) OFFICE OUTPATIENT NEW 60 MINUTES 12/02/2020 12:00:00 A M EDT [facility] ([facility] MHC Telemed E/M Lvl 3--Est pt 09/05/2020 12:00:00 AM EDT - 09/05/2020 12:00:00 AM EDT [facility] ([facility]) MHC Telemed E/M Lvl 3--Est pt 09/05/2020 12:00:00 AM E DT [facility] ([facility]) [facility] Telemed E/M Lvl 3--Est pt 08/22/2020 12:00:00 AM EST - 08/22/2020 12:00:00 AM EST [facility] ([facility]) Telemed A/O 30" 08/22/2020 12:00:00 AM EST [facility] ([facility]) MHC Telemed E/M Lvl 3--Est pt 08/22/2020 12:00:[address] [facility] ([facility]) Extended Individual Psychotherapy - 45 min 08/20/2020 12:00:00 AM EST - 08/20/2020 12:00:00 AM EST [facility] ([facility]) Extended Individual Psychotherapy - 45 min 12:00:00 AM EST [facility] ([facility]) Extended Individual Psychotherapy - 45 min 07/30/2020 12:00:00 AM EST - 07/30/2020 12:00:00 AM EST [facility] ([facility]) Extended Individual Psychotherapy - 45 min 12:00:00 AM EST [facility] ([facility]) MHC Telemed E/M Lvl 3--Est pt 07/25/2020 12:00:00 AM EST - 07/25/2020 12:00:00 AM EST [facility] ([facility]) Telemed A/O 30" 07/25/2020 12:00:00 AM EST [facility] ([facility]) MHC Telemed E/M Lvl 3--Est pt 07/25/2020 12:00:[address] [facility] ([facility]) RADEX FINGR MINIMUM 2 VIEWS 07/24/2020 12:00:00 AM EST [facility] ([facility]) Extended Individual Psychotherapy - 45 min 07/16/2020 12:00:00 AM EST - 07/16/2020 12:00:00 AM EST [facility] ([facility]) Extended Individual Psychotherapy - 45 min 12:00:00 AM EST [facility] ([facility]) FX MCP/IP Articular JT W/O Manipulation 07/08/2020 12: 00:00 AM EST [facility] ([facility]) CLTX PHLNGL FX PROX/MIDDLE PX/F/T W/O MANJ EA 07/08/19 12:00:00 AM EST [facility] ([facility]) Extended Individual Psychotherapy - 45 min 06/25/2020 12:00:00 AM EST - 06/25/2020 12:00:00 AM EST [facility] ([facility]) Extended Individual Psychotherapy - 45 min 12:00:00 AM EST [facility] ([facility]) MHC Telemed E/M Lvl 3--Est pt 05/29/2020 12:00:00 AM EST - 05/29/2020 12:00:00 AM EST [facility] ([facility]) Telemed A/O 30" 05/29/2020 12:00:00 AM EST [facility] ([facility]) [facility] Telemed E/M Lvl 3--Est pt 05/29/2020 12:00:[address] [facility] ([facility]) Extended Individual Psychotherapy - 45 min 05/28/2020 12:00:00 AM EST - 05/28/2020 12:00:00 AM EST [facility] ([facility]) Extended Individual Psychotherapy - 45 min 0 12:00:00 AM EST [facility] ([facility]) Brief Individual Psychotherapy - 30 min 05/14/2020 12:00:00 AM EST - 05/14/2020 12:00:00 AM EST [facility] ([facility]) Brief Individual Psychotherapy - 30 min 05/14/2020 12: 00:00 AM EST [facility] ([facility]) Extended Individual Psychotherapy - 45 min 05/06/2020 12:00:00 AM EST - 05/06/2020 12:00:00 AM EST [facility] ([facility]) Extended Individual Psychotherapy - 45 min 0 12:00:00 AM EST [facility] ([facility]) Extended Individual Psychotherapy - 45 min 04/16/2020 12:00:00 AM EST - 04/16/2020 12:00:00 AM EST [facility] ([facility]) Extended Individual Psychotherapy - 45 min 0 12:00:00 AM EST [facility] ([facility]) [id number]"Psychotherapy 0 12:00:00 AM EDT - 03/17/2020 12:00:00 AM EDT [facility] ([facility]) [id number]"Psychotherapy 03/17/2020 12:00:00 AM EDT [facility] ([facility]) Extended Individual Psychotherapy - 45 min 02/27/2020 12:00:00 AM EDT - 02/27/2020 12:00:00 AM EDT [facility] ([facility]) Extended Individual Psychotherapy - 45 min 0 12:00:00 AM EDT [facility] ([facility]) Results ID Date Data Source [id number] 03/12/2021 10:12:00 PM EDT [facility] 1 OrderSheet [facility] Emergency Department [address] [place] [address] Phone #: ext- [phone] 03/12/2021 22:02 Patient: [...] rce(s) Supporting Document(s) ID Date Data Source [id number] 03/12/2021 10:12:00 PM EDT [facility] 1 Medication Reconciliation Report [facility] Emergency Department [address] [place], [place] [id number] Phone #: ext- [phone] 03/12/2021 22:02 Patient: [...] Name Value Range Interpretation Code Description Data [facility](s) Supporting Document(s) ID Date Data Source [id number] 03/12/2021 10:12:00 PM EDT [place] [address] Medication Administration Record [facility] Emergency Department [address] [place] [address] Phone #: ext- [phone] 03/12/2021 22:02 Patient: MILIND SWANSON Sex: F : 1995 Age: 25yWeight: 114.7 kgHeight/Length: 63 inBMI: 44.8ALLERGIES: No Known Drug AllergyDate/Time Medication Administered Medication Ordered Name Value Range Interpretation Code Description Data Donna rce(s) Supporting Document(s) ID Date Data Source [id number] 03/12/2021 10:12:00 PM EDT [facility] 1 General Instructions [facility] Emergency Department [address] [place] [address] Phone #: ext- [phone] 03/12/2021 22:02 Patient: [...] CLINIC Respective Team Julieth LACEY, , , [address] [facility] [address], , [place], [address] Follow up in two days if not [...] [facility] [address] [place] [address] Phone #: ext- [phone] 03/12/2021 22:02 Patient: [...] for heart disease or after a stroke) Vfjz-erl-iydtwol medicines for diarrhea, nausea, and vomiting are generally OK unless you have bleeding, fever, or severe abdominal pain.General care If symptoms are severe, rest at home for the next 24 hours, or until you are feeling better. 3 General Instructions [facility] Emergency Department [address] [place] [address] Phone #: ext- [phone] 03/12/2021 22:02 --- Patient: MILIND SWANSON Sex: F : 1995 Age: 25y Washing your hands with soap and water, or using alcohol-based hand turfgrass management professor is the best way to stop the [...] [facility] [address] [place] [address] Phone #: ext- [phone] 03/12/2021 22:02 Patient: [...] Wash your hands or use alcohol- based turfgrass management professor after using cutting boards, countertops, and knives that have been in contact with raw food. Dry your hands with a single use towel. Keep uncooked meats away from cooked and chnex-du-kam foods.Follow-up careFollow up with your healthcare provider, [...] [facility] [address] [place] [address] Phone #: ext- [phone] 03/12/2021 22:02 Patient: MILIND SWANSON Sex: F [...] every 6 hours), or very dark urine [employer]. [address] [place] [address]. All rights reserved. This information is not [...] [facility] [address] [place] [address] Phone #: ext- [phone] 03/12/2021 22:02 Patient: [...] regular food. If your child is an and you are , continue to do [...] [facility] [address] [place] [address] Phone #: ext- [phone] 03/12/2021 22:02 Patient: MILIND SWANSON Sex: F : 1995 Age: 25yFollow up with your child's healthcare provider, or as advised. If a stool sample was taken or cultureswere done, call the healthcare provider for the results as instructed.Call [phone] if your child has any of these [...] [facility] [address] [place] [address] Phone #: ext- [phone] 03/12/2021 22:02 Patient: MILIND SWANSON Sex: F : 1995 Age: 25y Diarrhea lasts more than 1 week on antibiotics A child 2 years or older has a fever for more than 3 days A child of any age has repeated fevers above 104F (40C) [phone] [employer]. [address] [place] [address], [place] [address]. Todos los derechos reservados. Esta informacin nopretende sustituir la atencin mdica profesional. Slo mujica mdico puede diagnosticar y tratar un problema de delmy. You have been given the foll owing additional information: Vomiting and Diarrhea, Nonspecific (Adult) Diet for Vomiting/Diarrhea (Child)(Electronically signed by Jeffry Sandoval 03/13/2021 01:18) Name Value Range Interpretation Code Description Data Donna rce(s) Supporting Document(s) ID Date Data Source [id number] 03/12/2021 10:12:00 PM EDT [facility] 1 Clinical Report - Nurses [facility] Emergency Department [address] [place] [address] Phone #: ext- [phone] 03/12/2021 22:02 Patient: MILIND SWANSON Sex: F [...] 96%. Temp: 98.0 F. Pain level now 11/20.--22:18 03/12/21 Gay Conner R.N.Weight: 114.7 kg. Height/Length: [...] Disorder.Fibromyalgia.Epilepsy. --22:16 03/12/21 Gay Conner R.N.ADDITIONAL SURGERIES:Shoulder Surgery.Reseda teeth. --22:16 03/12/21 Gay Conner R.N.History 2 Clinical Report - Nurses [facility] Emergency Department [address] [place] [address] Phone #: ext- [phone] 03/12/2021 22:02 Patient: [...] [facility] [address] [place] [address] Phone #: ext- [phone] 03/12/2021 22:02 Patient: MILIND SWANSON Sex: F : 1995 Age: 25y Condition at departure: stable. No learning barriers present. Discharge instructions provided and reviewed with the patient. Patient verbalized understa nding. Written instructions provided in [place]. The patient was discharged by the physician. [...] rce(s) Supporting Document(s) ID Date Data Source [id number] 03/12/2021 10:12:00 PM EDT [facility] 1 Clinical Report - Physicians/Mid Levels [facility] Emergency Department [address] [place] [address] Phone #: ext- [phone] 03/12/2021 22:02 Patient: [...] Disorder. Fibromyalgia. Epilepsy. Additional Surgeries: Shoulder Surgery. Reseda teeth. Medications: hydrOXYzine HCl Oral 50 mg. Abilify Oral (Tablet 5 mg). Albuterol Sulfate Inhalation. 2 Clinical Report - Physicians/Mid Levels [facility] Emergency Department [address] [place] [address] Phone #: ext- [phone] 03/12/2021 22:02 Patient: [...] NEGATIVE (NORMAL: NEGAT { KIT LOT # [id number] ){ KIT EXP DATE 06.12.22 ){ PROCEDURAL CONTROL VALID ).PROGRESS AND PROCEDURESCourse of Care: 22:51 03/12/21. Benign abdominal exam. No tachycardia. Patient most likely has diarrheasecondary to higher dose of Zith romax during those three days 23:16 03/12/21. Patient unable to provide stool sample. 3 Clinical Report - Physicians/Mid Levels [facility] Emergency Department [address] [place] [address] Phone #: ext- [phone] 03/12/2021 22:02 Patient: [...] CLINIC Respective Team Julieth LACEY, , , [address], , [place], [address] Follow up in two days if not better. Call for an appointment. Reason for referral: evaluation.(Electronically signed by Jeffry Sandoval 03/13/2021 01:18) Name Value Range Interpretation Code Description Data Donna rce(s) Supporting Document(s) ID Date Data Source [id number] 03/12/2021 11:18:00 PM EDT [facility] Name Value Range Interpretation Code Description Data Donna rce(s) Supporting Document(s) [facility] COL[facility] yellow NORMAL: Yellow [facility] CLARITY hazy NORMAL: Clear [facility] Specific gravity of Urine by Test strip 1.025 1.001 - 1.030 [facility] pH 6 5 - 9 [facility] al Glucose [Mass/volume] in Urine by Test strip NORM NORMAL: Negat [facility] Bilirubin.total [Presence] in Urine by Test strip NEG NORMAL: Negative [facility] Ketones [Presence] in Urine by Test strip 5 NORMAL: Negative [facility] Protein [Mass/volume] in Urine by Test strip 15 NORMAL: Negat [facility] Nitrite [Presence] in Urine by Test strip NEG NORMAL: Negative [facility] BLOOD 25 NORMAL: Negative [facility] LEUK EST 25 NORMAL: Negative [facility] Urobilinogen [Mass/volume] in Urine by Test strip 4 less deacon n 1.0 mg/dL [facility] MICROSCOPIC See Below [facility] ital WBC 3 - 5 NORMAL: NONE SEEN [facility] Erythrocytes [#/volume] in Urine by Test strip 1 - 3 NORMAL: NON E SEEN [facility] EPITHELIAL MANY NORMAL: NONE SEEN A [facility] Bacteria [Presence] in Urine sediment by Light microscopy 1+ SMALL NORMAL: NONE SEEN [facility] Mucus [Presence] in Urine sediment by Light microscopy 2+ NOR MAL: NONE SEEN A [facility] ID Date Data Source [id number] 03/12/2021 11:12:00 PM EDT [facility] Name Value Range Interpretation Code Description Data Donna rce(s) Supporting Document(s) HCG URINE QUAL NEGATIVE NORMAL: NEGATIVE [facility] HCG URINE QL REENTER NEGATIVE NORMAL: NEGATIVE [id number] ){ KIT EXP DATE 06.12.22 ){ PROCEDURAL CONTROL VALID ) ID Date Data Source [id number] 03/04/2021 11:15:00 AM EDT [facility] Name Value Range Interpretation Code Description Data Donna rce(s) Supporting Document(s) SARS-CoV-2 RNA Resp Ql LILA+probe NOT DETECTED [facility] This lab was ordered by [facility] and reported by [facility]. ID Date Data Source [id number] 02/05/2021 12:00:00 AM EDT [facility] Name Value Range Interpretation Code Description Data Donna rce(s) Supporting Document(s) SARS-CoV2 Rapid Antigen Negative [facility] This lab was ordered by [facility] and reported by [facility]. ID Date Data Source [id number] 01/27/2021 02:41:00 PM EDT [facility]) Name Value Range Interpretation Code Description Data Donna rce(s) Supporting Document(s) Creatine kinase [Enzymatic activity/volume] in Serum or Plasma 174 U/L 26-192 [facility] ([facility]) Cobalamin (Vitamin B12) [Mass/volume] in Serum or Plasma 842 pg/mL 2 47-911 [facility] ([facility]) VITAMIN B12 NORMAL RANGE NORMAL 247 - 911 PG/ML INDETERMINATE 211 - 246 PG/ML DEFICIENT LESS THAN 211 PG/ML Folate [Mass/volume] in Serum or Plasma Laboratory test result [facility] ([facility]) FOLATE NORMAL RANGE NORMAL GREATER THAN 5.4 NG/ML INDETERMINATE 3.4-5.4 NG/ML DEFICIENT LESS THAN 3.4 NG/ML Calcidiol [Mass/volume] in Serum or Plasma 12.1 ng/mL 30.0-100.0 [facility] ([facility]) Erythrocyte sedimentation rate by 2H Westergren method 19 mm/hr 0-2 0 [facility]) Rheumatoid factor [Units/volume] in Serum or Plasma Laboratory test result [facility] ([facility]) ID Date Data Source [id number] 01/27/2021 02:41:00 PM EDT [facility] ([facility]) Name Value Range Interpretation Code Description Data Donna rce(s) Supporting Document(s) Hemoglobin A1c 5.3 % [facility] ([facility]) <content>REFERENCE RANGES:</content><br/ ><content></content>
<content><=5.6% NORMAL</content>
<content>5.7-6.4% SUGGESTS IMPAIRED GLUCOSE METABOLISM/PREDIABETIC</content>
<content>>= 6.5% ABNORMAL</content>
<content></content> Estimated Average Glucose 105 mg/dL 60-110 [facility] ([facility], ) ID Date Data Source LYME DISEASE SCRN WITH CONFIRM 11/13/2020 12:00:00 AM EDT eC W1 ([facility]) Name Value Range Interpretation Code Description Data Donna rce(s) Supporting Document(s) <0.80 0.00-0.79 Lyme Disease IgM Ab Quant itati eCW1 ([facility]) <0.91 0.00-0.90 Lyme Disease IgG/IgM Anti vick eCW1 ([facility]) ID Date Data Source [id number] 11/07/2020 11:04:00 PM EDT [facility] 1 OrderSheet [facility] Emergency Department [address] [place] [address] Phone #: ext- [phone] 11/07/2020 23:00 Patient: MILIND SWANSON Sex: F : 1995 Age: 25yWEIGHT:102.9 kg HEIGHT:63 inches BMI:40.2ALLERGIES: No Known Drug AllergyCHIEF COMPLAINT: headacheDIAGNOSIS: Tension-type headache, FibromyositisLAB ORDERSOrder Description Priority Entered Acknowledged InitialedCMP STAT 23:11/07/2020 23:43 Aung Hadley Victoria Katelyn ;CBC w Diff STAT 23:24 11/07/2020 23:43 Aung Hadley Victoria Katelyn ;PT/INR STAT 23:24 11/07/2020 23:43 Aung Hadley Victoria Katelyn ;HCG Serum Quant STAT 23:24 11/07/2020 23:43 Aung Hadley Victoria Katelyn ;Urinalysis (Clean STAT 00:29 11/08/2020 00:29 LeonieCatch) Obdulia Horan ;DIAGNOSTIC STUDY ORDERSOrder Description Priority [...] [facility] [address] [place] [address] Phone #: oox- [phone] 11/07/2020 23:00 Patient: MIILND SWANSON Sex: F : 1995 Age: 25yOfirmev IV 1000 mg 23:25 11/07/2020 Ack'd: 23:44 23:49 Leonie(NOW x1, Infuse Obdulia Horan Katelyn Katelynover 15 minutes) ;GENERAL ORDERSOrder Description Priority Entered Acknowledged Initialed[Electronically signed by Flores Hadley (01:12 11/08/2020)][Electronically signed by Obdulia Horan (01:35 11/08/2020)][Electronically locked by Flores Hadley (01:12 11/08/2020)] Name Value Range Interpretation Code Description Data Donna rce(s) Supporting Document(s) ID Date Data Source [id number] 11/07/2020 11:04:00 PM EDT [facility] 1 Medication Reconciliation Report [facility] Emergency Department [address] [place] [address] Phone #: ext- [phone] 11/07/2020 23:00 Patient: MILIND SWANSON Sex: F [...] Dispense 30 capsule. Refills: 0.Substitution permitted.Pharmacy - [id number] - [id number] [facility] ; [place] [address]. FaxNumber: . -- Obdulia Horan Name Value Range Interpretation Code Description Data Donna rce(s) Supporting Document(s) ID Date Data Source [id number] 11/07/2020 11:04:00 PM EDT [facility] 1 Medication Administration Record [facility] Emergency Department [address] [place] [address] Phone #: spb- [phone] 11/07/2020 23:00 Patient: MILIND SWANSON Sex: F : 1995 Age: 25yWeight: 102.9 kgHeight/Length: 63 inBMI: 40.2ALLERGIES: No Known Drug Allergy Date/Time Medication Administered Medication OrderedStart IV NS NS IV 1000 mL Bolus: : Bolus 198236:[id number] 11/07/2020 Dose: IV Fluids mL (X1)Flores Hadley, Bolus: 1000 mL over 1 hour(s)---- Dispensed: 1000 mL bagStop Site: #1 right AC00:36 1BFlores tucker,Start Ofirmev * Ofirmev IV 1000 mg (NOW x1,23:49 11/07/2020 Dose: 1 gm * IVPB Infuse over 15 minutes)Flores Hadley,----Stop00:14 Floers Byrne, Name Value Range Interpretation Code Description Data Donna rce(s) Supporting Document(s) ID Date Data Source [id number] 11/07/2020 11:04:00 PM EDT [facility] 1 General Instructions [facility] Emergency Department [address] [place] [address] Phone #: ext- [phone] 11/07/2020 23:00 Patient: [...] Dispense 30 capsule. Refills: 0.Substitution permitted.Pharmacy - [id number] - [phone] [facility] ; [place] [address]. FaxNumber: .Follow-up:Follow up with your healthcare provider in four days. Reason for referral: evaluation. Summary of careprovided to patient via paper. Screening today revealed the patient's blood pressure to be in thehypertensive stage 2 range. The patient should follow up with a primary care provider for blood pressuremanagement. ADDITIONAL INFORMATIONTension Headache 2 General Instructions [facility] Emergency Department [address] [place] [address] Phone #: ext- [phone] 11/07/2020 23:00 Patient: MILIND SWANSON Sex: F [...] [facility] [address] [place] [address] Phone #: ext- [phone] 11/07/2020 23:00 [id number] Sex: F : 1995 Age: 25yFollow-up careFollow [...] You have trouble speaking Your vision changes [id number] [employer]. [address] [place] [address], [place] [address]. All rights reserved. This information is not [...] [facility] [address] [place] [address] Phone #: ext- [phone] 11/07/2020 23:00 Patient: [...] may involve your primary care provider, a hammer operator, a physicaltherapist, and a mental health professional.For more information, visit the National [place] of Arthritis and Musculoskeletal and Skin Diseases(NIAMS) website at www.niams.nih.gov or call 795-301-6806.When to seek medical adviceContact your healthcare provider right away if any of these occur: Symptoms get worse or new symptoms develop You feel hopeless, helpless, or lose interest in day-to-day life 5 General Instructions [facility] Emergency Department [address] [place] [address] Phone #: ext- [phone] 11/07/2020 23:00 Patient: MILIND SWANSON Sex: F : 1995 Age: 25y [id number] [employer]. [address] [place] [address], [place] [address]. All rights reserved. This information is not intended as asubstitute for professional medical care. Always follow your healthcare professional's instructions. You have been given the following additional information: Headache, Tension Fibromyalgia(Electronically signed by Obdulia Horan 11/08/2020 01:35) Name Value Range Interpretation Code Description Data Donna e(s) Supporting Document(s) ID Date Data Source [id number] 11/07/2020 11:04:00 PM EDT [facility] 1 Clinical Report - Nurses [facility] Emergency Department [address] [place] [address] Phone #: ext- [phone] 11/07/2020 23:00 Patient: MILIND SWANSON Sex: F [...] 2 more weeks. She was seen at [facility] for same complaints last week on Tuesday, and again on Tuesday.). 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 busPIRone HCl Oral (Tablet 10 mg) 1 tablet, 2x a day. --23:04 11/07/20 Flores Hadley 2 Clinical Report - Nurses [facility] Emergency Department [address] [place] [address] Phone #: ext- [phone] 11/07/2020 23:00 Patient: MILIND SWANSON Sex: F : 1995 Age: 25yThe following entry was struck by Flores Hadley, 00:22 (11/08/20) Reason - other.Albuterol Sulfate Inhalation. --23:05 11/07/20 Flores Hadley .AllergiesNo Known Drug Allergy. --23:06 11/07/20 Flores Hadley.PROBLEMS:Thymoma.Fibromyalgia.Bipolar Disorder.Epilepsy. --23:15 11/07/20 Flores Hadley.ADDITIONAL SURGERIES:Shoulder Surgery.Reseda teeth. --23:15 11/07/20 Flores Hadley.HistoryPAST MEDICAL HX: [...] [facility] [address] [place] [address] Phone #: ext- [phone] 11/07/2020 23:00 Patient: MILIND SWANSON Sex: F [...] understanding. --23:44 11/07/20 Flores Hadley 23:49 11/07/2020 [facility] * IVPB 1 gm --23:49 11/07/20 Flores [...] hazard. --00:05 11/08/20 Flores Hadley 00:14 11/08/2020 [facility] IVPB Discontinued: completed. Total amount infused: 100 mL. IV patency 4 Clinical Report - Nurses [facility] Emergency Department [address] [place] [address] Phone #: ext- [phone] 11/07/2020 23:00 Patient: MILIND SWANSON Sex: F [...] Patient verbalized understanding. Written instructions provided in [place]. The patient was discharged by the physician. She was discharged home and unaccompanied at time of discharge. She left ambulatory and via private vehicle. Patient driving. --01:12 11/08/20 Flores Hadley.Locked/Released at 11/08/2020 01:12 by Flores Hadley Name Value Range Interpretation Code Description Data Donna rce(s) Supporting Document(s) ID Date Data Source [id number] 11/07/2020 11:04:00 PM EDT [facility] 1 Clinical Report - Physicians/Mid Levels [facility] Emergency Department [address] [place] [address] Phone #: ext- [phone] 11/07/2020 23:00 [id number] Sex: F : 1995 Age: 25y Time [...] Bipolar Disorder. Epilepsy. Additional Surgeries: Shoulder Surgery. Reseda teeth. Medications: Effexor XR Oral 37.5 mg, daily. Effexor XR Oral 37.5 mg, daily. 2 Clinical Report - Physicians/Mid Levels [facility] Emergency Department [address] [place] [address] Phone #: ext- [phone] 11/07/2020 23:00 Patient: MILIND SWANSON Sex: F [...] [facility] [address] [place] [address] Phone #: ext- [phone] 11/07/2020 23:00 Patient: MILIND SWANSON Sex: F [...] Head W/O Cont: (JIMBO: 11/08/2020 00:05) ( [facility] 11/08/2020 00:07) CanceledReason(s): Head InjuryReason(s): Head InjuryTRANSPORTATION: S IV? O2? Oxygen?(No) Room: [facility]: (JIMBO: 11/07/2020 23:40) ( [facility] 11/08/2020 00:18) Final results Test Result [...] Male GFR Interprentation 20-49 yrs >60 mL/min Jlcqin05-34 yrs >56 mL/min Normal 60-69 yrs >49 mL/min Normal 70-79yrs>42 mL/min Normal 80 and above >35 mL/min Normal Female GFRInterpretation 20-39 yrs >60 mL/min Normal 40-49 yrs >58 mL/minNormal 50-59 yrs >51 mL/min Normal 60-69 yrs >45 mL/min Zwpseb38-95 yrs >39 mL/min Normal 80 and above >32 mL/min NormalCBC w Diff: (JIMBO: 11/07/2020 23:40) ( MsgRcvd 11/07/2020 23:50) Final results Test Result Flag Units (Reference) CBC W/AUTOMATED DIFF COMPLETE BLOOD COUNT 4 Clinical Report - Physicians/Mid Levels [facility] Emergency Department [address] [place] [address] Phone #: ext- [phone] 11/07/2020 23:00 Patient: MILIND SWANSON Sex: F [...] Thrombosis, Pulmonary Embolus, Tissue heart valves, Acute PR, Atrial Fibrillation, Valvular heart disease and recurrent [...] Weeks post LMP 5.4-708 mU/mL 3-4 Weeks 217-92233 mU/mL 5-6 Weeks 4059-965698 mU/mL 7-8 Weeks 40080-995017 mU/mL 9-10 Weeks 01479-51634 mU/mL 12- 14 Weeks 79438-15505 mU/mL 15-16 Weeks 8240-83538 mU/mL 17-18 Weeks.PROGRESS AND PROCEDURESCourse of Care: 23:37 11/07/20. Patient had a CT scan of the head on Jun 2020 and in october 31nd was read as normal 00:28 11/08/20. she was given ofirmev for headache. she has a mildly elevated wbc but chemistries are 5 Clinical Report - Physicians/Mid Levels [facility] Emergency Departm ent [address] [place] [address] Phone #: ext- [phone] 11/07/2020 23:00 Patient: MILIND SWANSON Sex: F [...] capsule. Refills: 0. Substitution permitted. Pharmacy - [phone] - [phone] [facility] ; [place] [address]. . Follow-up: Follow up with your healthcare [...] [facility] [address] [place] [address] Phone #: hbe- [phone] 11/07/2020 23:00 Patient: MILIND SWANSON Sex: F : 1995 Age: 25y(Electronically signed by Obdulia Horan 11/08/2020 01:35) Name Value Range Interpretation Code Description Data Donna rce(s) Supporting Document(s) ID Date Data Source [id number] 11/08/2020 12:39:00 AM EDT [facility] Name Value Range Interpretation Code Description Data Donna rce(s) Supporting Document(s) URINALYSIS [facility] audi URINALYSIS SOURCE Clean Catch [facility] ital COLOR yellow NORMAL: Yellow [facility] ospital CLARITY clear NORMAL: Clear [facility] spital Specific gravity of Urine by Test strip 1.015 1.001 - 1.030 [facility] pH 6 5 - 9 [facility] al Glucose [Mass/volume] in Urine by Test strip NORM [facility] Bil[facility].total [Presence] in Urine by Test strip NEG NORMAL: Negative [facility] Ketones [Presence] in Urine by Test strip NEG NORMAL: Negative [facility] Protein [Mass/volume] in Urine by Test strip NEG NORMAL: [facility] Nitrite [Presence] in Urine by Test strip [...] [facility] MICROSCOPIC Not Indicate [facility] ospital ID Date Data Source [id number] 11/08/2020 12:18:00 AM EDT [facility] Name Value Range Interpretation Code Description Data Donna rce(s) Supporting Document(s) COMPREHENSIVE METABOLIC PANEL [facility] [...] [facility] BUN 7 MG/DL 7 - 21 [facility] Creat[facility] [Mass/volume] in Serum or Plasma 0.7 MG/DL 0.7 - 1.5 [facility] BUN/CREAT 10 8 - 27 [facility] al Protein [Mass/volume] in Serum or Plasma 7.1 G/DL 6.3 - 8.2 [facility] Albumin [Mass/volume] in Serum or Plasma 3.9 G/DL 3.9 - 5.0 [facility] Globulin [Mass/volume] in Serum by calculation 3.2 GM/DL 2.4 - 3.2 [facility] A/G RATIO 1.2 0.8 - 2.0 [facility] Calcium [Mass/volume] in Serum or Plasma [...] [facility] AGE 25 yrs [facility] al NON-AA GFR >60 mL/min [facility] ital AFR AMER GFR >60 mL/min [facility] Ho spital Male GFR In terprentation 20-49 [...] >32 mL/min Normal ID Date Data Source [id number] 11/08/2020 12:07:00 AM EDT [facility] [...] Weeks post LMP 5.4-708 mU/mL 3-4 Weeks 217-16672 mU/mL 5-6 Weeks 4059-955097 mU/mL 7-8 Weeks 41881-072968 mU/mL 9-10 Weeks 86986-15591 mU/mL 12-14 Weeks 85128-84328 mU/mL 15-16 Weeks 8240- 54530 mU/mL 17-18 Weeks ID Date Data Source [id number] 11/07/2020 11:56:00 PM EDT [facility] Name Value Range Interpretation Code Description Data Donna rce(s) Supporting Document(s) Prothrombin time (PT) 13.1 SECONDS 11.0 - 15.5 [facility] INR in Platelet poor plasma by Coagulation assay 0.94 0.93 - 1. 23 [facility] \\BLDo\\INR INTERPRETATION\\BLDx\\ Therapeutic range for Coumadin and related oral anticoagulants. - International Normalized Ratio (INR): 2.0 - 3.0 for Venous Thrombosis, Pulmonary Embolus, Tissue heart valves, Acute PR, Atrial Fibrillation, Valvular heart disease and recurrent Systemic Embolism. -International Normalized Ratio (INR): 2.5 - 3.5 for Mechanical Prosthetic valve. ID Date Data Source [id number] 11/07/2020 11:50:00 PM EDT [facility] [...] %IG 0.2 % 0.0 - 0.0 H [facility] al %NRBC 0.0 % 0.0 - 0.0 [facility] al Neutrophils [#/volume] in Blood by [...] Automated count 0.44 10^3/uL 0.00 - 0.70 [facility] Basophils [#/volume] in Blood by Automated count 0.07 10^3/uL 0.00 - 0.20 [facility] #IG 0.03 10^3/uL 0.00 - 0.10 [facility] #NRBC 0.00 10^3/uL 0.00 - 0.00 [facility] MANUAL DIFF NOT INDICATED [facility] RBC MORPH NOT INDICATED [facility] spital ID Date Data Source [id number] 10/31/2020 11:08:00 PM EDT [facility] Name Value Range Interpretation Code Description Data Donna rce(s) Supporting Document(s) SARS-CoV-2 (COVID 19) NEGATIVE - SARS-CoV-2 (COVID19) [facility] This lab was ordered by [facility] a nd reported by [facility]. ID Date Data Source [id number] 10/28/2020 11:04:00 AM EDT [facility] Name Value Range Interpretation Code Description Data Donna rce(s) Supporting Document(s) SARS-CoV-2 (COVID 19) NEGATIVE - SARS-CoV-2 (COVID19) [facility] This lab was ordered by [facility] a nd reported by [facility]. ID Date Data Source [id number] 10/27/2020 12:00:00 AM EDT [facility] Name Value Range Interpretation Code Description Data Donna rce(s) Supporting Document(s) SARS-CoV2 Rapid Antigen Negative [facility] This lab was ordered by [facility] and reported by [facility]. ID Date Data Source [id number] 09/22/2020 12:07:00 PM EDT [facility] Name Value Range Interpretation Code Description Data Donna rce(s) Supporting Document(s) SARS coronavirus 2 RNA [Presence] in Res piratory specimen by LILA with probe detection NEGATIVE [facility] This lab was ordered by [facility] a nd reported by [facility]. ID Date Data Source [id number] 09/09/2020 03:16:00 PM EDT [facility] Name Value Range Interpretation Code Description Data Donna rce(s) Supporting Document(s) COVID-19 RT-PCR LEGISLATIVE AIDE SWAB Not Detected [facility] A not detected (negative) test [...] developed and its performance characteristics determined by [employer] and verified at [employer]. It has not been cleared or approved by the U.S. Food and Drug Administration for diagnostic use. This test has been authorized by FDA under an EUA for use by authorized laboratories. Results should be used in conjunction with clinical findings, and should not form the sole basis for a diagnosis or treatment decision. Methods: SARS-CoV-2 Multiplex RT-PCR Assay ID Date Data Source [id number] 09/07/2020 10:30:00 AM EDT [facility] Name Value Range Interpretation Code Description Data Donna rce(s) Supporting Document(s) SARS-CoV-2 (COVID-19) N gene [Presence] in Respiratory specimen by LILA with probe detection NEGATIVE [facility] This lab was ordered by [facility] and reported by [employer]. ID Date Data Source [id number] 09/07/2020 12:00:00 AM EDT [facility] Name Value Range Interpretation Code Description Data Donna rce(s) Supporting Document(s) Carestart Rapid COVID Antigen Test Negative [facility] ID Date Data Source [id number] 06/24/2020 12:00:00 AM EST [facility] Name Value Range Interpretation Code Description Data Donna rce(s) Supporting Document(s) SARS coronavirus 2 RNA [Presence] in Res piratory specimen by LILA with probe detection NEGATIVE [facility] This lab was ordered by Haritha Salomon and reported by [employer]. ID Date Data Source [id number] 06/24/2020 12:00:00 AM EST [facility] Name Value Range Interpretation Code Description Data Donna rce(s) Supporting Document(s) [facility] Rapid COVID Antigen Test Negative [facility] This lab was reported by Haritha henley. ID Date Data Source [id number] 04/24/2020 12:00:00 AM EST [facility] Name Value Range Interpretation Code Description Data Donna rce(s) Supporting Document(s) SARS coronavirus 2 RNA [Presence] in Res piratory specimen by LILA with probe detection [facility] This lab was ordered by Haritha Salomon and reported by [facility]. Procedure Social History Code Duration Value Status Description Data Source(s ) Smoking 01/01/2021 12:00:00 AM EDT Unknown if ever smoked comp leted Unknown if ever smoked [facility] ([facility]) Smoking 12/12/2020 12:00:00 AM EDT Current Smoker completed Curre nt Smoker eCW1 ([facility]) Smoking 12/12/2020 12:00:00 AM EDT Current Smoker completed Curre nt Smoker eCW1 ([facility]) Smoking 11/17/2020 12:00:00 AM EDT Current Smoker completed Curre nt Smoker eCW1 ([facility]) Smoking 11/17/2020 12:00:00 AM EDT Current Smoker completed Curre nt Smoker eCW1 ([facility]) Smoking 11/17/2020 12:00:00 AM EDT Current Smoker completed Curre nt Smoker eCW1 ([facility] [facility] Smoking 11/17/2020 12:00:00 AM EDT Current Smoker completed Curre nt Smoker eCW1 ([facility]) Smoking 11/17/2020 12:00:00 AM EDT Current Smoker completed Curre nt Smoker eCW1 ([facility]) Smoking 11/17/2020 12:00:00 AM EDT Current Smoker completed Curre nt Smoker eCW1 ([facility]) Smoking 11/13/2020 12:00:00 AM EDT Current Smoker completed Curre nt Smoker eCW1 ([facility]) Smoking 11/03/2020 12:00:00 AM EDT Current Smoker completed Curre nt Smoker eCW1 ([facility]) Smoking 11/03/2020 12:00:00 AM EDT Current Smoker completed Curre nt Smoker eCW1 ([facility]) Smoking 11/03/2020 12:00:00 AM EDT Current Smoker completed Curre nt Smoker eCW1 ([facility]) Smoking 11/03/2020 12:00:00 AM EDT Current Smoker completed Curre nt Smoker eCW1 ([facility]) Smoking 10/20/2020 12:00:00 AM EDT Current Smoker completed Curre nt Smoker eCW1 ([facility]) Smoking 09/05/2020 12:00:00 AM EDT Unknown if ever smoked comp leted Unknown if ever smoked [facility] ([facility]) Smoking 08/22/2020 12:00:00 AM EST Unknown if ever smoked comp leted Unknown if ever smoked [facility] ([facility]) Smoking 08/20/2020 12:00:00 AM EST Unknown if ever smoked comp leted Unknown if ever smoked [facility] ([facility]) Smoking 07/30/2020 12:00:00 AM EST Unknown if ever smoked comp leted Unknown if ever smoked [facility] ([facility]) Smoking 07/25/2020 12:00:00 AM EST Unknown if ever smoked comp leted Unknown if ever smoked [facility] ([facility]) Smoking 07/16/2020 12:00:00 AM EST Unknown if ever smoked comp leted Unknown if ever smoked [facility] ([facility]) Smoking 06/25/2020 12:00:00 AM EST Unknown if ever smoked comp leted Unknown if ever smoked [facility] ([facility]) Smoking 05/29/2020 12:00:00 AM EST Unknown if ever smoked comp leted Unknown if ever smoked [facility] ([facility]) Smoking 05/28/2020 12:00:00 AM EST Unknown if ever smoked comp leted Unknown if ever smoked [facility] ([facility]) Smoking 05/14/2020 12:00:00 AM EST Unknown if ever smoked comp leted Unknown if ever smoked [facility] ([facility]) Smoking 05/06/2020 12:00:00 AM EST Unknown if ever smoked comp leted Unknown if ever smoked [facility] ([facility]) Smoking 04/16/2020 12:00:00 AM EST Unknown if ever smoked comp leted Unknown if ever smoked [facility] ([facility]) Smoking 03/17/2020 12:00:00 AM EDT Unknown if ever smoked comp leted Unknown if ever smoked [facility] ([facility]) Smoking 02/27/2020 12:00:00 AM EDT Unknown if ever smoked comp leted Unknown if ever smoked [facility] ([facility]) Vital Signs ID Date Data Source UNK Name Value Range Interpretation Code Description Data Source(s) Body weight 236.00 [lb_av] 236.00 [lb_av] MEDEN T ([facility]) Body temperature 98.0 [degF] 98.0 [degF] [facility] Heart rate 87 /min 87 /min [facility] ([facility]) Respiratory rate 16 /min 16 /min [facility] ( [facility]) Diastolic blood pressure 75 mm[Hg] 75 mm[Hg] [facility] ([facility]) Systolic blood pressure 108 mm[Hg] 108 mm[Hg] M [facility] ([facility]) Body mass index (BMI) [Ratio] 41.8 kg/m2 41.8 k g/m2 [facility] Body height 63 [in_i] 63 [in_i] [facility] 5'3" Oxygen saturation in Arterial blood by Pulse oximetry 98 % 98 % [facility]) Body weight 244 [lb_av] 244 [lb_av] eCW1 ([facility]) Body height [in_i] eCW1 ([facility]) Body mass index (BMI) [Ratio] 42.54 kg/m2 42.54 kg/m2 eCW1 ([facility]) Heart rate 89 /min 89 /min eCW1 ([facility]) Respiratory rate 18 /min 18 /min eCW1 ([facility]) Body temperature 96.2 [degF] 96.2 [degF] eCW1 ( [facility]) Systolic blood pressure 122 mm[Hg] 122 mm[Hg] e CW1 ([facility]) Diastolic blood pressure 82 mm[Hg] 82 mm[Hg] eCW1 ([facility]) Body temperature 96.8 [degF] 96.8 [degF] eCW1 ( [facility]) Body weight 236 [lb_av] 236 [lb_av] eCW1 ([facility]) Body height [in_i] eCW1 ([facility]) Body mass index (BMI) [Ratio] 41.15 kg/m2 41.15 kg/m2 eCW1 ([facility]) Heart rate 119 /min 119 /min eCW1 ([facility]) Respiratory rate 18 /min 18 /min eCW1 ([facility]) Systolic blood pressure 122 mm[Hg] 122 mm[Hg] e CW1 ([facility]) Diastolic blood pressure 82 mm[Hg] 82 mm[Hg] eCW1 ([facility]) Body weight 238 [lb_av] 238 [lb_av] eCW1 ([facility]) Body height [in_i] eCW1 ([facility]) Body mass index (BMI) [Ratio] 41.49 kg/m2 41.49 kg/m2 eCW1 ([facility]) Heart rate 119 /min 119 /min eCW1 ([facility]) Respiratory rate 18 /min 18 /min eCW1 ([facility]) Body temperature 97.7 [degF] 97.7 [degF] eCW1 ( [facility]) Systolic blood pressure 122 mm[Hg] 122 mm[Hg] e CW1 ([facility]) Diastolic blood pressure 82 mm[Hg] 82 mm[Hg] eCW1 ([facility]) Body weight 240 [lb_av] 240 [lb_av] eCW1 ([facility]) Body height [in_i] eCW1 ([facility]) Body mass index (BMI) [Ratio] 41.84 kg/m2 41.84 kg/m2 eCW1 ([facility]) Heart rate 104 /min 104 /min eCW1 ([facility]) Respiratory rate 18 /min 18 /min eCW1 ([facility]) Body temperature 96.9 [degF] 96.9 [degF] eCW1 ( [facility]) Systolic blood pressure 122 mm[Hg] 122 mm[Hg] e CW1 ([facility]) Diastolic blood pressure 80 mm[Hg] 80 mm[Hg] eCW1 ([facility]) Body height 0.00 in Normal (applies to non-numeric resu lts) 0.00 in [facility] ([facility]) Body weight Measured 0.00 lbs Normal (applies to n on-numeric results) 0.00 lbs [facility] ([facility]) Body mass index (BMI) [Ratio] 0.00 kg/m2 No rmal (applies to non-numeric results) 0.00 kg/m2 [facility] ([facility]) Systolic blood pressure 0 mm[Hg] Normal (applies t o non-numeric results) 0 mm[Hg] [facility] ([facility]) Diastolic blood pressure 0 mm[Hg] Normal (applies to non-numeric results) 0 mm[Hg] [facility] ([facility]) Body height 0.00 in Normal (applies to non-numeric resu lts) 0.00 in [facility] ([facility]) Body weight Measured 0.00 lbs Normal (applies to n on-numeric results) 0.00 lbs [facility] ([facility]) Body mass index (BMI) [Ratio] 0.00 kg/m2 No rmal (applies to non-numeric results) 0.00 kg/m2 [facility] ([facility]) Systolic blood pressure 0 mm[Hg] Normal (applies t o non-numeric results) 0 mm[Hg] [facility] ([facility]) Diastolic blood pressure 0 mm[Hg] Normal (applies to non-numeric results) 0 mm[Hg] [facility] ([facility]) Body temperature 96.0 [degF] 96.0 [degF] [facility] ([facility] ) Body height 64 [in_i] 64 [in_i] [facility] ([facility] ) 5'4" Body weight 248.12 [lb_av] 248.12 [lb_av] MEDEN T ([facility] ) Body mass index (BMI) [Ratio] 42.6 kg/m2 42.6 k g/m2 [facility] ([facility] ) Body weight 248.12 [lb_av] 248.12 [lb_av] MEDEN T ([facility] ) Body temperature 96.0 [degF] 96.0 [degF] [facility] ([facility] ) Body height 64 [in_i] 64 [in_i] [facility] ([facility] ) 5'4" Body mass index (BMI) [Ratio] 42.6 kg/m2 42.6 k g/m2 [facility] ([facility] ) Diastolic blood pressure 0 mm[Hg] Normal (applies to non-numeric results) 0 mm[Hg] [facility] ([facility]) Body height 63.00 in Normal (applies to non-numeric resu lts) 63.00 in [facility] ([facility]) Body weight Measured 250.00 lbs Normal (applies to n on-numeric results) 250.00 lbs [facility] Body mass index (BMI) [Ratio] 44.28 kg/m2 No rmal (applies to non-numeric results) 44.28 kg/m2 [facility] ([facility]) Systolic blood pressure 0 mm[Hg] Normal (applies t o non-numeric results) 0 mm[Hg] [facility] ([facility]) Patient Treatment Plan of Care Planned Activity Planned Date Details Description Data Source (s) 120 ACTUAT Budesonide 0.08 MG/ACTUAT / f ormoterol fumarate 0.0045 MG/ACTUAT Metered Dose Inhaler 12/12/2020 12:00:00 AM EDT eCW1 ([facility]) 120 ACTUAT Budesonide 0.08 MG/ACTUAT / f ormoterol fumarate 0.0045 MG/ACTUAT Metered Dose Inhaler 12/12/2020 12:00:00 AM EDT eCW1 ([facility])
[2021-04-06 12:39] VITALS: BP 124/64
[2021-04-06 12:40] LABS: APPEARANCE, URINE MANUAL CLEAR (CLEAR); BILIRUBIN, URINE MANUAL NEGATIVE (NEGATIVE); BLOOD URINE MANUAL NEGATIVE (NEGATIVE); COLOR, URINE MANUAL LT YELLOW (YELLOW); GLUCOSE, URINE (UA) MANUAL NEGATIVE (NEGATIVE); KETONE, URINE MANUAL NEGATIVE (NEGATIVE); LEUKOCYTE ESTERASE, URINE MAN NEGATIVE (NEGATIVE); NITRITE, URINE MANUAL NEGATIVE (NEGATIVE); PH,URINE MAN 6.5 UNITS (5.0 - 7.0); PROTEIN, URINE MANUAL NEGATIVE (NEGATIVE); UROBILINOGEN, URINE MANUAL NORMAL (NORMAL)
--- NOTE | 2021-04-06 12:46 | REP ---
INDICATION: right adnexal mass? Dermoid cyst. COMPARISON: CT abdomen and pelvis today. TECHNIQUE: Transabdominal and transvaginal scanning performed. FINDINGS: Uterine dimensions are 6.6 x 3.4 x 3.6 cm. Endometrial echo is not well visualized, there is an IUD in the endometrial canal. The bladder measures 7.6 x 6.2 x 7.5cm. The ovaries could not be visualized due to extensive overlying bowel. A right adnexal mass measures approximately 3.8 x 4.6 x 2.8 cm, consistent with the dermoid on CT today. No free fluid is seen in the cul-de-sac. IMPRESSION: Right adnexal mass consistent with the dermoid on today's CT scan, Doppler evaluation limited by overlying bowel.. The ovaries could not be visualized due to extensive overlying bowel <Electronically signed by Jani Saldivar > 04/06/21 [id number]
--- NOTE | 2021-04-06 12:48 | ED PDOC ---
Post-Departure Follow-Up ct abd/p faxed to [facility] for fu Ki Valerio MD Apr 06, 2021 12:47
[2021-04-06] MEDS ORDERED: OMEP40CA4 PO (12:56)
--- NOTE | 2021-04-06 12:58 | ED PDOC ---
Post-Departure Follow-Up pelvic us also faxed to [facility] for fu Ki Valerio MD Apr 06, 2021 12:58
== END 2021-04-06 13:05 | disposition home or self-care (01) ==
LOC: M ED 08:54
DX: N83.291 Other ovarian cyst, right side (principal); R10.13 Epigastric pain; M79.7 Fibromyalgia; J45.909 Unspecified asthma, uncomplicated; G47.33 Obstructive sleep apnea (adult) (pediatric); F41.9 Anxiety disorder, unspecified; F33.9 Major depressive disorder, recurrent, unspecified; F17.290 Nicotine dependence, other tobacco product, uncomplicated; Z79.899 Other long term (current) drug therapy; Z86.69 Personal history of other diseases of the nervous system and sense organs
CPT/HCPCS: 74177; 76830; 76856; 80048; 80076; 81002; 83690; 84703; 85025; 96374; 99284; C9113; Q9967

== ENCOUNTER 2021-05-13 08:32 | Day surgery (SDC) | payer OTHER ==
[~2021-05-13] VITALS: Ht 160 cm; Wt 117.9 kg
[~2021-05-13 08:32] MED LIST changes: +ACETAMINOPHEN 500 MG TAB PO ONE; +BUPR15TA; +LR 1,000 ML IV ONE; +OMEP40CA4 PO; +VITA1CAP25
--- OUTSIDE RECORDS SUMMARY | 2021-05-13 08:53 | CCD ---
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 HOSPITALITY INTERN CELESTE Unavailable [phone] ZAYNAB, A. HOSPITALITY INTERN CELESTE Unavailable [phone] ZAYNAB, A. HOSPITALITY INTERN CELESTE Unavailable [phone] ZAYNAB, A. HOSPITALITY INTERN CELESTE Unavailable [phone] ZAYNAB, A. HOSPITALITY INTERN CELESTE Unavailable [phone] ZAYNAB, A. HOSPITALITY INTERN CELESTE Unavailable [phone] ZAYNAB, A. HOSPITALITY INTERN CELESTE Unavailable [phone] ZAYNAB, A. HOSPITALITY INTERN CELESTE Unavailable [phone] ZAYNAB, A. HOSPITALITY INTERN CELESTE Unavailable [phone] ZAYNAB, A. HOSPITALITY INTERN CELESTE Unavailable [phone] ZAYNAB, A. HOSPITALITY INTERN CELESTE Unavailable [phone] Aneta Montiel NP Unavailable Unavailable Aneta Montiel NP Unavailable Unavailable Aneta Montile RECORDS SPECIALIST Unavailable Unavailable Fish, [facility], PA-C Unavailable Unavailabl e Fish, [facility], PA-C Unavailable Unavailabl e Fish, [facility], PA-C Unavailable Unavailabl e Fish, [facility], PA-C Unavailable Unavailabl e Fish, [facility], PA-C Unavailable Unavailabl e Fish, [facility], PA-C Unavailable Unavailabl e Fish, [facility], PA-C Unavailable Unavailabl e Fish, [facility], PA-C Unavailable Unavailabl e Fish, [facility], PA-C Unavailable Unavailabl e Fish, [facility], PA-C Unavailable Unavailabl e Fish, [facility], PA-C Unavailable Unavailabl e Fish, [facility], PA-C Unavailable Unavailabl e Fish, [facility], PA-C Unavailable Unavailabl e Fish, [facility], PA-C Unavailable Unavailabl e Fish, [facility], PA-C Unavailable Unavailabl e Fish, [facility], PA-C Unavailable Unavailabl e Fish, [facility], PA-C Unavailable Unavailabl e Fish, [facility], PA-C Unavailable Unavailabl e Fish, [facility], PA-C Unavailable Unavailabl e Fish, [facility], PA-C Unavailable Unavailabl e Fish, [facility], PA-C Unavailable Unavailabl e Fish, [facility], PA-C Unavailable Unavailabl e Fish, [facility], PA-C Unavailable Unavailabl e Fish, [facility], PA-C Unavailable Unavailabl e Fish, [facility], PA-C Unavailable Unavailabl e Fish, [facility], PA-C Unavailable Unavailabl e Fish, [facility], PA-C Unavailable Unavailabl e Fish, [facility], PA-C Unavailable Unavailabl e Fish, [facility], PA-C Unavailable Unavailabl e Fish, [facility], PA-C Unavailable Unavailabl e Fish, [facility], PA-C Unavailable Unavailabl e Fish, [facility], PA-C Unavailable Unavailabl e Fish, [facility], PA-C Unavailable Unavailabl e Fish, [facility], PA-C Unavailable Unavailabl e Fish, [facility], PA-C Unavailable Unavailabl e Fish, [facility], PA-C Unavailable Unavailabl e Jeffry Sandoval MD Unavailable Unavailable Jeffry Sandoval MD Unavailable Unavailable Jeffry Sandoval MD Unavailable Unavailable Jeffry Sandoval MD Unavailable Unavailable Jeffry Sandoval MD Unavailable Unavailable Jeffry Sandoval MD Unavailable Unavailable LAROCK, Dionicio KENNY RECORDS SPECIALIST Unavailable Unavailable LAROCK, Dionicio KENNY RECORDS SPECIALIST Unavailable Unavailable LAROCK, Dionicio KENNY RECORDS SPECIALIST Unavailable Unavailable LAROCK, Dionicio KENNY RECORDS SPECIALIST Unavailable Unavailable LAROCK, Dionicio KENNY RECORDS SPECIALIST Unavailable Unavailable LAROCK, Dionicio KENNY RECORDS SPECIALIST Unavailable Unavailable LAROCK, Dionicio KENNY RECORDS SPECIALIST Unavailable Unavailable LAROCK, Dionicio KENNY RECORDS SPECIALIST Unavailable Unavailable LAROCK, Dionicio KENNY RECORDS SPECIALIST Unavailable Unavailable LAROCK, Dionicio KENNY RECORDS SPECIALIST Unavailable Unavailable LAROCK, Dionicio KENNY RECORDS SPECIALIST Unavailable Unavailable LAROCK, Dionicio KENNY RECORDS SPECIALIST Unavailable Unavailable LAROCK, Dionicio KENNY RECORDS SPECIALIST Unavailable Unavailable LAROCK, Dionicio KENNY NP Unavailable Unavailable LAROCK, Dionicio KENNY RECORDS SPECIALIST Unavailable Unavailable LAROCK, J ZOYA RECORDS SPECIALIST Unavailable Unavailable LAROCK, J ZOYA RECORDS SPECIALIST Unavailable Unavailable Dionicio PEARCE RECORDS SPECIALIST Unavailable Unavailable LARDionicio PICKERING RECORDS SPECIALIST Unavailable Unavailable LARDionicio PICKERING RECORDS SPECIALIST Unavailable Unavailable LARDionicio PICKERING RECORDS SPECIALIST Unavailable Unavailable LARDionicio PICKERING RECORDS SPECIALIST Unavailable Unavailable FanXimena Unavailable Zack Wisdom Unavailable Artis Zack Unavailable Maring, Christine PA Unavailable Unavailable Maring, [...] Unavailable Unavailable Blanca COWAN MD Unavailable Unavailable lBanca COWAN MD Unavailable Unavailable Blanca COWAN MD Unavailable Unavailable Blanca COWAN MD Unavailable Unavailable Blanca COWAN MD Unavailable Unavailable Blanca COWAN MD Unavailable Unavailable Blanca COWAN MD Unavailable Unavailable Blanca COWAN MD Unavailable Unavailable Blanca COWAN MD Unavailable Unavailable Blanca COWAN MD Unavailable Unavailable Blacna COWAN MD Unavailable Unavailable LETTIERE, A SEBASTIÁN [...] Unavailable Unavailable Blanca Frazier MD Unavailable Unavailable FrazierBlanca nelson MD Unavailable Unavailable Blanca Frazier MD Unavailable Unavailable Blanca Frazier MD Unavailable Unavailable Karin, Blanca Ayoub MD Unavailable Unavailable Blanca Frazier MD Unavailable Unavailable Blanca Frazier MD Unavailable Unavailable Blanca Frazier MD Unavailable Unavailable Karin C Anitra PATTON Unavailable Unavailable Blanca Frazier MD Unavailable Unavailable Blanca Frazier MD Unavailable Unavailable Blanca Frazier MD Unavailable Unavailable Blanca Frazier MD Unavailable Unavailable [facility], [facility] Unavailable Unavailable CHANLIECCO, C OBDULIA MD [...] is protected by Article 27-F of the [facility] Public Health law. If you continue you may have access to information: Regarding HIV / AIDS; Provided by facilities licensed or operated by the [facility] Office of Mental Health; or Provided by the [facility] Office for People With Developmental Disabilities. If such information is present, then the following [facility] mandated warning applies: This information has [...] law may result in a fine or assisted sentence or both. A general authorization for the release of medical or other information is NOT sufficient authorization for further disc losure. Allergies and Adverse Reactions Type Description Substance Reaction Status Data Source(s ) Propensity to adverse reactions to substance Latex, Natural Rubber Latex, Natural Rubber Active [facility] ([facility] Propensity to adverse reactions to substance raspberry raspberry Active [facility] ([facility]) Propensity to adverse reactions to substance nickel nickel Active [facility] ([facility]) Encounters Encounter Providers Location Date Indications Data Source(s ) Outpatient Attender: CELESTE WORTHY 03/13 12:09:13 PM EDT - 03/22/2021 01:23:56 PM EDT [facility] ([facility] ) Emergency Attender: Jeffry Sandoval MDConsultant: [facility] 03/12/2021 10:12:00 PM EDT - 03/12/2021 11:21:00 PM EDT [facility] Patient discharged. Outpatient 03/12/2021 03:12:33 PM EDT - 021 11:03:33 AM EDT [facility] ([facility]) Outpatient Attender: KENYON COWAN MD 02/07 12:52:46 PM EDT - 02/07/2021 02:22:14 PM EDT [facility] ([facility] ) Outpatient Attender: Maxwell Giraldo MD Main office - [place] 01/27/2021 01:30:00 PM EDT [facility] ([facility] kellie, ) Outpatient Attender: ZOYA PEARCE NP 12/12 01:12:23 PM EDT - 01/04/2021 01:53:21 PM EDT [facility] ([facility] ) Outpatient Attender: Trey Montiel NP [facility] 01/01/2021 08:00:00 AM EDT - 01/01/2021 08:00:00 AM EDT [facility] Attender: Trey Montiel NP 01/01/2021 12:00:00 AM EDT [facility] ([facility]) Outpatient Attender: SEBASTIÁN [place] 12/30/2020 09:30:00 AM EDT [facility] ([place] [facility]) Unknown [address] [facility] [address] [address] 12/30/2020 12:00:00 AM EDT eCW1 ([facility]) Outpatient Attender: ERIN LOWE RPA 12/28 04:37:33 PM EDT - 12/28/2020 04:54:30 PM EDT [facility] ([facility] ) Outpatient [address] [facility] [place] [address] 12/12/2020 12:00:00 AM EDT eCW1 ([facility]) Unknown [address] [facility] [place] [address] 12/06/2020 12:00:00 AM EDT [facility] Unknown [address] [facility] [place] [address] 12/04/2020 12:00:00 AM EDT [facility]CW1 [facility] Outpatient Attender: Maxwell Giraldo MD Main office - [place] 12/02/2020 08:30:00 AM EDT [facility] ([facility]) Unknown [address] [facility] [place] [address] 11/25/2020 12:00:00 AM EDT [facility]) Unknown [address] [facility] [facility] [place] [address] 11/18/2020 12:00:00 AM EDT [facility] Outpatient [address] [facility] [facility] [place] [address] 11/13/2020 12:00:00 AM EDT eCW1 ([facility]) [place] [address] [facility] [facility] [place] [address] 11/13/2020 12:00:00 AM EDT eCW1 ([facility]) [place] [address] [facility] [facility] [place] [address] 11/12/2020 12:00:00 AM EDT [facility]) Emergency Attender: OBDULIA HORAN MD 11/07/2020 11:04:00 PM EDT - 11/08/2020 01:13:00 AM EDT [facility] Patient discharged. [place] [address] [facility] [address] 11/03/2020 12:00:00 AM EDT [facility] ([facility] [place] [address] [facility] [facility] [place] [address] 11/03/2020 12:00:00 AM EDT eCW1 ([facility]) [place] [address] [facility] [facility] [place] [address] 10/31/2020 12:00:00 AM EDT [facility] [place] [address] [facility] [place] [address] 10/27/2020 12:00:00 AM EDT [facility] ([facility]) Outpatient [address] [facility] [place] [address] 10/20/2020 12:00:00 AM EDT eCW1 ([facility]) Outpatient Attender: Christine FRANKS 10/06/19 07:24:52 PM EDT - 10/05/2020 08:01:47 PM EDT [facility] ([facility] ) Outpatient Attender: Christine FRANKS 09/08/19 10:09:44 AM EDT - 09/07/2020 10:48:12 AM EDT [facility] ([facility] ) Outpatient Attender: Trey Montiel NP [facility] 09/05/2020 04:00:00 AM EDT - 09/05/2020 04:00:00 AM EDT [facility] ([facility]) Attender: Trey Montiel NP 09/05/2020 12:00:00 AM EDT [facility] ([facility]) Outpatient Attender: Trey Montiel NP [facility] 08/22/2020 11:30:00 AM EST - 08/22/2020 11:30:00 AM EST [facility] ([facility]) Attender: Trey Montiel NP 08/22/2020 12:00:00 AM EST [facility] ([facility]) Attender: Zack Wisdom 08/20/2020 12:00:00 AM EST [facility] ([facility]) Extended Individual Psychotherapy - 45 min Attender: Paresh Wisdom [facility] 08/18/2020 03:00:00 AM EST - 08/18/2020 03:00:00 AM EST [facility] ([facility]) Extended Individual Psychotherapy - 45 min Attender: Shea dennis [facility] 07/30/2020 07:00:00 AM EST - 07/30/2020 07:00:00 AM EST [facility] ([facility]) Attender: Jaqui Carmen 07/30/2020 12:00:00 AM EST [facility] ([facility]) Outpatient Attender: Trey Montiel NP [facility] 07/25/2020 04:00:00 AM EST - 07/25/2020 04:00:00 AM EST [facility] ([facility]) Attender: Trey Montiel NP 07/25/2020 12:00:00 AM EST [facility] ([facility]) Office Visit Attender: Henna NAIK PA-C Physical Therapy 07/24/2020 07:45:00 AM EST [facility] ([facility]) Extended Individual Psychotherapy - 45 min Attender: Shea Mendozaoza [facility] 07/16/2020 06:00:00 AM EST - 07/16/2020 06:00:00 AM EST [facility] ([facility]) Attender: Jaqui Carmen 07/16/2020 12:00:00 AM EST [facility] ([facility]) OFFICE OUTPATIENT NEW 30 MINUTES Attender: Henna NAIK PA-C Physical Therapy 07/08/2020 08:00:00 AM EST [facility] ([facility]) Outpatient Attender: Anitra Frazier MD 0 07/06/2020 10:43:10 AM EST - 07/06/2020 11:54:41 AM EST [facility] ([facility]) [facility] - [facility] 06:00:00 AM EST - 06/25/2020 06:00:00 AM EST [facility] ([facility]) Attender: Jaqui Carmen 06/25/2020 12:00:00 AM EST [facility] ([facility]) Outpatient Attender: Trey Montiel NP [facility] 05/29/2020 04:00:00 AM EST - 05/29/2020 04:00:00 AM EST [facility] ([facility]) Attender: Trey Montiel NP 05/29/2020 12:00:00 AM EST [facility] ([facility]) Extended Individual Psychotherapy - 45 min Attender: Shea Mendozaoza [facility] 05/28/2020 06:00:00 AM EST - 05/28/2020 06:00:00 AM EST [facility] ([facility]) Attender: Jaqui Carmen 05/28/2020 12:00:00 AM EST [facility] ([facility]) Brief Individual Psychotherapy - 30 min Attender: Ximena almeida [facility] 05/14/2020 10:00:00 AM EST - 05/14/2020 10:00:00 AM EST [facility] ([facility]) Attender: Ximena Chavira 05/14/2020 12:00:00 AM EST [facility] ([facility]) Extended Individual Psychotherapy - 45 min [facility] 12:00:00 PM EST - 05/06/2020 12:00:00 PM EST [facility] ([facility]) Attender: Jaqui Carmen 05/06/2020 12:00:00 AM EST [facility] ([facility]) Extended Individual Psychotherapy - 45 min [facility] 04/16/2020 07:00:00 AM EST - 04/16/2020 07:00:00 AM EST [facility] ([facility]) Attender: Jaqui Carmen 04/16/2020 12:00:00 AM EST [facility] ([facility]) [id number]"Psychotherapy Attender: Jaqui Carmen [facility] 03/17/2020 01:00:00 AM EDT - 03/17/2020 01:00:00 AM EDT [facility] ([facility]) Attender: Jaqui Carmen 03/17/2020 12:00:00 AM EDT [facility] ([facility]) Functional Status Immunizations Vaccine Date Status Description Data Source(s) COVID-19 VACCINE Moderna 11/01/2020 12:00:00 AM EDT completed [employer] Vaccine Series Complete: YESThis Data wa s Submitted to [facility] Via [employer]. COVID-19 dose #1 given elsewhere Unspecified 10/04/2020 07:2 2:00 AM EDT completed eCW1 ([facility]) COVID-19 dose #1 given elsewhere Unspecified 10/04/2020 07:2 2:00 AM EDT completed eCW1 ([facility]) COVID-19 dose #1 given elsewhere Unspecified 10/04/2020 07:2 2:00 AM EDT completed eCW1 ([facility]) COVID-19 dose #1 given elsewhere Unspecified 10/04/2020 07:2 2:00 AM EDT completed eCW1 ([facility]) COVID-19 dose #1 given elsewhere Unspecified 10/04/2020 07:2 2:00 AM EDT completed eCW1 ([facility]) COVID-19 dose #1 given elsewhere Unspecified 10/04/2020 07:2 2:00 AM EDT completed eCW1 ([facility]) COVID-19 dose #1 given elsewhere Unspecified 10/04/2020 07:2 2:00 AM EDT completed eCW1 ([facility]) COVID-19 dose #1 given elsewhere Unspecified 10/04/2020 07:2 2:00 AM EDT completed eCW1 ([facility]) COVID-19 dose #1 given elsewhere Unspecified 10/04/2020 07:2 2:00 AM EDT completed eCW1 ([facility]) COVID-19 dose #1 given elsewhere Unspecified 10/04/2020 07:2 2:00 AM EDT completed eCW1 ([facility]) COVID-19 dose #1 given elsewhere Unspecified 10/04/2020 07:2 2:00 AM EDT completed eCW1 ([facility]) COVID-19 dose #1 given elsewhere Unspecified 10/04/2020 07:2 2:00 AM EDT completed eCW1 ([facility]) COVID-19 dose #1 given elsewhere Unspecified 10/04/2020 07:2 2:00 AM EDT completed eCW1 ([facility]) COVID-19 dose #1 given elsewhere Unspecified 10/04/2020 07:2 2:00 AM EDT completed eCW1 ([facility]) COVID-19 VACCINE Moderna 10/04/2020 12:00:00 AM EDT completed [employer] Vaccine Series Complete: NOThis Data was Submitted to [facility] Via [employer]. Medications Medication Brand Name Start Date Product [...] 01/27/2021 12:00:00 AM EDT ORAL active [facility] ([facility] ) meloxicam 7.5 MG Oral Tablet MELOXICAM 01/21/2021 [...] active Budesonide-Formoterol Fumara te 80-4.5 MCG/ACT eCW1 ([facility]) 120 ACTUAT Budesonide 0.08 MG/ACTUAT / f ormoterol fumarate 0.0045 MG/ACTUAT Metered Dose Inhaler Budesonide-Formoterol Fumarate 80-4.5 MCG/ACT Budesonide- Formoterol Fumarate 80-4.5 MCG/ACT 12/12/2020 12:00:00 AM EDT 2.0 {pu ffs} active Budesonide-Formoterol Fumara te 80-4.5 MCG/ACT eCW1 ([facility]) 80-4.5 mcg/actuation 12/12/2020 12:00:00 AM EDT HFA [...] 100 mg by mouth completed <td ID="Medica tionRxNorm_3">599675</td><td ID="MedicationMedication_3">lamotrigine</td><td ID="MedicationRoute_3">by mouth</td><td ID="MedicationRouteConcept_3">V55485</td><td ID="MedicationStartDate_3">08/22/2020</td><td ID="MedicationStopDate_3"></td><td ID="MedicationDosageFrequency_3">once a day</td><td ID="MedicationDuration_3">30</td><td ID="MedicationFormulaStrength_3">100 mg</td><td ID="MedicationDosageForm_3">tablet</td><td ID="MedicationDosageFormCode_3"></td><td ID="MedicationDosageDescription_3"></td><td ID="MedicationMedicationId_3">[id number]</td><td ID="MedicationAccount_3">[id number]</td><td ID="MedicationNpid_3">[id number]</td><td ID="MedicationAuthorFirstName_3">Trey</td><td ID="MedicationAuthorLastName_3">Montiel</td><td ID="MedicationTaxonomyCode_3">[id number]</td><td ID="MedicationTaxonomyDesc_3">Nurse Practitioner</td><td ID="MedicationPhoneNumber_3">[phone]</td> [facility] ([facility]) Hydroxyzine Hydrochloride 50 MG Oral Tablet hydroxyzine HCl 08/22/2020 12:00:00 AM EST 50 mg completed <td ID ="MedicationRxNorm_1">967433</td><td ID="MedicationMedication_1">hydroxyzine HCl</td><td ID="MedicationRoute_1"></td><td ID="MedicationRouteConcept_1"></td><td ID="MedicationStartDate_1">08/22/2020</td><td ID="MedicationStopDate_1"></td><td ID="MedicationDosageFrequency_1"></td><td ID="MedicationDuration_1"></td><td ID="MedicationFormulaStrength_1">50 mg</td><td ID="MedicationDosageForm_1">tablet</td><td ID="MedicationDosageFormCode_1"></td><td ID="MedicationDosageDescription_1">as directed</td><td ID="MedicationMedicationId_1">[id number]</td><td ID="MedicationAccount_1">[id number]</td><td ID="MedicationNpid_1">[id number]</td><td ID="MedicationAuthorFirstName_1">Trey</td><td ID="MedicationAuthorLastName_1">Montiel</td><td ID="MedicationTaxonomyCode_1">[id number]</td><td ID="MedicationTaxonomyDesc_1">Nurse Practitioner</td><td ID="MedicationPhoneNumber_1">[phone]</td> [facility] ([facility]) buspirone hydrochloride 15 MG Oral Tablet buspirone 2020 12:00:00 AM EST 15 mg by mouth completed <td ID="Medic ationRxNorm_2">475381</td><td ID="MedicationMedication_2">buspirone</td><td ID="MedicationRoute_2">by mouth</td><td ID="MedicationRouteConcept_2">Y17735</td><td ID="MedicationStartDate_2">08/22/2020</td><td ID="MedicationStopDate_2"></td><td ID="MedicationDosageFrequency_2">twice a day</td><td ID="MedicationDuration_2">30</td><td ID="MedicationFormulaStrength_2">15 mg</td><td ID="MedicationDosageForm_2">tablet</td><td ID="MedicationDosageFormCode_2"></td><td ID="MedicationDosageDescription_2"></td><td ID="MedicationMedicationId_2">[id number]</td><td ID="MedicationAccount_2">[id number]</td><td ID="MedicationNpid_2">[id number]</td><td ID="MedicationAuthorFirstName_2">Trey</td><td ID="MedicationAuthorLastName_2">Montiel</td><td ID="MedicationTaxonomyCode_2">[id number]</td><td ID="MedicationTaxonomyDesc_2">Nurse Practitioner</td><td ID="MedicationPhoneNumber_2">[phone]</td> [facility] lamotrigine 25 MG Oral Tablet lamotrigine 05/29/2020 12:00:00 AM EST 25 mg by mouth completed <td ID="Medica tionRxNorm_1">615390</td><td ID="MedicationMedication_1">lamotrigine</td><td ID="MedicationRoute_1">by mouth</td><td ID="MedicationRouteConcept_1">L48643</td><td ID="MedicationStartDate_1">05/29/2020</td><td ID="MedicationStopDate_1">07/28/2020</td><td ID="MedicationDosageFrequency_1">once a day</td><td ID="MedicationDuration_1">30</td><td ID="MedicationFormulaStrength_1">25 mg</td><td ID="MedicationDosageForm_1">tablet</td><td ID="MedicationDosageFormCode_1"></td><td ID="MedicationDosageDescription_1"></td><td ID="MedicationMedicationId_1">[id number]</td><td ID="MedicationAccount_1">[id number]</td><td ID="MedicationNpid_1">[id number]</td><td ID="MedicationAuthorFirstName_1">Trey</td><td ID="MedicationAuthorLastName_1">Montiel</td><td ID="MedicationTaxonomyCode_1">[id number]</td><td ID="MedicationTaxonomyDesc_1">Nurse Practitioner</td><td ID="MedicationPhoneNumber_1">[phone]</td> [facility] Hydroxyzine Hydrochloride 50 MG Oral Tablet hydroxyzine HCl 05/29/2020 12:00:00 AM EST 50 mg completed <td ID ="MedicationRxNorm_3">841900</td><td ID="MedicationMedication_3">hydroxyzine HCl</td><td ID="MedicationRoute_3"></td><td ID="MedicationRouteConcept_3"></td><td ID="MedicationStartDate_3">05/29/2020</td><td ID="MedicationStopDate_3">07/28/2020</td><td ID="MedicationDosageFrequency_3"></td><td ID="MedicationDuration_3">30</td><td ID="MedicationFormulaStrength_3">50 mg</td><td ID="MedicationDosageForm_3">tablet</td><td ID="MedicationDosageFormCode_3"></td><td ID="MedicationDosageDescription_3">as directed</td><td ID="MedicationMedicationId_3">[id number]</td><td ID="MedicationAccount_3">[id number]</td><td ID="MedicationNpid_3">[id number]</td><td ID="MedicationAuthorFirstName_3">Trey</td><td ID="MedicationAuthorLastName_3">Montiel</td><td ID="MedicationTaxonomyCode_3">[id number]</td><td ID="MedicationTaxonomyDesc_3">Nurse Practitioner</td><td ID="MedicationPhoneNumber_3">[phone]</td> [facility]) aripiprazole 5 MG Oral Tablet aripiprazole 02/26/2020 12:00:00 AM EDT 5 mg by mouth completed <td ID="Medica tionRxNorm_3">752996</td><td ID="MedicationMedication_3">aripiprazole</td><td ID="MedicationRoute_3">by mouth</td><td ID="MedicationRouteConcept_3">H74833</td><td ID="MedicationStartDate_3">02/26/2020</td><td ID="MedicationStopDate_3">05/26/2020</td><td ID="MedicationDosageFrequency_3">once a day</td><td ID="MedicationDuration_3">30</td><td ID="MedicationFormulaStrength_3">5 mg</td><td ID="MedicationDosageForm_3">tablet</td><td ID="MedicationDosageFormCode_3"></td><td ID="MedicationDosageDescription_3"></td><td ID="MedicationMedicationId_3">13505</td><td ID="MedicationAccount_3">[id number]</td><td ID="MedicationNpid_3">[id number]</td><td ID="MedicationAuthorFirstName_3">Trey</td><td ID="MedicationAuthorLastName_3">Montiel</td><td ID="MedicationTaxonomyCode_3">[id number]</td><td ID="MedicationTaxonomyDesc_3">Nurse Practitioner</td><td ID="MedicationPhoneNumber_3">[phone]</td> [facility] ([facility]) 24 HR venlafaxine 150 MG Extended Release Oral Capsule venla faxine 02/26/2020 12:00:00 AM EDT 150 mg by mouth completed <td ID="MedicationRxNorm_4">738316</td><td ID="MedicationMedication_4">venlafaxine</td><td ID="MedicationRoute_4">by mouth</td><td ID="MedicationRouteConcept_4">A93829</td><td ID="MedicationStartDate_4">02/26/2020</td><td ID="MedicationStopDate_4">05/26/2020</td><td ID="MedicationDosageFrequency_4">once a day</td><td ID="MedicationDuration_4">30</td><td ID="MedicationFormulaStrength_4">150 mg</td><td ID="MedicationDosageForm_4">capsule,extended release 24hr</td><td ID="MedicationDosageFormCode_4"></td><td ID="MedicationDosageDescription_4"></td><td ID="MedicationMedicationId_4">[id number]</td><td ID="MedicationAccount_4">[id number]</td><td ID="MedicationNpid_4">[id number]</td><td ID="MedicationAuthorFirstName_4">Trey</td><td ID="MedicationAuthorLastName_4">Montiel</td><td ID="MedicationTaxonomyCode_4">[id number]</td><td ID="MedicationTaxonomyDesc_4"> Nurse Practitioner</td><td ID="MedicationPhoneNumber_4">[phone]</td> [facility] ([facility]) 24 HR Nicotine 0.292 MG/HR Transdermal Patch [Nicoderm C-Q] Nicoderm CQ 02/26/2020 12:00:00 AM EDT 7 mg/24 completed <td ID="MedicationRxNorm_1">976954</td><td ID="MedicationMedication_1">Nicoderm CQ</td><td ID="MedicationRoute_1">to skin</td><td ID="MedicationRouteConcept_1"></td><td ID="MedicationStartDate_1">02/26/2020</td><td ID="MedicationStopDate_1">05/26/2020</td><td ID="MedicationDosageFrequency_1">once a day</td><td ID="MedicationDuration_1">30</td><td ID="MedicationFormulaStrength_1">7 mg/24 hr</td><td ID="MedicationDosageForm_1">patch 24 hour</td><td ID="MedicationDosageFormCode_1"></td><td ID="MedicationDosageDescription_1"> </td><td ID="MedicationMedicationId_1">12951</td><td ID="MedicationAccount_1">[id number]</td><td ID="MedicationNpid_1">[id number]</td><td ID="MedicationAuthorFirstName_1">Trey</td><td ID="MedicationAuthorLastName_1">Montiel</td><td ID="MedicationTaxonomyCode_1">[id number]</td><td ID="MedicationTaxonomyDesc_1">Nurse Practitioner</td><td ID="MedicationPhoneNumber_1">[phone]</td> [facility] ([facility]) Insurance Providers Payer name Policy type / Coverage type Policy ID Covered libertarian ID Covered libertarian's relationship to webb Policy Webb Plan Information SELF PAY [facility] emp [id number] Employee [id number] [employer] [id number] Self [id number] Medicaid Medicaid [id number] Self [id number] Spouse [id number] Medicaid Medicaid [id number] Self [id number] RPR- Needs Payer Match [id number] Spouse [id number] [place]ED[place] [id number] SP [id number] MEDICAID M [id number] S [id number] DESI CARE ID O [id number] S [id number] [place]AST [employer] [id number] HU2 [id number] Medicaid P UNAVAILABLE S UNAVAILA BLE EAST ACTIVE DUTY [id number] HU2 [id number] DESI [id number] SP [id number] 800 [place]AST [employer] - O/P [id number] 01 [id number] [facility] MEDICAID [id number] SP [id number] B DESI CARE [facility] [id number] Problems, Conditions, and Diagnoses Code Display Name Description Problem Type Effective Dates Data Source(s) Z6841 Body mass index [BMI]40.0-44.9, adult Curt dy mass index [BMI]40.0-44.9, adult Diagnosis 03/12/2021 10:12:00 PM EDT [facility] E6601 Morbid (severe) obesity due to excess ca lories Morbid (severe) obesity due to excess calories Diagnosis 03/12/2021 10:12:00 PM EDT [facility] L23438 Nicotine dependence, cigarettes, uncompl icated Nicotine dependence, cigarettes, uncomplicated Diagnosis 03/12/2021 10:12:00 PM EDT [facility] R197 Diarrhea, unspecified Diarrhea, unspecified Diagnosis 03/12/2021 10:12:00 PM EDT [facility] M797 Fibromyalgia Fibromyalgia Diagnosis [facility]/07[facility]2020 [facility] Chronic tension-type headache, intractab le Chronic tension-type headache, intractable Diagnosis 11/07/2020 11:04:00 PM EDT [facility] R519 Headache, unspecified Headache, unspecified Diagnosis 11/07/2020 11:04:00 PM EDT [facility] G56.02 Carpal tunnel syndrome of left wrist Car pal tunnel syndrome of left wrist Problem 01/27/2021 12:00:00 AM EDT [facility] ([facility]) M54.89 Backache Backache Problem 01/27/2021 12:00:00 AM ED T [facility] ([facility]) Z72.0 Tobacco use Tobacco Use Disorder, Mild Condition 0 01/01/2021 12:00:00 AM EDT [facility] ([facility]) F43.9 Reaction to severe stress, unspecified U nspecified Trauma- and Stressor- Related Disorder Condition 01/01/2021 12:00:00 AM EDT [facility] ([facility]) F41.1 Generalized anxiety disorder Generalized Anxiety Disor janes Condition 01/01/2021 12:00:00 AM EDT [facility] ([facility]) F33.1 Major depressive disorder, recurrent, mo derate Major Depressive Disorder, Recurrent episode, Moderate Condition 01/01/2021 12:00:00 AM EDT [facility] ([facility]) 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 seizures Problem 12/02/2020 12:00:00 AM EDT [facility] ([facility] ) M54.5 Low back pain Low back pain Problem 12/02/2020 12:00:00 AM EDT [facility] ([facility] ) M54.2 Neck pain Neck pain Problem 12/02/2020 12:00:00 AM ED T [facility] ([facility] ) G43.009 Migraine without aura, not refractory Mi graine without aura, not refractory Problem 12/02/2020 12:00:00 AM EDT [facility] ([facility] ) R20.0 Skin sensation disturbance Skin sensation disturbance Problem 12/02/2020 12:00:00 AM EDT [facility] ([facility] ) R53.1 Malaise and fatigue Malaise and fatigue Problem 0 12/02/2020 12:00:00 AM EDT [facility] ([facility] ) R55 Syncope and collapse Syncope and collapse Problem 12/02/2020 12:00:00 AM EDT [facility] ([facility] G47.33 [id number] VIVIAN (obstructive sleep apnea) Problem 11/06/2020 12:00:00 AM EDT [facility] ([facility]) G40.909 [id number] Seizure disorder Problem 10/20/2020 12:00:00 AM EDT [facility]1 ([facility]) J45.40 [id number] Moderate persistent asthma without compli cation Problem 10/20/2020 12:00:00 AM EDT [facility]1 ([facility]) F41.8 [id number] Anxiety with depression Problem 10/20/2020 1 2:00:00 AM EDT [facility] ([facility]) M79.7 [id number] Fibromyalgia Problem 10/20/2020 12:00:00 AM EDT [facility] ([facility]) Z72.0 Tobacco use Tobacco Use Disorder, Mild Condition 1 07/30/2019 12:00:00 AM EST [facility] ([facility]) F43.9 Reaction to severe stress, unspecified U nspecified Trauma- and Stressor- Related Disorder Condition 05/29/2020 12:00:00 AM EST [facility] ([facility]) F31.9 Bipolar disorder, unspecified Unspecified Bipola r and Related Disorder Condition 05/29/2020 12:00:00 AM EST [facility] ([facility]) Surgeries/Procedures Procedure Description Date Indications Data Source(s) OFFICE OUTPATIENT VISIT 25 MINUTES 01/27/2021 12:00:00 AM EDT [facility] ([facility] ) TSTG ANS FUNCJ CARDIOVAGAL INNERVAJ PARASYMP 12:00:00 AM EDT [facility] ([facility] ) TESTING AUTONOMIC NERVOUS SYSTEM FUNCTION 01/23/2021 1 2:00:00 AM EDT [facility] ([facility] ) Needle electromyography, each extremity, with related paraspinal areas, when performed, done with nerve conduction, amplitude and latency/velocity study; complete, five or more muscles studied, innervated by three or more nerves or four or more spinal levels (list separately in addition to the code for primary procedure). 01/12/2021 12:00:00 AM EDT [facility] ([facility] ) Needle electromyography, each extremity, with related paraspinal areas, when performed, done with nerve conduction, amplitude and latency/velocity study; complete, five or more muscles studied, innervated by three or more nerves or four or more spinal levels (list separately in addition to the code for primary procedure). 01/12/2021 12:00:00 AM EDT [facility] ([facility] ) Nerve Conduction 11-12 Studies 01/12/2021 12:00:00 AM EDT [facility] ([facility] ) Needle electromyography, each extremity, with related paraspinal areas, when performed, done with nerve conduction, amplitude and latency/velocity study; complete, five or more muscles studied, innervated by three or more nerves or four or more spinal levels (list separately in addition to the code for primary procedure). 01/05/2021 12:00:00 AM EDT [facility] ([facility] ) Needle electromyography, each extremity, with related paraspinal areas, when performed, done with nerve conduction, amplitude and latency/velocity study; complete, five or more muscles studied, innervated by three or more nerves or four or more spinal levels (list separately in addition to the code for primary procedure). 01/05/2021 12:00:00 AM EDT ROSALBA Luna ([facility] ) Nerve Conduction 9-10 Studies 01/05/2021 12:00:00 AM E DT [facility] ([facility] ) MHC Telemed E/M Lvl 3--Est pt 01/01/2021 12:00:00 AM EDT - 01/01/2021 12:00:00 AM EDT [facility] ([facility]) MHC Telemed E/M Lvl 3--Est pt 01/01/2021 12:00:00 AM E DT [facility] ([facility]) OFFICE OUTPATIENT VISIT 15 MINUTES 12/30/2020 12:00:00 AM EDT [facility] ([facility]) OFFICE OUTPATIENT NEW 60 MINUTES 12/02/2020 12:00:00 A M EDT [facility] ([facility] MHC Telemed E/M Lvl 3--Est pt 09/05/2020 12:00:00 AM EDT - 09/05/2020 12:00:00 AM EDT [facility] ([facility]) MHC Telemed E/M Lvl 3--Est pt 09/05/2020 12:00:00 AM E DT [facility] ([facility]) MHC Telemed E/M Lvl 3--Est pt 08/22/2020 12:00:00 AM EST - 08/22/2020 12:00:00 AM EST [facility] ([facility]) Telemed A/O 30" 08/22/2020 12:00:00 AM EST [facility] ([facility]) MHC Telemed E/M Lvl 3--Est pt 08/22/2020 12:00:[address] [facility] ([facility]) Extended Individual Psychotherapy - 45 min 08/20/2020 12:00:00 AM EST - 08/20/2020 12:00:00 AM EST [facility] ([facility]) Extended Individual Psychotherapy - 45 min 12:00:00 AM EST [facility] ([facility]) Extended Individual Psychotherapy - 45 min 07/30/2020 12:00:00 AM EST - 07/30/2020 12:00:00 AM EST [facility] ([facility]) Extended Individual Psychotherapy - 45 min 12:00:00 AM EST [facility] ([facility]) MHC Telemed E/M Lvl 3--Est pt 07/25/2020 12:00:00 AM EST - 07/25/2020 12:00:00 AM EST [facility] ([facility]) Telemed A/O 30" 07/25/2020 12:00:00 AM EST [facility] ([facility]) MHC Telemed E/M Lvl 3--Est pt 07/25/2020 12:00:[address] [facility] ([facility]) RADEX FINGR MINIMUM 2 VIEWS 07/24/2020 12:00:00 AM EST [facility] ([facility]) Extended Individual Psychotherapy - 45 min 07/16/2020 12:00:00 AM EST - 07/16/2020 12:00:00 AM EST [facility] ([facility]) Extended Individual Psychotherapy - 45 min 12:00:00 AM EST [facility] ([facility]) FX MCP/IP Articular JT W/O Manipulation 07/08/2020 12: 00:00 AM EST [facility] ([facility]) CLTX PHLNGL FX PROX/MIDDLE PX/F/T W/O MANJ EA 07/08/19 12:00:00 AM EST [facility] ([facility]) Extended Individual Psychotherapy - 45 min 06/25/2020 12:00:00 AM EST - 06/25/2020 12:00:00 AM EST [facility] ([facility]) Extended Individual Psychotherapy - 45 min 12:00:00 AM EST [facility] ([facility]) MHC Telemed E/M Lvl 3--Est pt 05/29/2020 12:00:00 AM EST - 05/29/2020 12:00:00 AM EST [facility] ([facility]) Telemed A/O 30" 05/29/2020 12:00:00 AM EST [facility] ([facility]) MHC Telemed E/M Lvl 3--Est pt 05/29/2020 12:00:[address] [facility] ([facility]) Extended Individual Psychotherapy - 45 min 05/28/2020 12:00:00 AM EST - 05/28/2020 12:00:00 AM EST [facility] ([facility]) Extended Individual Psychotherapy - 45 min 0 12:00:00 AM EST [facility] ([facility]) Brief Individual Psychotherapy - 30 min 05/14/2020 12:00:00 AM EST - 05/14/2020 12:00:00 AM EST [facility] ([facility]) Brief Individual Psychotherapy - 30 min 05/14/2020 12: 00:00 AM EST [facility] ([facility]) Extended Individual Psychotherapy - 45 min 05/06/2020 12:00:00 AM EST - 05/06/2020 12:00:00 AM EST [facility] ([facility]) Extended Individual Psychotherapy - 45 min 0 12:00:00 AM EST [facility] ([facility]) Extended Individual Psychotherapy - 45 min 04/16/2020 12:00:00 AM EST - 04/16/2020 12:00:00 AM EST [facility] ([facility]) Extended Individual Psychotherapy - 45 min 0 12:00:00 AM EST [facility] ([facility]) [id number]"Psychotherapy 0 12:00:00 AM EDT - 03/17/2020 12:00:00 AM EDT [facility] ([facility]) [id number]"Psychotherapy 03/17/2020 12:00:00 AM EDT [facility] ([facility]) Results ID Date Data Source [id number] 03/12/2021 10:12:00 PM EDT [facility] 1 OrderSheet [facility] Emergency Department [address] [place] [address] Phone #: ext- [phone] 03/12/2021 22:02 Patient: [...] rce(s) Supporting Document(s) ID Date Data Source [id number] 03/12/2021 10:12:00 PM EDT [facility] 1 Medication Reconciliation Report [facility] Emergency Department [address] [place] [address] Phone #: ext- [phone] 03/12/2021 22:02 [id number] Sex: F : 1995 Age: 25yWeight: 114.7 [...] Name Value Range Interpretation Code Description Data [facility](s) Supporting Document(s) ID Date Data Source [id number] 03/12/2021 10:12:00 PM EDT [place] [address] Medication Administration Record [facility] Emergency Department [address] [place] [address] Phone #: ext- [phone] 03/12/2021 22:02 Patient: MILIND SWANSON Sex: F : 1995 Age: 25yWeight: 114.7 kgHeight/Length: 63 inBMI: 44.8ALLERGIES: No Known Drug AllergyDate/Time Medication Administered Medication Ordered Name Value Range Interpretation Code Description Data [facility](s) Supporting Document(s) ID Date Data Source [id number] 03/12/2021 10:12:00 PM EDT [facility] 1 General Instructions [facility] Emergency Department [address] [place] [address] Phone #: ext- [phone] 03/12/2021 22:02 Patient: MILIND SWANSON Sex: F : 1995 Age: 25y DiarrheaINSTRUCTIONS Warnings: Further evaluation is necessary. GENERAL WARNINGS: Return or contact your physician immediately if your condition worsens or changes unexpectedly, if not improving as expected, or if other problems arise. Understanding of the discharge instructions verbalized by patient. Follow-up with: [facility] Respective Team Julieth Castro [place], , , [address] [facility] [address], , [place], [address] Follow up in two days if not [...] serious if not treated. 2 General Instructions [facility] Emergency Department [address] [place] [address] Phone #: ext- [phone] 03/12/2021 22:02 Patient: [...] for heart disease or after a stroke) Yrfn-zir-xmibdew medicines for diarrhea, nausea, and vomiting are generally OK unless you have bleeding, fever, or severe abdominal pain.General care If symptoms are severe, rest at home for the next 24 hours, or until you are feeling better. 3 General Instructions [facility] Emergency Department [address] [place] [address] Phone #: ext- [phone] 03/12/2021 22:02 --- Patient: MILIND SWANSON Sex: F : 1995 Age: 25y Washing your hands with soap and water, or using alcohol-based hand aircraft communicator is the best way to stop the [...] noodle or rice soup 4 General Instructions [facility] Emergency Department [address] [place] [address] Phone #: ext- [phone] 03/12/2021 22:02 Patient: [...] Wash your hands or use alcohol- based aircraft communicator after using cutting boards, countertops, and knives that have been in contact with raw food. Dry your hands with a single use towel. Keep uncooked meats away from cooked and otpjg-vj-oxo foods.Follow-up careFollow up with your healthcare provider, [...] or loss of consciousness 5 General Instructions [facility] Emergency Department [address] [place] [address] Phone #: ext- [phone] 03/12/2021 22:02 [id number] Sex: F : 1995 Age: 25y Rapid [...] 6 hours), or very dark urine [employer] [address] [place] [address], [place] [address]. All rights reserved. This information is not [...] hospital to have intravenous 6 General Instructions [facility] Emergency Department [address] [place] [address] Phone #: ext- [phone] 03/12/2021 22:02 [id number] Sex: F : 1995 Age: 25y(IV) fluids.Giving [...] or clear liquids.Follow-up care 7 General Instructions [facility] Emergency Department [address] [place] [address] Phone #: ext- [phone] 03/12/2021 22:02 [id number] Sex: F : 1995 Age: 25yFollow up with your child's healthcare provider, or as advised. If a stool sample was taken or cultureswere done, call the healthcare provider for the results as instructed.Call [phone] if your child has any of these [...] Unusual drowsiness New rash 8 General Instructions [facility] Emergency Department [address] [place] [address] Phone #: ext- [phone] 03/12/2021 22:02 Patient: MILIND SWANSON Sex: F : 1995 Age: 25y Diarrhea lasts more than 1 week on antibiotics A child 2 years or older has a fever for more than 3 days A child of any age has repeated fevers above 104F (40C) [id number] [employer] [address] [place] [address]. Todos los derechos reservados. Esta informacin nopretende sustituir la atencin mdica profesional. Slo mujica mdico puede diagnosticar y tratar un problema de delmy. You have been given the foll owing additional information: Vomiting and Diarrhea, Nonspecific (Adult) Diet for Vomiting/Diarrhea (Child)(Electronically signed by Jeffry Sandoval 03/13/2021 01:18) Name Value Range Interpretation Code Description Data Donna rce(s) Supporting Document(s) ID Date Data Source [id number] 03/12/2021 10:12:00 PM EDT [facility] 1 Clinical Report - Nurses [facility] Emergency Department [address] [place] [address] Phone #: ext- [phone] 03/12/2021 22:02 Patient: [...] Disorder.Fibromyalgia.Epilepsy. --22:16 03/12/21 Gay Conner R.N.ADDITIONAL SURGERIES:Shoulder Surgery.Palermo teeth. --22:16 03/12/21 Gay Conner R.N.History 2 Clinical Report - Nurses [facility] Emergency Department [address] [place] [address] Phone #: ext- [phone] 03/12/2021 22:02 Patient: MILIND SWANSON Sex: F [...] is warm and dry. --22:39 03/12/21 Lyndsay Roes R.N.NURSING PROGRESS NOTESThe plan of care for this patient has been created. Patient gowned. Head of bed elevated.Reassurance given. Call light placed in reach. Side rails up x 1. Bed placed in lowest position. Brakesof bed on. Patient ready for evaluation. --22:39 03/12/21 Lyndsay Rose R.N.DISPOSITION / DISCHARGE 3 Clinical Report - Nurses [facility] Emergency Department [address] [place] [address] Phone #: ext- [phone] 03/12/2021 22:02 Patient: MILIND SWANSON Sex: F : 1995 Age: 25y Condition at departure: stable. No learning barriers present. Discharge instructions provided and reviewed with the patient. Patient verbalized understa nding. Written instructions provided in Moroccan. The patient was discharged by the physician. [...] rce(s) Supporting Document(s) ID Date Data Source [id number] 03/12/2021 10:12:00 PM EDT [facility] 1 Clinical Report - Physicians/Mid Levels [facility] Emergency Department [address] [place] [address] Phone #: ext- [phone] 03/12/2021 22:02 [id number] Sex: F : 1995 Age: 25y Time [...] Disorder. Fibromyalgia. Epilepsy. Additional Surgeries: Shoulder Surgery. Palermo teeth. Medications: hydrOXYzine HCl Oral 50 mg. Abilify Oral (Tablet 5 mg). Albuterol Sulfate Inhalation. 2 Clinical Report - Physicians/Mid Levels [facility] Emergency Department [address] [place] [address] Phone #: ext- [phone] 03/12/2021 22:02 Patient: [...] NEGATIVE (NORMAL: NEGAT { KIT LOT # [id number] ){ KIT EXP DATE 06.12.22 ){ PROCEDURAL CONTROL VALID ).PROGRESS AND PROCEDURESCourse of Care: 22:51 03/12/21. Benign abdominal exam. No tachycardia. Patient most likely has diarrheasecondary to higher dose of Zith romax during those three days 23:16 03/12/21. Patient unable to provide stool sample. 3 Clinical Report - Physicians/Mid Levels [facility] Emergency Department [address] [place] [address] Phone #: ext- [phone] 03/12/2021 22:02 Patient: [...] CLINIC Respective Team Julieth [place], , , [address] [facility] [address], , [place], [address] Follow up in two days if not better. Call for an appointment. Reason for referral: evaluation.(Electronically signed by eJffry Sandoval 03/13/2021 01:18) Name Value Range Interpretation Code Description Data Donna rce(s) Supporting Document(s) ID Date Data Source [id number] 03/12/2021 11:18:00 PM EDT [facility] Name Value Range Interpretation Code Description Data Donna rce(s) Supporting Document(s) [facility] COL[facility] yellow NORMAL: Yellow [facility] CLARITY hazy NORMAL: Clear [facility] Specific gravity of Urine by Test strip 1.025 1.001 - 1.030 [facility] pH 6 5 - 9 [facility] Glucose [Mass/volume] in Urine by Test strip NORM NORMAL: Negat [facility] Bilirubin.total [Presence] in Urine by Test strip NEG NORMAL: Negative [facility] Ketones [Presence] in Urine by Test strip 5 NORMAL: Negative [facility] Protein [Mass/volume] in Urine by Test strip 15 NORMAL: Negat [facility] Nitrite [Presence] in Urine by Test strip NEG NORMAL: Negative [facility] BLOOD 25 NORMAL: Negative [facility] LEUK EST 25 NORMAL: Negative [facility] Urobilinogen [Mass/volume] in Urine by Test strip 4 less deacon n 1.0 mg/dL [facility] MICROSCOPIC See Below [facility] ital WBC 3 - 5 NORMAL: NONE SEEN [facility] Erythrocytes [#/volume] in Urine by Test strip 1 - 3 NORMAL: NON E SEEN [facility] EPITHELIAL MANY NORMAL: NONE SEEN A [facility] Bacteria [Presence] in Urine sediment by Light microscopy 1+ SMALL NORMAL: NONE SEEN [facility] Mucus [Presence] in Urine sediment by Light microscopy 2+ NOR MAL: NONE SEEN A [facility] ID Date Data Source [id number] 03/12/2021 11:12:00 PM EDT [facility] Name Value Range Interpretation Code Description Data Donna rce(s) Supporting Document(s) HCG URINE QUAL NEGATIVE NORMAL: NEGATIVE [facility] HCG URINE QL REENTER NEGATIVE NORMAL: NEGATIVE [facility] { KIT LOT # [id number] ){ KIT EXP DATE 06.12.22 ){ PROCEDURAL CONTROL VALID ) ID Date Data Source [id number] 03/04/2021 11:15:00 AM EDT [facility] Name Value Range Interpretation Code Description Data Donna rce(s) Supporting Document(s) SARS-CoV-2 RNA Resp Ql LILA+probe NOT DETECTED [facility] This lab was ordered by [facility] and reported by [facility]. ID Date Data Source [id number] 02/05/2021 12:00:00 AM EDT [facility] Name Value Range Interpretation Code Description Data Donna rce(s) Supporting Document(s) SARS-CoV2 Rapid Antigen Negative [facility] This lab was ordered by [facility] and reported by [facility]. ID Date Data Source [id number] 01/27/2021 02:41:00 PM EDT [facility] ([facility] ) Name Value Range Interpretation Code Description Data Donna rce(s) Supporting Document(s) Creatine kinase [Enzymatic activity/volume] in Serum or Plasma 174 U/L 26-192 [facility] ([facility]) Cobalamin (Vitamin B12) [Mass/volume] in Serum or Plasma 842 pg/mL 2 47-911 [facility] ([facility]) VITAMIN B12 NORMAL RANGE NORMAL 247 - 911 PG/ML INDETERMINATE 211 - 246 PG/ML DEFICIENT LESS THAN 211 PG/ML Folate [Mass/volume] in Serum or Plasma Laboratory test result [facility] ([facility]) FOLATE NORMAL RANGE NORMAL GREATER THAN 5.4 NG/ML INDETERMINATE 3.4-5.4 NG/ML DEFICIENT LESS THAN 3.4 NG/ML Calcidiol [Mass/volume] in Serum or Plasma 12.1 ng/mL 30.0-100.0 [facility] ([facility]) Erythrocyte sedimentation rate by 2H Westergren method 19 mm/hr 0-2 0 [facility] Rheumatoid factor [Units/volume] in Serum or Plasma Laboratory test result [facility] ID Date Data Source [id number] 01/27/2021 02:41:00 PM EDT [facility] ([facility]) Name Value Range Interpretation Code Description Data Donna rce(s) Supporting Document(s) Hemoglobin A1c 5.3 % [facility] <content>REFERENCE RANGES:</content><br/ ><content></content>
<content><=5.6% NORMAL</content>
<content>5.7-6.4% SUGGESTS IMPAIRED GLUCOSE METABOLISM/PREDIABETIC</content>
<content>>= 6.5% ABNORMAL</content>
<content></content> Estimated Average Glucose 105 mg/dL 60-110 [facility] ([facility], ) ID Date Data Source LYME DISEASE SCRN WITH CONFIRM 11/13/2020 12:00:00 AM EDT eC W1 ([facility]) Name Value Range Interpretation Code Description Data Donna rce(s) Supporting Document(s) <0.80 0.00-0.79 Lyme Disease IgM Ab Quant itati eCW1 ([facility]) <0.91 0.00-0.90 Lyme Disease IgG/IgM Anti vick eCW1 ([facility]) ID Date Data Source [id number] 11/07/2020 11:04:00 PM EDT [facility] 1 OrderSheet [facility] Emergency Department [address] [place] [address] Phone #: ext- [phone] 11/07/2020 23:00 Patient: [...] Obdulia Horan 15 minutes) ; 2 OrderSheet [facility] Emergency Department [address] [place] [address] Phone #: [phone] soi- [phone] 11/07/2020 23:00 Patient: MILIND SWANSON Sex: F [...] rce(s) Supporting Document(s) ID Date Data Source [id number] 11/07/2020 11:04:00 PM EDT [facility] 1 Medication Reconciliation Report [facility] Emergency Department [address] [place] [address] Phone #: ext- [phone] 11/07/2020 23:00 [...] Dispense 30 capsule. Refills: 0.Substitution permitted.Pharmacy - [id number] - [id number] [place] [address]. FaxNumber: . -- Obdulia Horan Name Value Range Interpretation Code Description Data Donna rce(s) Supporting Document(s) ID Date Data Source [id number] 11/07/2020 11:04:00 PM EDT [facility] 1 Medication Administration Record [facility] Emergency Department [address] [place] [address] Phone #: ext- [phone] 11/07/2020 23:00 Patient: MILIND SWANSON Sex: F : 1995 Age: 25yWeight: 102.9 kgHeight/Length: 63 inBMI: 40.2ALLERGIES: No Known Drug Allergy Date/Time Medication Administered Medication OrderedStart IV NS NS IV 1000 mL Bolus: : Bolus [id number] 11/07/2020 Dose: IV Fluids mL (X1)Flores Hadley, Bolus: 1000 mL over 1 hour(s)---- Dispensed: 1000 mL bagStop Site: #1 right AC00:36 11/08/2020Flores tucker,Start Ofirmev * Ofirmev IV 1000 mg (NOW x1,23:49 11/07/2020 Dose: 1 gm * IVPB Infuse over 15 minutes)Flores Hadley,----Stop00:14 11/08/2020Flores tucker, Name Value Range Interpretation Code Description Data Donna rce(s) Supporting Document(s) ID Date Data Source [id number] 11/07/2020 11:04:00 PM EDT [facility] 1 General Instructions [facility] Emergency Department [address] [place] [address] Phone #: ext- [phone] 11/07/2020 23:00 Patient: [...] Dispense 30 capsule. Refills: 0.Substitution permitted.Pharmacy - [phone] - [id number] [facility] ; [place] [address]. FaxNumber: .Follow-up:Follow up with your healthcare provider in four days. Reason for referral: evaluation. Summary of careprovided to patient via paper. Screening today revealed the patient's blood pressure to be in thehypertensive stage 2 range. The patient should follow up with a primary care provider for blood pressuremanagement. ADDITIONAL INFORMATIONTension Headache 2 General Instructions [facility] Emergency Department [address] [place] [address] Phone #: ext- [phone] 11/07/2020 23:00 Patient: MILIND SWANSON Sex: F [...] a prescribed muscle relaxant. 3 General Instructions [facility] Emergency Department [address] [place] [address] Phone #: ext- [phone] 11/07/2020 23:00 Patient: MIILND SWANSON [facility]#: [id number] Sex: F : 1995 Age: 25yFollow-up careFollow [...] You have trouble speaking Your vision changes [phone] [place] [address], [place] [address]. All rights reserved. This information is not [...] Lyme disease. In some 4 General Instructions [facility] Emergency Department [address] [place] [address] Phone #: ext- [phone] 11/07/2020 23:00 Patient: MILIND SWANSON Sex: F [...] may involve your primary care provider, a designer and patternmaker, a physicaltherapist, and a mental health professional.For more information, visit the National [place] of [employer]th[employer] and Musculoskeletal and Skin Diseases(NIAMS) website at www.niams.nih.gov or call 522-534-1838.When to seek medical adviceContact your healthcare provider right away if any of these occur: Symptoms get worse or new symptoms develop You feel hopeless, helpless, or lose interest in day-to-day life 5 General Instructions [facility] Emergency Department [address] [place] [address] Phone #: ext- [phone] 11/07/2020 23:00 Patient: MILIND SWANSON Sex: F : 1995 Age: 25y [phone] [employer] [place], [place] [id number]. All rights reserved. This information is not intended as asubstitute for professional medical care. Always follow your healthcare professional's instructions. You have been given the following additional information: Headache, Tension Fibromyalgia(Electronically signed by Obdulia Horan 11/08/2020 01:35) Name Value Range Interpretation Code Description Data Donna rce(s) Supporting Document(s) ID Date Data Source [id number] 11/07/2020 11:04:00 PM EDT [facility] 1 Clinical Report - Nurses [facility] Emergency Department [address] [place] [address] Phone #: ext- [phone] 11/07/2020 23:00 Patient: [...] 2 more weeks. She was seen at [facility] for same complaints last week on Tuesday, and again on Tuesday.). 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 --23:05 11/07/20 Flores Hadley .AllergiesNo Known Drug Allergy. --23:06 11/07/20 Flores Hadley.PROBLEMS:Thymoma.Fibromyalgia.Bipolar Disorder.Epilepsy. --23:15 11/07/20 Flores Hadley.ADDITIONAL SURGERIES:Shoulder Surgery.Palermo teeth. --23:15 11/07/20 Flores Hadley.HistoryPAST MEDICAL HX: [...] Flores Hadley. 3 Clinical Report - Nurses [facility] Emergency Department [address] [place] [address] Phone #: ext- [phone] 11/07/2020 23:00 Patient: MILIND SWANSON Sex: F [...] IV patency 4 Clinical Report - Nurses [facility] Emergency Department [address] [place] [address] Phone #: ext- [phone] 11/07/2020 23:00 Patient: [...] Patient verbalized understanding. Written instructions provided in Moroccan. The patient was discharged by the physician. She was discharged home and unaccompanied at time of discharge. She left ambulatory and via private vehicle. Patient driving. --01:12 11/08/20 Flores Hadley.Locked/Released at 11/08/2020 01:12 by Flores Hadley Name Value Range Interpretation Code Description Data Donna rce(s) Supporting Document(s) ID Date Data Source [id number] 11/07/2020 11:04:00 PM EDT [facility] 1 Clinical Report - Physicians/Mid Levels [facility] Emergency Department [address] [place] [address] Phone #: ext- [phone] 11/07/2020 23:00 Patient: [...] Bipolar Disorder. Epilepsy. Additional Surgeries: Shoulder Surgery. [place] teeth. Medications: Effexor XR Oral 37.5 mg, daily. Effexor XR Oral 37.5 mg, daily. 2 Clinical Report - Physicians/Mid Levels [facility] Emergency Department [address] [place] [address] Phone #: ext- [phone] 11/07/2020 23:00 [id number] Sex: F : 1995 Age: 25y LaMICtal [...] sensory deficit. Reflexes normal. Per formed at 23:0811/07/2020. NIH Stroke Scale: score 0. Level of [...] Catch 3 Clinical Report - Physicians/Mid Levels [facility] Emergency Department [address] [place] [address] Phone #: ext- [phone] 11/07/2020 23:00 Patient: MILIND SWANSON [facility]#: [id number] Sex: F : 1995 Age: 25y COLOR [...] Head W/O Cont: (JIMBO: 11/08/2020 00:05) ( [facility] 11/08/2020 00:07) CanceledReason(s): Head InjuryReason(s): Head InjuryTRANSPORTATION: S IV? O2? Oxygen?(No) Room: [facility]: (JIMBO: 11/07/2020 23:40) ( [facility] 11/08/2020 00:18) Final results Test Result Flag [...] Male GFR Interprentation 20-49 yrs >60 mL/min Bcvvsc76-45 yrs >56 mL/min Normal 60-69 yrs >49 mL/min Normal 70-79yrs>42 mL/min Normal 80 and above >35 mL/min Normal Female GFRInterpretation 20-39 yrs >60 mL/min Normal 40-49 yrs >58 mL/minNormal 50-59 yrs >51 mL/min Normal 60-69 yrs >45 mL/min Zjlakt24-14 yrs >39 mL/min Normal 80 and above >32 mL/min NormalCBC w Diff: (JIMBO: 11/07/2020 23:40) ( MsgRcvd 11/07/2020 23:50) Final results Test Result Flag Units (Reference) CBC W/AUTOMATED DIFF COMPLETE BLOOD COUNT 4 Clinical Report - Physicians/Mid Levels [facility] Emergency Department [address] [place] [address] Phone #: ext- [phone] 11/07/2020 23:00 Patient: [...] NOT INDICATED PT/INR: (JIMBO: 11/07/2020 23:40) ( [facility] 11/07/2020 23:56) Final results Test Result Flag [...] Beta-HCG, Quant Serum: (JIMBO: 11/07/2020 23:40) ( [facility] 11/08/2020 00:08) Final results Test Result Flag Units (Reference) HCG QUANT <0.5 mIU/mL Interpretation: Less than 5 mU/mL: Negative 6-10 mU/mL: Borderline (suggest repeat in 48 hours) >10: Positive Approx HCG range (mU/mL) Weeks post LMP 5.4-708 mU/mL 3-4 Weeks 217-75403 mU/mL 5-6 Weeks 4059-417574 mU/mL 7-8 Weeks 81910-822929 mU/mL 9-10 Weeks 92539-63911 mU/mL 12- 14 Weeks 39090-57814 mU/mL 15-16 Weeks 8240-11470 mU/mL 17-18 Weeks.PROGRESS AND PROCEDURESCourse of Care: 23:37 11/07/20. Patient had a CT scan of the head on Jun 2020 and in october 31nd was read as normal 00:28 11/08/20. she was given ofirmev for headache. she has a mildly elevated wbc but chemistries are 5 Clinical Report - Physicians/Mid Levels [facility] Emergency Departm ent [address] [place] [address] Phone #: ext- [phone] 11/07/2020 23:00 Patient: MILIND SWANSON Sex: F [...] capsule. Refills: 0. Substitution permitted. Pharmacy - [id number] - [id number] [facility] ; [place] [address]. . Follow-up: Follow up with your healthcare provider in four days. Reason for referral: evaluation. Summary of care provided to patient via paper. Screening today revealed the patient's blood pressure to be in the hypertensive stage 2 range. The patient should follow up with a primary care provider for blood pressure management. 6 Clinical Report - Physicians/Mid Levels [facility] Emergency Department [address] [place] [address] Phone #: [phone] ext- [phone] 11/07/2020 23:00 Patient: MILIND SWANSON Sex: F : 1995 Age: 25y(Electronically signed by Obdulia Horan 11/08/2020 01:35) Name Value Range Interpretation Code Description Data Donna rce(s) Supporting Document(s) ID Date Data Source [id number] 11/08/2020 12:39:00 AM EDT [facility] Name Value Range Interpretation Code Description Data Donna rce(s) Supporting Document(s) URINALYSIS [facility] audi URINALYSIS SOURCE Clean Catch [facility] ital COLOR yellow NORMAL: Yellow [facility] CLARITY clear NORMAL: Clear [facility] Specific gravity of Urine by Test strip 1.015 1.001 - 1.030 [facility] pH 6 5 - 9 [facility] Glucose [Mass/volume] in Urine by Test strip NORM NORMAL: Negat chadd [facility] Bilirubin.total [Presence] in Urine by Test strip NEG NORMAL: Negative [facility] Ketones [Presence] in Urine by Test strip NEG NORMAL: Negative [facility] Protein [Mass/volume] in Urine by Test strip NEG NORMAL: Negat [facility] Nitrite [Presence] in Urine by Test strip NEG NORMAL: Negative [facility] BLOOD NEG NORMAL: Negative [facility] Leukocyte esterase [Presence] in Urine by Test strip NEG SURJIT L: Negative [facility] Urobilinogen [Mass/volume] in Urine by Test strip NOR less deacon n 1.0 mg/dL [facility] MICROSCOPIC Not Indicate [facility] ID Date Data Source [id number] 11/08/2020 12:18:00 AM EDT [facility] Name Value Range Interpretation Code Description Data Donna rce(s) Supporting Document(s) COMPREHENSIVE METABOLIC PANEL [facility] COMPREHENSIVE METABOLIC PANEL Sodium [Moles/volume] in Serum or Plasma 139 mEq/L 134 - 153 [facility] Potassium [Moles/volume] in Serum or Plasma 3.9 mEq/L 3.6 - 5.0 [facility] Chloride [Moles/volume] in Serum or Plasma 104 mEq/L 98 - 107 [facility] Carbon dioxide, total [Moles/volume] in Serum or Plasma 27 MEQ/L 22 - 30 [facility] Glucose [Mass/volume] in Serum or Plasma 87 MG/DL 70 - 99 [facility] BUN 7 MG/DL 7 - 21 [facility] Creatinine [Mass/volume] in Serum or Plasma 0.7 MG/DL 0.7 - 1.5 [facility] BUN/CREAT 10 8 - 27 [facility] Protein [Mass/volume] in Serum or Plasma 7.1 G/DL 6.3 - 8.2 [facility] Albumin [Mass/volume] in Serum or Plasma 3.9 G/DL 3.9 - 5.0 [facility] Globulin [Mass/volume] in Serum by calculation 3.2 GM/DL 2.4 - 3.2 [facility] A/G RATIO 1.2 0.8 - 2.0 [facility] Calcium [Mass/volume] in Serum or Plasma 8.8 MG/DL 8.4 - 10.2 [facility] Bilirubin.total [Mass/volume] in Serum or Plasma <0.7 MG/DL 0.2 - 1.3 [facility] Alkaline phosphatase [Enzymatic activity/volume] in Serum or Plasma 84 U/L 38 - 126 [facility] Aspartate aminotransferase [Enzymatic activity/volume] in Serum or Plasma 12 U/L 5 - 40 [facility] Alanine aminotransferase [Enzymatic activity/volume] in Seru m or Plasma 8 U/L 7 - 56 [facility] Anion gap 3 in Serum or Plasma 8.0 mmol/L 8.0 - 16.0 [facility] AGE 25 yrs [facility] NON-AA GFR >60 mL/min [facility] ital AFR AMER GFR >60 mL/min [facility] Male GFR In [...] >32 mL/min Normal ID Date Data Source [id number] 11/08/2020 12:07:00 AM EDT [facility] Name Value Range Interpretation Code Description Data Donna rce(s) Supporting Document(s) Choriogonadotropin.intact [Units/volume] in Serum or Plasma <0.5 mIU/ mL [facility] Interpr etation: Less than 5 mU/mL: Negative 6-10 mU/mL: Borderline (suggest repeat in 48 hours) >10: Positive Approx HCG range (mU/mL) Weeks post LMP 5.4-708 mU/mL 3-4 Weeks 217-31909 mU/mL 5-6 Weeks 4059-968209 mU/mL 7-8 Weeks 28443-325385 mU/mL 9-10 Weeks 41993-15673 mU/mL 12-14 Weeks 11643-88895 mU/mL 15-16 Weeks 8240- 00853 mU/mL 17-18 Weeks ID Date Data Source [id number] 11/07/2020 11:56:00 PM EDT [facility] Name Value Range Interpretation Code Description Data Donna rce(s) Supporting Document(s) Prothrombin time (PT) 13.1 SECONDS 11.0 - 15.5 [facility] INR in Platelet poor plasma by Coagulation assay 0.94 0.93 - 1. 23 [facility] \\BLDo\\INR INTERPRETATION\\BLDx\\ Therapeutic range for Coumadin and related oral anticoagulants. - International Normalized Ratio (INR): 2.0 - 3.0 for Venous Thrombosis, Pulmonary Embolus, Tissue heart valves, Acute [place], Atrial Fibrillation, Valvular heart disease and recurrent Systemic Embolism. -International Normalized Ratio (INR): 2.5 - 3.5 for Mechanical Prosthetic valve. ID Date Data Source [id number] 11/07/2020 11:50:00 PM EDT [facility] Name Value Range Interpretation Code Description Data Donna rce(s) Supporting Document(s) CBC W/AUTOMATED DIFF [facility] COMPLETE BLOOD COUNT Leukocytes [#/volume] in Blood by Automated count 12.0 10^3/uL 4.2 - 11.0 H [facility] Erythrocytes [#/volume] in Blood by Automated count 4.76 10^6/uL 4. 20 - 5.40 [facility] Hemoglobin [Mass/volume] in Blood 13.6 g/dL 12.0 - 16.0 [facility] Hematocrit [Volume Fraction] of Blood by Automated count 41.5 % 3 7.0 - 47.0 [facility] Erythrocyte mean corpuscular volume [Entitic volume] by Auto mated count 87.2 fL 81.0 - 101 [facility] Erythrocyte mean corpuscular hemoglobin [Entitic mass] by Automated count 28.6 pg 27.0 - 34.0 [facility] Erythrocyte mean corpuscular hemoglobin concentration [Mass/volume] by Automated count 32.8 g/dL 31.0 - 36.0 [facility] Erythrocyte distribution width [Ratio] by Automated count 14.5 % 11.5 - 14.5 [facility] Platelets [#/volume] in Blood by Automated count 293 10^3/uL 150 - 45 0 [facility] Platelet mean volume [Entitic volume] in Blood by Automated count 10.4 fL 7.4 - 10.4 [facility] Neutrophils/100 leukocytes in Blood by Automated count 52.7 % 37. 0 - 80.0 [facility] Lymphocytes/100 leukocytes in Blood by Manual count 32.9 % 25.0 - 40.0 [facility] Monocytes/100 leukocytes in Blood by Automated count 9.9 % 3.0 - 8.0 H [facility] Eosinophils/100 leukocytes in Blood by Automated count 3.7 % 0.0 - 7.0 [facility] Basophils/100 leukocytes in Blood by Automated count 0.6 % 0.0 - 2.5 [facility] %IG 0.2 % 0.0 - 0.0 [facility] %NRBC 0.0 % 0.0 - 0.0 [facility] Neutrophils [#/volume] in Blood by Automated count 6.34 10^3/uL 2.00 - 6.90 [facility] Lymphocytes [#/volume] in Blood by Automated count 3.95 10^3/uL 0.60 - 3.40 H [facility] Monocytes [#/volume] in Blood by Automated count 1.19 10^3/uL 0.00 - 0.90 H [facility] Eosinophils [#/volume] in Blood by Automated count 0.44 10^3/uL 0.00 - 0.70 [facility] Basophils [#/volume] in Blood by Automated count 0.07 10^3/uL 0.00 - 0.20 [facility] #IG 0.03 10^3/uL 0.00 - 0.10 [facility] ospital #NRBC 0.00 10^3/uL 0.00 - 0.00 [facility] MANUAL DIFF NOT INDICATED [facility] RBC MORPH NOT INDICATED [facility] ID Date Data Source [id number] 10/31/2020 11:08:00 PM EDT [facility] Name Value Range Interpretation Code Description Data Donna rce(s) Supporting Document(s) SARS-CoV-2 (COVID 19) NEGATIVE - SARS-CoV-2 (COVID19) [facility] This lab was ordered by [facility] a nd reported by [facility]. ID Date Data Source [id number] 10/28/2020 11:04:00 AM EDT [facility] Name Value Range Interpretation Code Description Data Donna rce(s) Supporting Document(s) SARS-CoV-2 (COVID 19) NEGATIVE - SARS-CoV-2 (COVID19) [facility] This lab was ordered by [facility] a nd reported by [facility]. ID Date Data Source [id number] 10/27/2020 12:00:00 AM EDT [facility] Name Value Range Interpretation Code Description Data Donna rce(s) Supporting Document(s) SARS-CoV2 Rapid Antigen Negative [facility] This lab was ordered by [facility] and reported by [facility]. ID Date Data Source [id number] 09/22/2020 12:07:00 PM EDT [facility] Name Value Range Interpretation Code Description Data Donna rce(s) Supporting Document(s) SARS coronavirus 2 RNA [Presence] in Res piratory specimen by LILA with probe detection NEGATIVE [facility] This lab was ordered by [facility] a nd reported by [facility]. ID Date Data Source [id number] 09/09/2020 03:16:00 PM EDT [facility] Name Value Range Interpretation Code Description Data Donna rce(s) Supporting Document(s) COVID-19 RT-PCR RECORDS SPECIALIST SWAB Not Detected [facility] A not detected (negative) test [...] developed and its performance characteristics determined by [facility] and verified at [employer]. It has not been cleared or approved by the U.S. Food and Drug Administration for diagnostic use. This test has been authorized by FDA under an EUA for use by authorized laboratories. Results should be used in conjunction with clinical findings, and should not form the sole basis for a diagnosis or treatment decision. Methods: SARS-CoV-2 Multiplex RT-PCR Assay ID Date Data Source [id number] 09/07/2020 10:30:00 AM EDT [facility] Name Value Range Interpretation Code Description Data Donna rce(s) Supporting Document(s) SARS-CoV-2 (COVID-19) N gene [Presence] in Respiratory specimen by LILA with probe detection NEGATIVE [facility] This lab was ordered by [facility] and reported by [employer]. ID Date Data Source [id number] 09/07/2020 12:00:00 AM EDT [facility] Name Value Range Interpretation Code Description Data Donna rce(s) Supporting Document(s) Carestart Rapid COVID Antigen Test Negative [facility]. ID Date Data Source [id number] 06/24/2020 12:00:00 AM EST [facility] Name Value Range Interpretation Code Description Data Donna rce(s) Supporting Document(s) SARS coronavirus 2 RNA [Presence] in Res piratory specimen by LILA with probe detection NEGATIVE [facility] This lab was ordered by [facility] and reported by [facility]. ID Date Data Source [id number] 06/24/2020 12:00:00 AM EST [facility] Name Value Range Interpretation Code Description Data Donna rce(s) Supporting Document(s) Carestart Rapid COVID Antigen Test Negative [facility] This lab was reported by Haritha henley. ID Date Data Source [id number] 04/24/2020 12:00:00 AM EST [facility] Name Value Range Interpretation Code Description Data Donna rce(s) Supporting Document(s) SARS coronavirus 2 RNA [Presence] in Res piratory specimen by LILA with probe detection [facility] This lab was ordered by [facility] Salomon and reported by [employer]. Procedure Social History Code Duration Value Status Description Data Source(s ) Smoking 01/01/2021 12:00:00 AM EDT Unknown if ever smoked comp leted Unknown if ever smoked [facility] ([facility] Smoking 12/12/2020 12:00:00 AM EDT Current Smoker completed Curre nt Smoker eCW1 ([facility]) Smoking 12/12/2020 12:00:00 AM EDT Current Smoker completed Curre nt Smoker eCW1 ([facility]) Smoking 11/17/2020 12:00:00 AM EDT Current Smoker completed Curre nt Smoker eCW1 ([facility]) Smoking 11/17/2020 12:00:00 AM EDT Current Smoker completed Curre nt Smoker eCW1 ([facility]) Smoking 11/17/2020 12:00:00 AM EDT Current Smoker completed Curre nt Smoker eCW1 ([facility]) Smoking 11/17/2020 12:00:00 AM EDT Current Smoker completed Curre nt Smoker eCW1 ([facility]) Smoking 11/17/2020 12:00:00 AM EDT Current Smoker completed Curre nt Smoker eCW1 ([facility]) Smoking 11/17/2020 12:00:00 AM EDT Current Smoker completed Curre nt Smoker eCW1 ([facility]) Smoking 11/13/2020 12:00:00 AM EDT Current Smoker completed Curre nt Smoker eCW1 ([facility]) Smoking 11/03/2020 12:00:00 AM EDT Current Smoker completed Curre nt Smoker eCW1 ([facility]) Smoking 11/03/2020 12:00:00 AM EDT Current Smoker completed Curre nt Smoker eCW1 ([facility]) Smoking 11/03/2020 12:00:00 AM EDT Current Smoker completed Curre nt Smoker eCW1 ([facility]) Smoking 11/03/2020 12:00:00 AM EDT Current Smoker completed Curre nt Smoker eCW1 ([facility]) Smoking 10/20/2020 12:00:00 AM EDT Current Smoker completed Curre nt Smoker eCW1 ([facility]) Smoking 09/05/2020 12:00:00 AM EDT Unknown if ever smoked comp leted Unknown if ever smoked [facility] ([facility]) Smoking 08/22/2020 12:00:00 AM EST Unknown if ever smoked comp leted Unknown if ever smoked [facility] ([facility]) Smoking 08/20/2020 12:00:00 AM EST Unknown if ever smoked comp leted Unknown if ever smoked [facility] ([facility]) Smoking 07/30/2020 12:00:00 AM EST Unknown if ever smoked comp leted Unknown if ever smoked [facility] ([facility]) Smoking 07/25/2020 12:00:00 AM EST Unknown if ever smoked comp leted Unknown if ever smoked [facility] ([facility]) Smoking 07/16/2020 12:00:00 AM EST Unknown if ever smoked comp leted Unknown if ever smoked [facility] ([facility]) Smoking 06/25/2020 12:00:00 AM EST Unknown if ever smoked comp leted Unknown if ever smoked [facility] ([facility]) Smoking 05/29/2020 12:00:00 AM EST Unknown if ever smoked comp leted Unknown if ever smoked [facility] ([facility]) Smoking 05/28/2020 12:00:00 AM EST Unknown if ever smoked comp leted Unknown if ever smoked [facility] ([facility]) Smoking 05/14/2020 12:00:00 AM EST Unknown if ever smoked comp leted Unknown if ever smoked [facility] ([facility]) Smoking 05/06/2020 12:00:00 AM EST Unknown if ever smoked comp leted Unknown if ever smoked [facility] ([facility]) Smoking 04/16/2020 12:00:00 AM EST Unknown if ever smoked comp leted Unknown if ever smoked [facility] ([facility]) Smoking 03/17/2020 12:00:00 AM EDT Unknown if ever smoked comp leted Unknown if ever smoked [facility] ([facility]) Vital Signs ID Date Data Source UNK Name Value Range Interpretation Code Description Data Source(s) Body weight 236.00 [lb_av] 236.00 [lb_av] MEDEN T ([facility], [facility]) Body temperature 98.0 [degF] 98.0 [degF] MEDENT ([facility]) Systolic blood pressure 108 mm[Hg] 108 mm[Hg] M EDENT ([facility], [facility]) Diastolic blood pressure 75 mm[Hg] 75 mm[Hg] MEDENT ([facility]) Respiratory rate 16 /min 16 /min MEDENT ( [facility], [facility]) Body height 63 [in_i] 63 [in_i] MEDENT ([facility]) 5'3" Heart rate 87 /min 87 /min MEDENT ([facility] [place], [facility]) Oxygen saturation in Arterial blood by Pulse oximetry 98 % 98 % [facility], [facility] Body mass index (BMI) [Ratio] 41.8 kg/m2 41.8 k g/m2 MEDENT ([facility], [facility]) Body weight 244 [lb_av] 244 [lb_av] eCW1 ([facility]) Body height [in_i] eCW1 ([facility] of [facility]) Body mass index (BMI) [Ratio] 42.54 kg/m2 42.54 kg/m2 eCW1 ([facility]) Heart rate 89 /min 89 /min eCW1 ([facility]) Respiratory rate 18 /min 18 /min eCW1 ([facility]) Body temperature 96.2 [degF] 96.2 [degF] eCW1 ( [facility]) Systolic blood pressure 122 mm[Hg] 122 mm[Hg] e CW1 ([facility]) Diastolic blood pressure 82 mm[Hg] 82 mm[Hg] eCW1 ([facility]) Body weight 236 [lb_av] 236 [lb_av] eCW1 ([facility]) Body temperature 96.8 [degF] 96.8 [degF] eCW1 ( [facility]) Body height [in_i] eCW1 ([facility]) Body mass index (BMI) [Ratio] 41.15 kg/m2 41.15 kg/m2 eCW1 ([facility]) Heart rate 119 /min 119 /min eCW1 ([facility]) Systolic blood pressure 122 mm[Hg] 122 mm[Hg] e CW1 ([facility]) Respiratory rate 18 /min 18 /min eCW1 ([facility]) Diastolic blood pressure 82 mm[Hg] 82 mm[Hg] eCW1 ([facility]) Body weight 238 [lb_av] 238 [lb_av] eCW1 ([facility]) Body height [in_i] eCW1 ([facility]) Body mass index (BMI) [Ratio] 41.49 kg/m2 41.49 kg/m2 eCW1 ([facility]) Heart rate 119 /min 119 /min eCW1 ([facility]) Respiratory rate 18 /min 18 /min eCW1 ([facility]) Body temperature 97.7 [degF] 97.7 [degF] eCW1 ( [facility]) Systolic blood pressure 122 mm[Hg] 122 mm[Hg] e CW1 ([facility]) Diastolic blood pressure 82 mm[Hg] 82 mm[Hg] eCW1 ([facility]) Body weight 240 [lb_av] 240 [lb_av] [facility] Body height [in_i] eCW1 ([facility]) Body mass index (BMI) [Ratio] 41.84 kg/m2 41.84 kg/m2 eCW1 ([facility]) Heart rate 104 /min 104 /min eCW1 ([facility]) Respiratory rate 18 /min 18 /min eCW1 ([facility]) Body temperature 96.9 [degF] 96.9 [degF] eCW1 ( [facility]) Systolic blood pressure 122 mm[Hg] 122 mm[Hg] e CW1 ([facility]) Diastolic blood pressure 80 mm[Hg] 80 mm[Hg] eCW1 ([facility]) Body height 0.00 in Normal (applies to non-numeric resu lts) 0.00 in [facility] ([facility]) Body weight Measured 0.00 lbs Normal (applies to n on-numeric results) 0.00 lbs [facility] ([facility]) Body mass index (BMI) [Ratio] 0.00 kg/m2 No rmal (applies to non-numeric results) 0.00 kg/m2 [facility] ([facility]) Systolic blood pressure 0 mm[Hg] Normal (applies t o non-numeric results) 0 mm[Hg] [facility] ([facility]) Diastolic blood pressure 0 mm[Hg] Normal (applies to non-numeric results) 0 mm[Hg] [facility] ([facility]) Body height 0.00 in Normal (applies to non-numeric resu lts) 0.00 in [facility] ([facility]) Body weight Measured 0.00 lbs Normal (applies to n on-numeric results) 0.00 lbs [facility] ([facility]) Body mass index (BMI) [Ratio] 0.00 kg/m2 No rmal (applies to non-numeric results) 0.00 kg/m2 [facility] ([facility]) Systolic blood pressure 0 mm[Hg] Normal (applies t o non-numeric results) 0 mm[Hg] [facility] ([facility]) Diastolic blood pressure 0 mm[Hg] Normal (applies to non-numeric results) 0 mm[Hg] [facility] Body temperature 96.0 [degF] 96.0 [degF] MEDENT ([facility]) Body height 64 [in_i] 64 [in_i] MEDENT ([facility]) 5'4" Body weight 248.12 [lb_av] 248.12 [lb_av] MEDEN T ([facility]) Body mass index (BMI) [Ratio] 42.6 kg/m2 42.6 k g/m2 MEDENT ([facility]) Body weight 248.12 [lb_av] 248.12 [lb_av] MEDEN T ([facility]) Body temperature 96.0 [degF] 96.0 [degF] MEDENT ([facility]) Body height 64 [in_i] 64 [in_i] MED[facility] ([facility]) 5'4" Body mass index (BMI) [Ratio] 42.6 kg/m2 42.6 k g/m2 [facility] ([facility]) Body height 63.00 in Normal (applies to non-numeric resu lts) 63.00 in [facility] ([facility]) Body weight Measured 250.00 lbs Normal (applies to n on-numeric results) 250.00 lbs [facility] ([facility]) Body mass index (BMI) [Ratio] 44.28 kg/m2 No rmal (applies to non-numeric results) 44.28 [facility] Systolic blood pressure 0 mm[Hg] Normal (applies t o non-numeric results) 0 mm[facility]Hg] [facility] Diastolic blood pressure 0 mm[Hg] Normal (applies to non-numeric results) 0 mm[Hg] [facility] ([facility]) Patient Treatment Plan of Care Planned Activity Planned Date Details Description Data Source (s) 120 ACTUAT Budesonide 0.08 MG/ACTUAT / f ormoterol fumarate 0.0045 MG/ACTUAT Metered Dose Inhaler 12/12/2020 12:00:00 AM EDT eCW1 ([facility]) 120 ACTUAT Budesonide 0.08 MG/ACTUAT / f ormoterol fumarate 0.0045 MG/ACTUAT Metered Dose Inhaler 12/12/2020 12:00:00 AM EDT eCW1 ([facility])
[2021-05-13 09:30] LABS: HEMATOCRIT 42.1 % (36.0-47.0); HEMOGLOBIN 13.6 g/dl (12.0-15.5); MEAN CORPUSCULAR HEMOGLOBIN 28.2 pg (27.0-33.0); MEAN CORPUSCULAR HGB CONC 32.3 g/dl (32.0-36.5); MEAN CORPUSCULAR VOLUME 87.2 fl (80.0-96.0); PLATELET COUNT, AUTOMATED 331 10^3/uL (150-450); RED BLOOD COUNT 4.83 10^6/uL (4.00-5.40); WHITE BLOOD COUNT 10.6 10^3/uL (4.0-10.0)
[2021-05-13] MEDS ORDERED: propofoL 200 MG/20 ML VIAL As Ordered ONE ×2 (12:32→15:21)
[2021-05-13] MEDS ORDERED: fentaNYL 100 MCG/2 ML INJECTION (J3010) As Ordered ONE (12:32)
[2021-05-13] MEDS ORDERED: LIDOCAINE 2% 100MG/5ML SDV (FOR ANES.) As Ordered ONE (12:32)
[2021-05-13] MEDS ORDERED: MIDAZOLAM INJ 2MG/2ML VIAL (J2250 PER 1MG) As Ordered ONE (12:32)
[2021-05-13] MEDS ORDERED: ROCURONIUM BROMIDE 50 MG/5 ML VIAL As Ordered ONE (12:33)
[2021-05-13] MEDS ORDERED: dexameTHASONE 4 MG/ML 1ML VIAL (J1100 PER 1MG) As Ordered ONE (12:33)
[2021-05-13] MEDS ORDERED: ONDANSETRON 4MG/2ML VIAL As Ordered ONE (12:33)
[2021-05-13] MEDS ORDERED: HYDROmorphone HCL 2 MG/ML 1ML VIAL As Ordered ONE (14:13)
[2021-05-13] MEDS ORDERED: BUPIVACAINE HCL 0.25% 30ML VIAL As Ordered ONE (14:16)
[2021-05-13] MEDS ORDERED: SUGAMMADEX SODIUM 500 MG/5 ML VIAL (BRIDION) As Ordered ONE (15:09)
[2021-05-13] MEDS ORDERED: DESFLURANE 240 ML INHALANT As Ordered ONE (17:06)
--- NOTE | 2021-05-13 17:42 | ROOPDOC ---
[facility] Report Of Operation Report of Operation DATE OF PROCEDURE: 05/13/21 PREPROCEDURE DIAGNOSES: 1. right dermoid cyst 2. pelvic pain POSTPROCEDURE DIAGNOSES: right dermoid cyst PROCEDURE PERFORMED: right ovarian cystectomy laparoscopic. SURGEON: Alex Roa DO HOME ENERGY AUDITOR: Chaitanya Rodriguez MD ANESTHESIA: general ESTIMATED BLOOD LOSS: Approximately 25 mL. COMPLICATIONS: none REMARKS: none FINDINGS: right apparent dermoid cyst, removed. Otherwise normal appearing uterus, tubes and ovaries. Normal appearing bowel and liver edge. No abnormalities on abdominopelvic survey. SPECIMENS REMOVED: right dermoid cyst PROCEDURE NOTE: see below DESCRIPTION OF PROCEDURE: After obtaining informed consent, the patient was brought to the operating suite and prepped/draped in the usual manner. The patient name, date of and procedure to be performed were verified. A spongestick was placed vaginally for uterine manipulation. A 5mm incision was made supraumbilically. The abdomen was grasped with penetrating towel clamps and elevated. Several attempts were made to enter the peritoneum with direct optical entry that were unsuccessful. The veress needle was then utilized to insufflate the abdomen to 15mmHg. Direct optical entry was then successful. An 11mm port was then placed on the right side under direct vision. Abdominopelvic survey was then performed with the results as above. A 5mm port was placed on the left under direct vision. The right ovary was grasped and then an incision was made with the monopolar Ligasure. A suction was placed into the cyst and the liquid contents removed. An endoloop was placed over the remaining cyst and tightened. A second endoloop was placed and tightened. The cyst was then cut free from the ovary. An endopouch was introduced and the cyst placed in it. The bag was brought to the abdominal wall. While attempting to pull the cyst through the bag broke. A visiport was then placed through the same incision on the right. Endoshears were used to slightly enlarge the right fascial incision. The cyst then was able to be removed in the bag. The right ovary was then examined again and the endoloops detached. The bipolar ligasure was then used to remove the remaining cyst wall which was withdrawn through the visiport. The ovary was noted to be hemostatic and several liters of fluid were then used to irrigate the abdomen and pelvis. The ports were then removed under direct visualization and the abdomen desufflated. The port sites were closed with 4-0 monocryl and skin glue. 0.25% bupivacaine was used as local anesthetic. (18cc total). The spongestick was removed from the vagina. All counts were correct. The patient was stable when I left the room. The patient was awakened from anesthesia and taken to the recovery by anesthesia. DO GAYATHRI Cespedes BRADLEY J. DO May 13, 2021 17:42
[2021-05-13] MEDS ORDERED: HYDROMORPHONE HCL 0.5 MG/ 0.5 ML SYRINGE (J1170 PER 1) IV PRN (17:45)
[2021-05-13] MEDS ORDERED: fentaNYL 100 MCG/2 ML INJECTION (J3010) IV PRN (17:45)
[2021-05-13] MEDS ORDERED: ONDANSETRON 4MG/2ML VIAL IV PRN (17:45)
[2021-05-13] MEDS ORDERED: LR 1,000 ML IV SCH ×2 (17:45)
[2021-05-13] MEDS ORDERED: oxyCODONE 5MG TAB PO PRN (17:45)
[2021-05-13 18:28] VITALS: BP 133/71
== END 2021-05-13 18:45 | disposition home or self-care (01) ==
LOC: M SDC 08:32
PROVIDERS: ATTEND Obstetrics & Gynecology
DX: D27.0 Benign neoplasm of right ovary (principal); R10.2 Pelvic and perineal pain; G40.909 Epilepsy, unspecified, not intractable, without status epilepticus; F32.9 Major depressive disorder, single episode, unspecified; F41.9 Anxiety disorder, unspecified; M54.9 Dorsalgia, unspecified; M79.7 Fibromyalgia; J45.909 Unspecified asthma, uncomplicated; L30.9 Dermatitis, unspecified; R06.83 Snoring; G47.33 Obstructive sleep apnea (adult) (pediatric); Z79.899 Other long term (current) drug therapy; Z91.040 Latex allergy status; Z91.018 Allergy to other foods; Z91.013 Allergy to seafood; F17.290 Nicotine dependence, other tobacco product, uncomplicated
CPT/HCPCS: 36415; 58662; 81025; 85027; 88305; J1100; J1170; J2250; J2405; J3010

== ENCOUNTER 2021-07-13 17:18 | Emergency (ER) | payer OTHER ==
[~2021-07-13] VITALS: Ht 160 cm; Wt 120.7 kg
[2021-07-13 17:18] VITALS: BP 121/94
[~2021-07-13 17:18] MED LIST changes: -ACETAMINOPHEN 500 MG TAB PO ONE; -LR 1,000 ML IV ONE; +TIZA10TA; -TIZA4TAB4
== END 2021-07-14 00:02 | disposition home or self-care (01) ==
LOC: M ED 17:18
DX: M79.10 Myalgia, unspecified site (principal); M25.50 Pain in unspecified joint; L65.9 Nonscarring hair loss, unspecified; L20.9 Atopic dermatitis, unspecified; M79.7 Fibromyalgia; F32.A Depression, unspecified; F41.9 Anxiety disorder, unspecified; F43.10 Post-traumatic stress disorder, unspecified; J45.909 Unspecified asthma, uncomplicated; G40.909 Epilepsy, unspecified, not intractable, without status epilepticus; Z86.16 Personal history of COVID-19; R73.03 Prediabetes; Z91.040 Latex allergy status; Z91.013 Allergy to seafood; Z79.899 Other long term (current) drug therapy

== ENCOUNTER 2021-08-04 22:38 | Emergency (ER) | payer OTHER ==
[~2021-08-04] VITALS: Ht 160 cm; Wt 118.7 kg
[2021-08-05 02:13] LABS: BASO # 0.1 10^3/uL (0.0-0.2); BASO % 0.4 % (0.0-1.0); EOS # 0.2 10^3/uL (0.0-0.5); EOS % 0.9 % (0.0-3.0); HEMATOCRIT 43.1 % (36.0-47.0); HEMOGLOBIN 13.9 g/dl (12.0-15.5); LYMPH # 3.6 10^3/uL (1.5-5.0); MEAN CORPUSCULAR HEMOGLOBIN 28.2 pg (27.0-33.0); MEAN CORPUSCULAR HGB CONC 32.3 g/dl (32.0-36.5); MEAN CORPUSCULAR VOLUME 87.4 fl (80.0-96.0); MONO % 10.2 % (2.0-8.0); NEUTROPHILS # 10.9 10^3/uL (1.5-8.5); NEUTROPHILS % 66.1 % (36.0-66.0); PLATELET COUNT, AUTOMATED 343 10^3/uL (150-450); RED BLOOD COUNT 4.93 10^6/uL (4.00-5.40); WHITE BLOOD COUNT 16.5 10^3/uL (4.0-10.0)
[2021-08-05 02:35] LABS: MONO # 1.7 10^3/uL (0.0-0.8)
[2021-08-05 02:37] LABS: HCG, SERUM QUALITATIVE NEGATIVE (NEGATIVE)
[2021-08-05 02:51] LABS: BLOOD UREA NITROGEN 7 MG/DL (7-18); CALCIUM LEVEL 8.7 MG/DL (8.5-10.1); CARBON DIOXIDE LEVEL 24 MEQ/L (21-32); CHLORIDE LEVEL 109 MEQ/L (98-107); CREATININE FOR GFR 0.73 MG/DL (0.55-1.30); GLOMERULAR FILTRATION RATE > 60.0 (>60); GLUCOSE, FASTING 83 MG/DL (70-100); POTASSIUM SERUM 4.1 MEQ/L (3.5-5.1); SODIUM LEVEL 140 MEQ/L (136-145)
[2021-08-05] MEDS ORDERED: ISOVUE-370 76% 100ML VIAL As Ordered ONE (03:12)
[2021-08-05 04:45] VITALS: BP 130/76
== END 2021-08-05 04:57 | disposition home or self-care (01) ==
LOC: M ED 22:38
DX: R07.89 Other chest pain (principal); J02.9 Acute pharyngitis, unspecified; R00.0 Tachycardia, unspecified; M79.7 Fibromyalgia; F17.200 Nicotine dependence, unspecified, uncomplicated; Z91.013 Allergy to seafood; Z91.040 Latex allergy status; Z79.899 Other long term (current) drug therapy
CPT/HCPCS: 36415; 71275; 80048; 84484; 84703; 85025; 85379; 87798; 93005; 93041; 94760; 99285; Q9967

== ENCOUNTER 2021-08-23 10:22 | Emergency (ER) | payer OTHER ==
[~2021-08-23] VITALS: Ht 160 cm; Wt 119.2 kg
[2021-08-23 11:09] LABS: BASO # 0.1 10^3/uL (0.0-0.2); BASO % 0.5 % (0.0-1.0); EOS # 0.2 10^3/uL (0.0-0.5); EOS % 1.8 % (0.0-3.0); HEMOGLOBIN 13.5 g/dl (12.0-15.5); LYMPH # 2.6 10^3/uL (1.5-5.0); LYMPH % 26.8 % (24.0-44.0); MEAN CORPUSCULAR HEMOGLOBIN 27.8 pg (27.0-33.0); MEAN CORPUSCULAR HGB CONC 32.1 g/dl (32.0-36.5); MEAN CORPUSCULAR VOLUME 86.4 fl (80.0-96.0); MONO # 0.9 10^3/uL (0.0-0.8); MONO % 9.2 % (2.0-8.0); NEUTROPHILS # 5.9 10^3/uL (1.5-8.5); NEUTROPHILS % 61.5 % (36.0-66.0); PLATELET COUNT, AUTOMATED 319 10^3/uL (150-450); RED BLOOD COUNT 4.86 10^6/uL (4.00-5.40); WHITE BLOOD COUNT 9.6 10^3/uL (4.0-10.0)
[2021-08-23 11:31] LABS: HEMOGLOBIN A1c 5.6 %
[2021-08-23 11:36] LABS: HCG, SERUM QUALITATIVE NEGATIVE (NEGATIVE)
[2021-08-23 11:39] LABS: ACETONE/KETONE 0.96 MG/DL (<2.81); BLOOD UREA NITROGEN 8 MG/DL (7-18); CALCIUM LEVEL 8.9 MG/DL (8.5-10.1); CARBON DIOXIDE LEVEL 29 MEQ/L (21-32); CHLORIDE LEVEL 109 MEQ/L (98-107); CREATININE FOR GFR 0.64 MG/DL (0.55-1.30); FREE THYROXINE INDEX 3.2 % (1.3-4.8); GLOMERULAR FILTRATION RATE > 60.0 (>60); GLUCOSE, FASTING 80 MG/DL (70-100); POTASSIUM SERUM 4.2 MEQ/L (3.5-5.1); SODIUM LEVEL 140 MEQ/L (136-145); T UPTAKE 39 % (30-39); THYROXINE (T4) 8.1 UG/DL (4.5-12.0)
[2021-08-23 11:59] VITALS: BP 128/79
== END 2021-08-23 13:37 | disposition home or self-care (01) ==
LOC: M ED 10:22
DX: R42 Dizziness and giddiness (principal); E16.2 Hypoglycemia, unspecified; J45.909 Unspecified asthma, uncomplicated; G47.33 Obstructive sleep apnea (adult) (pediatric); Z79.899 Other long term (current) drug therapy; Z91.040 Latex allergy status; Z91.018 Allergy to other foods; Z91.013 Allergy to seafood

== ENCOUNTER 2021-09-28 12:18 | Emergency (ER) | payer OTHER ==
[~2021-09-28] VITALS: Ht 160 cm; Wt 121.4 kg
[2021-09-28] MEDS ORDERED: DOXY100T PO (12:27)
[2021-09-28] MEDS ORDERED: RA M1.74 PO (16:32)
[2021-09-28] MEDS ORDERED: RA M1SOL2 PO (16:35)
[2021-09-28 16:47] VITALS: BP 134/84
== END 2021-09-28 16:48 | disposition home or self-care (01) ==
LOC: M ED 12:18
DX: K59.00 Constipation, unspecified (principal); M79.10 Myalgia, unspecified site; R11.0 Nausea; M79.7 Fibromyalgia; G43.909 Migraine, unspecified, not intractable, without status migrainosus; J45.909 Unspecified asthma, uncomplicated; K58.8 Other irritable bowel syndrome; G47.30 Sleep apnea, unspecified; G89.29 Other chronic pain; M54.50 Low back pain, unspecified; Z91.040 Latex allergy status; Z91.013 Allergy to seafood; Z91.018 Allergy to other foods; F17.200 Nicotine dependence, unspecified, uncomplicated; Z79.899 Other long term (current) drug therapy

== ENCOUNTER 2021-11-11 18:13 | Emergency (ER) | payer OTHER ==
[~2021-11-11] VITALS: Ht 160 cm; Wt 123.1 kg
[~2021-11-11 18:13] MED LIST changes: +DOXY100T PO; +RA M1.74 PO; +RA M1SOL2 PO
[2021-11-11 20:27] LABS: BASO # 0.1 10^3/uL (0.0-0.2); BASO % 0.4 % (0.0-1.0); EOS # 0.1 10^3/uL (0.0-0.5); EOS % 1.2 % (0.0-3.0); HEMATOCRIT 42.6 % (36.0-47.0); HEMOGLOBIN 13.6 g/dl (12.0-15.5); LYMPH # 3.4 10^3/uL (1.5-5.0); LYMPH % 29.2 % (24.0-44.0); MEAN CORPUSCULAR HGB CONC 31.9 g/dl (32.0-36.5); MEAN CORPUSCULAR VOLUME 87.7 fl (80.0-96.0); MONO # 1.2 10^3/uL (0.0-0.8); MONO % 10.4 % (2.0-8.0); NEUTROPHILS # 6.8 10^3/uL (1.5-8.5); NEUTROPHILS % 58.5 % (36.0-66.0); PLATELET COUNT, AUTOMATED 329 10^3/uL (150-450); RED BLOOD COUNT 4.86 10^6/uL (4.00-5.40); WHITE BLOOD COUNT 11.6 10^3/uL (4.0-10.0)
[2021-11-11 20:53] LABS: ALBUMIN 3.4 GM/DL (3.2-5.2); ALT/SGPT 16 U/L (12-78); BILIRUBIN,DIRECT < 0.1 MG/DL (0.0-0.2); BILIRUBIN,TOTAL 0.2 MG/DL (0.2-1.0); LIPASE 75 U/L (73-393); TOTAL PROTEIN 7.8 GM/DL (6.4-8.2)
[2021-11-11 21:14] VITALS: BP 137/77
== END 2021-11-11 21:22 | disposition home or self-care (01) ==
LOC: M ED 18:13
DX: K62.5 Hemorrhage of anus and rectum (principal); R10.9 Unspecified abdominal pain; E11.9 Type 2 diabetes mellitus without complications; G47.33 Obstructive sleep apnea (adult) (pediatric); M79.7 Fibromyalgia; Z91.040 Latex allergy status; Z91.013 Allergy to seafood; Z91.018 Allergy to other foods

== ENCOUNTER 2021-11-23 08:56 | Emergency (ER) | payer OTHER ==
[~2021-11-23] VITALS: Ht 160 cm; Wt 123.0 kg
[2021-11-23 12:56] LABS: URINE PREG TEST NEGATIVE (NEGATIVE)
[2021-11-23 13:51] LABS: BASO % 0.4 % (0.0-1.0); EOS # 0.3 10^3/uL (0.0-0.5); EOS % 3.1 % (0.0-3.0); HEMATOCRIT 41.9 % (36.0-47.0); HEMOGLOBIN 13.4 g/dl (12.0-15.5); LYMPH # 3.4 10^3/uL (1.5-5.0); LYMPH % 33.4 % (24.0-44.0); MEAN CORPUSCULAR HEMOGLOBIN 28.4 pg (27.0-33.0); MEAN CORPUSCULAR VOLUME 88.8 fl (80.0-96.0); MONO % 9.7 % (2.0-8.0); NEUTROPHILS # 5.4 10^3/uL (1.5-8.5); NEUTROPHILS % 53.1 % (36.0-66.0); PLATELET COUNT, AUTOMATED 325 10^3/uL (150-450); RED BLOOD COUNT 4.72 10^6/uL (4.00-5.40); WHITE BLOOD COUNT 10.2 10^3/uL (4.0-10.0)
[2021-11-23 14:22] LABS: ALBUMIN 3.4 GM/DL (3.2-5.2); ALT/SGPT 18 U/L (12-78); BILIRUBIN,DIRECT 0.2 MG/DL (0.0-0.2); BILIRUBIN,TOTAL 0.3 MG/DL (0.2-1.0); BLOOD UREA NITROGEN 7 MG/DL (7-18); CALCIUM LEVEL 9.6 MG/DL (8.5-10.1); CARBON DIOXIDE LEVEL 26 MEQ/L (21-32); CHLORIDE LEVEL 109 MEQ/L (98-107); CREATININE FOR GFR 0.67 MG/DL (0.55-1.30); GLOMERULAR FILTRATION RATE > 60.0 (>60); GLUCOSE, FASTING 85 MG/DL (70-100); LIPASE 72 U/L (73-393); POTASSIUM SERUM 4.3 MEQ/L (3.5-5.1); SODIUM LEVEL 142 MEQ/L (136-145); TOTAL PROTEIN 7.4 GM/DL (6.4-8.2)
[2021-11-23 14:29] LABS: GC DNA AMPLIFICATION NEGATIVE (NEGATIVE)
[2021-11-23 17:54] VITALS: BP 102/60
== END 2021-11-23 18:57 | disposition home or self-care (01) ==
LOC: M ED 08:56
DX: R10.2 Pelvic and perineal pain (principal); R11.2 Nausea with vomiting, unspecified; M79.7 Fibromyalgia; F17.200 Nicotine dependence, unspecified, uncomplicated; F43.10 Post-traumatic stress disorder, unspecified; K58.9 Irritable bowel syndrome, unspecified; Z91.040 Latex allergy status; Z91.013 Allergy to seafood; Z91.018 Allergy to other foods; Z97.5 Presence of (intrauterine) contraceptive device

== ENCOUNTER 2022-02-22 10:26 | Day surgery (SDC) | payer OTHER ==
[~2022-02-22] VITALS: Ht 161.3 cm; Wt 124.2 kg
[~2022-02-22 10:26] MED LIST changes: +ABIL1TAB11 PO; -ASMA110A INH; +BUSP10TA PO; +HYDR50TA70 PO; +LAMO25TA4 PO; +LIDOCAINE 2% 100MG/5ML SDV (FOR ANES.) As Ordered ONE; +MIRA3350 PO; +MOME110A INH; +NORE5TAB PO; +NS 1,000 ML IV ONE; +PREG50CA2 PO; -VITA1CAP25; +VITA1CAP25 PO; +propofoL 200 MG/20 ML VIAL As Ordered ONE
[2022-02-22] MEDS ORDERED: BUPR15TA PO (11:01)
[2022-02-22 12:23] VITALS: BP 108/62
== END 2022-02-22 12:32 | disposition home or self-care (01) ==
LOC: M OPP 10:26
PROVIDERS: ATTEND Internal Medicine Gastroenterology
DX: K64.0 First degree hemorrhoids (principal); K62.5 Hemorrhage of anus and rectum; M79.7 Fibromyalgia; F32.9 Major depressive disorder, single episode, unspecified; F41.9 Anxiety disorder, unspecified; G43.909 Migraine, unspecified, not intractable, without status migrainosus; G40.909 Epilepsy, unspecified, not intractable, without status epilepticus; G47.30 Sleep apnea, unspecified; F17.290 Nicotine dependence, other tobacco product, uncomplicated; Z79.3 Long term (current) use of hormonal contraceptives; Z79.891 Long term (current) use of opiate analgesic; Z79.899 Other long term (current) drug therapy; Z91.013 Allergy to seafood; Z91.018 Allergy to other foods; Z91.040 Latex allergy status; Z86.69 Personal history of other diseases of the nervous system and sense organs

== ENCOUNTER 2022-04-29 07:08 | Emergency (ER) | payer OTHER ==
[~2022-04-29] VITALS: Ht 160 cm; Wt 128.4 kg
[~2022-04-29 07:08] MED LIST changes: +BUPR15TA PO; -LIDOCAINE 2% 100MG/5ML SDV (FOR ANES.) As Ordered ONE; -NS 1,000 ML IV ONE; -propofoL 200 MG/20 ML VIAL As Ordered ONE
[2022-04-29 07:09] VITALS: BP 132/86
[2022-04-29] MEDS ORDERED: ASMA16.7 INH (07:25)
[2022-04-29] MEDS ORDERED: ALBU1.25 NEB (07:25)
[2022-04-29] MEDS ORDERED: IPRATROPIUM 0.5MG/ALBUTEROL 2.5MG INH SOL UD 3ML (DUONEB) NEB PRN (11:45)
[2022-04-29] MEDS ORDERED: ISOVUE-370 76% 100ML VIAL As Ordered ONE (12:34)
[2022-04-29 12:41] LABS: BASO # 0.1 10^3/uL (0.0-0.2); BASO % 0.4 % (0.0-1.0); EOS # 0.2 10^3/uL (0.0-0.5); EOS % 1.2 % (0.0-3.0); HEMATOCRIT 41.6 % (36.0-47.0); LYMPH # 3.3 10^3/uL (1.5-5.0); LYMPH % 23.1 % (24.0-44.0); MEAN CORPUSCULAR HEMOGLOBIN 27.6 pg (27.0-33.0); MEAN CORPUSCULAR HGB CONC 31.3 g/dl (32.0-36.5); MEAN CORPUSCULAR VOLUME 88.3 fl (80.0-96.0); MONO # 1.3 10^3/uL (0.0-0.8); MONO % 9.2 % (2.0-8.0); NEUTROPHILS # 9.5 10^3/uL (1.5-8.5); NEUTROPHILS % 65.8 % (36.0-66.0); PLATELET COUNT, AUTOMATED 340 10^3/uL (150-450); RED BLOOD COUNT 4.71 10^6/uL (4.00-5.40); WHITE BLOOD COUNT 14.4 10^3/uL (4.0-10.0)
[2022-04-29 13:29] LABS: CK-MB VALUE MASS < 1.0 NG/ML (<3.6); CPK CREATINE PHOSPHOKINASE 137 U/L (34-145); MB/CK RELATIVE INDEX 0.72 (< OR =4)
[2022-04-29] MEDS ORDERED: methylPREDNISolone 125MG 2ML VIAL IV ONE (14:55)
[2022-04-29] MEDS ORDERED: IPRATROPIUM 0.5MG/ALBUTEROL 2.5MG INH SOL UD 3ML (DUONEB) NEB ONE (15:15)
[2022-04-29 15:17] LABS: CK-MB VALUE MASS < 1.0 NG/ML (<3.6); CPK CREATINE PHOSPHOKINASE 138 U/L (34-145); MB/CK RELATIVE INDEX 0.72 (< OR =4)
[2022-04-29] MEDS ORDERED: MEDR4PAK PO (16:00)
[2022-04-29] MEDS ORDERED: IPRA0.00 INH (16:00)
[2022-04-29 16:45] LABS: CK-MB VALUE MASS < 1.0 NG/ML (<3.6); CPK CREATINE PHOSPHOKINASE 136 U/L (34-145); MB/CK RELATIVE INDEX 0.73 (< OR =4)
== END 2022-04-29 16:19 | disposition home or self-care (01) ==
LOC: M ED 07:08
DX: J45.901 Unspecified asthma with (acute) exacerbation (principal); J20.9 Acute bronchitis, unspecified; J98.01 Acute bronchospasm; R73.09 Other abnormal glucose; F41.9 Anxiety disorder, unspecified; F32.9 Major depressive disorder, single episode, unspecified; G40.909 Epilepsy, unspecified, not intractable, without status epilepticus; F17.290 Nicotine dependence, other tobacco product, uncomplicated; Z79.899 Other long term (current) drug therapy; Z91.040 Latex allergy status; Z91.013 Allergy to seafood; Z91.018 Allergy to other foods
CPT/HCPCS: 71275; 80047; 82550; 82553; 84484; 84702; 85025; 87486; 87581; 87633; 87798; 93005; 94640; 94760; 96374; 99284; J2930

== ENCOUNTER 2022-05-30 05:27 | Emergency (ER) | payer OTHER ==
[~2022-05-30 05:27] MED LIST changes: +ALBU1.25 NEB; +ASMA16.7 INH; +IPRA0.00 INH; +MEDR4PAK PO
[2022-05-30 07:55] VITALS: BP 115/72
[2022-05-30] MEDS ORDERED: IBUPROFEN 800 MG TAB PO ONE (07:55)
== END 2022-05-30 08:21 | disposition home or self-care (01) ==
LOC: M ED 05:27
DX: S93.401A Sprain of unspecified ligament of right ankle, initial encounter (principal); W10.9XXA Fall (on) (from) unspecified stairs and steps, initial encounter; Y92.009 Unspecified place in unspecified non-institutional (private) residence as the place of occurrence of the external cause; F17.290 Nicotine dependence, other tobacco product, uncomplicated; Z91.040 Latex allergy status; Z91.013 Allergy to seafood; Z91.018 Allergy to other foods; Z79.51 Long term (current) use of inhaled steroids; Z79.899 Other long term (current) drug therapy

== ENCOUNTER 2022-07-30 17:48 | Emergency (ER) | payer OTHER ==
[~2022-07-30] VITALS: Ht 160 cm; Wt 128.1 kg
[2022-07-30] MEDS ORDERED: KETOROLAC 30 MG/ML 1ML VIAL IV ONE (18:35)
[2022-07-30 18:56] LABS: VENOUS BASE EXCESS -1.8 (-2.0-2.0); VENOUS HCO3 23.8 MEQ/L (23.0-27.0); VENOUS O2 SATURATION 53.3 % (60.0-80.0); VENOUS PARTIAL PRESSURE CO2 43.6 mmHg (38.0-50.0); VENOUS PARTIAL PRESSURE O2 28.3 mmHg (30.0-50.0); VENOUS PH 7.355 UNITS (7.330-7.430); VENOUS STANDARD HCO3 21.9 MEQ/L; VENOUS TOTAL CO2 25.1 MEQ/L (24.0-28.0)
[2022-07-30 18:59] LABS: BASO # 0.1 10^3/uL (0.0-0.2); BASO % 0.5 % (0.0-1.0); EOS # 0.1 10^3/uL (0.0-0.5); EOS % 1.1 % (0.0-3.0); HEMATOCRIT 42.1 % (36.0-47.0); HEMOGLOBIN 13.4 g/dl (12.0-15.5); LYMPH # 3.2 10^3/uL (1.5-5.0); LYMPH % 28.3 % (24.0-44.0); MEAN CORPUSCULAR HEMOGLOBIN 27.9 pg (27.0-33.0); MEAN CORPUSCULAR HGB CONC 31.8 g/dl (32.0-36.5); MEAN CORPUSCULAR VOLUME 87.5 fl (80.0-96.0); MONO # 1.1 10^3/uL (0.0-0.8); MONO % 9.7 % (2.0-8.0); NEUTROPHILS # 6.9 10^3/uL (1.5-8.5); NEUTROPHILS % 60.1 % (36.0-66.0); PLATELET COUNT, AUTOMATED 318 10^3/uL (150-450); RED BLOOD COUNT 4.81 10^6/uL (4.00-5.40); WHITE BLOOD COUNT 11.5 10^3/uL (4.0-10.0)
[2022-07-30 19:37] LABS: ALBUMIN 3.3 G/DL (3.2-5.2); ALKALINE PHOSPHATASE 76 U/L (46-116); ALT/SGPT 15 U/L (7.0-40); AST/SGOT 15 U/L (<34); BILIRUBIN,DIRECT < 0.1 MG/DL (<0.4); BILIRUBIN,TOTAL 0.2 MG/DL (0.3-1.2); CK-MB VALUE MASS < 1.0 NG/ML (<3.6); CPK CREATINE PHOSPHOKINASE 105 U/L (34-145); FREE THYROXINE INDEX 2.4 % (1.3-4.8); MB/CK RELATIVE INDEX 0.95 (< OR =4); T UPTAKE 36.6 % (22.5-37.0); THYROXINE (T4) 6.6 UG/DL (4.5-10.9); TOTAL PROTEIN 7.1 G/DL (5.7-8.2)
[2022-07-30] MEDS ORDERED: ISOVUE-370 76% 100ML VIAL As Ordered ONE (20:18)
[2022-07-30 21:02] VITALS: BP 122/75
[2022-07-30] MEDS ORDERED: NAPR-837 PO (21:36)
== END 2022-07-30 22:00 | disposition home or self-care (01) ==
LOC: M ED 17:48
DX: R53.83 Other fatigue (principal); R07.89 Other chest pain; E11.9 Type 2 diabetes mellitus without complications; J45.909 Unspecified asthma, uncomplicated; G40.909 Epilepsy, unspecified, not intractable, without status epilepticus; G47.33 Obstructive sleep apnea (adult) (pediatric); K58.9 Irritable bowel syndrome, unspecified; M79.7 Fibromyalgia; Z79.899 Other long term (current) drug therapy; Z91.040 Latex allergy status; Z91.018 Allergy to other foods; Z91.013 Allergy to seafood
CPT/HCPCS: 71046; 71275; 80047; 80076; 82550; 82553; 82803; 83735; 84436; 84443; 84479; 84484; 85025; 85379; 86618; 93005; 96374; 99284; J1885

== ENCOUNTER 2022-12-04 03:00 | Emergency (ER) | payer OTHER ==
[~2022-12-04] VITALS: Ht 161.3 cm; Wt 130.0 kg
[~2022-12-04 03:00] MED LIST changes: -ASMA16.7 INH; +MOME13HF4 INH
[2022-12-04 04:48] LABS: BASO # 0.1 10^3/uL (0.0-0.2); BASO % 0.5 % (0.0-1.0); EOS # 0.2 10^3/uL (0.0-0.5); HEMOGLOBIN 11.8 g/dl (12.0-15.5); LYMPH # 3.5 10^3/uL (1.5-5.0); LYMPH % 32.2 % (24.0-44.0); MEAN CORPUSCULAR HEMOGLOBIN 27.6 pg (27.0-33.0); MEAN CORPUSCULAR HGB CONC 31.9 g/dl (32.0-36.5); MEAN CORPUSCULAR VOLUME 86.7 fl (80.0-96.0); MONO % 9.2 % (2.0-8.0); NEUTROPHILS # 6.1 10^3/uL (1.5-8.5); NEUTROPHILS % 55.8 % (36.0-66.0); PLATELET COUNT, AUTOMATED 315 10^3/uL (150-450); RED BLOOD COUNT 4.27 10^6/uL (4.00-5.40); WHITE BLOOD COUNT 10.9 10^3/uL (4.0-10.0)
[2022-12-04 05:16] LABS: BLOOD UREA NITROGEN 13 MG/DL (9-23); CARBON DIOXIDE LEVEL 27 MMOL/L (20-31); CHLORIDE LEVEL 109 MMOL/L (98-107); CREATININE FOR GFR 0.77 MG/DL (0.55-1.30); GLOMERULAR FILTRATION RATE > 60.0 (>60); GLUCOSE, FASTING 84 MG/DL (60-100); SODIUM LEVEL 141 MMOL/L (136-145)
[2022-12-04 05:31] LABS: HCG, SERUM QUALITATIVE NEGATIVE (NEGATIVE)
[2022-12-04] MEDS ORDERED: ISOVUE-370 76% 100ML VIAL As Ordered ONE (06:31)
[2022-12-04 08:53] VITALS: BP 131/73; TEMP 97.3; O2SAT 96
== END 2022-12-04 09:00 | disposition home or self-care (01) ==
LOC: M ED 03:00
DX: M79.662 Pain in left lower leg (principal); Z91.040 Latex allergy status; Z91.018 Allergy to other foods; Z91.013 Allergy to seafood; Z79.51 Long term (current) use of inhaled steroids; Z79.899 Other long term (current) drug therapy; E11.9 Type 2 diabetes mellitus without complications; K58.9 Irritable bowel syndrome, unspecified; F32.A Depression, unspecified; F41.9 Anxiety disorder, unspecified
CPT/HCPCS: 36415; 71275; 80048; 84703; 85025; 85379; 93971; 99284; Q9967

== ENCOUNTER → 2023-08-28 | Outpatient (REF) | payer OTHER ==
[~2023-08-28] MED LIST changes: -EFFE37.5 PO; +EFFE37.52 PO; -PREG50CA2 PO; +PREG50CA3 PO
== END ==
LOC: M LAB REF 17:32
PROVIDERS: ATTEND Registered Nurse
DX: L02.211 Cutaneous abscess of abdominal wall (principal); B96.89 Other specified bacterial agents as the cause of diseases classified elsewhere; B95.7 Other staphylococcus as the cause of diseases classified elsewhere

== ENCOUNTER 2023-10-26 09:04 | Day surgery (SDC) | payer OTHER ==
[~2023-10-26] VITALS: Ht 160 cm; Wt 136.8 kg
[~2023-10-26 09:04] MED LIST changes: +ACET32TAB PO; +ACETAMINOPHEN 1000MG 100ML IV BAG As Ordered ONE; +GABA-282 PO; +IBUP-1022 PO; +KETOROLAC 60MG 2ML VIAL As Ordered ONE; +LAMI25CH PO; +LATU40TA2 PO; +LIDOCAINE 2% 100MG/5ML SDV (FOR ANES.) As Ordered ONE; +MIDAZOLAM INJ 2MG/2ML VIAL As Ordered ONE; +ONDANSETRON 4MG 2ML VIAL As Ordered ONE; +ROCURONIUM BROMIDE 50MG/5ML VIAL As Ordered ONE; +SUGAMMADEX SODIUM 500 MG/5 ML VIAL (BRIDION) As Ordered ONE; +TRAZ-252 PO; +fentaNYL 100 MCG/2 ML INJECTION As Ordered ONE; +propofoL 200 MG/20 ML VIAL As Ordered ONE
[2023-10-26 09:49] LABS: HEMATOCRIT 40.8 % (36.0-47.0); HEMOGLOBIN 13.1 g/dl (12.0-15.5)
[2023-10-26] MEDS: LR 1,000 ML IV SCH (09:59)
[2023-10-26] MEDS ORDERED: SCOPOLAMINE 1MG TRANSDERMAL PATCH As Ordered ONE (11:22)
[2023-10-26] MEDS ORDERED: ALBUTEROL 6.7GM INHALER **FOR ANES. CART/OMNICELL ONLY As Ordered ONE (11:43)
[2023-10-26] MEDS ORDERED: PHENYLEPHRINE 10MG/ML 1ML VIAL As Ordered ONE (12:26)
[2023-10-26] MEDS: BOTOX THERAPEUTIC 100 UNIT VIAL As Ordered ONE (13:05)
[2023-10-26] MEDS: LIDOCAINE 1% SDV 30ML VIAL As Ordered ONE (13:07)
[2023-10-26] MEDS: LEVONORGESTREL 52MG (MIRENA) IUD As Ordered ONE (13:29)
[2023-10-26] MEDS ORDERED: fentaNYL 100 MCG/2 ML INJECTION IV PRN (13:30)
[2023-10-26] MEDS: ONDANSETRON 4MG 2ML VIAL IV PRN (13:47)
[2023-10-26] MEDS: MORPHINE 2 MG/ML 1ML VIAL IV PRN (13:47)
[2023-10-26] MEDS: oxyCODONE 5MG TAB PO PRN (13:48)
[2023-10-26 14:51] VITALS: BP 126/67; TEMP 97.4; O2SAT 98
== END 2023-10-26 15:04 | disposition home or self-care (01) ==
LOC: M SDC 09:04
PROVIDERS: ATTEND Obstetrics & Gynecology
DX: N85.4 Malposition of uterus (principal); Z30.433 Encounter for removal and reinsertion of intrauterine contraceptive device; K66.0 Peritoneal adhesions (postprocedural) (postinfection); R10.2 Pelvic and perineal pain; R30.0 Dysuria; N93.9 Abnormal uterine and vaginal bleeding, unspecified; F43.10 Post-traumatic stress disorder, unspecified; G47.30 Sleep apnea, unspecified; Z68.43 Body mass index [BMI] 50.0-59.9, adult; F17.290 Nicotine dependence, other tobacco product, uncomplicated
CPT/HCPCS: 36415; 49320; 58300; 58301; 58555; 81025; 85014; 85018; 87088; J0131; J1100; J1885; J2250; J2371; J2405; J3010; J7298

== ENCOUNTER → 2024-01-04 | Outpatient (REF) | payer OTHER ==
[~2024-01-04] MED LIST changes: -ACETAMINOPHEN 1000MG 100ML IV BAG As Ordered ONE; -KETOROLAC 60MG 2ML VIAL As Ordered ONE; -LIDOCAINE 2% 100MG/5ML SDV (FOR ANES.) As Ordered ONE; -MIDAZOLAM INJ 2MG/2ML VIAL As Ordered ONE; -ONDANSETRON 4MG 2ML VIAL As Ordered ONE; -ROCURONIUM BROMIDE 50MG/5ML VIAL As Ordered ONE; -SUGAMMADEX SODIUM 500 MG/5 ML VIAL (BRIDION) As Ordered ONE; -fentaNYL 100 MCG/2 ML INJECTION As Ordered ONE; -propofoL 200 MG/20 ML VIAL As Ordered ONE
[2024-01-04 13:35] LABS: APPEARANCE, URINE HAZY (CLEAR); BACTERIA, URINE AUTO NEGATIVE (NEGATIVE); BILIRUBIN, URINE AUTO NEGATIVE (NEGATIVE); BLOOD, URINE BLOOD NEGATIVE (NEGATIVE); COLOR, URINE YELLOW (YELLOW); GLUCOSE, URINE (UA) AUTO NEGATIVE (NEGATIVE); KETONE, URINE AUTO NEGATIVE (NEGATIVE); LEUKOCYTE ESTERASE, URINE AUTO NEGATIVE (NEGATIVE); MUCUS, URINE SMALL (NEGATIVE); NITRITE, URINE AUTO NEGATIVE (NEGATIVE); PROTEIN, URINE AUTO NEGATIVE (NEGATIVE); RBC, URINE AUTO 1 /HPF (0-3); SQUAMOUS EPITHELIAL CELL UR AU 8 /HPF (0-6); UROBILINOGEN, URINE AUTO 0.2 mg/dL (0.0-2.0); WBC, URINE AUTO 3 /HPF (0-3)
[2024-01-05 14:07] LABS: Candida species NOT DETECTED (NOT DETECTED); Gardnerella vaginalis DETECTED (NOT DETECTED); Trichamonas vaginalis DETECTED (NOT DETECTED)
== END ==
LOC: M SMT 12:27
PROVIDERS: ATTEND Specialist
DX: N89.8 Other specified noninflammatory disorders of vagina (principal); R35.0 Frequency of micturition

== ENCOUNTER 2025-02-15 19:28 | Emergency (ER) | payer OTHER ==
[~2025-02-15] VITALS: Ht 160 cm; Wt 138.6 kg
[~2025-02-15 19:28] MED LIST changes: +ALBU8.5H INH; +GABA-1172 PO; -GABA-282 PO; -IBUP-1022 PO; +IBUP600T42 PO; +LAMO-18; +LAMO-18 PO; -LAMO25TA4; -LAMO25TA4 PO; +NEBU1EAC78 MC; +PRED20TA PO; +PREG100C2 PO; +SYMB16INH INH
[2025-02-15 20:39] LABS: BASO # 0.1 10^3/uL (0.0-0.2); BASO % 0.6 % (0.0-1.0); EOS # 0.4 10^3/uL (0.0-0.5); EOS % 2.8 % (0.0-3.0); LYMPH # 2.9 10^3/uL (1.5-5.0); LYMPH % 23.5 % (24.0-44.0); MONO # 1.2 10^3/uL (0.0-0.8); MONO % 9.6 % (2.0-8.0); NEUTROPHILS # 7.8 10^3/uL (1.5-8.5); NEUTROPHILS % 63.2 % (36.0-66.0); PLATELET COUNT, AUTOMATED 395 10^3/uL (150-450)
[2025-02-15 20:48] LABS: ERYTHROCYTE SEDIMENTATION RATE 106 mm/hr (0-20)
[2025-02-15 21:09] LABS: C REACTIVE PROTEIN QUANTITATIV 1.15 MG/DL (<1.0)
[2025-02-15 21:10] LABS: ALT/SGPT 10 U/L (7.0-40); AST/SGOT 12 U/L (<34); CALCIUM LEVEL 9.1 MG/DL (8.5-10.1); CARBON DIOXIDE LEVEL 24 MMOL/L (20-31); CHLORIDE LEVEL 106 MMOL/L (98-107); CREATININE FOR GFR 0.72 MG/DL (0.55-1.30); GLOMERULAR FILTRATION RATE > 90.0 (>60); POTASSIUM SERUM 4.3 MMOL/L (3.5-5.1); SODIUM LEVEL 141 MMOL/L (136-145)
[2025-02-15 21:12] LABS: HCG, SERUM QUALITATIVE NEGATIVE (NEGATIVE)
[2025-02-15] MEDS: KETOROLAC 30 MG/ML 1 ML VIAL IV ONE (23:43)
[2025-02-15] MEDS: NS (Normal Saline) 0.9% 1,000 ML IV ONE (23:43)
[2025-02-16 01:15] VITALS: BP 106/59; O2SAT 97
[2025-02-16 01:35] VITALS: TEMP 97.5
== END 2025-02-16 01:36 | disposition home or self-care (01) ==
LOC: M ED 19:28
DX: R51.9 Headache, unspecified (principal); B34.9 Viral infection, unspecified; R00.0 Tachycardia, unspecified; J45.909 Unspecified asthma, uncomplicated; G47.33 Obstructive sleep apnea (adult) (pediatric); G40.909 Epilepsy, unspecified, not intractable, without status epilepticus; F31.9 Bipolar disorder, unspecified; F17.290 Nicotine dependence, other tobacco product, uncomplicated; Z88.8 Allergy status to other drugs, medicaments and biological substances; Z91.018 Allergy to other foods; Z91.013 Allergy to seafood; Z91.040 Latex allergy status; Z79.1 Long term (current) use of non-steroidal anti-inflammatories (NSAID); Z79.51 Long term (current) use of inhaled steroids; Z79.899 Other long term (current) drug therapy; Z79.52 Long term (current) use of systemic steroids
CPT/HCPCS: 80048; 80076; 84703; 85025; 85652; 86140; 87486; 87581; 87633; 87798; 93005; 96361; 96374; 99284; J1885